=== PATIENT | male | born 1965 | race Caucasian/White ===

== ENCOUNTER 2017-06-18 13:59 | Inpatient (IN) | payer OTHER, BC ==
[~2017-06-18] VITALS: Ht 190.5 cm; Wt 114.1 kg
[~2017-06-18 13:59] MED LIST: ATOR-24 PO; FEXO1TAB46 PO; GLUCTAB7 PO; LISI20TA3 PO; METO-478 PO; MULTTAB PO; OMEP10CA2 PO; UBIQUINOL PO
--- NOTE | 2017-06-18 14:14 | EMERGENCY ROOM VISIT NOTE ---
History Report prepared by Williams: Cristopher Black Under the Supervision of: Dr. Ramu Ricks D.O. First contact with patient: 14:09 Chief Complaint: HYPOTENSION Stated Complaint: NEAR SYNCOPE History of Present Illness The patient is a 52 year old male who presents to the Emergency Room with complaints of constant weakness that began a week ago. He states that he had a laminectomy a week ago and was given Decadron for pain. The patient states that he was fine following his surgery and was tapering off Decadron. HE reports that a couple of days after his surgery, he started to experience hypotension. His states that he usually takes blood pressure medication, but reports he has not been taking his medication this week. She reports that he has been experiencing diaphoresis, shortness of breath, and syncopal episodes. The patient states that he went to his PCP Dr. Alatorre today where his blood pressure was 80/40. He reports that his PCP sent him to the ED. He denies chest pain, a history of clots in lungs of leg, black stools, bloody stools, and fevers. Source of History: patient Associated Symptoms: + diaphoresis, + SOB, No fevers, No chest pain, No melena, No hematochezia Review of Systems See HPI for pertinent positives & negatives. A total of 10 systems reviewed and were otherwise negative. Past Medical & Surgical Medical Problems: (1) Hyperlipidemia (2) Hypertension Surgical Problems: (1) H/O neck surgery (2) Previous back surgery (3) S/P appy Family History No pertinent family history Social History Smoking Status: Never Smoker Marital Status: in relationship Current/Historical Medications Scheduled Atorvastatin (Lipitor), 40 MG PO DAILY Calcium Citrate-Vitamin D (Citracal + D3 Maximum), 1 TAB PO HS Cetirizine Hcl (Zyrtec), 10 MG PO DAILY Coenzyme Q10 (Ubidecarenone) (Co Q10), 1 CAP PO DAILY Fish Oil (Oxford-3), 1 CAP PO DAILY Fluoxetine (Prozac), 10 MG PO DAILY Yzmmksphuii-Yesliuvfbnq-Jkm C- (Glucosamine Chondroitin), 1 TAB PO DAILY Lisinopril (Prinivil), 20 MG PO DAILY Magnesium Oxide (Mg Supplement (Magnesium Oxide), 400 MG PO HS Metoprolol Succ (Toprol Xl) (Toprol-Xl ), 100 MG PO DAILY Multivitamins/Minerals (Mvi With Minerals), 1 TAB PO DAILY Omeprazole (Prilosec), 1 CAP PO DAILY Polyethylene Glycol 3350 (Miralax), 17 GM PO DAILY Senna (Senokot), 1 TAB PO DAILY Sennosides-Docusate Sodium (Stool Softener), 1 TAB PO DAILY [tumeric], 500 MG PO DAILY Scheduled PRN Acetaminophen (Tylenol), 1,000 MG PO QAM PRN for Pain or Fever Methocarbamol (Robaxin), 1 TAB PO QID PRN for muscle spasms Allergies Coded Allergies: No Known Allergies (Unverified , 06/18/17) Physical Exam Vital Signs Date Time Temp Pulse Resp B/P (MAP) Pulse Ox O2 Delivery O2 Flow Rate FiO2 06/18/17 19:51 87 18 114/73 95 Room Air 06/18/17 19:40 88 120/68 91 108/71 100 84/56 06/18/17 18:47 86 18 107/70 96 Room Air 06/18/17 16:57 77 18 124/73 98 Room Air 06/18/17 15:43 84 16 101/64 96 Room Air 06/18/17 14:48 97 Room Air 06/18/17 14:17 86 06/18/17 14:07 36.8 90 18 115/75 96 Room Air Physical Exam GENERAL: Patient is awake, alert, and in no acute distress. Patient is resting comfortably and showing no signs of anxiety EYES: The conjunctivae are clear. The pupils are round and reactive. EARS, NOSE, MOUTH AND THROAT: The nose is without any evidence of any deformity. Mucous membranes are moist tongue is midline NECK: The neck is nontender and supple. RESPIRATORY: Normal respiratory effort is noted there is no evidence of wheezing rhonchi or rales CARDIOVASCULAR: Regular rate and rhythm noted there no murmurs rubs or gallops normal S1 normal S2 GASTROINTESTINAL: The abdomen is soft. Bowel sounds are present in all quadrants. Abdomen is nontender BACK: Recent surgical scare noted on lower lumbar spine. Ecchymosis noted. No warmth or erythema appreciated. No dehiscence or drainage. MUSCULOSKELETAL/EXTREMITIES: There is no evidence of gross deformity full range of motion is noted in the hips and shoulders SKIN: There is no obvious evidence of any rash. There are no petechiae, pallor or cyanosis noted. NEUROLOGIC: Patient is awake alert and oriented x3 strength is symmetric Medical Decision & Procedures ER Provider Diagnostic Interpretation: Radiology results as stated below per my review and radiologist interpretation: CHEST ONE VIEW PORTABLE CLINICAL HISTORY: Sepsis COMPARISON STUDY: 07/17/2014 FINDINGS: The cardiac and mediastinal contours are normal. There is no evidence of focal pulmonary consolidation. There is no evidence of failure. No pleural effusions are visualized.[ IMPRESSION: No active disease in the chest. Electronically signed by: Amado Mckeon M.D. 06/18/2017 2:38 PM Dictated Date/Time: 06/18/2017 2:[address] SCAN OF THE LUMBAR SPINE WITHOUT IV CONTRAST CLINICAL HISTORY: Hypotension. Reported history of recent surgery. COMPARISON STUDY: No priors. TECHNIQUE: CT scan of the lumbar spine is performed from the lower thoracic spine to the sacrum. Images are reviewed in the axial, sagittal, and coronal planes. IV contrast was not administered for this examination. A dose lowering technique was utilized adhering to the principles of ALARA. FINDINGS: The skeletal structures are well mineralized. There is a nondistracted acute spinous process fracture of L4, best seen on axial image #233. No additional acute fracture is identified. No lytic or blastic lesion is seen. There are changes of hemilaminectomy seen on the left at L4-L5. Vertebral body height and alignment are maintained throughout the lumbar spine. Tiny anterior osteophytes are seen throughout. There is no evidence of spondylolysis. The transverse processes are intact. A tiny hemangioma is seen in the body of T12. There is advanced disc space narrowing at L5-S1 with associated endplate sclerosis. The disc spaces are otherwise maintained. No large disc herniation is identified by CT. There is questionable hyperdense material within the anterior and left epidural space, seen at L4 at the laminectomy level (axial image #252). Postoperative change is seen in the left paraspinous musculature at the operative site. No organized fluid collection is identified. The paraspinous soft tissues are otherwise normal in appearance. There is moderate atherosclerotic calcification of the abdominal aorta. IMPRESSION: 1. There is an acute nondistracted spinous process fracture of L4. 2. No additional acute fracture is seen. 3. There are postoperative changes from L4 to L5 hemilaminectomy on the left. 4. Hyperdense material is suggested within the anterior and left lateral epidural space at the laminectomy level of L4. This may simply represent postoperative change. A small epidural hematoma would be impossible to exclude. This can be further assessed by MRI if clinically warranted. Dictated: 06/18/2017 3:22 PM Transcribed: 06/18/2017 3:51 PM AKASH_Mala Electronically signed by: Jermaine Aguilar M.D. 06/18/2017 4:00 PM Dictated Date/Time: 06/18/2017 3:22 PM HEAD WITHOUT CONTRAST (CT) CLINICAL HISTORY: 52 years-old Male with POON, near syncope. Acute headache with near syncopal event TECHNIQUE: Multiple axial CT images of the head were obtained without contrast. A dose lowering technique was utilized adhering to the principles of ALARA. CT DOSE: 1459.04 mGy.cm COMPARISON: None. FINDINGS: No acute intracranial hemorrhage, midline shift, intracranial mass, hydrocephalus, territorial ischemia or abnormal extra-axial collection. The calvarium is intact. The paranasal sinuses, mastoid air cells, and middle ear cavities are clear. IMPRESSION: No acute intracranial abnormality. The above report was generated using voice recognition software. It may contain grammatical, syntax or spelling errors. Electronically signed by: Bin Tomlin M.D. 06/18/2017 3:21 PM Dictated Date/Time: 06/18/2017 3:19 PM (CHEST FOR PE) ANGIO WITH CLINICAL HISTORY: 52 years-old Male presenting with ^Syncope, hypotension. TECHNIQUE: Multidetector CT angiography of the chest was performed after administration of intravenous contrast. 3-D volumetric and/or maximum intensity projection (MIP) images were subsequently reconstructed for review. IV contrast: 93 mL of Optiray 320. A dose lowering technique was used consistent with the principles of ALARA (as low as reasonably achievable). COMPARISON: 07/26/2014. CT DOSE (mGy.cm): The estimated cumulative dose is 620.84 mGy.cm. FINDINGS: [employer] topogram: Unremarkable. Pulmonary vasculature: The study is adequate for assessment of the pulmonary vascular tree. No filling defect within the pulmonary arteries to suggest embolus. Main pulmonary artery is not enlarged. No flattening of the interventricular septum. No intracardiac filling defect. No reflux of contrast into the hepatic veins. Remaining chest: On soft tissue windows, normal thyroid and thoracic inlet. No axillary, supraclavicular, hilar, or mediastinal lymphadenopathy. Normal aorta. Normal heart size. Coronary artery calcification. No pericardial or pleural effusion. Hepatic steatosis. On lung windows, extensive mosaic attenuation most pronounced at the lung bases. No other focal infiltrate or nodule. Airways patent. On bone windows, degenerative changes of the spine. Mild osteopenia. IMPRESSION: 1. No evidence of pulmonary embolus. 2. Extensive mosaic attenuation at the lung bases likely indicate small airways disease. Electronically signed by: Giuseppe Tomas M.D. 06/18/2017 4:35 PM Dictated Date/Time: 06/18/2017 4:31 PM LUMBAR SPINE COMBINATION CLINICAL HISTORY: 52 years-old Male presenting with recent surgery, hypotension, concern for epidural hematoma. TECHNIQUE: Multisequence, multiplanar MR imaging of the lumbar spine was performed before and after the administration of intravenous contrast. IV contrast: 11 mL of Gadavist. COMPARISON: CT performed earlier the same day. FINDINGS: Localizer images: Unremarkable. T1 hyperintense, T2 hyperintense, partially fat-containing lesion in the T12 vertebral body suggestive of a hemangioma. No bony edema at the site of suspected nondisplaced fracture of the L1 spinous process to corroborate the findings on CT. Normal lumbar lordosis. Vertebral bodies maintain normal height, alignment, bone marrow signal intensity. Intervertebral disc spaces demonstrate mild desiccation at L3-4 and L5-S1. No abnormal fluid signal intensity in the disks. Postsurgical changes at L4-5 with left hemilaminectomy of L4. Regional susceptibility artifact noted. A fluid collection is evident in the operative bed extending from the superficial subcutaneous tissue at the incision site into the hemilaminectomy to the epidural space. This results in mild effacement of the left posterior lateral thecal sac at the level of L4-5. No significant spinal canal stenosis. Spinal cord ends in good position above the level of L1. Cauda equina normal in morphology apart from thecal sac displacement as above. Facet arthropathy noted from L3-4 and L4-5. This results in mild bilateral neural foraminal narrowing at L3-4 and moderate right and severe left neural foraminal narrowing at L4-5. Posterior soft tissues demonstrate extensive edema likely postoperative changes. IMPRESSION: 1. Postsurgical changes of left hemilaminectomy at L4. A fluid collection in the operative bed extends from the superficial subcutaneous tissue to the hemilaminectomy and into the epidural space. This may represent a postsurgical seroma. Sterility cannot be confirmed. 2. Degenerative changes at L3-4 and L4-5 with mild bilateral neural foramina normal narrowing at L3-4 and moderate right and severe left neural foraminal narrowing at L4-5. 3. No bony edema evident in the spinous process of L1 to corroborate findings on CT of the nondisplaced fracture. Findings are equivocal for fracture. Electronically signed by: Giuseppe Tomas M.D. 06/18/2017 6:47 PM Dictated Date/Time: 06/18/2017 6:36 PM Laboratory Results Test 06/18/17 14:30 06/18/17 14:50 06/18/17 16:10 06/18/17 17:05 Immature Granulocyte % (Auto) 3.9 % White Blood Count 10.38 K/uL (4.8-10.8) Red Blood Count 4.72 M/uL (4.7-6.1) Hemoglobin 16.3 g/dL (14.0-18.0) Hematocrit 44.3 % (42-52) Mean Corpuscular Volume 93.9 fL (80-100) Mean Corpuscular Hemoglobin 34.5 pg (25-34) Mean Corpuscular Hemoglobin Concent 36.8 g/dl (32-36) Platelet Count 298 K/uL (130-400) Mean Platelet Volume 10.0 fL (7.4-10.4) Neutrophils (%) (Auto) 57.5 % Lymphocytes (%) (Auto) 24.7 % Monocytes (%) (Auto) 12.8 % Eosinophils (%) (Auto) 0.7 % Basophils (%) (Auto) 0.4 % Neutrophils # (Auto) 5.98 K/uL (1.4-6.5) Lymphocytes # (Auto) 2.56 K/uL (1.2-3.4) Monocytes # (Auto) 1.33 K/uL (0.11-0.59) Eosinophils # (Auto) 0.07 K/uL (0-0.5) Basophils # (Auto) 0.04 K/uL (0-0.2) Immature Granulocyte # (Auto) 0.40 K/uL (0.00-0.02) Erythrocyte Sedimentation Rate 40 mm/hr (0-14) Prothrombin Time 10.2 SECONDS (9.0-12.0) Prothromb Time International Ratio 1.0 (0.9-1.1) Activated Partial Thromboplast Time 27.1 SECONDS (21.0-31.0) Partial Thromboplastin Ratio 1.0 Magnesium Level 2.5 mg/dl (1.8-2.4) Total Bilirubin 0.7 mg/dl (0.2-1) Aspartate Amino Transf (AST/SGOT) 26 U/L (15-37) Alanine Aminotransferase (ALT/SGPT) 68 U/L (12-78) Alkaline Phosphatase 61 U/L (45-117) Total Creatine Kinase 67 U/L (39-308) Creatine Kinase MB 0.6 ng/ml (0.5-3.6) Creatine Kinase MB Ratio 0.9 (0-3.0) C-Reactive Protein 2.47 mg/dl (0-0.29) Total Protein 8.5 gm/dl (6.4-8.2) Albumin 4.1 gm/dl (3.4-5.0) Globulin 4.4 gm/dl (2.5-4.0) Albumin/Globulin Ratio 0.9 (0.9-2) Random Cortisol 14.77 mcg/dl Bedside Lactic Acid Venous 2.04 mmol/L (0.90-1.70) Urine Color DK YELLOW Urine Appearance CLOUDY (CLEAR) Urine pH 5.0 (4.5-7.5) Urine Specific Carter 1.016 (1.000-1.030) Urine Protein 1+ (NEG) Urine Glucose (UA) NEG (NEG) Urine Ketones NEG (NEG) Urine Occult Blood NEG (NEG) Urine Nitrite NEG (NEG) Urine Bilirubin NEG (NEG) Urine Urobilinogen NEG (NEG) Urine Leukocyte Esterase TRACE (NEG) Urine WBC (Auto) 1-5 /hpf (0-5) Urine RBC (Auto) 0-4 /hpf (0-4) Urine Hyaline Casts (Auto) 10-30 /lpf (0-5) Urine Epithelial Cells (Auto) 20-30 /lpf (0-5) Urine Bacteria (Auto) NEG (NEG) Urine Pathogenic Casts 0-3 GRANULAR CASTS /lpf (0) Influenza Type A Antigen Neg for Influ A (NEG) Influenza Type B Antigen Neg for Influ B (NEG) Laboratory results per my review. Medications Administered Medications (Trade) Dose Ordered Sig/Reza Route Start Time Stop Time Status Last Admin Dose Admin Sodium Chloride 1,000 ml @ 999 mls/hr Q1H1M ONCE IV 06/18/17 14:21 06/18/17 15:21 DC 06/18/17 15:44 999 MLS/HR Sodium Chloride 1,000 ml @ 999 mls/hr Q1H1M STAT IV 06/18/17 16:07 06/18/17 17:07 DC 06/18/17 16:55 999 MLS/HR Sodium Chloride 1,000 ml @ 250 mls/hr Q4H STAT IV 06/18/17 19:41 06/18/17 22:25 DC 06/18/17 21:33 250 MLS/HR ECG Indication: weakness Rate (beats per minute): 91 Rhythm: normal sinus Findings: ST depression (Lateral, inferior), no ectopy Comparison ECG Date: 07/18/15 Change: Findings are new Patient's EKG was interpreted by me. ED Course 1415: The patient was evaluated in room C08. A complete history and physical examination were performed. 1421: Ordered Sodium Chloride 1000 ml @ 999 mls/hr IV. 1607: Ordered Sodium Chloride 1000 ml @ 999 mls/hr IV. 1656: Ordered Vancomycin HCl 2000 mg/Sodium Chloride 540 ml @ 200 mls/hr IV, Rocephin Injection 1 gm IV. 1845: Ordered Gadobutrol 11 mmol IV. 1908: [facility] I discussed the MRI report with him and he believes the patient does not require transfer at this time. HE reports if anticoagulation is required, he feels it would be fine. 8: I reevaluated the patient and updated him on his results. He understands and agrees to the treatment plan. The patient will be further evaluated. 1924: I discussed the patients case with Dr. Prince, [facility] Hospitalist. He understands the patients condition and agrees to accept the patient. The patient will be further evaluated. Medical Decision Prior records/ancillary studies reviewed and summarized above. Nursing notes reviewed. Differential diagnosis: Etiologies such as metabolic, infection, hypo/hyperglycemia, electrolyte abnormalities, cardiac sources, intracerebral event, toxicologic, neurologic, as well as others were entertained. The patient is a 52-year-old male who is one-week status post lumbar spine laminectomy. The patient presented to the emergency department today because he was not feeling well. His significant other who is a nurse states that he has been feeling ill over the last few days. He went to see his primary care physician today and was found to have hypotension in the office and was sent to the emergency department for further evaluation. The patient was very well- appearing and did not appear to be in distress but had significant hypotension as well as orthostasis. The patient had hyponatremia. His oxygen saturation was acceptable but given his near syncope hypotension as well as his recent surgery I thought his condition could be consistent with a pulmonary embolism. The patient initially had a CT of the head as well as lumbar spine. He did not have any acute abnormality on CT the head. He was found to have an area of possible fluid around the postoperative site which would be expected but they thought could be consistent with hematoma. For this reason an MRI was obtained. A CT the chest was also obtained but did not show any definite signs of pneumonia or pulmonary embolism but did show lower airway disease. The patient was ordered IV fluids. He was also ordered IV antibiotics. His significant other initially did not want him to receive antibiotics. I discussed that because he was hypotensive without a definite source antibiotics would be recommended but I left this up to the patient as well as his significant other. The patient was found to have vague abnormalities on his EKG and a troponin that was not above the threshold for abnormality but was detectable. Certainly the patient should require further workup. I discussed his case with his primary neurosurgeon at [facility]. At this time he does not feel the patient requires transfer to their facility and at this time I agree with that. I discussed his case with the on-call [facility] hospitalist group. They have agreed to evaluate the patient in the emergency department for further management and disposition. Medication Reconcilliation Current Medication List: was personally reviewed by me Blood Pressure Screening Patient's blood pressure: Normal blood pressure Consults Time Called: 1907 Consulting Physician: Dr. Bello, [facility] Returned Call: 1907 I discussed the patients case with Dr. Bello, [facility]. I discussed the MRI report with him and he believes the patient does not require transfer at this time. HE reports if anticoagulation is required, he feels it would be fine. Additional Consults: Time Called: 1924 Consulted Physician: [facility] Hospital[facility] Returned Call: 1924 Additional Comments: I discussed the patients case with [facility] Hospitalist. He understands the patients condition and agrees to accept the patient. The patient will be further evaluated. Impression Primary Impression: Hypotension Additional Impressions: Hyponatremia Generalized weakness Near syncope Abnormal EKG Scribe Attestation The scribe's documentation has been prepared under my direction and personally reviewed by me in its entirety. I confirm that the note above accurately reflects all work, treatment, procedures, and medical decision making performed by me. Departure Information Dispostion Being Evaluated By Hospitalist Referrals Kristy Fonseca D.O. (PCP) Patient Instructions My [facility] Problem Qualifiers Primary Impression: Hypotension Hypotension type: unspecified hypotension type Qualified Codes: I95.9 - Hypotension, unspecified
[2017-06-18] MEDS ORDERED: SODIUM CHLORIDE 0.9% 1000ML 1,000 ML IV ONE (14:21)
--- NOTE | 2017-06-18 14:39 | DIAGNOSTIC IMAGING REPORT ---
CHEST ONE VIEW PORTABLE CLINICAL HISTORY: Sepsis COMPARISON STUDY: 07/17/2014 FINDINGS: The cardiac and mediastinal contours are normal. There is no evidence of focal pulmonary consolidation. There is no evidence of failure. No pleural effusions are visualized.[ IMPRESSION: No active disease in the chest. Electronically signed by: Amado Mckeon M.D. 06/18/2017 2:38 PM Dictated Date/Time: 06/18/2017 2:38 PM
[2017-06-18 14:47] LABS: BASO % 0.4 %; BASO ABS # 0.04 K/uL (0-0.2); EOS % 0.7 %; EOS ABS # 0.07 K/uL (0-0.5); HEMATOCRIT 44.3 % (42-52); HEMOGLOBIN 16.3 g/dL (14.0-18.0); LYMPH % 24.7 %; LYMPH ABS # 2.56 K/uL (1.2-3.4); MEAN CELL VOLUME 93.9 fL (80-100); MEAN CORPUSCULAR HEMOGLOBIN 34.5 pg (25-34); MEAN CORPUSCULAR HGB CONC 36.8 g/dl (32-36); MONO % 12.8 %; MONO ABS # 1.33 K/uL (0.11-0.59); NEUT % 57.5 %; NEUT ABS # 5.98 K/uL (1.4-6.5); PLATELET COUNT 298 K/uL (130-400); RED CELL DISTRIBUTION WIDTH CV 12.4 % (11.5-14.5); RED CELL DISTRIBUTION WIDTH SD 42.9 fL (36.4-46.3); WHITE BLOOD COUNT 10.38 K/uL (4.8-10.8)
[2017-06-18 14:55] LABS: PTT PATIENT 27.1 SECONDS (21.0-31.0)
[2017-06-18 15:05] LABS: ALBUMIN 4.1 gm/dl (3.4-5.0); CALCIUM 10.3 mg/dl (8.5-10.1); CREATININE 1.28 mg/dl (0.60-1.40)
[2017-06-18] MEDS ORDERED: CETI10TA10 PO (15:07)
[2017-06-18] MEDS ORDERED: METO100T44 PO (15:09)
[2017-06-18] MEDS ORDERED: OMEP10CA4 PO (15:10)
[2017-06-18 15:12] LABS: CKMB 0.6 ng/ml (0.5-3.6); TOTAL PROTEIN 8.5 gm/dl (6.4-8.2)
[2017-06-18] MEDS ORDERED: COEN1CAP PO (15:12)
[2017-06-18] MEDS ORDERED: OMEG10007 PO (15:14)
[2017-06-18] MEDS ORDERED: CALC1TAB9 PO (15:14)
[2017-06-18] MEDS ORDERED: ACET-1256 PO (15:15)
[2017-06-18] MEDS ORDERED: SENN-61 PO (15:17)
[2017-06-18] MEDS ORDERED: SENNTAB23 PO (15:17)
[2017-06-18] MEDS ORDERED: POLY335019 PO (15:17)
--- NOTE | 2017-06-18 15:22 | DIAGNOSTIC IMAGING REPORT ---
HEAD WITHOUT CONTRAST (CT) CLINICAL HISTORY: 52 years-old Male with PONO, near syncope. Acute headache with near syncopal event TECHNIQUE: Multiple axial CT images of the head were obtained without contrast. A dose lowering technique was utilized adhering to the principles of ALARA. CT DOSE: 1459.04 mGy.cm COMPARISON: None. FINDINGS: No acute intracranial hemorrhage, midline shift, intracranial mass, hydrocephalus, territorial ischemia or abnormal extra-axial collection. The calvarium is intact. The paranasal sinuses, mastoid air cells, and middle ear cavities are clear. IMPRESSION: No acute intracranial abnormality. The above report was generated using voice recognition software. It may contain grammatical, syntax or spelling errors. Electronically signed by: Bin Tomlin M.D. 06/18/2017 3:21 PM Dictated Date/Time: 06/18/2017 3:19 PM
--- NOTE | 2017-06-18 15:52 | DIAGNOSTIC IMAGING REPORT ---
CT SCAN OF THE LUMBAR SPINE WITHOUT IV CONTRAST CLINICAL HISTORY: Hypotension. Reported history of recent surgery. COMPARISON STUDY: No priors. TECHNIQUE: CT scan of the lumbar spine is performed from the lower thoracic spine to the sacrum. Images are reviewed in the axial, sagittal, and coronal planes. IV contrast was not administered for this examination. A dose lowering technique was utilized adhering to the principles of ALARA. FINDINGS: The skeletal structures are well mineralized. There is a nondistracted acute spinous process fracture of L4, best seen on axial image #233. No additional acute fracture is identified. No lytic or blastic lesion is seen. There are changes of hemilaminectomy seen on the left at L4-L5. Vertebral body height and alignment are maintained throughout the lumbar spine. Tiny anterior osteophytes are seen throughout. There is no evidence of spondylolysis. The transverse processes are intact. A tiny hemangioma is seen in the body of T12. There is advanced disc space narrowing at L5-S1 with associated endplate sclerosis. The disc spaces are otherwise maintained. No large disc herniation is identified by CT. There is questionable hyperdense material within the anterior and left epidural space, seen at L4 at the laminectomy level (axial image #252). Postoperative change is seen in the left paraspinous musculature at the operative site. No organized fluid collection is identified. The paraspinous soft tissues are otherwise normal in appearance. There is moderate atherosclerotic calcification of the abdominal aorta. IMPRESSION: 1. There is an acute nondistracted spinous process fracture of L4. 2. No additional acute fracture is seen. 3. There are postoperative changes from L4 to L5 hemilaminectomy on the left. 4. Hyperdense material is suggested within the anterior and left lateral epidural space at the laminectomy level of L4. This may simply represent postoperative change. A small epidural hematoma would be impossible to exclude. This can be further assessed by MRI if clinically warranted. Dictated: 06/18/2017 3:22 PM Transcribed: 06/18/2017 3:51 PM AKASH_Mala Electronically signed by: Jermaine Aguilar M.D. 06/18/2017 4:00 PM Dictated Date/Time: 06/18/2017 3:22 PM
[2017-06-18] MEDS ORDERED: SODIUM CHLORIDE 0.9% 1000ML 1,000 ML IV STA ×2 (16:07→19:41)
[2017-06-18] MEDS ORDERED: OPTIRAY 320 IV PRN (16:15)
--- NOTE | 2017-06-18 16:37 | DIAGNOSTIC IMAGING REPORT ---
(CHEST FOR PE) ANGIO WITH CLINICAL HISTORY: 52 years-old Male presenting with ^Syncope, hypotension. TECHNIQUE: Multidetector CT angiography of the chest was performed after administration of intravenous contrast. 3-D volumetric and/or maximum intensity projection (MIP) images were subsequently reconstructed for review. IV contrast: 93 mL of Optiray 320. A dose lowering technique was used consistent with the principles of ALARA (as low as reasonably achievable). COMPARISON: 07/26/2014. CT DOSE (mGy.cm): The estimated cumulative dose is 620.84 mGy.cm. FINDINGS: Guide Excursion topogram: Unremarkable. Pulmonary vasculature: The study is adequate for assessment of the pulmonary vascular tree. No filling defect within the pulmonary arteries to suggest embolus. Main pulmonary artery is not enlarged. No flattening of the interventricular septum. No intracardiac filling defect. No reflux of contrast into the hepatic veins. Remaining chest: On soft tissue windows, normal thyroid and thoracic inlet. No axillary, supraclavicular, hilar, or mediastinal lymphadenopathy. Normal aorta. Normal heart size. Coronary artery calcification. No pericardial or pleural effusion. Hepatic steatosis. On lung windows, extensive mosaic attenuation most pronounced at the lung bases. No other focal infiltrate or nodule. Airways patent. On bone windows, degenerative changes of the spine. Mild osteopenia. IMPRESSION: 1. No evidence of pulmonary embolus. 2. Extensive mosaic attenuation at the lung bases likely indicate small airways disease. Electronically signed by: Giuseppe Tomas M.D. 06/18/2017 4:35 PM Dictated Date/Time: 06/18/2017 4:31 PM
[2017-06-18] MEDS ORDERED: VANCOMYCIN INJ 2,000 MG in SODIUM CHLORIDE 0.9% 500ML 500 ML IV STA (16:56)
[2017-06-18] MEDS ORDERED: CEFTRIAXONE SOD INJ 1 GM ADDVIAL IV STA (16:56)
[2017-06-18] MEDS ORDERED: VANCOMYCIN CONSULT ACTIVE PRN (17:00)
[2017-06-18 17:41] LABS: INFLUENZA B ANTIGEN Neg for Influ B (NEG)
[2017-06-18] MEDS ORDERED: GADAVIST IV PRN (18:45)
--- NOTE | 2017-06-18 18:48 | DIAGNOSTIC IMAGING REPORT ---
LUMBAR SPINE COMBINATION CLINICAL HISTORY: 52 years-old Male presenting with recent surgery, hypotension, concern for epidural hematoma. TECHNIQUE: Multisequence, multiplanar MR imaging of the lumbar spine was performed before and after the administration of intravenous contrast. IV contrast: 11 mL of Gadavist. COMPARISON: CT performed earlier the same day. FINDINGS: Localizer images: Unremarkable. T1 hyperintense, T2 hyperintense, partially fat-containing lesion in the T12 vertebral body suggestive of a hemangioma. No bony edema at the site of suspected nondisplaced fracture of the L1 spinous process to corroborate the findings on CT. Normal lumbar lordosis. Vertebral bodies maintain normal height, alignment, bone marrow signal intensity. Intervertebral disc spaces demonstrate mild desiccation at L3-4 and L5-S1. No abnormal fluid signal intensity in the disks. Postsurgical changes at L4-5 with left hemilaminectomy of L4. Regional susceptibility artifact noted. A fluid collection is evident in the operative bed extending from the superficial subcutaneous tissue at the incision site into the hemilaminectomy to the epidural space. This results in mild effacement of the left posterior lateral thecal sac at the level of L4-5. No significant spinal canal stenosis. Spinal cord ends in good position above the level of L1. Cauda equina normal in morphology apart from thecal sac displacement as above. Facet arthropathy noted from L3-4 and L4-5. This results in mild bilateral neural foraminal narrowing at L3-4 and moderate right and severe left neural foraminal narrowing at L4-5. Posterior soft tissues demonstrate extensive edema likely postoperative changes. IMPRESSION: 1. Postsurgical changes of left hemilaminectomy at L4. A fluid collection in the operative bed extends from the superficial subcutaneous tissue to the hemilaminectomy and into the epidural space. This may represent a postsurgical seroma. Sterility cannot be confirmed. 2. Degenerative changes at L3-4 and L4-5 with mild bilateral neural foramina normal narrowing at L3-4 and moderate right and severe left neural foraminal narrowing at L4-5. 3. No bony edema evident in the spinous process of L1 to corroborate findings on CT of the nondisplaced fracture. Findings are equivocal for fracture. Electronically signed by: Giuseppe Tomas M.D. 06/18/2017 6:47 PM Dictated Date/Time: 06/18/2017 6:36 PM
[2017-06-18] MEDS ORDERED: OMEP20CA9 PO (20:58)
[2017-06-18] MEDS ORDERED: ONDANSETRON INJ 2 MG/ML 2 ML VIAL IV PRN (21:00)
[2017-06-18] MEDS ORDERED: OXYCODONE/ACETAMINOPHEN 7.5-325 TAB PO PRN (21:00)
[2017-06-18] MEDS ORDERED: POLYETHYLENE (MIRALAX) 17 GM PACK PO PRN (21:00)
[2017-06-18] MEDS ORDERED: tumeric PO (21:01)
[2017-06-18] MEDS ORDERED: FLUO10CA48 PO (21:01)
[2017-06-18] MEDS ORDERED: MAGN1TAB19 PO (21:01)
[2017-06-18] MEDS ORDERED: METH500T PO (21:01)
--- NOTE | 2017-06-18 21:15 | History and Physical ---
History & Physical Date & Time of Service: Jun 18, 2017 at 21:01 Chief Complaint: Near Syncope Primary Care Physician: Kristy Fonseca D.O. History of Present Illness Source: patient, spouse, clinic records, hospital records 52 yo M presents with persistent hypotension, LLE numbness, foot drop and difficulty ambulating and episodes of diaphoresis post-operatively since undergoing a lumbar hemilaminectomy last week at [facility]. He reports lifting a tractor at work last week and developed a traumatic herniated disc requiring the surgery. His post-operative course included discharge to home the day after surgery, persistent hypotension, weakness, mental fog, syncopal episodes and LLE foot drop with difficulty ambulating. These symptoms seem to be getting worse in the last couple of days and none were present pre- operatively. Back pain is minimal and there has been no drainage from the surgical site, no fevers, or chills (although he does admit to feeling cold). He denies any sick contacts, has been tolerating PO, had some constipation from the narcotics which he is no longer taking and constipation has resolved. He denies any cough, sore throat or other flu-like symptoms, denies chest pain, shortness of breath, abdominal pain, urinary symptoms. He can walk but has difficulty with proprioception of his L foot related to his numbness which extends up the lateral side of the leg to the knee. Entire foot is numb on the left and there is sparing of numbness on the medial lower leg. He notably had saddle anesthesia prior to the procedure which is now gone. He is mentating well and is non-toxic appearing. He does have a h/o lower back laminectomies in the past and a neck fusion. He denies any issues with syncope in the past and has no heart disease. He reports not taking his Toprol or Lisinopril this week because his BP was too low. 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 Past Medical/Surgical History Medical Problems: (1) Hyperlipidemia Status: Chronic (2) Hypertension Status: Chronic Surgical Problems: (1) H/O neck surgery Status: Chronic (2) Previous back surgery Status: Chronic (3) S/P appy Status: Chronic Family History No pertinent family history Social History Smoking Status: Never Smoker Smokeless Tobacco Use: No Alcohol Use: heavy (h/o heavy use 6-8 shots nightly, quit two weeks ago) Drug Use: none Marital Status: , in relationship Housing status: lives with significant other Occupational Status: employed Immunizations History of Influenza Vaccine: Yes Influenza Vaccine Date: Feb 24, 2017 History of Tetanus Vaccine?: Yes Tetanus Immunization Date: May 31, 2014 History of Pneumococcal: Unknown History of Hepatitis B Vaccine: Unknown Multi-Drug Resistant Organisms History of MDRO: No Allergies Coded Allergies: No Known Allergies (Unverified , 06/18/17) Home Medications Scheduled Atorvastatin (Lipitor), 40 MG PO DAILY Calcium Citrate-Vitamin D (Citracal + D3 Maximum), 1 TAB PO HS Cetirizine Hcl (Zyrtec), 10 MG PO DAILY Coenzyme Q10 (Ubidecarenone) (Co Q10), 1 CAP PO DAILY Fish Oil (Imperial-3), 1 CAP PO DAILY Fluoxetine (Prozac), 10 MG PO DAILY Iymkkwniezb-Jjvlolsbjdo-Lay C- (Glucosamine Chondroitin), 1 TAB PO DAILY Lisinopril (Prinivil), 20 MG PO DAILY Magnesium Oxide (Mg Supplement (Magnesium Oxide), 400 MG PO HS Metoprolol Succ (Toprol Xl) (Toprol-Xl ), 100 MG PO DAILY Multivitamins/Minerals (Mvi With Minerals), 1 TAB PO DAILY Omeprazole (Prilosec), 1 CAP PO DAILY Polyethylene Glycol 3350 (Miralax), 17 GM PO DAILY Senna (Senokot), 1 TAB PO DAILY Sennosides-Docusate Sodium (Stool Softener), 1 TAB PO DAILY [tumeric], 500 MG PO DAILY Scheduled PRN Acetaminophen (Tylenol), 1,000 MG PO QAM PRN for Pain or Fever Methocarbamol (Robaxin), 1 TAB PO QID PRN for muscle spasms Review of Systems At least ten systems were reviewed and negative except as indicated in HPI above. Physical Exam Vital Signs Date Time Temp Pulse Resp B/P (MAP) Pulse Ox O2 Delivery O2 Flow Rate FiO2 06/18/17 19:51 87 18 114/73 95 Room Air 06/18/17 19:40 88 120/68 91 108/71 100 84/56 06/18/17 18:47 86 18 107/70 96 Room Air 06/18/17 16:57 77 18 124/73 98 Room Air 06/18/17 15:43 84 16 101/64 96 Room Air 06/18/17 14:48 97 Room Air 06/18/17 14:17 86 06/18/17 14:07 36.8 90 18 115/75 96 Room Air General Appearance: WD/WN, no apparent distress Head: normocephalic, atraumatic Eyes: PERRL, sclerae normal, + pertinent finding (MMM) ENT: normal ENT inspection, hearing grossly normal, TMs normal, pharynx normal , + pertinent finding (no sinus TTP) Neck: supple, no adenopathy, trachea midline Respiratory/Chest: lungs clear, normal breath sounds, no respiratory distress, no accessory muscle use Cardiovascular: regular rate, rhythm, no edema, no gallop, no JVD, no murmur, normal peripheral pulses Abdomen/GI: normal bowel sounds, non tender, soft, no organomegaly Back: normal inspection, + pertinent finding (small vertical lumbar incision with no peripheral erythema or pain, incision is closed without drainage, healing well) Extremities/Musculoskelatal: normal inspection, no calf tenderness, normal capillary refill, no pedal edema, non-tender 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, alert, normal mood/affect, normal reflexes, oriented x 3, + motor weakness (L foot drop and ambulatory dysfunction as a result.), + sensory deficit (medial lateral L leg and entire foot with loss of sensation) Skin: normal color, warm/dry, + pertinent finding (wound as above) Diagnostics Laboratory Results 06/19/17 03:01 06/19/17 03:01 Test 06/18/17 14:30 06/18/17 14:50 06/18/17 16:10 06/18/17 17:05 Immature Granulocyte % (Auto) 3.9 % White Blood Count 10.38 K/uL (4.8-10.8) Red Blood Count 4.72 M/uL (4.7-6.1) Hemoglobin 16.3 g/dL (14.0-18.0) Hematocrit 44.3 % (42-52) Mean Corpuscular Volume 93.9 fL (80-100) Mean Corpuscular Hemoglobin 34.5 pg (25-34) Mean Corpuscular Hemoglobin Concent 36.8 g/dl (32-36) Platelet Count 298 K/uL (130-400) Mean Platelet Volume 10.0 fL (7.4-10.4) Neutrophils (%) (Auto) 57.5 % Lymphocytes (%) (Auto) 24.7 % Monocytes (%) (Auto) 12.8 % Eosinophils (%) (Auto) 0.7 % Basophils (%) (Auto) 0.4 % Neutrophils # (Auto) 5.98 K/uL (1.4-6.5) Lymphocytes # (Auto) 2.56 K/uL (1.2-3.4) Monocytes # (Auto) 1.33 K/uL (0.11-0.59) Eosinophils # (Auto) 0.07 K/uL (0-0.5) Basophils # (Auto) 0.04 K/uL (0-0.2) Immature Granulocyte # (Auto) 0.40 K/uL (0.00-0.02) Erythrocyte Sedimentation Rate 40 mm/hr (0-14) Prothrombin Time 10.2 SECONDS (9.0-12.0) Prothromb Time International Ratio 1.0 (0.9-1.1) Activated Partial Thromboplast Time 27.1 SECONDS (21.0-31.0) Partial Thromboplastin Ratio 1.0 Magnesium Level 2.5 mg/dl (1.8-2.4) Total Bilirubin 0.7 mg/dl (0.2-1) Aspartate Amino Transf (AST/SGOT) 26 U/L (15-37) Alanine Aminotransferase (ALT/SGPT) 68 U/L (12-78) Alkaline Phosphatase 61 U/L (45-117) Total Creatine Kinase 67 U/L (39-308) Creatine Kinase MB 0.6 ng/ml (0.5-3.6) Creatine Kinase MB Ratio 0.9 (0-3.0) C-Reactive Protein 2.47 mg/dl (0-0.29) Total Protein 8.5 gm/dl (6.4-8.2) Albumin 4.1 gm/dl (3.4-5.0) Globulin 4.4 gm/dl (2.5-4.0) Albumin/Globulin Ratio 0.9 (0.9-2) Random Cortisol 14.77 mcg/dl Bedside Lactic Acid Venous 2.04 mmol/L (0.90-1.70) Urine Color DK YELLOW Urine Appearance CLOUDY (CLEAR) Urine pH 5.0 (4.5-7.5) Urine Specific [place] 1.016 (1.000-1.030) Urine Protein 1+ (NEG) Urine Glucose (UA) NEG (NEG) Urine Ketones NEG (NEG) Urine Occult Blood NEG (NEG) Urine Nitrite NEG (NEG) Urine Bilirubin NEG (NEG) Urine Urobilinogen NEG (NEG) Urine Leukocyte Esterase TRACE (NEG) Urine WBC (Auto) 1-5 /hpf (0-5) Urine RBC (Auto) 0-4 /hpf (0-4) Urine Hyaline Casts (Auto) 10-30 /lpf (0-5) Urine Epithelial Cells (Auto) 20-30 /lpf (0-5) Urine Bacteria (Auto) NEG (NEG) Urine Pathogenic Casts 0-3 GRANULAR CASTS /lpf (0) Influenza Type A Antigen Neg for Influ A (NEG) Influenza Type B Antigen Neg for Influ B (NEG) Test 06/18/17 21:05 06/18/17 23:10 06/19/17 03:01 Osmolality 280 mOsm/kg (280-300) Troponin I 0.028 ng/ml (0-0.045) Urine Osmolality 286 mOms/kg (500-800) Red Blood Count 4.03 M/uL (4.7-6.1) Mean Corpuscular Volume 93.8 fL (80-100) Mean Corpuscular Hemoglobin 33.0 pg (25-34) Mean Corpuscular Hemoglobin Concent 35.2 g/dl (32-36) RDW Standard Deviation 42.7 fL (36.4-46.3) RDW Coefficient of Variation 12.6 % (11.5-14.5) Mean Platelet Volume 9.8 fL (7.4-10.4) Anion Gap 7.0 mmol/L (3-11) Est Creatinine Clear Calc Drug Dose 142.0 ml/min Estimated GFR () 115.6 Estimated GFR (Non- 99.8 BUN/Creatinine Ratio 19.4 (10-20) Lactic Acid Level 1.2 mmol/L (0.4-2.0) Calcium Level 9.3 mg/dl (8.5-10.1) Lipase 526 U/L (73-393) Date/Time Source Procedure Growth Status 06/18/17 14:40 Blood Blood Culture Pending Received Results Past 24 Hours Test 06/18/17 14:30 06/18/17 14:50 06/18/17 16:10 06/18/17 17:05 Range/Units White Blood Count 10.38 4.8-10.8 K/uL Red Blood Count 4.72 4.7-6.1 M/uL Hemoglobin 16.3 14.0-18.0 g/dL Hematocrit 44.3 42-52 % Mean Corpuscular Volume 93.9 80-100 fL Mean Corpuscular Hemoglobin 34.5 25-34 pg Mean Corpuscular Hemoglobin Concent 36.8 32-36 g/dl Platelet Count 298 130-400 K/uL Mean Platelet Volume 10.0 7.4-10.4 fL Neutrophils (%) (Auto) 57.5 % Lymphocytes (%) (Auto) 24.7 % Monocytes (%) (Auto) 12.8 % Eosinophils (%) (Auto) 0.7 % Basophils (%) (Auto) 0.4 % Neutrophils # (Auto) 5.98 1.4-6.5 K/uL Lymphocytes # (Auto) 2.56 1.2-3.4 K/uL Monocytes # (Auto) 1.33 0.11-0.59 K/uL Eosinophils # (Auto) 0.07 0-0.5 K/uL Basophils # (Auto) 0.04 0-0.2 K/uL RDW Standard Deviation 42.9 36.4-46.3 fL RDW Coefficient of Variation 12.4 11.5-14.5 % Immature Granulocyte % (Auto) 3.9 % Immature Granulocyte # (Auto) 0.40 0.00-0.02 K/uL Erythrocyte Sedimentation Rate 40 0-14 mm/hr Prothrombin Time 10.2 9.0-12.0 SECONDS Prothromb Time International Ratio 1.0 0.9-1.1 Activated Partial Thromboplast Time 27.1 21.0-31.0 SECONDS Partial Thromboplastin Ratio 1.0 Sodium Level 128 136-145 mmol/L Potassium Level 5.0 3.5-5.1 mmol/L Chloride Level 95 98-107 mmol/L Carbon Dioxide Level 28 21-32 mmol/L Anion Gap 5.0 3-11 mmol/L Blood Urea Nitrogen 19 7-18 mg/dl Creatinine 1.28 0.60-1.40 mg/dl Est Creatinine Clear Calc Drug Dose 88.6 ml/min Estimated GFR () 73.1 Estimated GFR (Non- 63.0 BUN/Creatinine Ratio 15.2 10-20 Random Glucose 105 70-99 mg/dl Calcium Level 10.3 8.5-10.1 mg/dl Magnesium Level 2.5 1.8-2.4 mg/dl Total Bilirubin 0.7 0.2-1 mg/dl Aspartate Amino Transf (AST/SGOT) 26 15-37 U/L Alanine Aminotransferase (ALT/SGPT) 68 12-78 U/L Alkaline Phosphatase 61 45-117 U/L Total Creatine Kinase 67 39-308 U/L Creatine Kinase MB 0.6 0.5-3.6 ng/ml Creatine Kinase MB Ratio 0.9 0-3.0 Troponin I 0.015 0-0.045 ng/ml C-Reactive Protein 2.47 0-0.29 mg/dl Total Protein 8.5 6.4-8.2 gm/dl Albumin 4.1 3.4-5.0 gm/dl Globulin 4.4 2.5-4.0 gm/dl Albumin/Globulin Ratio 0.9 0.9-2 Lipase 742 73-393 U/L Random Cortisol 14.77 mcg/dl Bedside Lactic Acid Venous 2.04 0.90-1.70 mmol/L Urine Color DK YELLOW Urine Appearance CLOUDY CLEAR Urine pH 5.0 4.5-7.5 Urine Specific [place] 1.016 1.000-1.030 Urine Protein 1+ NEG Urine Glucose (UA) NEG NEG Urine Ketones NEG NEG Urine Occult Blood NEG NEG Urine Nitrite NEG NEG Urine Bilirubin NEG NEG Urine Urobilinogen NEG NEG Urine Leukocyte Esterase TRACE NEG Urine WBC (Auto) 1-5 0-5 /hpf Urine RBC (Auto) 0-4 0-4 /hpf Urine Hyaline Casts (Auto) 10-30 0-5 /lpf Urine Epithelial Cells (Auto) 20-30 0-5 /lpf Urine Bacteria (Auto) NEG NEG Urine Pathogenic Casts 0-3 GRANULAR CASTS 0 /lpf Influenza Type A Antigen Neg for Influ A NEG Influenza Type B Antigen Neg for Influ B NEG Test 06/18/17 20:49 Range/Units Microbiology Results 06/18/17 Blood Culture, Received Pending 06/18/17 Blood Culture, Received Pending Diagnostic Radiology LUMBAR SPINE COMBINATION CLINICAL HISTORY: 52 years-old Male presenting with recent surgery, hypotension, concern for epidural hematoma. TECHNIQUE: Multisequence, multiplanar MR imaging of the lumbar spine was performed before and after the administration of intravenous contrast. IV contrast: 11 mL of Gadavist. COMPARISON: CT performed earlier the same day. FINDINGS: Localizer images: Unremarkable. T1 hyperintense, T2 hyperintense, partially fat-containing lesion in the T12 vertebral body suggestive of a hemangioma. No bony edema at the site of suspected nondisplaced fracture of the L1 spinous process to corroborate the findings on CT. Normal lumbar lordosis. Vertebral bodies maintain normal height, alignment, bone marrow signal intensity. Intervertebral disc spaces demonstrate mild desiccation at L3-4 and L5-S1. No abnormal fluid signal intensity in the disks. Postsurgical changes at L4-5 with left hemilaminectomy of L4. Regional susceptibility artifact noted. A fluid collection is evident in the operative bed extending from the superficial subcutaneous tissue at the incision site into the hemilaminectomy to the epidural space. This results in mild effacement of the left posterior lateral thecal sac at the level of L4-5. No significant spinal canal stenosis. Spinal cord ends in good position above the level of L1. Cauda equina normal in morphology apart from thecal sac displacement as above. Facet arthropathy noted from L3-4 and L4-5. This results in mild bilateral neural foraminal narrowing at L3-4 and moderate right and severe left neural foraminal narrowing at L4-5. Posterior soft tissues demonstrate extensive edema likely postoperative changes. IMPRESSION: 1. Postsurgical changes of left hemilaminectomy at L4. A fluid collection in the operative bed extends from the superficial subcutaneous tissue to the hemilaminectomy and into the epidural space. This may represent a postsurgical seroma. Sterility cannot be confirmed. 2. Degenerative changes at L3-4 and L4-5 with mild bilateral neural foramina normal narrowing at L3-4 and moderate right and severe left neural foraminal narrowing at L4-5. 3. No bony edema evident in the spinous process of L1 to corroborate findings on CT of the nondisplaced fracture. Findings are equivocal for fracture. (CHEST FOR PE) ANGIO WITH CLINICAL HISTORY: 52 years-old Male presenting with ^Syncope, hypotension. TECHNIQUE: Multidetector CT angiography of the chest was performed after administration of intravenous contrast. 3-D volumetric and/or maximum intensity projection (MIP) images were subsequently reconstructed for review. IV contrast: 93 mL of Optiray 320. A dose lowering technique was used consistent with the principles of ALARA (as low as reasonably achievable). COMPARISON: 07/26/2014. CT DOSE (mGy.cm): The estimated cumulative dose is 620.84 mGy.cm. 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 Pulmonary vasculature: The study is adequate for assessment of the pulmonary vascular tree. No filling defect within the pulmonary arteries to suggest embolus. Main pulmonary artery is not enlarged. No flattening of the interventricular septum. No intracardiac filling defect. No reflux of contrast into the hepatic veins. Remaining chest: On soft tissue windows, normal thyroid and thoracic inlet. No axillary, supraclavicular, hilar, or mediastinal lymphadenopathy. Normal aorta. Normal heart size. Coronary artery calcification. No pericardial or pleural effusion. Hepatic steatosis. On lung windows, extensive mosaic attenuation most pronounced at the lung bases. No other focal infiltrate or nodule. Airways patent. On bone windows, degenerative changes of the spine. Mild osteopenia. IMPRESSION: 1. No evidence of pulmonary embolus. 2. Extensive mosaic attenuation at the lung bases likely indicate small airways disease. HEAD WITHOUT CONTRAST (CT) CLINICAL HISTORY: 52 years-old Male with POON, near syncope. Acute headache with near syncopal event TECHNIQUE: Multiple axial CT images of the head were obtained without contrast. A dose lowering technique was utilized adhering to the principles of ALARA. CT DOSE: 1459.04 mGy.cm COMPARISON: None. FINDINGS: No acute intracranial hemorrhage, midline shift, intracranial mass, hydrocephalus, territorial ischemia or abnormal extra-axial collection. The calvarium is intact. The paranasal sinuses, mastoid air cells, and middle ear cavities are clear. IMPRESSION: No acute intracranial abnormality. CT SCAN OF THE LUMBAR SPINE WITHOUT IV CONTRAST CLINICAL HISTORY: Hypotension. Reported history of recent surgery. COMPARISON STUDY: No priors. TECHNIQUE: CT scan of the lumbar spine is performed from the lower thoracic spine to the sacrum. Images are reviewed in the axial, sagittal, and coronal planes. IV contrast was not administered for this examination. A dose lowering technique was utilized adhering to the principles of ALARA. FINDINGS: The skeletal structures are well mineralized. There is a nondistracted acute spinous process fracture of L4, best seen on axial image #233. No additional acute fracture is identified. No lytic or blastic lesion is seen. There are changes of hemilaminectomy seen on the left at L4-L5. Vertebral body height and alignment are maintained throughout the lumbar spine. Tiny anterior osteophytes are seen throughout. There is no evidence of spondylolysis. The transverse processes are intact. A tiny hemangioma is seen in the body of T12. There is advanced disc space narrowing at L5-S1 with associated endplate sclerosis. The disc spaces are otherwise maintained. No large disc herniation is identified by CT. There is questionable hyperdense material within the anterior and left epidural space, seen at L4 at the laminectomy level (axial image #252). Postoperative change is seen in the left paraspinous musculature at the operative site. No organized fluid collection is identified. The paraspinous soft tissues are otherwise normal in appearance. There is moderate atherosclerotic calcification of the abdominal aorta. IMPRESSION: 1. There is an acute nondistracted spinous process fracture of L4. 2. No additional acute fracture is seen. 3. There are postoperative changes from L4 to L5 hemilaminectomy on the left. 4. Hyperdense material is suggested within the anterior and left lateral epidural space at the laminectomy level of L4. This may simply represent postoperative change. A small epidural hematoma would be impossible to exclude. This can be further assessed by MRI if clinically warranted. CHEST ONE VIEW PORTABLE CLINICAL HISTORY: Sepsis COMPARISON STUDY: 07/17/2014 FINDINGS: The cardiac and mediastinal contours are normal. There is no evidence of focal pulmonary consolidation. There is no evidence of failure. No pleural effusions are visualized.[ IMPRESSION: No active disease in the chest. EKG SR 91 Impression Assessment and Plan 52 yo M s/p lumbar laminectomy after traumatic disc herniation last week presents with persistent hypotension, orthostasis and LLE foot drop and numbness affecting proprioception. 1. Syncope 2/2 Orthostatic hypotension-possible causes include but not developing infection vs alcohol withdrawal vs medication side effect. MRI reveals post-operative changes that are expected without abscess or other abnormal signs of infection and he is not ill-appearing at all. Back pain is non-existent or minimal so patient has not been on the gabapentin, methocarbamol or any narcotics the past few days. He is also off his prednisone taper. He reports not taking his lisinopril or lopressor in the setting of low BP at home the past few days. He feels as though he is in a mental fog. He does admit to heavy alcohol use and significant stress in the home, and reports that he stopped drinking just two weeks ago. He states that he did not have any withdrawal signs to date and is feeling well. He reports eating and drinking well and does not appear hypovolemic on exam. I am not sure of the connection here with the recent surgery and this new syncope- induced orthostatic hypotension? will need further investigation. Consult placed to Dr. Randolph. TTE ordered. Monitoring him on telemetry overnight. Holding any offending medications. PT/ OT consult. Lipase elevated, however, there is no evidence of acute pancreatitis clinically and pt tolerating PO. Trend in am. Also trop was negative x 2 2. Opioid-induced constipation-a recent issue that was severe, now improved on Miralax and stool softeners. 3. HTN-holding meds as above. 4. Hyponatremia-pt is isotonic. No adrenal insufficiency present, hyperlipidemia and hyperproteinemia considered. Protein is slightly elevated at 8.5 and lipid panel pending. IVF have improved the Na overnight. Cont to reassess clinically as this is corrected. 5. LLE foot drop with sensation deficits-told by Neurosurgeon who performed the operation who states this is a normal post-procedure course. Ambulation is worse, however. Apprec Ortho recs and have consulted PT and OT. DVT proph-Lovenox. Full Code Dispo-to telemetry [facility] Telemetry Resuscitation Status FULL RESUSCITATION VTE Prophylaxis VTE Risk Assessment Done? Y/N: Yes Risk Level: Moderate Given or contraindicated: Contraindicated (poss procedure)
[2017-06-18 21:30] LABS: CALCIUM 9.5 mg/dl (8.5-10.1); CREATININE 1.11 mg/dl (0.60-1.40); POTASSIUM 4.9 mmol/L (3.5-5.1)
[2017-06-18] MEDS: SODIUM CHLORIDE 0.9% 1000ML 1,000 ML IV SCH (22:38)
[2017-06-18 22:45] VITALS: BP 113/73; PULSE 89; TEMP 36.9; O2SAT 94; Ht 190.5 cm; Wt 114.1 kg
[2017-06-18 23:01] VITALS: BP 115/69; PULSE 85; TEMP 36.7; O2SAT 94
[2017-06-18] MEDS ORDERED: INFLUENZA ADMINISTRATION CHARGE ONE (23:15)
[2017-06-18] MEDS ORDERED: INFLUENZA VIRUS QUAD VACCINE 0.5 ML SYR IM. ONE (23:15)
[2017-06-19 03:16] LABS: HEMATOCRIT 37.8 % (42-52); HEMOGLOBIN 13.3 g/dL (14.0-18.0); MEAN CELL VOLUME 93.8 fL (80-100); MEAN CORPUSCULAR HGB CONC 35.2 g/dl (32-36); MEAN PLATELET VOLUME 9.8 fL (7.4-10.4); PLATELET COUNT 234 K/uL (130-400); RED CELL DISTRIBUTION WIDTH CV 12.6 % (11.5-14.5); RED CELL DISTRIBUTION WIDTH SD 42.7 fL (36.4-46.3); WHITE BLOOD COUNT 7.95 K/uL (4.8-10.8)
[2017-06-19 03:31] LABS: CALCIUM 9.3 mg/dl (8.5-10.1); CREATININE 0.83 mg/dl (0.60-1.40); POTASSIUM 4.4 mmol/L (3.5-5.1)
[2017-06-19 04:05] VITALS: BP 95/59; PULSE 83; TEMP 36.7; O2SAT 97
[2017-06-19] MEDS: SODIUM CHLORIDE 0.9% 1000ML 1,000 ML IV SCH (05:00)
[2017-06-19 08:04] VITALS: BP 112/73; PULSE 78; TEMP 36.7; O2SAT 97
[2017-06-19] MEDS ORDERED: TRAMADOL HCL 50 MG TAB PO PRN (08:30)
[2017-06-19] MEDS ORDERED: LIDODERM (LIDOCAINE) PATCH 5% TD ONE (09:28)
--- NOTE | 2017-06-19 09:44 | Progress Note ---
Medicine Progress Note Date & Time of Visit: Jun 19, 2017 at 09:33. Subjective seen resting in bed, comfortable states he feels slightly better , still has some lightheadedness no confusion denies chills, cough, abdominal pain, diarrhea, problems urinating left lower leg numbness and left foot drop about the same moderate pain on the lower back no other symptoms Objective Last 8 Hrs Date Time Temp Pulse Resp B/P (MAP) Pulse Ox O2 Delivery O2 Flow Rate FiO2 06/19/17 08:04 36.7 78 18 112/73 (86) 97 Room Air 06/19/17 08:00 Room Air 06/19/17 04:05 36.7 83 20 95/59 (71) 97 Room Air 06/19/17 04:00 Room Air Physical Exam: General- oriented x 3, not in distress, speaks in sentences with no effort Head- atraumatic Eyes- PERRL, EOMI, anicteric ENT- oropharynx clear Neck- supple, no JVD, no adenopathy, no thyromegaly; carotids +2/2 Lungs- clear to auscultation bilaterally Heart- regular rhythm; no murmur, normal rate Abdomen- normal bowel sounds, soft, nontender Back- Surgical incision site well opposed, no surrounding erythema/edema/ discharge mild tenderness to touch Extremities- no pretibial edema, no calf tenderness Neuro- alert, oriented x 3; PERRL, EOMI; no facial palsy; no dysarthria; motor 5 /5 bilaterally except left lower le/5; sensation 100% except left lower leg 75% Skin- warm & dry Laboratory Results: Last 24 Hours Test 06/18/17 14:30 06/18/17 14:50 06/18/17 16:10 06/18/17 17:05 White Blood Count 10.38 K/uL Red Blood Count 4.72 M/uL Hemoglobin 16.3 g/dL Hematocrit 44.3 % Mean Corpuscular Volume 93.9 fL Mean Corpuscular Hemoglobin 34.5 pg Mean Corpuscular Hemoglobin Concent 36.8 g/dl Platelet Count 298 K/uL Mean Platelet Volume 10.0 fL Neutrophils (%) (Auto) 57.5 % Lymphocytes (%) (Auto) 24.7 % Monocytes (%) (Auto) 12.8 % Eosinophils (%) (Auto) 0.7 % Basophils (%) (Auto) 0.4 % Neutrophils # (Auto) 5.98 K/uL Lymphocytes # (Auto) 2.56 K/uL Monocytes # (Auto) 1.33 K/uL Eosinophils # (Auto) 0.07 K/uL Basophils # (Auto) 0.04 K/uL RDW Standard Deviation 42.9 fL RDW Coefficient of Variation 12.4 % Immature Granulocyte % (Auto) 3.9 % Immature Granulocyte # (Auto) 0.40 K/uL Erythrocyte Sedimentation Rate 40 mm/hr Prothrombin Time 10.2 SECONDS Prothromb Time International Ratio 1.0 Activated Partial Thromboplast Time 27.1 SECONDS Partial Thromboplastin Ratio 1.0 Sodium Level 128 mmol/L Potassium Level 5.0 mmol/L Chloride Level 95 mmol/L Carbon Dioxide Level 28 mmol/L Anion Gap 5.0 mmol/L Blood Urea Nitrogen 19 mg/dl Creatinine 1.28 mg/dl Est Creatinine Clear Calc Drug Dose 88.6 ml/min Estimated GFR () 73.1 Estimated GFR (Non- 63.0 BUN/Creatinine Ratio 15.2 Random Glucose 105 mg/dl Calcium Level 10.3 mg/dl Magnesium Level 2.5 mg/dl Total Bilirubin 0.7 mg/dl Aspartate Amino Transf (AST/SGOT) 26 U/L Alanine Aminotransferase (ALT/SGPT) 68 U/L Alkaline Phosphatase 61 U/L Total Creatine Kinase 67 U/L Creatine Kinase MB 0.6 ng/ml Creatine Kinase MB Ratio 0.9 Troponin I 0.015 ng/ml C-Reactive Protein 2.47 mg/dl Total Protein 8.5 gm/dl Albumin 4.1 gm/dl Globulin 4.4 gm/dl Albumin/Globulin Ratio 0.9 Lipase 742 U/L Random Cortisol 14.77 mcg/dl Bedside Lactic Acid Venous 2.04 mmol/L Urine Color DK YELLOW Urine Appearance CLOUDY Urine pH 5.0 Urine Specific [place] 1.016 Urine Protein 1+ Urine Glucose (UA) NEG Urine Ketones NEG Urine Occult Blood NEG Urine Nitrite NEG Urine Bilirubin NEG Urine Urobilinogen NEG Urine Leukocyte Esterase TRACE Urine WBC (Auto) 1-5 /hpf Urine RBC (Auto) 0-4 /hpf Urine Hyaline Casts (Auto) 10-30 /lpf Urine Epithelial Cells (Auto) 20-30 /lpf Urine Bacteria (Auto) NEG Urine Pathogenic Casts 0-3 GRANULAR CASTS /lpf Influenza Type A Antigen Neg for Influ A Influenza Type B Antigen Neg for Influ B Test 06/18/17 21:05 06/18/17 23:10 06/19/17 03:01 06/19/17 09:18 Sodium Level 131 mmol/L 132 mmol/L Potassium Level 4.9 mmol/L 4.4 mmol/L Chloride Level 97 mmol/L 100 mmol/L Carbon Dioxide Level 28 mmol/L 25 mmol/L Anion Gap 6.0 mmol/L 7.0 mmol/L Blood Urea Nitrogen 17 mg/dl 16 mg/dl Creatinine 1.11 mg/dl 0.83 mg/dl Est Creatinine Clear Calc Drug Dose 102.2 ml/min 142.0 ml/min Estimated GFR () 86.8 115.6 Estimated GFR (Non- 74.9 99.8 BUN/Creatinine Ratio 14.9 19.4 Random Glucose 126 mg/dl 117 mg/dl Osmolality 280 mOsm/kg Calcium Level 9.5 mg/dl 9.3 mg/dl Troponin I 0.028 ng/ml Urine Osmolality 286 mOms/kg White Blood Count 7.95 K/uL Red Blood Count 4.03 M/uL Hemoglobin 13.3 g/dL Hematocrit 37.8 % Mean Corpuscular Volume 93.8 fL Mean Corpuscular Hemoglobin 33.0 pg Mean Corpuscular Hemoglobin Concent 35.2 g/dl RDW Standard Deviation 42.7 fL RDW Coefficient of Variation 12.6 % Platelet Count 234 K/uL Mean Platelet Volume 9.8 fL Lactic Acid Level 1.2 mmol/L Lipase 526 U/L Date/Time Source Procedure Growth Status 06/18/17 14:40 Blood Blood Culture Pending Received 06/18/17 14:30 Blood Blood Culture Pending Received Assessment & Plan 52 yo M s/p lumbar laminectomy after traumatic disc herniation last week presents with persistent hypotension, orthostasis and LLE foot drop and numbness affecting proprioception. 1. SYNCOPE - likely Orthostatic Hypotension - from Robaxin? d/c Robaxin IV NSS Echo ordered - Random cortisol normal - Tramadol PRN for pain Lidoderm patch - monitor Ortho VS 2. LEFT FOOT DROP - s/p Lumbar Laminectomy a week ago for Disc Herniation - Dr. Randolph Consulted PT/OT 3. HTN -holding Metoprolol and Lisinopril 4. Hyponatremia - improved from 128 to 132 - repeat in the afternoon DVT proph-Lovenox Full Code Dispo-to telemetry anticipate d/c home upon d/c Current Inpatient Medications: Current Inpatient Medications Medications (Trade) Dose Ordered Sig/Reza Route Start Time Stop Time Status Last Admin Dose Admin Ioversol (Optiray 320) 111 ml UD PRN IV 06/18/17 16:15 06/22/17 16:14 Gadobutrol (Gadavist) 11 mmol UD PRN IV 06/18/17 18:45 06/22/17 18:44 Sodium Chloride 1,000 ml @ 150 mls/hr Q6H40M IV 06/18/17 22:30 06/19/17 11:49 06/19/17 05:00 150 MLS/HR Acetaminophen (Tylenol Tab) 650 mg Q4H PRN PO 06/18/17 21:00 07/18/17 20:59 Ondansetron HCl (Zofran Inj) 4 mg Q6H PRN IV 06/18/17 21:00 07/18/17 20:59 Polyethylene (Miralax Powder Packet) 17 gm DAILY PRN PO 06/18/17 21:00 07/18/17 20:59 Tramadol HCl (Ultram Tab) 50 mg Q6H PRN PO 06/19/17 08:30 07/19/17 08:29
--- NOTE | 2017-06-19 10:35 | ECHOCARDIOGRAM REPORT ---
*NOTICE TO RECEIVING DEMOCRAT AGENCY This information is strictly Confidential and protected under [place] law. [place] law prohibits you from making any further disclosure of this information unless further disclosure is expressly permitted by the written consent of the person to whom it pertains or is authorized by law. A general authorization for the release of medical or other information is not sufficient for this purpose. Hospital accepts no responsibility if the information is made available to any other person, INCLUDING THE PATIENT. Interpretation Summary * Name: DAIANA TORO Study Date: 06/19/2017 07:48 AM BP: 112/73 mmHg * Patient Location: [facility]\S\N276\S\2 HR: 78 * : 1965 (M/d/yyyy) Gender: Male Height: 74 in * Age: 52 yrs Ethnicity: [place] Weight: 251 lb * Ordering Physician: Vicky Dickerson * Referring Physician: Nataly COOK * Performed By: Nayana Gonsalez RDCS * * Reason For Study: SYNCOPE * BSA: 2.4 m2 * The study was technically adequate. * Compared to prior study, there is no significant change. * -- Conclusions -- * Ejection Fraction = 60-65%. * Grade I diastolic dysfunction, (abnormal relaxation pattern). * There is mild mitral regurgitation. Procedure Details * A complete two-dimensional transthoracic echocardiogram was performed (2D, M-mode, Doppler and color flow Doppler). Left Ventricle * The left ventricle is normal in size. * There is mild concentric left ventricular hypertrophy. * Left ventricular systolic function is normal. * Ejection Fraction = 60-65%. * The left ventricular wall motion is normal. Right Ventricle * The right ventricle is normal size. * The right ventricular systolic function is normal as assessed by tricuspid annular plane systolic excursion (TAPSE) (normal >1.5 cm). Atria * The left atrial size is normal. * Right atrial size is normal. * There is no evidence of atrial septal defect, but resolution does not allow assessment for a patent foramen ovale. Mitral Valve * The mitral valve is normal. * There is no mitral valve stenosis. * There is mild mitral regurgitation. Tricuspid Valve * The tricuspid valve is normal. * There is no tricuspid stenosis. * Significant tricuspid regurgitation is absent. Aortic Valve * The aortic valve is not well visualized. * Aortic stenosis is absent. * There is no significant aortic regurgitation. Pulmonic Valve * The pulmonary valve is inadequately visualized, but the Doppler data is adequate for interpretation. * There is no pulmonic valvular stenosis. * Trace pulmonic valvular regurgitation. Great Vessels * The aortic root is normal size. Pericardium/Pleural * There is no pericardial effusion. Great Vessels * Normal inferior vena cava diameter and respiratory variation suggests normal central venous pressure. Left Ventricular Diastolic Function * Grade I diastolic dysfunction, (abnormal relaxation pattern). MMode 2D Measurements and Calculations IVSd 1.4 cm IVSs 1.9 cm LVIDd 3.9 cm LVIDs 2.8 cm LVPWd 1.3 cm LVPWs 2.1 cm IVS/LVPW 1.1 FS 26.4 % EDV(Teich) 64.8 ml ESV(Teich) 30.8 ml EF(Teich) 52.4 % EDV(cubed) 58.0 ml ESV(cubed) 23.1 ml EF(cubed) 60.2 % % IVS thick 36.8 % % LVPW thick 60.5 % LV mass(C)d 191.3 grams LV mass(C)dI 79.9 grams/m\S\2 LV mass(C)s 253.0 grams LV mass(C)sI 105.7 grams/m\S\2 SV(Teich) 33.9 ml SI(Teich) 14.2 ml/m\S\2 SV(cubed) 34.9 ml SI(cubed) 14.6 ml/m\S\2 Ao root diam 3.6 cm Ao root area 10.1 cm\S\2 LVAd ap4 34.6 cm\S\2 LVLd ap4 9.6 cm EDV(MOD-sp4) 102.8 ml EDV(sp4-el) 106.1 ml LVAs ap4 19.9 cm\S\2 LVLs ap4 7.7 cm ESV(MOD-sp4) 45.1 ml ESV(sp4-el) 43.8 ml EF(MOD-sp4) 56.1 % EF(sp4-el) 58.7 % LVAd ap2 32.7 cm\S\2 LVLd ap2 9.3 cm EDV(MOD-sp2) 95.1 ml EDV(sp2-el) 97.3 ml LVAs ap2 19.0 cm\S\2 LVLs ap2 7.4 cm ESV(MOD-sp2) 41.8 ml ESV(sp2-el) 41.1 ml EF(MOD-sp2) 56.1 % EF(sp2-el) 57.7 % LVLd %diff -2.19 % EDV(MOD-bp) 99.8 ml LVLs %diff -3.69 % ESV(MOD-bp) 43.8 ml EF(MOD-bp) 56.1 % SV(MOD-sp4) 57.7 ml SI(MOD-sp4) 24.1 ml/m\S\2 SV(MOD-sp2) 53.3 ml SI(MOD-sp2) 22.3 ml/m\S\2 SV(MOD-bp) 56.0 ml SI(MOD-bp) 23.4 ml/m\S\2 SV(sp4-el) 62.3 ml SI(sp4-el) 26.0 ml/m\S\2 SV(sp2-el) 56.2 ml SI(sp2-el) 23.5 ml/m\S\2 Doppler Measurements and Calculations MV E max erick 55.6 cm/sec MV A max erick 67.9 cm/sec MV E/A 0.82 MV dec time 0.27 sec Ao V2 max 141.6 cm/sec Ao max PG 8.0 mmHg Ao max PG (full) 2.3 mmHg LV V1 max PG 5.7 mmHg LV V1 max 119.5 cm/sec
--- NOTE | 2017-06-19 11:49 | Orthopedic Consultation ---
Orthopedic Consultation Date of Consultation: Jun 19, 2017. Attending Physician: Austin Merrill MD Reason for Consultation: Status post laminectomy History of Present Illness Very pleasant 52-year-old male who is status post lumbar laminotomy proximate 1 week ago at [facility]. He had done well postoperatively. His marked resolution of his severe left-sided radicular pain. He still left with some residual numbness and motor deficit. He was admitted secondary to hypotension. He has no complaints at this time. Past Medical/Surgical History Medical Problems: (1) Abnormal EKG Status: Acute (2) Generalized weakness Status: Acute (3) Hyponatremia Status: Acute (4) Hypotension Status: Acute (5) Near syncope Status: Acute Family History No pertinent family history Social History Smoking Status: Never Smoker Smokeless Tobacco Use: No Alcohol Use: heavy (h/o heavy use 6-8 shots nightly, quit two weeks ago) Drug Use: none Marital Status: , in relationship Occupation Status: employed Allergies Coded Allergies: No Known Allergies (Unverified , 06/18/17) Home Medications Scheduled Atorvastatin (Lipitor), 40 MG PO DAILY Calcium Citrate-Vitamin D (Citracal + D3 Maximum), 1 TAB PO HS Cetirizine Hcl (Zyrtec), 10 MG PO DAILY Coenzyme Q10 (Ubidecarenone) (Co Q10), 1 CAP PO DAILY Fish Oil ([place]-3), 1 CAP PO DAILY Fluoxetine (Prozac), 10 MG PO DAILY Ngkfiflxfyt-Rxisqceibnb-Zuy C- (Glucosamine Chondroitin), 1 TAB PO DAILY Lisinopril (Prinivil), 20 MG PO DAILY Magnesium Oxide (Mg Supplement (Magnesium Oxide), 400 MG PO HS Metoprolol Succ (Toprol Xl) (Toprol-Xl ), 100 MG PO DAILY Multivitamins/Minerals (Mvi With Minerals), 1 TAB PO DAILY Omeprazole (Prilosec), 1 CAP PO DAILY Polyethylene Glycol 3350 (Miralax), 17 GM PO DAILY Senna (Senokot), 1 TAB PO DAILY Sennosides-Docusate Sodium (Stool Softener), 1 TAB PO DAILY [tumeric], 500 MG PO DAILY Scheduled PRN Acetaminophen (Tylenol), 1,000 MG PO QAM PRN for Pain or Fever Methocarbamol (Robaxin), 1 TAB PO QID PRN for muscle spasms Current Inpatient Medications Current Inpatient Medications Medications (Trade) Dose Ordered Sig/Reza Route Start Time Stop Time Status Last Admin Dose Admin Ioversol (Optiray 320) 111 ml UD PRN IV 06/18/17 16:15 06/22/17 16:14 Gadobutrol (Gadavist) 11 mmol UD PRN IV 06/18/17 18:45 06/22/17 18:44 Sodium Chloride 1,000 ml @ 150 mls/hr Q6H40M IV 06/18/17 22:30 06/19/17 11:49 06/19/17 05:00 150 MLS/HR Acetaminophen (Tylenol Tab) 650 mg Q4H PRN PO 06/18/17 21:00 07/18/17 20:59 Ondansetron HCl (Zofran Inj) 4 mg Q6H PRN IV 06/18/17 21:00 07/18/17 20:59 Polyethylene (Miralax Powder Packet) 17 gm DAILY PRN PO 06/18/17 21:00 07/18/17 20:59 Tramadol HCl (Ultram Tab) 50 mg Q6H PRN PO 06/19/17 08:30 07/19/17 08:29 Lidocaine (Lidoderm Patch 5%) 1 patch QAM TD 06/20/17 09:00 07/20/17 08:59 Miscellaneous (Remove Lidoderm Patch) 1 ea DAILY@21 N/A 06/19/17 21:00 07/19/17 20:59 Zolpidem Tartrate (Ambien Tab) 5 mg HS PRN PO 06/19/17 09:45 07/19/17 09:44 Physical Exam Date Time Temp Pulse Resp B/P (MAP) Pulse Ox O2 Delivery O2 Flow Rate FiO2 06/19/17 08:04 36.7 78 18 112/73 (86) 97 Room Air 06/19/17 08:00 Room Air 06/19/17 04:05 36.7 83 20 95/59 (71) 97 Room Air 06/19/17 04:00 Room Air 06/19/17 00:00 Room Air 06/18/17 23:01 36.7 85 20 115/69 (84) 94 Room Air 06/18/17 22:45 36.9 89 18 113/73 94 Room Air 06/18/17 21:35 91 18 117/77 95 Room Air 06/18/17 19:51 87 18 114/73 95 Room Air 06/18/17 19:40 88 120/68 91 108/71 100 84/56 06/18/17 18:47 86 18 107/70 96 Room Air 06/18/17 16:57 77 18 124/73 98 Room Air 06/18/17 15:43 84 16 101/64 96 Room Air 06/18/17 14:48 97 Room Air 06/18/17 14:17 86 06/18/17 14:07 36.8 90 18 115/75 96 Room Air On exam the incision appears to be healing well. There is minimal swelling. There is no erythema. There is no drainage. Exam he does have some strength deficits dorsiflexion extension hallucis longus on the left. His sensory deficits on the left are unchanged from his preoperative status. His no tension signs. He appears comfortable. Laboratory Results Last 24 Hours Test 06/18/17 14:30 06/18/17 14:50 06/18/17 16:10 06/18/17 17:05 White Blood Count 10.38 K/uL Red Blood Count 4.72 M/uL Hemoglobin 16.3 g/dL Hematocrit 44.3 % Mean Corpuscular Volume 93.9 fL Mean Corpuscular Hemoglobin 34.5 pg Mean Corpuscular Hemoglobin Concent 36.8 g/dl Platelet Count 298 K/uL Mean Platelet Volume 10.0 fL Neutrophils (%) (Auto) 57.5 % Lymphocytes (%) (Auto) 24.7 % Monocytes (%) (Auto) 12.8 % Eosinophils (%) (Auto) 0.7 % Basophils (%) (Auto) 0.4 % Neutrophils # (Auto) 5.98 K/uL Lymphocytes # (Auto) 2.56 K/uL Monocytes # (Auto) 1.33 K/uL Eosinophils # (Auto) 0.07 K/uL Basophils # (Auto) 0.04 K/uL RDW Standard Deviation 42.9 fL RDW Coefficient of Variation 12.4 % Immature Granulocyte % (Auto) 3.9 % Immature Granulocyte # (Auto) 0.40 K/uL Erythrocyte Sedimentation Rate 40 mm/hr Prothrombin Time 10.2 SECONDS Prothromb Time International Ratio 1.0 Activated Partial Thromboplast Time 27.1 SECONDS Partial Thromboplastin Ratio 1.0 Sodium Level 128 mmol/L Potassium Level 5.0 mmol/L Chloride Level 95 mmol/L Carbon Dioxide Level 28 mmol/L Anion Gap 5.0 mmol/L Blood Urea Nitrogen 19 mg/dl Creatinine 1.28 mg/dl Est Creatinine Clear Calc Drug Dose 88.6 ml/min Estimated GFR () 73.1 Estimated GFR (Non- 63.0 BUN/Creatinine Ratio 15.2 Random Glucose 105 mg/dl Calcium Level 10.3 mg/dl Magnesium Level 2.5 mg/dl Total Bilirubin 0.7 mg/dl Aspartate Amino Transf (AST/SGOT) 26 U/L Alanine Aminotransferase (ALT/SGPT) 68 U/L Alkaline Phosphatase 61 U/L Total Creatine Kinase 67 U/L Creatine Kinase MB 0.6 ng/ml Creatine Kinase MB Ratio 0.9 Troponin I 0.015 ng/ml C-Reactive Protein 2.47 mg/dl Total Protein 8.5 gm/dl Albumin 4.1 gm/dl Globulin 4.4 gm/dl Albumin/Globulin Ratio 0.9 Lipase 742 U/L Random Cortisol 14.77 mcg/dl Bedside Lactic Acid Venous 2.04 mmol/L Urine Color DK YELLOW Urine Appearance CLOUDY Urine pH 5.0 Urine Specific [place] 1.016 Urine Protein 1+ Urine Glucose (UA) NEG Urine Ketones NEG Urine Occult Blood NEG Urine Nitrite NEG Urine Bilirubin NEG Urine Urobilinogen NEG Urine Leukocyte Esterase TRACE Urine WBC (Auto) 1-5 /hpf Urine RBC (Auto) 0-4 /hpf Urine Hyaline Casts (Auto) 10-30 /lpf Urine Epithelial Cells (Auto) 20-30 /lpf Urine Bacteria (Auto) NEG Urine Pathogenic Casts 0-3 GRANULAR CASTS /lpf Influenza Type A Antigen Neg for Influ A Influenza Type B Antigen Neg for Influ B Test 06/18/17 21:05 06/18/17 23:10 06/19/17 03:01 Sodium Level 131 mmol/L 132 mmol/L Potassium Level 4.9 mmol/L 4.4 mmol/L Chloride Level 97 mmol/L 100 mmol/L Carbon Dioxide Level 28 mmol/L 25 mmol/L Anion Gap 6.0 mmol/L 7.0 mmol/L Blood Urea Nitrogen 17 mg/dl 16 mg/dl Creatinine 1.11 mg/dl 0.83 mg/dl Est Creatinine Clear Calc Drug Dose 102.2 ml/min 142.0 ml/min Estimated GFR () 86.8 115.6 Estimated GFR (Non- 74.9 99.8 BUN/Creatinine Ratio 14.9 19.4 Random Glucose 126 mg/dl 117 mg/dl Osmolality 280 mOsm/kg Calcium Level 9.5 mg/dl 9.3 mg/dl Troponin I 0.028 ng/ml Urine Osmolality 286 mOms/kg White Blood Count 7.95 K/uL Red Blood Count 4.03 M/uL Hemoglobin 13.3 g/dL Hematocrit 37.8 % Mean Corpuscular Volume 93.8 fL Mean Corpuscular Hemoglobin 33.0 pg Mean Corpuscular Hemoglobin Concent 35.2 g/dl RDW Standard Deviation 42.7 fL RDW Coefficient of Variation 12.6 % Platelet Count 234 K/uL Mean Platelet Volume 9.8 fL Lactic Acid Level 1.2 mmol/L Triglycerides Level 342 mg/dl Cholesterol Level 219 mg/dl HDL Cholesterol 34 mg/dl LDL Cholesterol, Calculated 117 mg/dl VLDL Cholesterol, Calculated 68 mg/dl Cholesterol/HDL Ratio 6.4 Lipase 526 U/L Assessment & Plan Assessment status post lumbar laminotomy. Plan at this time he is improving appropriate release status post surgery. I don't appreciate any issues or concerns regarding his spinal procedure.
[2017-06-19] MEDS ORDERED: FLUOXETINE HCL 10 MG CAP PO ONE (11:53)
[2017-06-19] MEDS ORDERED: CETIRIZINE HCL 10 MG TAB PO ONE (11:53)
[2017-06-19] MEDS ORDERED: SENNA 8.6 MG TAB PO ONE (11:53)
[2017-06-19 12:20] VITALS: BP 150/92; PULSE 70; TEMP 36.6; O2SAT 99
[2017-06-19 14:21] LABS: INFLUENZA A PCR Neg for Influ A (NEG); INFLUENZA B PCR Neg for Influ B (NEG)
[2017-06-19 15:08] VITALS: BP 111/68; PULSE 105; TEMP 37.2; O2SAT 96
[2017-06-19 18:42] VITALS: BP 131/88; PULSE 99; TEMP 37; O2SAT 95
[2017-06-19] MEDS: ZOLPIDEM TARTRATE 5 MG TAB PO PRN (21:15)
[2017-06-19] MEDS: MAGNESIUM OXIDE 400 MG TAB PO SCH (21:15)
[2017-06-19 23:38] VITALS: BP_SYST 111; BP_SYST 118; BP_SYST 122; BP_DIAS 71; BP_DIAS 79; BP_DIAS 81; PULSE 98; TEMP 36.7; O2SAT 97
[2017-06-20] VITALS (9 sets, daily range): BP systolic 97–157; BP diastolic 55–98; PULSE 77–92; TEMP 36.2–37.3; O2SAT 95–96
[2017-06-20 08:06] LABS: BASO % 0.3 %; BASO ABS # 0.02 K/uL (0-0.2); EOS % 1.3 %; EOS ABS # 0.08 K/uL (0-0.5); HEMATOCRIT 39.3 % (42-52); HEMOGLOBIN 13.8 g/dL (14.0-18.0); IG# 0.12 K/uL (0.00-0.02); LYMPH % 28.1 %; LYMPH ABS # 1.79 K/uL (1.2-3.4); MEAN CELL VOLUME 92.7 fL (80-100); MEAN CORPUSCULAR HEMOGLOBIN 32.5 pg (25-34); MEAN CORPUSCULAR HGB CONC 35.1 g/dl (32-36); MEAN PLATELET VOLUME 9.4 fL (7.4-10.4); MONO % 11.6 %; MONO ABS # 0.74 K/uL (0.11-0.59); NEUT % 56.8 %; NEUT ABS # 3.62 K/uL (1.4-6.5); PLATELET COUNT 229 K/uL (130-400); RED CELL DISTRIBUTION WIDTH CV 12.3 % (11.5-14.5); WHITE BLOOD COUNT 6.37 K/uL (4.8-10.8)
[2017-06-20 08:32] LABS: CALCIUM 9.5 mg/dl (8.5-10.1); CREATININE 0.77 mg/dl (0.60-1.40); POTASSIUM 4.2 mmol/L (3.5-5.1)
[2017-06-20] MEDS: POLYETHYLENE (MIRALAX) 17 GM PACK PO SCH (08:32)
[2017-06-20] MEDS: ATORVASTATIN 40 MG TAB PO SCH (08:32)
[2017-06-20] MEDS: CETIRIZINE HCL 10 MG TAB PO SCH (08:32)
[2017-06-20] MEDS: PANTOprazole SOD 40 MG TAB PO SCH (08:32)
[2017-06-20] MEDS: SENNA 8.6 MG TAB PO SCH (08:32)
[2017-06-20] MEDS: FLUOXETINE HCL 10 MG CAP PO SCH (08:32)
[2017-06-20] MEDS: ACETAMINOPHEN 325 MG TAB PO PRN (08:33)
[2017-06-20] MEDS: LIDODERM (LIDOCAINE) PATCH 5% TD SCH (08:33)
[2017-06-20] MEDS: DOCUSATE SODIUM/SENNA 50/8.6MG TAB PO SCH (08:33)
[2017-06-20] MEDS ORDERED: KETOROLAC TROMETHAMINE 30 MG/ML VIAL IV ONE (14:37)
[2017-06-20] MEDS ORDERED: KETOROLAC TROMETHAMINE 30 MG/ML VIAL ONE (14:40)
[2017-06-20] MEDS ORDERED: KETOROLAC TROMETHAMINE 30 MG/ML VIAL IV PRN (14:45)
[2017-06-20] MEDS ORDERED: LIDODERM (LIDOCAINE) PATCH 5% TD ONE (14:53)
[2017-06-20] MEDS ORDERED: METOPROLOL SUCC 25MG EXT REL TAB PO STA (15:13)
--- NOTE | 2017-06-20 19:20 | Progress Note ---
Medicine Progress Note Date & Time of Visit: Jun 20, 2017 at 19:15. Subjective resting in bed reports posterior neck pain, worse with movement less dizziness when standing, ambulating still has some "mental fog" in good spirits though still has foot drop, left no other symptoms Objective Last 8 Hrs Date Time Temp Pulse Resp B/P (MAP) Pulse Ox O2 Delivery O2 Flow Rate FiO2 06/20/17 16:16 37.3 92 18 143/96 (112) 96 06/20/17 16:00 96 Room Air 06/20/17 15:43 91 133/90 (104) 06/20/17 12:18 37.2 77 18 157/98 (117) 95 145/96 (112) 06/20/17 12:15 Room Air 06/20/17 12:00 127/84 (98) Physical Exam: General- oriented x 3, not in distress, speaks in sentences with no effort Eyes- anicteric ENT- oropharynx clear Neck- (+) tenderness - mild to palpation on posterior neck Lungs- clear breath sounds bilaterally Heart- regular rhythm; no murmur, normal rate Abdomen- normal bowel sounds, soft, nontender Extremities- no pretibial edema, no calf tenderness Neuro- alert, oriented x 3; PERRL, EOMI; no facial palsy; no dysarthria; motor 5 /5 bilaterally except left lower le/5; sensation 100% except left lower leg 75% Skin- warm & dry Laboratory Results: Last 24 Hours Test 06/20/17 07:53 White Blood Count 6.37 K/uL Red Blood Count 4.24 M/uL Hemoglobin 13.8 g/dL Hematocrit 39.3 % Mean Corpuscular Volume 92.7 fL Mean Corpuscular Hemoglobin 32.5 pg Mean Corpuscular Hemoglobin Concent 35.1 g/dl Platelet Count 229 K/uL Mean Platelet Volume 9.4 fL Neutrophils (%) (Auto) 56.8 % Lymphocytes (%) (Auto) 28.1 % Monocytes (%) (Auto) 11.6 % Eosinophils (%) (Auto) 1.3 % Basophils (%) (Auto) 0.3 % Neutrophils # (Auto) 3.62 K/uL Lymphocytes # (Auto) 1.79 K/uL Monocytes # (Auto) 0.74 K/uL Eosinophils # (Auto) 0.08 K/uL Basophils # (Auto) 0.02 K/uL RDW Standard Deviation 42.0 fL RDW Coefficient of Variation 12.3 % Immature Granulocyte % (Auto) 1.9 % Immature Granulocyte # (Auto) 0.12 K/uL Sodium Level 133 mmol/L Potassium Level 4.2 mmol/L Chloride Level 99 mmol/L Carbon Dioxide Level 24 mmol/L Anion Gap 10.0 mmol/L Blood Urea Nitrogen 14 mg/dl Creatinine 0.77 mg/dl Est Creatinine Clear Calc Drug Dose 149.8 ml/min Estimated GFR () 119.2 Estimated GFR (Non- 102.9 BUN/Creatinine Ratio 18.3 Random Glucose 125 mg/dl Calcium Level 9.5 mg/dl Assessment & Plan 52 yo M s/p lumbar laminectomy after traumatic disc herniation last week presents with persistent hypotension, orthostasis and LLE foot drop and numbness affecting proprioception. 1. SYNCOPE - likely Orthostatic Hypotension - from Robaxin? d/c Robaxin IV NSS Echo: grade 1 diastolic dysfunction, mild mitral regurgitation - Random cortisol normal - Tramadol PRN for pain Lidoderm patch -- had positive Ortho VS in am BP improving 2. LEFT FOOT DROP - s/p Lumbar Laminectomy a week ago for Disc Herniation - Dr. Randolph Consulted MRI noted - stable per Dr. Randolph 3. HTN - resume Metoprolol XL gradually at 25mg (usually on 100mg daily) - hold Lisinopril - monitor 4. Hyponatremia - improved from 128 to 132 - repeat in the afternoon 5. Posterior Neck Pain - likely Muscular - Toradol PRN Lidoderm patch DVT proph-Lovenox Full Code Dispo anticipate d/c home upon d/c Current Inpatient Medications: Current Inpatient Medications Medications (Trade) Dose Ordered Sig/Reza Route Start Time Stop Time Status Last Admin Dose Admin Ioversol (Optiray 320) 111 ml UD PRN IV 06/18/17 16:15 06/22/17 16:14 Gadobutrol (Gadavist) 11 mmol UD PRN IV 06/18/17 18:45 06/22/17 18:44 Acetaminophen (Tylenol Tab) 650 mg Q4H PRN PO 06/18/17 21:00 07/18/17 20:59 06/20/17 08:33 650 MG Ondansetron HCl (Zofran Inj) 4 mg Q6H PRN IV 06/18/17 21:00 07/18/17 20:59 Polyethylene (Miralax Powder Packet) 17 gm DAILY PRN PO 06/18/17 21:00 07/18/17 20:59 Tramadol HCl (Ultram Tab) 50 mg Q6H PRN PO 06/19/17 08:30 07/19/17 08:29 06/20/17 12:04 50 MG Lidocaine (Lidoderm Patch 5%) 1 patch QAM TD 06/20/17 09:00 07/20/17 08:59 06/20/17 08:33 1 PATCH Miscellaneous (Remove Lidoderm Patch) 1 ea DAILY@21 N/A 06/19/17 21:00 07/19/17 20:59 06/19/17 21:16 1 EA Zolpidem Tartrate (Ambien Tab) 5 mg HS PRN PO 06/19/17 09:45 07/19/17 09:44 06/19/17 21:15 5 MG Atorvastatin Calcium (Lipitor Tab) 40 mg DAILY PO 06/20/17 09:00 07/20/17 08:59 06/20/17 08:32 40 MG Cetirizine HCl (zyrTEC TAB) 10 mg DAILY PO 06/20/17 09:00 07/20/17 08:59 06/20/17 08:32 10 MG Fluoxetine HCl (Prozac Cap) 10 mg DAILY PO 06/20/17 09:00 07/20/17 08:59 06/20/17 08:32 10 MG Senna (Senokot Tab) 8.6 mg DAILY PO 06/20/17 09:00 07/20/17 08:59 06/20/17 08:32 8.6 MG Senna/Docusate Sodium (Senokot S Tab) 1 tab DAILY PO 06/20/17 09:00 07/20/17 08:59 06/20/17 08:33 1 TAB Magnesium Oxide (Mag-Ox Tab) 400 mg HS PO 06/19/17 21:00 07/19/17 20:59 06/19/17 21:15 400 MG Pantoprazole Sodium (Protonix Tab) 40 mg DAILY PO 06/20/17 09:00 07/20/17 08:59 06/20/17 08:32 40 MG Polyethylene (Miralax Powder Packet) 17 gm DAILY PO 06/20/17 09:00 07/20/17 08:59 06/20/17 08:32 17 GM Ketorolac Tromethamine (Toradol Inj) 30 mg Q6H PRN IV 06/20/17 14:45 06/25/17 14:44 Lidocaine (Lidoderm Patch 5%) 1 patch QAM TD 06/21/17 09:00 07/21/17 08:59 Miscellaneous (Remove Lidoderm Patch) 1 ea DAILY@21 N/A 06/20/17 21:00 07/20/17 20:59 Metoprolol Succinate (Toprol Xl Tab) 25 mg QAM PO 06/21/17 09:00 07/21/17 08:59
[2017-06-20] MEDS: MAGNESIUM OXIDE 400 MG TAB PO SCH (20:56)
[2017-06-20] MEDS: ZOLPIDEM TARTRATE 5 MG TAB PO PRN (20:57)
[2017-06-21 03:27] VITALS: BP 107/74; PULSE 73; TEMP 36.6; O2SAT 97
[2017-06-21 07:05] LABS: BASO % 0.3 %; BASO ABS # 0.02 K/uL (0-0.2); EOS % 1.3 %; EOS ABS # 0.08 K/uL (0-0.5); HEMATOCRIT 39.3 % (42-52); HEMOGLOBIN 14.3 g/dL (14.0-18.0); IG# 0.12 K/uL (0.00-0.02); LYMPH % 31.9 %; LYMPH ABS # 2.03 K/uL (1.2-3.4); MEAN CELL VOLUME 93.3 fL (80-100); MEAN CORPUSCULAR HGB CONC 36.4 g/dl (32-36); MEAN PLATELET VOLUME 9.8 fL (7.4-10.4); MONO % 11.3 %; MONO ABS # 0.72 K/uL (0.11-0.59); NEUT % 53.3 %; PLATELET COUNT 252 K/uL (130-400); RED CELL DISTRIBUTION WIDTH CV 12.2 % (11.5-14.5); RED CELL DISTRIBUTION WIDTH SD 41.2 fL (36.4-46.3); WHITE BLOOD COUNT 6.37 K/uL (4.8-10.8)
[2017-06-21 07:38] LABS: CALCIUM 9.6 mg/dl (8.5-10.1); CREATININE 0.94 mg/dl (0.60-1.40); POTASSIUM 4.9 mmol/L (3.5-5.1)
[2017-06-21 07:54] VITALS: BP_SYST 104; BP_SYST 116; BP_SYST 91; BP_DIAS 65; BP_DIAS 68; BP_DIAS 75; PULSE 77; TEMP 37.1; O2SAT 96
[2017-06-21] MEDS: FLUOXETINE HCL 10 MG CAP PO SCH (08:12)
[2017-06-21] MEDS: POLYETHYLENE (MIRALAX) 17 GM PACK PO SCH (08:12)
[2017-06-21] MEDS: SENNA 8.6 MG TAB PO SCH (08:12)
[2017-06-21] MEDS: DOCUSATE SODIUM/SENNA 50/8.6MG TAB PO SCH (08:12)
[2017-06-21] MEDS: CETIRIZINE HCL 10 MG TAB PO SCH (08:12)
[2017-06-21] MEDS: PANTOprazole SOD 40 MG TAB PO SCH (08:12)
[2017-06-21] MEDS: ATORVASTATIN 40 MG TAB PO SCH (08:12)
[2017-06-21] MEDS: LIDODERM (LIDOCAINE) PATCH 5% TD SCH (08:13)
[2017-06-21] MEDS: ACETAMINOPHEN 325 MG TAB PO PRN (08:24)
[2017-06-21] MEDS ORDERED: METOPROLOL SUCC 25MG EXT REL TAB PO SCH (09:00)
[2017-06-21] MEDS ORDERED: LIDODERM (LIDOCAINE) PATCH 5% TD SCH (09:00)
[2017-06-21 11:16] VITALS: BP 109/74; PULSE 90; TEMP 36.8; O2SAT 96
[2017-06-21 11:38] VITALS: BP 128/91; PULSE 104; O2SAT 98
--- NOTE | 2017-06-21 14:36 | Progress Note ---
Medicine Progress Note Date & Time of Visit: Jun 21, 2017 at 14:30. Subjective patient seen resting in bed, states he feels better overall no lightheadedness, ambulating with no dizziness no mental fog neck pain much improved left foot drop about the same states he feels much better overall states he is ready and would like to be discharged today Objective Last 8 Hrs Date Time Temp Pulse Resp B/P (MAP) Pulse Ox O2 Delivery O2 Flow Rate FiO2 06/21/17 11:55 Room Air 06/21/17 11:38 104 98 06/21/17 11:16 36.8 90 18 109/74 (86) 96 Room Air 06/21/17 07:54 37.1 77 18 104/68 (80) 96 Room Air 116/75 (89) 91/65 (74) 06/21/17 07:45 Room Air Physical Exam: General- oriented x 3, not in distress, speaks in sentences with no effort Eyes- anicteric Lungs- clear breath sounds bilaterally, no rales/wheezes Heart- regular rhythm; no murmur, normal rate Abdomen- normal bowel sounds, soft, nontender Extremities- no pretibial edema, no calf tenderness Neuro- same Skin- warm & dry Laboratory Results: Last 24 Hours Test 06/21/17 06:35 White Blood Count 6.37 K/uL Red Blood Count 4.21 M/uL Hemoglobin 14.3 g/dL Hematocrit 39.3 % Mean Corpuscular Volume 93.3 fL Mean Corpuscular Hemoglobin 34.0 pg Mean Corpuscular Hemoglobin Concent 36.4 g/dl Platelet Count 252 K/uL Mean Platelet Volume 9.8 fL Neutrophils (%) (Auto) 53.3 % Lymphocytes (%) (Auto) 31.9 % Monocytes (%) (Auto) 11.3 % Eosinophils (%) (Auto) 1.3 % Basophils (%) (Auto) 0.3 % Neutrophils # (Auto) 3.40 K/uL Lymphocytes # (Auto) 2.03 K/uL Monocytes # (Auto) 0.72 K/uL Eosinophils # (Auto) 0.08 K/uL Basophils # (Auto) 0.02 K/uL RDW Standard Deviation 41.2 fL RDW Coefficient of Variation 12.2 % Immature Granulocyte % (Auto) 1.9 % Immature Granulocyte # (Auto) 0.12 K/uL Sodium Level 135 mmol/L Potassium Level 4.9 mmol/L Chloride Level 98 mmol/L Carbon Dioxide Level 30 mmol/L Anion Gap 7.0 mmol/L Blood Urea Nitrogen 19 mg/dl Creatinine 0.94 mg/dl Est Creatinine Clear Calc Drug Dose 122.4 ml/min Estimated GFR () 106.1 Estimated GFR (Non- 91.6 BUN/Creatinine Ratio 20.1 Random Glucose 120 mg/dl Calcium Level 9.6 mg/dl Assessment & Plan 52 yo M s/p lumbar laminectomy after traumatic disc herniation last week presents with persistent hypotension, orthostasis and LLE foot drop and numbness affecting proprioception. 1. SYNCOPE -- likely Orthostatic Hypotension -- from Robaxin? d/c Robaxin IV NSS given Metoprolol XL reduced to 25mg po daily Echo: grade 1 diastolic dysfunction, mild mitral regurgitation -- Random cortisol normal Tramadol PRN for pain Lidoderm patch -- Orthostasis improved dizziness resolved ambulating well -- patient advised to check BP before taking Metoprolol, hold if systolic bp < 110 encouraged adequate oral fluid intake 2. LEFT FOOT DROP - s/p Lumbar Laminectomy a week ago for Disc Herniation - Dr. Randolph Consulted MRI noted - stable per Dr. Randolph ff up with Surgeon in [facility] as scheduled 3. HTN --Metoprolol XL reduced to 25mg po daily -- patient advised to check BP before taking Metoprolol, hold if systolic bp < 110 encouraged adequate oral fluid intake -- Lisinopril discontinued 4. Hyponatremia - improved from 128 to 133 5. Posterior Neck Pain - likely Muscular - Toradol PRN Lidoderm patch - improved DVT proph-Lovenox Full Code Dispo d/c home ff up with PCP in 3-5 days ff up with Neurosurgeon as scheduled Current Inpatient Medications: Current Inpatient Medications Medications (Trade) Dose Ordered Sig/Reza Route Start Time Stop Time Status Last Admin Dose Admin Ioversol (Optiray 320) 111 ml UD PRN IV 06/18/17 16:15 06/22/17 16:14 Gadobutrol (Gadavist) 11 mmol UD PRN IV 06/18/17 18:45 06/22/17 18:44 Acetaminophen (Tylenol Tab) 650 mg Q4H PRN PO 06/18/17 21:00 07/18/17 20:59 06/21/17 08:24 650 MG Ondansetron HCl (Zofran Inj) 4 mg Q6H PRN IV 06/18/17 21:00 07/18/17 20:59 Polyethylene (Miralax Powder Packet) 17 gm DAILY PRN PO 06/18/17 21:00 07/18/17 20:59 Tramadol HCl (Ultram Tab) 50 mg Q6H PRN PO 06/19/17 08:30 07/19/17 08:29 06/20/17 12:04 50 MG Lidocaine (Lidoderm Patch 5%) 1 patch QAM TD 06/20/17 09:00 07/20/17 08:59 06/21/17 08:13 1 PATCH Miscellaneous (Remove Lidoderm Patch) 1 ea DAILY@21 N/A 06/19/17 21:00 07/19/17 20:59 06/19/17 21:16 1 EA Zolpidem Tartrate (Ambien Tab) 5 mg HS PRN PO 06/19/17 09:45 07/19/17 09:44 06/20/17 20:57 5 MG Atorvastatin Calcium (Lipitor Tab) 40 mg DAILY PO 06/20/17 09:00 07/20/17 08:59 06/21/17 08:12 40 MG Cetirizine HCl (zyrTEC TAB) 10 mg DAILY PO 06/20/17 09:00 07/20/17 08:59 06/21/17 08:12 10 MG Fluoxetine HCl (Prozac Cap) 10 mg DAILY PO 06/20/17 09:00 07/20/17 08:59 06/21/17 08:12 10 MG Senna (Senokot Tab) 8.6 mg DAILY PO 06/20/17 09:00 07/20/17 08:59 06/21/17 08:12 8.6 MG Senna/Docusate Sodium (Senokot S Tab) 1 tab DAILY PO 06/20/17 09:00 07/20/17 08:59 06/21/17 08:12 1 TAB Magnesium Oxide (Mag-Ox Tab) 400 mg HS PO 06/19/17 21:00 07/19/17 20:59 06/20/17 20:56 400 MG Pantoprazole Sodium (Protonix Tab) 40 mg DAILY PO 06/20/17 09:00 07/20/17 08:59 06/21/17 08:12 40 MG Polyethylene (Miralax Powder Packet) 17 gm DAILY PO 06/20/17 09:00 07/20/17 08:59 06/21/17 08:12 17 GM Ketorolac Tromethamine (Toradol Inj) 30 mg Q6H PRN IV 06/20/17 14:45 06/25/17 14:44 06/20/17 21:03 30 MG Lidocaine (Lidoderm Patch 5%) 1 patch QAM TD 06/21/17 09:00 07/21/17 08:59 06/21/17 08:13 1 PATCH Miscellaneous (Remove Lidoderm Patch) 1 ea DAILY@21 N/A 06/20/17 21:00 07/20/17 20:59 Metoprolol Succinate (Toprol Xl Tab) 25 mg QAM PO 06/21/17 09:00 07/21/17 08:59 06/21/17 08:12 25 MG
[2017-06-21] MEDS ORDERED: TPRSR25 PO (14:39)
[2017-06-21] MEDS ORDERED: LDDP5 TD (14:39)
--- NOTE | 2017-06-21 14:45 | Discharge Instructions ---
Discharge Instructions Date of Service Jun 21, 2017. Admission Reason for Admission: Hypotension Discharge Discharge Diagnosis / Problem: HYPOTENSION Discharge Goals Goal(s): Diagnostic testing, Therapeutic intervention Activity Recommendations Activity Limitations: as noted below (INCREASE YOUR ACTIVITY GRADUALLY TOLERATED, NO HEAVY EXERTION UNTIL RE-EVALUATED BY PRIMARY CARE PHYSICIAN) Lifting Limitations: until after follow-up appointment Exercise/Sports Limitations: until after follow-up appointment Driving or Machine Use: NO DRIVING UNTIL RE-EVALUATED BY PRIMARY CARE PHYSICIAN . Instructions / Follow-Up Instructions / Follow-Up PLEASE REVIEW YOUR NEW MEDICATION LIST AND FOLLOW INSTRUCTIONS CAREFULLY. ALWAYS TAKE YOUR BLOOD PRESSURE BEFORE TAKING METOPROLOL. DO NOT TAKE METOPROLOL IF THE SYSTOLIC BLOOD PRESSURE (TOP NUMBER IS 110 OR BELOW). ENSURE ADEQUATE DAILY FLUID INTAKE. CALL PRIMARY CARE PHYSICIAN OR RETURN TO ER IMMEDIATELY IF WITH RECURRENCE OF SYMPTOMS. FOLLOW UP WITH DR. CARBAJAL ON SATURDAY JUNE 24, 2017 AT 9:30AM. FOLLOW UP WITH NEUROSURGEON IN [facility] SCHEDULED. Current Hospital Diet Patient's current hospital diet: [facility] Diet (Heart Healthy) Discharge Diet Recommended Diet: [facility] Diet (Heart Healthy) Procedures Procedures Performed: MRI OF THE LUMBAR SPINE Pending Studies Studies pending at discharge: no Laboratory Results Lipid Panel Test 06/19/17 03:01 Range/Units Triglycerides Level 342 H 0-150 mg/dl Cholesterol Level 219 H 0-200 mg/dl HDL Cholesterol 34 mg/dl Cholesterol/HDL Ratio 6.4 LDL Cholesterol, Calculated 117 mg/dl Medical Emergencies . Who to Call and When: Medical Emergencies: If at any time you feel your situation is an emergency, please call 911 immediately. . Non-Emergent Contact Non-Emergency issues call your: Primary Care Provider, Surgeon Call Non-Emergent contact if: you have a fever, your pain is not controlled, your pain is worsening, wound has increased drainage, wound has increased redness, wound has increased pain, you have any medication questions . . "Provider Documentation" section prepared by Austin Merrill. . VTE Core Measure Inpt VTE Proph given/why not?: SCD's, Contraindicated (poss procedure)
--- NOTE | 2017-06-21 14:45 | Discharge Summary ---
Discharge Summary Date of Service Jun 21, 2017. Discharge Summary Admission Date: Jun 18, 2017 at 20:43 Discharge Date: Jun 21, 2017 Discharge Disposition: Home Principal Diagnosis: SYNCOPE-- likely Orthostatic Hypotension Secondary Diagnoses/Problems: Please refer to hospital course below. Procedures: (CHEST FOR PE) ANGIO WITH CLINICAL HISTORY: 52 years-old Male presenting with ^Syncope, hypotension. TECHNIQUE: Multidetector CT angiography of the chest was performed after administration of intravenous contrast. 3-D volumetric and/or maximum intensity projection (MIP) images were subsequently reconstructed for review. IV contrast: 93 mL of Optiray 320. A dose lowering technique was used consistent with the principles of ALARA (as low as reasonably achievable). COMPARISON: 07/26/2014. CT DOSE (mGy.cm): The estimated cumulative dose is 620.84 mGy.cm. FINDINGS: Ammonia Solution Preparer topogram: Unremarkable. Pulmonary vasculature: The study is adequate for assessment of the pulmonary vascular tree. No filling defect within the pulmonary arteries to suggest embolus. Main pulmonary artery is not enlarged. No flattening of the interventricular septum. No intracardiac filling defect. No reflux of contrast into the hepatic veins. Remaining chest: On soft tissue windows, normal thyroid and thoracic inlet. No axillary, supraclavicular, hilar, or mediastinal lymphadenopathy. Normal aorta. Normal heart size. Coronary artery calcification. No pericardial or pleural effusion. Hepatic steatosis. On lung windows, extensive mosaic attenuation most pronounced at the lung bases. No other focal infiltrate or nodule. Airways patent. On bone windows, degenerative changes of the spine. Mild osteopenia. IMPRESSION: 1. No evidence of pulmonary embolus. 2. Extensive mosaic attenuation at the lung bases likely indicate small airways disease. LUMBAR SPINE COMBINATION CLINICAL HISTORY: 52 years-old Male presenting with recent surgery, hypotension, concern for epidural hematoma. TECHNIQUE: Multisequence, multiplanar MR imaging of the lumbar spine was performed before and after the administration of intravenous contrast. IV contrast: 11 mL of Gadavist. COMPARISON: CT performed earlier the same day. FINDINGS: Localizer images: Unremarkable. T1 hyperintense, T2 hyperintense, partially fat-containing lesion in the T12 vertebral body suggestive of a hemangioma. No bony edema at the site of suspected nondisplaced fracture of the L1 spinous process to corroborate the findings on CT. Normal lumbar lordosis. Vertebral bodies maintain normal height, alignment, bone marrow signal intensity. Intervertebral disc spaces demonstrate mild desiccation at L3-4 and L5-S1. No abnormal fluid signal intensity in the disks. Postsurgical changes at L4-5 with left hemilaminectomy of L4. Regional susceptibility artifact noted. A fluid collection is evident in the operative bed extending from the superficial subcutaneous tissue at the incision site into the hemilaminectomy to the epidural space. This results in mild effacement of the left posterior lateral thecal sac at the level of L4-5. No significant spinal canal stenosis. Spinal cord ends in good position above the level of L1. Cauda equina normal in morphology apart from thecal sac displacement as above. Facet arthropathy noted from L3-4 and L4-5. This results in mild bilateral neural foraminal narrowing at L3-4 and moderate right and severe left neural foraminal narrowing at L4-5. Posterior soft tissues demonstrate extensive edema likely postoperative changes. IMPRESSION: 1. Postsurgical changes of left hemilaminectomy at L4. A fluid collection in the operative bed extends from the superficial subcutaneous tissue to the hemilaminectomy and into the epidural space. This may represent a postsurgical seroma. Sterility cannot be confirmed. 2. Degenerative changes at L3-4 and L4-5 with mild bilateral neural foramina normal narrowing at L3-4 and moderate right and severe left neural foraminal narrowing at L4-5. 3. No bony edema evident in the spinous process of L1 to corroborate findings on CT of the nondisplaced fracture. Findings are equivocal for fracture. Consultations: Spinal Ortho Dr. Randolph Pending Studies/Follow-Up: Please refer to hospital course below. Medication Reconciliation New Medications: Lidocaine (Lidocaine) 1 Patch Tdsy 1 PATCH TD QAM for 7 Days, #7 PATCH 1 Refill Metoprolol Succinate (Metoprolol Succinate ER) 25 Mg Tabcr 25 MG PO QAM for 30 Days, #30 TABS 2 Refills hold for systolic blood pressure LESS than 110 Continued Medications: Acetaminophen (Tylenol) 500 Mg Tab 1000 MG PO QAM PRN for Pain or Fever, TAB Atorvastatin (Lipitor) 40 Mg Tab 40 MG PO DAILY, TAB Calcium Citrate-Vitamin D (Citracal + D3 Maximum) 1 Tab Tab 1 TAB PO HS Cetirizine Hcl (Zyrtec) 10 Mg Tab 10 MG PO DAILY, TAB Coenzyme Q10 (Ubidecarenone) (Co Q10) Unknown Strength Cap 1 CAP PO DAILY, CAP Fish Oil ([place]-3) 1 Ea Cap 1 CAP PO DAILY, CAP Fluoxetine (Prozac) 10 Mg Cap 10 MG PO DAILY, CAP Gtpzrvazjvs-Aifhcdqtokz-Elu C- (Glucosamine Chondroitin) 1 Tab Tab 1 TAB PO DAILY Magnesium Oxide (Mg Supplement (Magnesium Oxide) 400 Mg Tab 400 MG PO HS, TAB Multivitamins/Minerals (Mvi With Minerals) Tab 1 TAB PO DAILY, TAB Omeprazole (Prilosec) 20 Mg Cap 1 CAP PO DAILY for 30 Days, #30 CAP 5 Refills Polyethylene Glycol 3350 (Miralax) 1 Pow Pow 17 GM PO DAILY, #255 GM Senna (Senokot) 8.6 Mg Tab 1 TAB PO DAILY, TAB Sennosides-Docusate Sodium (Stool Softener) 1 Tab Tab 1 TAB PO DAILY [tumeric] () 500 TAB 500 MG PO DAILY Discontinued Medications: Lisinopril (Prinivil) 20 Mg Tab 20 MG PO DAILY, TAB Methocarbamol (Robaxin) 500 Mg Tab 1 TAB PO QID PRN for muscle spasms for 30 Days, #120 TAB Metoprolol Succ (Toprol Xl) (Toprol-Xl ) 100 Mg Tabcr 100 MG PO DAILY, TAB Admission Information HPI (per Admitting provider): 52 yo M presents with persistent hypotension, LLE numbness, foot drop and difficulty ambulating and episodes of diaphoresis post-operatively since undergoing a lumbar hemilaminectomy last week at [facility]. He reports lifting a tractor at work last week and developed a traumatic herniated disc requiring the surgery. His post-operative course included discharge to home the day after surgery, persistent hypotension, weakness, mental fog, syncopal episodes and LLE foot drop with difficulty ambulating. These symptoms seem to be getting worse in the last couple of days and none were present pre- operatively. Back pain is minimal and there has been no drainage from the surgical site, no fevers, or chills (although he does admit to feeling cold). He denies any sick contacts, has been tolerating PO, had some constipation from the narcotics which he is no longer taking and constipation has resolved. He denies any cough, sore throat or other flu-like symptoms, denies chest pain, shortness of breath, abdominal pain, urinary symptoms. He can walk but has difficulty with proprioception of his L foot related to his numbness which extends up the lateral side of the leg to the knee. Entire foot is numb on the left and there is sparing of numbness on the medial lower leg. He notably had saddle anesthesia prior to the procedure which is now gone. He is mentating well and is non-toxic appearing. He does have a h/o lower back laminectomies in the past and a neck fusion. He denies any issues with syncope in the past and has no heart disease. He reports not taking his Toprol or Lisinopril this week because his BP was too low. 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 Physical Exam (per Admitting): General Appearance: WD/WN, no apparent distress Head: normocephalic, atraumatic Eyes: PERRL, sclerae normal, + pertinent finding (MMM) ENT: normal ENT inspection, hearing grossly normal, TMs normal, pharynx normal, + pertinent finding (no sinus TTP) Neck: supple, no adenopathy, trachea midline Respiratory/Chest: lungs clear, normal breath sounds, no respiratory distress, no accessory muscle use Cardiovascular: regular rate, rhythm, no edema, no gallop, no JVD, no murmur , normal peripheral pulses Abdomen/GI: normal bowel sounds, non tender, soft, no organomegaly Back: normal inspection, + pertinent finding (small vertical lumbar incision with no peripheral erythema or pain, incision is closed without drainage, healing well) Extremities/Musculoskelatal: normal inspection, no calf tenderness, normal capillary refill, no pedal edema, non-tender Neurologic/Psych: 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 1. SYNCOPE -- likely Orthostatic Hypotension -- from Robaxin? d/c Robaxin IV NSS given Metoprolol XL reduced to 25mg po daily -- Echo: grade 1 diastolic dysfunction, mild mitral regurgitation CT chest: (+) coronary artery calcification Random cortisol normal -- Orthostasis improved dizziness resolved ambulating well -- patient advised to check BP before taking Metoprolol, hold if systolic bp < 110 encouraged adequate oral fluid intake, avoid Narcotics, muscle relaxants -- with echo findings and coronary calcification in CT chest; monitor lipid profile, consider ASA therapy 2. LEFT FOOT DROP - s/p Lumbar Laminectomy a week ago for Disc Herniation - Dr. Randolph- Ortho Spine Consulted MRI Lumbar spine done - stable per Dr. Randolph ff up with Surgeon in [facility] as scheduled 3. HTN --Metoprolol XL reduced to 25mg po daily -- patient advised to check BP before taking Metoprolol, hold if systolic bp < 110 encouraged adequate oral fluid intake -- Lisinopril discontinued 4. Hyponatremia - improved from 128 to 133 5. Posterior Neck Pain - likely Muscular - Toradol PRN Lidoderm patch - improved Dispo d/c home ff up with PCP in 3-5 days ff up with Neurosurgeon as scheduled Total time spent on discharge = 30 minutes This includes examination of the patient, discharge planning, medication reconciliation, and communication with other providers. Discharge Instructions Discharge Instructions Date of Service Jun 21, 2017. Admission Reason for Admission: Hypotension Discharge Discharge Diagnosis / Problem: HYPOTENSION Discharge Goals Goal(s): Diagnostic testing, Therapeutic intervention Activity Recommendations Activity Limitations: as noted below (INCREASE YOUR ACTIVITY GRADUALLY TOLERATED, NO HEAVY EXERTION UNTIL RE-EVALUATED BY PRIMARY CARE PHYSICIAN) Lifting Limitations: until after follow-up appointment Exercise/Sports Limitations: until after follow-up appointment Driving or Machine Use: NO DRIVING UNTIL RE-EVALUATED BY PRIMARY CARE PHYSICIAN . Instructions / Follow-Up Instructions / Follow-Up PLEASE REVIEW YOUR NEW MEDICATION LIST AND FOLLOW INSTRUCTIONS CAREFULLY. ALWAYS TAKE YOUR BLOOD PRESSURE BEFORE TAKING METOPROLOL. DO NOT TAKE METOPROLOL IF THE SYSTOLIC BLOOD PRESSURE (TOP NUMBER IS 110 OR BELOW). ENSURE ADEQUATE DAILY FLUID INTAKE. CALL PRIMARY CARE PHYSICIAN OR RETURN TO ER IMMEDIATELY IF WITH RECURRENCE OF SYMPTOMS. FOLLOW UP WITH DR. CARBAJAL ON SATURDAY JUNE 24, 2017 AT 9:30AM. FOLLOW UP WITH NEUROSURGEON IN [facility] SCHEDULED. Current Hospital Diet Patient's current hospital diet: [facility] Diet (Heart Healthy) Discharge Diet Recommended Diet: [facility] Diet (Heart Healthy) Procedures Procedures Performed: MRI OF THE LUMBAR SPINE Pending Studies Studies pending at discharge: no
[2017-06-21 14:49] VITALS: BP 128/91; PULSE 104; TEMP 36.8; O2SAT 98
== END 2017-06-21 15:07 | disposition home or self-care (01) | DRG 312 ==
LOC: EDBD 13:59 → C.EDC 14:00 → C.MED 20:43 → ENRESERV 21:01
PROVIDERS: ADMIT Hospitalist; ATTEND Internal Medicine
DX: I95.2 Hypotension due to drugs (principal); E87.1 Hypo-osmolality and hyponatremia; T40.2X5A Adverse effect of other opioids, initial encounter; I10 Essential (primary) hypertension; E78.5 Hyperlipidemia, unspecified; M21.379 Foot drop, unspecified foot; R20.0 Anesthesia of skin; Z98.890 Other specified postprocedural states; K59.03 Drug induced constipation; Y92.019 Unspecified place in single-family (private) house as the place of occurrence of the external cause; T48.1X5A Adverse effect of skeletal muscle relaxants [neuromuscular blocking agents], initial encounter; M54.2 Cervicalgia

== ENCOUNTER 2019-09-27 07:45 | Observation (INO) ==
[2019-09-27] MEDS ORDERED: MoRPHine SULFATE 4 MG/ML 1 ML CARP\\VIAL IV STA (08:04)
[2019-09-27] MEDS ORDERED: ONDANSETRON INJ 2 MG/ML 2 ML VIAL IV STA (08:04)
--- NOTE | 2019-09-27 08:14 | Emergency Department Note ---
History of Present Illness General Chief complaint: Cardiac Assessment Stated complaint: BP UP,ARM PAIN,NAUSEA,HEADACHES Time Seen by Provider: 09/27/19 07:57 Source: patient Mode of arrival: ambulatory Limitations: no limitations History of Present Illness Provider complaint: Headache and hypertension Maximum Pain Intensity: 5 This is a 54-year-old male who presents to the ED with a chief complaint of headache, little nausea and elevated blood pressure. He states that he recently saw his doctor over a week ago for elevated blood pressure. His PCP increased his Cozaar by doubling it from 50-100 a day and then also doubled his metoprolol from 25-50. He states that over the past 3 days he has had a headache. He has been undergoing a lot of life stressors with regards to his mother just being diagnosed with pancreatic cancer and his recently diagnosed with A. fib. The patient states that he has been having some bilateral wrist pain as well. He has noticed his blood pressures been elevated for the past few days. He was up since 1:00 this morning because of his headache. His headache is in the posterior aspect of his head. Denies any trauma. No recent illness or fevers. Home Medications Home Medications Medication Instructions Recorded Confirmed Type cetirizine 10 mg PO QAM 02/28/19 09/27/19 History omeprazole 20 mg PO QAM 02/28/19 09/27/19 History Glucos Chond Cplx Advanced 1 tab PO BID 03/17/19 09/27/19 History allopurinol 300 mg PO HS 03/17/19 09/27/19 History calcium carbonate-vitamin D3 1 tab PO QAM 03/17/19 09/27/19 History [Calcium 500 + D] gabapentin 300 mg PO BID 03/17/19 09/27/19 History metformin 500 mg PO BID 03/17/19 09/27/19 History rosuvastatin [Crestor] 40 mg PO QAM 03/17/19 09/27/19 History acetaminophen [Tylenol Extra 500 mg PO Q6H PRN 09/27/19 09/27/19 History Strength] losartan 100 mg PO QAM 09/27/19 09/27/19 History magnesium oxide [MagOx] 400 mg PO HS 09/27/19 09/27/19 History metoprolol succinate 100 mg PO HS 09/27/19 09/27/19 History Allergies Allergy/AdvReac Type Severity Reaction Status Date / Time No Known Allergies Allergy Verified 06/20/19 14:28 Past Med/Surg History Medical History Basal cell carcinoma Diabetes mellitus, type 2 niddm GERD (gastroesophageal reflux disease) Hyperlipidemia Hypertension Surgical History History of appendectomy History of cardiac cath ~20 years ago. no stents History of colonoscopy History of discectomy with fusion cervical area (unsure of levels) Full ROM History of laminectomy lumbar x3 History of Mohs micrographic surgery for skin cancer S/P arthroscopy of right shoulder Family History Uncle Family hx of colon cancer Aunt Family hx of colon cancer Father FHx: prostate cancer Social History Preferred Language: Sammarinese Communication Ability: Effective [employer] Required: No Beliefs That Will Affect Care: None Current Living Situation: Spouse Other Information That Helps Us Care for You: No Feels Safe at Home: Yes Safety Concerns: Feels Safe At This Time Smoking Status: Never smoker Second Hand Exposure: No ; Hx Alcohol Use: Yes Alcohol type: beer and hard liquor Hx Substance Use: No Review of Systems A total of 10 systems reviewed and were otherwise negative Physical Exam Vital Signs Vital Signs - 24 hr 09/27/19 07:50 09/27/19 08:18 09/27/19 08:53 Temperature 36.9 C Temperature Source Oral Pulse Rate 77 Pulse Rate [Apical] 66 Respiratory Rate 18 18 Respiratory Effort / Characteristics Non-Labored Spontaneous Non-Labored Spontaneous Respiratory Depth Normal Normal Blood Pressure 214/114 H Blood Pressure [Left Arm] 168/118 H Blood Pressure Mean 147 Blood Pressure Mean [Left Arm] 134 Blood Pressure Position Sitting Pulse Oximetry 96 99 Oxygen Delivery Method Room Air Room Air Room Air Sepsis Recent Fever Within 48 Hours No Sepsis Action Taken by Nursing No Action Required CONSTITUTIONAL/VITAL SIGNS: Reviewed / noted above. GENERAL: Non-toxic in appearance. INTEGUMENTARY: Warm, dry, and [place]. HEAD: Normocephalic. EYES: without scleral icterus or trauma. ENT/OROPHARYNX: clear and moist. LYMPHADENOPATHY/NECK: Is supple without lymphadenopathy or meningismus. RESPIRATORY: Lungs clear and equal. CARDIOVASCULAR: Regular rate and rhythm. GI/ABDOMEN: Soft and nontender. No organomegaly or pulsatile mass. No rebound or guarding. Normal bowel sounds. EXTREMITIES: Warm and well perfused. BACK: No CVA tenderness. NEUROLOGICAL: Intact without focal deficits. PSYCHIATRIC: normal affect. MUSCULOSKELETAL: Normally developed with good muscle tone. TRIAGE NURSING DOCUMENTATION REVIEWED. Course Administered Medications Discontinued Medications Morphine Sulfate (Morphine Sulfate) 4 mg IV NOW STA Stop: 09/27/19 08:05 Last Admin: 09/27/19 08:17 Dose: 4 mg Documented by: [id number] Ondansetron HCl (Zofran) 4 mg IV NOW STA Stop: 09/27/19 08:05 Last Admin: 09/27/19 08:17 Dose: 4 mg Documented by: [id number] Medical Decision Making Differential Diagnosis The differential that was considered includes acute myocardial infarction, acute coronary syndrome, myocarditis, pericarditis, pericardial effusions /tamponade, hypertensive emergency, thoracic aortic dissection, pulmonary embolism, intracranial bleed, intracranial mass. Medical Records Attestation: I reviewed the patient's medical records. Home Medications Current Medication List: was personally reviewed by me Laboratory Data Attestation: I reviewed the patient's lab results. Result diagrams: 09/27/19 08:06 09/27/19 08:06 Lab Results 09/27/19 09/27/19 09/27/19 Range/Units 08:06 08:06 08:06 WBC 6.66 (4.8-10.8) K/uL RBC 4.53 L (4.7-6.1) M/uL Hgb 14.2 (14.0-18.0) g/dL Hct 40.8 L (42-52) % MCV 90.1 (80-100) fL MCH 31.3 (25-34) pg MCHC 34.8 (32-36) g/dL RDW Std Deviation 41.6 (36.4-46.3) fL RDW Coeff of Joanna 12.7 (11.5-14.5) % Plt Count 179 (130-400) K/uL MPV 10.1 (7.4-10.4) fL Immature Gran % (Auto) 1.1 % Neut % (Auto) 56.0 % Lymph % (Auto) 28.7 % Miller % (Auto) 11.3 % Eos % (Auto) 2.4 % Baso % (Auto) 0.5 % Immature Gran # (Auto) 0.07 H (0.00-0.02) K/uL Neut # (Auto) 3.74 (1.4-6.5) K/uL Lymph # (Auto) 1.91 (1.2-3.4) K/uL Miller # (Auto) 0.75 H (0.11-0.59) K/uL Eos # (Auto) 0.16 (0-0.5) K/uL Baso # (Auto) 0.03 (0-0.2) K/uL PT 10.9 (9.0-12.0) Seconds INR 1.0 (0.9-1.1) APTT 28.0 (21.0-31.0) Seconds PTT Ratio 1.0 Sodium 136 (136-145) mmol/L Potassium 3.9 (3.5-5.1) mmol/L Chloride 101 (98-107) mmol/L Carbon Dioxide 24 (21-32) mmol/L Anion Gap 11.0 (3-11) BUN 15 (7-18) mg/dl Creatinine 0.99 (0.6-1.4) mg/dl Est Cr Clr Drug Dosing 120.2 ml/min Est GFR ( Amer) 98.3 Est GFR (Non-Af Amer) 84.8 BUN/Creatinine Ratio 15.0 (10-20) Glucose 150 H (70-99) mg/dl Calcium 10.1 (8.5-10.1) mg/dl Total Bilirubin 0.5 (0.2-1) mg/dl AST 42 H (15-37) U/L ALT 47 (12-78) U/L Alkaline Phosphatase 62 (45-117) U/L Troponin I 0.121 H* (0-0.045) ng/ml Total Protein 7.9 (6.4-8.2) gm/dl Albumin 4.4 (3.4-5.0) gm/dl Globulin 3.4 (2.5-4.0) gm/dl Albumin/Globulin Ratio 1.3 (0.9-2) Imaging Data Attestation: I personally reviewed and interpreted this imaging study as follows: My Impression: Chest x-ray: No acute disease Radiologist's Impression: Chest x-ray: No acute cardiopulmonary process. CT scan of the brain: IMPRESSION: 1. No acute intracranial findings.. 2. Sinus mucosal thickening. ECG Data Attestation: I personally reviewed and interpreted this ECG as follows: Indication: + nausea Rate (beats per minute): 75 Rhythm: + normal sinus ECG Intervals/blocks: + Normal QT-c ECG ST segments: no ST elevation ECG Findings: no PVCs Blood Pressure Blood Pressure Findings: Elevated blood pressure Blood Pressure Disposition: further management by hospitalist DOROTHY Narrative This is a 54-year-old male who presents to the ED with a chief complaint of headache, little nausea and elevated blood pressure. He states that he recently saw his doctor over a week ago for elevated blood pressure. His PCP increased his Cozaar by doubling it from 50-100 a day and then also doubled his metoprolol from 25-50. He states that over the past 3 days he has had a headache. He has been undergoing a lot of life stressors with regards to his mother just being diagnosed with pancreatic cancer and his recently diagnosed with A. fib. The patient states that he has been having some bilateral wrist pain as well. He has noticed his blood pressures been elevated for the past few days. He was up since 1:00 this morning because of his headache. His headache is in the posterior aspect of his head. Denies any trauma. No recent illness or fevers. The patient's initial blood pressure here today is 214/114. His physical and neurologic exam are unremarkable. He is in no distress. Twelve-lead EKG shows a normal sinus rhythm at a rate of 75 without concerning changes. The patient's chest x-ray did not show any acute process. CBC is unremarkable. Troponin was elevated at 0.121. CT scan of the brain did not show acute process. The p atient was treated with IV morphine and IV Zofran. His blood pressure did improve with this a fair amount. I reassessed the patient. He is currently not having any chest pains and his headache is a 2 out of 10. He was told the results. He will be seen by the hospitalist for further inpatient evaluation and care. Cardiac monitoring: An order was placed for continuous cardiac monitoring. The monitor shows a rate of 65 with normal sinus rhythm. Impression & Plan Hypertensive urgency, malignant, Elevated troponin, Headache Discharge Plan Visit Data Chief Complaint: Cardiac Assessment Stated Complaint: BP UP,ARM PAIN,NAUSEA,HEADACHES ED Provider: Fletcher Greenwood Discharge Problem: Hypertensive urgency, malignant, Elevated troponin, Headache Patient Disposition: Being Evaluated by Hospitalist Forms Stand Alone Forms: [facility] Prescriptions Prescriptions: No Action cetirizine 10 mg Tablet 10 mg PO QAM RF: 0 omeprazole 20 mg Capsule,Delayed Release(Dr/Ec) 20 mg PO QAM RF: 0 gabapentin 300 mg Capsule 300 mg PO BID RF: 0 allopurinol 300 mg Tablet 300 mg PO HS RF: 0 metformin 500 mg Tablet Extended Release 24 Hr 500 mg PO BID RF: 0 rosuvastatin [Crestor] 40 mg Tablet 40 mg PO QAM RF: 0 calcium carbonate-vitamin D3 [Calcium 500 + D] 500 mg(1,250mg) -200 unit Tablet 1 tab PO QAM RF: 0 Glucos Chond Cplx Advanced 750 mg-100 mg- 125 mg-1.65 mg Tablet 1 tab PO BID RF: 0 metoprolol succinate 100 mg Tablet Extended Release 24 Hr 100 mg PO HS RF: 0 acetaminophen [Tylenol Extra Strength] 500 mg Tablet 500 mg PO Q6H PRN (Reason: Pain) RF: 0 losartan 100 mg Tablet 100 mg PO QAM RF: 0 magnesium oxide [MagOx] 400 mg (241.3 mg magnesium) tablet 400 mg PO HS RF: 0 Referrals Referrals: Kelly Lazo DO [Primary Care Provider] -
[2019-09-27 08:17] LABS: Basophils # (auto) 0.03 K/uL (0-0.2); Basophils % (auto) 0.5 %; Eosinophils # (auto) 0.16 K/uL (0-0.5); Eosinophils % (auto) 2.4 %; Hematocrit (blood only) 40.8 % (42-52); Hemoglobin 14.2 g/dL (14.0-18.0); Immature Granulocytes # (auto) 0.07 K/uL (0.00-0.02); Immature Granulocytes % (auto) 1.1 %; Lymphocytes # (auto) 1.91 K/uL (1.2-3.4); Lymphocytes % (auto) 28.7 %; Mean Corpuscular Hemoglobin 31.3 pg (25-34); Mean Corpuscular Hgb Conc 34.8 g/dL (32-36); Mean Corpuscular Volume 90.1 fL (80-100); Mean Platelet Volume 10.1 fL (7.4-10.4); Monocytes # (auto) 0.75 K/uL (0.11-0.59); Monocytes % (auto) 11.3 %; Neutrophils # (auto) 3.74 K/uL (1.4-6.5); Platelet Count 179 K/uL (130-400); RDW Coefficient of Variation 12.7 % (11.5-14.5); RDW Standard Deviation 41.6 fL (36.4-46.3); Red Blood Count 4.53 M/uL (4.7-6.1); White Blood Count 6.66 K/uL (4.8-10.8)
--- NOTE | 2019-09-27 08:31 | XRay Report ---
XR chest 1V portable CLINICAL HISTORY: 54 years-old Male presenting with Chest Pain. TECHNIQUE: Portable upright AP view of the chest was obtained. COMPARISON: 06/18/2017. FINDINGS: Cardiomediastinal silhouette normal. No focal opacity. No large effusion or pneumothorax. Degenerativ e changes of the thoracic spine. Upper abdomen normal. IMPRESSION: 1. No acute cardiopulmonary disease. ACT 112: Negative or not required by law. Electronically signed by: Giuseppe Tomas M.D. 09/27/2019 8:30 AM
[2019-09-27 08:33] LABS: Albumin Level 4.4 gm/dl (3.4-5.0); Calcium 10.1 mg/dl (8.5-10.1); Creatinine Clr Calc Pharmacy 120.2 ml/min; Est GFR (African American) 98.3; Est GFR (Non-African American) 84.8; Potassium 3.9 mmol/L (3.5-5.1)
[2019-09-27 08:39] LABS: Albumin Globulin Ratio 1.3 (0.9-2); Bilirubin,Total 0.5 mg/dl (0.2-1); Globulin 3.4 gm/dl (2.5-4.0); Total Protein 7.9 gm/dl (6.4-8.2); Troponin I 0.121 ng/ml (0-0.045)
[2019-09-27 08:47] LABS: Prothrombin Time 10.9 Seconds (9.0-12.0)
--- NOTE | 2019-09-27 08:59 | CT Scan Report ---
CT OF THE HEAD WITHOUT CONTRAST CLINICAL HISTORY: headache, htn COMPARISON STUDY: Head CT June 18, 2017. CT DOSE: 614.27 mGy.cm TECHNIQUE: Helical axial images of the head were obtained without IV contrast. Automated exposure con trol was utilized for the study. A dose lowering technique was utilized adhering to the principles o f ALARA. FINDINGS: No acute intracranial hemorrhage, midline shift or mass effect is present. The ventricular system is unremarkable. The basilar cisterns are patent. No extra-axial collections are present. Ther e are no findings to suggest acute dural sinus thrombosis or acute territorial infarct. No significan t calvarial abnormalities are present. Mastoid air cells are clear. There is moderate ethmoid sinus m ucosal thickening. There is mild mucosal thickening of the maxillary and sphenoid sinuses. IMPRESSION: 1. No acute intracranial findings.. 2. Sinus mucosal thickening. ACT 112: Negative or not required by law. Electronically signed by: Alvaro Gilliam M.D. 09/27/2019 8:58 AM
[2019-09-27] MEDS ORDERED: LABETALOL HCL IV 5 MG/ML 20ML IV STA (10:16)
--- NOTE | 2019-09-27 10:37 | History & Physical Report ---
Date of Service September 27, 2019 Assessment & Plan (1) Hypertensive emergency: (2) Elevated troponin: This is a 54-year-old male who has significant PMH of HTN, HLD, T2DM, KARISHMA on CPAP, gout, PAF, GERD who presents to ED secondary to severe headache, HTN and nausea x3 days. In ED patient's blood pressure upon arrival was 214/114, he was otherwise hemodynamically stable. He received 4 mg IV morphine and 4 mg of IV Zofran with mild improvement of blood pressure to 168/118. Lab work notable for elevated troponin 0.121, glucose 150, AST 42. His CBC and CMP was otherwise relatively unremarkable. Chest x-ray was negative for acute cardiopulmonary abnormality. Head CT was negative for acute abnormality. EKG revealed normal sinus rhythm without ST or T wave change with a rate of 75 bpm. His headache did improve from a 10 out of 10 to 4 out of 10 with administration of IV morphine. Admit to PCU Give 10mg IV Labetalol Stat CTA Chest - negative for dissection, moderate coronary calcification, fatty liver consult cardiology - Dr. Madison is aware cycle troponin and repeat Ecg - pt is chest pain free obtain echocardiogram (last done 04/2019 -revealed EF 60%, grade 1 diastolic dysfunction, mild LVH, mild MR, aortic root mildly enlarged Renal artery doppler continue losartan, metoprolol for now await response of labetalol, consider Amlodipine (3) Diabetes mellitus, type 2: Last A1c 6.5 on 08/25/2019 Hold metformin Insulin sliding scale per protocol (4) Hyperlipidemia: Continue statin (5) PAF (paroxysmal atrial fibrillation): History of A. fib after arthroscopic shoulder surgery He also had zio patch evaluation which showed approximately 44-minute run of A. fib Continue metoprolol, ASA [id number] 2 - follows with cardiology (6) KARISHMA on CPAP: Patient has been compliant with CPAP continue @ HS (7) Hepatic steatosis: per CT recommend diet and lifestyle modifications encourage weight loss and ETOH cessation (8) Lung nodule: Per CTA: Mild increase in size of a 5 mm solid right middle lobe nodule. A follow-up chest CT in one year is recommended. (9) Gout: Continue allopurinol, no acute flare (10) DVT prophylaxis: SCD/TEDS Disposition: admit to PCU Follow up: PCP Dr. Palomino upon discharge Pt was seen and examined in collaboration with Dr. Hamilton, please see addendum History of Present Illness Chief Complaint: Severe POON, HTN and nausea x 3 days. Primary Care Provider: Kelly Lazo, DO This is a 54-year-old male who has significant PMH of HTN, HLD, T2DM, KARISHMA on CPAP, gout, PAF, GERD who presents to ED secondary to severe headache, HTN and nausea x3 days. Over the past 2 days he has noticed significant elevation in his blood pressure ranging systolically 160-210 diastolically 100s to 120. This is also been associated with severe occipital headache, frontal headache and nausea. He denies any change in vision, hearing or weakness. He also elicits for the past week he has been experiencing right parascapular back pain that radiates to his chest, lasting several hours, resolving on own, nothing makes better or worse and occasionally associated with shortness of breath. It is not exacerbated with exertion. Approximately 1 week ago he had follow-up with PCP secondary to elevated blood pressure readings. He has been monitoring his blood pressure 3-5 times a day. At that time his losartan was increased from 50 mg daily to 100 mg daily and his metoprolol succinate was increased from 50 mg daily 100 mg daily. He has not noticed any significant increase in blood pressure since adjustment medications. He woke up at approximately 130 this morning with severe headache, posterior, 10/10 with associated nausea. His blood pressure was 200/120. At 4:30 AM he took his losartan with no improvement in blood pressure. He opted to proceed to ED for further evaluation. He denies any recent illness, fever, chills, sweats, lightheadedness, dizziness, syncope, shirley chest pain, shortness breath at rest, cough, hemoptysis, emesis, abdominal pain, changes bowel or urinary habits. He has noticed occasional hand swelling at night with pain in his joints. He associates this with many years of playing sports when younger. Him and his walk 4 miles a day but has not done this in the past 2 days due to his blood pressure. When walking he denies any chest pain or exertional dyspnea. He denies any lower extremity edema, orthopnea or PND. He has noted slight increase in his weight from 260s to 280s due to diet. He has been monitoring his sodium intake and has been compliant with his CPAP. He drinks 2 cups of caffeine daily. He also drinks 2 mixed drinks every evening, last drink was over 48 hours ago. In ED patient's blood pressure upon arrival was 214/114, he was otherwise hemodynamically stable. He received 4 mg IV morphine and 4 mg of IV Zofran with mild improvement of blood pressure to 168/118. Lab work notable for elevated troponin 0.121, glucose 150, AST 42. His CBC and CMP was otherwise relatively unremarkable. Chest x-ray was negative for acute cardiopulmonary abnormality. Head CT was negative for acute abnormality. EKG revealed normal sinus rhythm without ST or T wave change with a rate of 75 b pm. His headache did improve from a 10 out of 10 to 4 out of 10 with administration of IV morphine. Allergies Allergy/AdvReac Type Severity Reaction Status Date / Time No Known Allergies Allergy Verified 06/20/19 14:28 Home Medications Home Medications Medication Instructions Recorded Confirmed Type cetirizine 10 mg PO QAM 02/28/19 09/27/19 History omeprazole 20 mg PO QAM 02/28/19 09/27/19 History Glucos Chond Cplx Advanced 1 tab PO BID 03/17/19 09/27/19 History allopurinol 300 mg PO HS 03/17/19 09/27/19 History calcium carbonate-vitamin D3 1 tab PO QAM 03/17/19 09/27/19 History [Calcium 500 + D] gabapentin 300 mg PO BID 03/17/19 09/27/19 History metformin 500 mg PO BID 03/17/19 09/27/19 History rosuvastatin [Crestor] 40 mg PO QAM 03/17/19 09/27/19 History acetaminophen [Tylenol Extra 500 mg PO Q6H PRN 09/27/19 09/27/19 History Strength] aspirin 81 mg PO DAILY 09/27/19 09/27/19 History losartan 100 mg PO QAM 09/27/19 09/27/19 History magnesium oxide [MagOx] 400 mg PO HS 09/27/19 09/27/19 History metoprolol succinate 100 mg PO HS 09/27/19 09/27/19 History Past Med/Surg History Medical History (Updated 09/27/19 @ 11:14 by Naina Rush PA-C) Basal cell carcinoma Diabetes mellitus, type 2 niddm GERD (gastroesophageal reflux disease) Gout Hyperlipidemia Hypertension KARISHMA on CPAP PAF (paroxysmal atrial fibrillation) Surgical History (Updated 09/27/19 @ 10:46 by Naina Rush PA-C) History of appendectomy History of cardiac cath ~20 years ago. no stents History of colonoscopy History of discectomy with fusion cervical area (unsure of levels) Full ROM History of laminectomy lumbar x3 History of Mohs micrographic surgery for skin cancer S/P arthroscopy of right shoulder Family History (Updated 09/27/19 @ 10:47 by Naina Rush PA-C) Uncle Family hx of colon cancer Aunt Family hx of colon cancer Father FHx: prostate cancer Grandfather (Paternal) Myocardial infarction, Onset Age: 41 Social History (Updated 09/27/19 @ 10:48 by Naina Rush PA-C) Preferred Language: Belarusian Communication Ability: Effective Occupational Therapy Department Chair Required: No Beliefs That Will Affect Care: None Current Living Situation: Spouse Other Information That Helps Us Care for You: No Feels Safe at Home: Yes Safety Concerns: Feels Safe At This Time Smoking Status: Never smoker Second Hand Exposure: No ; Hx Alcohol Use: Yes Alcohol type: beer and hard liquor Alcohol Intake Frequency Comment: 2-3 drinks daily; last drink 2 days ago Hx Substance Use: No Review of Systems Review of Systems: All systems reviewed & are unremarkable except as noted in HPI & below Physical Exam Physical Exam: Constitutional: WD/WN, M vitals as above, NAD, sitting up in bed, pleasant, conversing easily Head: Normocephalic, Atraumatic Eyes: PERRL, conjunctivae normal, anicteric sclerae ENMT: external ear and nose normal, oropharynx normal Neck: trachea midline, no thyromegaly normal visual inspection Respiratory: normal respiratory effort, lungs clear to auscultation, no wheeze, rales, rhonchi. Normal insp/exp effort, no accessory muscle use Cardiovascular: RRR, no murmur, no edema Vessels: no JVD or carotid bruit Chest: normal inspection of chest Abdomen: normal bowel sounds, soft, nontender, no hepatosplenomegaly Musculoskeletal: no cyanosis or clubbing, extremities motor strength 5/5 Skin: no rashes, warm and dry normal turgor Neurologic: PERRL, EOMI, accommodation nl, no face palsy, no dysarthria CN's II-XI intact bilaterally and moves all extremities Psychiatric: A+Ox3, euthymic affect Lymphatic: no cervical or axillary lymphadenopathy : deferred Results & Data Results & Data ([facility]) Vital Signs (Past 12 Hours) Vital Signs Temp Pulse Pulse Resp BP BP Pulse Ox 09/27/19 08:53 66 18 168/118 H 99 09/27/19 07:50 36.9 C 77 18 214/114 H 96 Laboratory Results Short CBC 09/27/19 09/27/19 Range/Units 08:06 08:06 WBC 6.66 (4.8-10.8) K/uL Hgb 14.2 (14.0-18.0) g/dL Hct 40.8 L (42-52) % Plt Count 179 (130-400) K/uL Immature Gran % (Auto) 1.1 % Troponin I 0.121 H* (0-0.045) ng/ml BMP 09/27/19 08:06 Sodium 136 Potassium 3.9 Chloride 101 Carbon Dioxide 24 BUN 15 Creatinine 0.99 Glucose 150 H Calcium 10.1 Cardiac Enzymes 09/27/19 Range/Units 08:06 Troponin I 0.121 H* (0-0.045) ng/ml Liver Function 09/27/19 Range/Units 08:06 Total Bilirubin 0.5 (0.2-1) mg/dl AST 42 H (15-37) U/L ALT 47 (12-78) U/L Alkaline Phosphatase 62 (45-117) U/L Albumin 4.4 (3.4-5.0) gm/dl Diagnostic Findings CXR: IMPRESSION: 1. No acute cardiopulmonary disease. Head CT: IMPRESSION: 1. No acute intracranial findings.. 2. Sinus mucosal thickening. Chest CTA: IMPRESSION: 1. No thoracic aortic dissection. No acute findings within the chest. 2. Moderate coronary artery calcification. 3. Mild increase in size of a 5 mm solid right middle lobe nodule. A follow-up chest CT in one year is recommended. 4. Severe fatty infiltration of the liver. Medications Administered Ioversol (Optiray 320 125ml) 120 ml IV ONCE PRN PRN Reason: Interaction Checking Stop: 10/01/19 10:40 Last Admin: 09/27/19 10:42 Dose: 120 ml Documented by: [id number] Discontinued Medications Morphine Sulfate (Morphine Sulfate) 4 mg IV NOW STA Stop: 09/27/19 08:05 Last Admin: 09/27/19 08:17 Dose: 4 mg Documented by: [id number] Ondansetron HCl (Zofran) 4 mg IV NOW STA Stop: 09/27/19 08:05 Last Admin: 09/27/19 08:17 Dose: 4 mg Documented by: [id number] ECG Rate (beats per minute): 75 Rhythm: normal sinus Code Status & VTE Plan Code Status Full Code VTE Prophylaxis Plan VTE Prophylaxis will be ordered: Yes Supervising Physician Co-Signing Physician Notes Attending addendum: The patient was seen and examined in telemetry unit He was admitted with hypertensive urgency with headache, shortness of breath, chest discomfort and numbness involving right sided extremities He has been feeling better since admission and the blood pressure is gradually improving Denies any chest pain and/or palpitation On examination Sitting on a chair without any acute symptoms Blood pressure remains elevated at 174/103 otherwise stable vitals Chest-clear to auscultate bilaterally Heart S1-S2 regular-, no murmur appreciate Abdomen-benign Extremities-S2 no edema bilaterally Admission labs, imaging studies and EKG reviewed Has hypertensive urgency with associated symptoms Doubt any ACS and negative for any aortic dissection and/or pulmonary embolus Agree with assessment and plan as outlined above by EDIN June Dr
[2019-09-27] MEDS ORDERED: OPTIRAY 320 125ml IV PRN (10:41)
--- NOTE | 2019-09-27 11:08 | CT Scan Report ---
CT ANGIOGRAPHY OF THE CHEST DISSECTION PROTOCOL CLINICAL HISTORY: HTM Emergency, Back pain, r/o PE, dissection COMPARISON STUDY: Chest CT June 18, 2017. Chest radiograph performed earlier today TECHNIQUE: Before and following the IV administration of 120 mL of Optiray-320, helical axial images of the chest were obtained. Maximal intensity projections and sagittal and coronal reformats were vi ewed on an independent 3D workstation. IV contrast was administered without complication. Automated exposure control was utilized for the study. A dose lowering technique was utilized adhering to the principles of ALARA. CT DOSE: 1934.97 mGy.cm FINDINGS: Caliber of the thoracic aorta is normal. There is no thoracic aortic dissection or intramu ral hematoma. Size of the heart is at the upper limits of normal. There is moderate coronary artery c alcification. No pulmonary embolus is identified. The central airways are patent. No consolidation is noted. There is no pneumothorax or pleural effusion. A 5 mm solid right middle lobe nodule on image 148 of 336 has mildly increased in size since CT of June 2017. No acute rib or thoracic spine fra cture is noted. Old mild T5 compression deformity is unchanged. There is severe fatty infiltration of the liver. IMPRESSION: 1. No thoracic aortic dissection. No acute findings within the chest. 2. Moderate coronary artery calcification. 3. Mild increase in size of a 5 mm solid right middle lobe nodule. A follow-up chest CT in one year i s recommended. 4. Severe fatty infiltration of the liver. ACT 112: Negative or not required by law. Electronically signed by: Alvaro Gilliam M.D. 09/27/2019 11:07 AM
--- NOTE | 2019-09-27 11:28 | Ultrasound Report ---
US duplex renal artery CLINICAL HISTORY: Severe hypertension. COMPARISON STUDY: Duplex renal artery ultrasound 07/20/2014. FINDINGS: The right kidney measures 12.2 cm the left kidney measures 11.8 cm. Normal corticomedullary differentiation. Increased echogenicity within the liver consistent with fatty change. The bilateral renal veins are patent. Bilateral renal arcuate arteries demonstrate resistive indices of less than 0.7. Peak systolic velocity within the right renal artery is 62 cm/s and the left renal artery is 72 cm/s. IMPRESSION: No evidence for renal artery stenosis. ACT 112: Negative or not required by law. Electronically signed by: Jose Romero M.D. 09/27/2019 11:27 AM
[2019-09-27] MEDS ORDERED: DEXTROSE 50% 50 ML SYRINGE IV PRN (13:05)
[2019-09-27] MEDS ORDERED: ONDANSETRON INJ 2 MG/ML 2 ML VIAL IV PRN (13:05)
[2019-09-27] MEDS ORDERED: GLUCOSE 10 TABS/TUBE PO PRN (13:05)
[2019-09-27] MEDS ORDERED: GLUCAGON FOR INJ 1 MG VIAL SQ PRN (13:05)
[2019-09-27] MEDS ORDERED: GLUCOSE 40% GEL 15 GM TUBE PO PRN (13:05)
[2019-09-27] MEDS ORDERED: ALUMINUM/MAGNESIUM SUSP 30 ML UDC PO PRN (13:05)
[2019-09-27] MEDS ORDERED: CARBOHYDRATES FOR HYPOGLYCEMIA PO PRN (13:05)
[2019-09-27] MEDS ORDERED: AMLODIPINE BESYLATE 5 MG TAB PO ONE (13:45)
[2019-09-27] MEDS: INSULIN ASPART 100 UNITS/ML 3 ML PEN SC SCH ×3 (14:03→20:37)
[2019-09-27 14:21] LABS: Magnesium 2.1 mg/dl (1.8-2.4); Troponin I 0.12 ng/ml (0-0.045)
--- NOTE | 2019-09-27 15:51 | Cardiology Consultation ---
Date of Consultation September 27, 2019 Assessment & Plan (1) Diabetes mellitus, type 2: (2) Hypertensive emergency: (3) Elevated troponin: The elevated troponin I believe is most likely due to strain and not ACS. In addition to his home medications the patient has been given IV labetalol with improvement of his hypertension. The renal duplex ultrasound was negative for renal artery stenosis. The patient should have some labs to exclude secondary causes of hypertension which I will order. History of Present Illness Attending Physician: Jonh Hamilton MD History of Present Illness This is a 54-year-old male patient with history of diabetes, gout, hypercholesterolemia and hypertension. At the end of 2018, the patient had an outpatient orthopedic procedure and in recovery developed atrial fibrillation. He was transferred to the emergency department where he spontaneously converted to normal sinus rhythm. I saw him once in follow-up after that event. We discussed lifestyle changes. In addition, the patient has a history of sleep apnea and was not utilizing his nightly CPAP which I encouraged him to do so. He also had a ZIO monitor that failed to show any additional atrial fibrillation and an echocardiogram that was for the most part unremarkable. The patient was to return in 1 month but was a no-show. In general he has been feeling well un til approximately 3 days ago, he felt that his blood pressure was elevated. He started to take his blood pressure at home with a kit and over 3 days it was consistently elevated. His primary care physician increased his home medications with no improvement. The patient began to have headaches and decided to come to the emergency department where he has been admitted with hypertensive urgency. The patient has had a negative CT of the brain and a negative CT of the chest for pulmonary emboli. Renal ultrasound completed does not show evidence for renal artery stenosis or renal vascular disease. An echocardiogram completed this admission is essentially unchanged with some moderate LVH, preserved systolic function and no significant valvular pathology. No aortic pathology on the CT of the chest or echocardiogram. Allergies Allergy/AdvReac Type Severity Reaction Status Date / Time No Known Allergies Allergy Verified 06/20/19 14:28 Home Medications Home Medications Medication Instructions Recorded Confirmed Type cetirizine 10 mg PO QAM 02/28/19 09/27/19 History omeprazole 20 mg PO QAM 02/28/19 09/27/19 History Glucos Chond Cplx Advanced 1 tab PO BID 03/17/19 09/27/19 History allopurinol 300 mg PO HS 03/17/19 09/27/19 History calcium carbonate-vitamin D3 1 tab PO QAM 03/17/19 09/27/19 History [Calcium 500 + D] gabapentin 300 mg PO BID 03/17/19 09/27/19 History metformin 500 mg PO BID 03/17/19 09/27/19 History rosuvastatin [Crestor] 40 mg PO QAM 03/17/19 09/27/19 History acetaminophen [Tylenol Extra 500 mg PO Q6H PRN 09/27/19 09/27/19 History Strength] aspirin 81 mg PO DAILY 09/27/19 09/27/19 History losartan 100 mg PO QAM 09/27/19 09/27/19 History magnesium oxide [MagOx] 400 mg PO HS 09/27/19 09/27/19 History metoprolol succinate 100 mg PO HS 09/27/19 09/27/19 History Patient History Medical History Basal cell carcinoma Diabetes mellitus, type 2 niddm GERD (gastroesophageal reflux disease) Gout Hyperlipidemia Hypertension KARISHMA on CPAP PAF (paroxysmal atrial fibrillation) Surgical History History of appendectomy History of cardiac cath ~20 years ago. no stents History of colonoscopy History of discectomy with fusion cervical area (unsure of levels) Full ROM History of laminectomy lumbar x3 History of Mohs micrographic surgery for skin cancer S/P arthroscopy of right shoulder Family History Uncle Family hx of colon cancer Aunt Family hx of colon cancer Father FHx: prostate cancer Grandfather (Paternal) Myocardial infarction, Onset Age: 41 Social History Preferred Language: Albanian Communication Ability: Effective Iron Melter Required: No Beliefs That Will Affect Care: None Current Living Situation: Spouse Other Information That Helps Us Care for You: No Feels Safe at Home: Yes Safety Concerns: Feels Safe At This Time Smoking Status: Never smoker Second Hand Exposure: No ; Hx Alcohol Use: Yes Alcohol type: beer and hard liquor Alcohol Intake Frequency Comment: 2-3 drinks daily; last drink 2 days ago Hx Substance Use: No Review of Systems Review of Systems: All systems reviewed & are unremarkable except as noted in HPI & below Nothing additional to add. Physical Exam Physical Exam: General: no acute distress and stated age Head: normocephalic, no masses, lesions, tenderness or abnormalities Eyes: conjunctiva are pink and non-injected, sclera clear Neck: supple, no adenopathy, no bruits, normal jugular venous pulse, no hepatojugular reflux Chest: normal shape and normal respiratory effort Lungs: clear to auscultation and percussion Cardiac Exam: - regular rate & rhythm, no murmurs gallops or rubs - normal S1, normal S2 Pulses: 2(+) throughout Abdomen: abdomen soft, non-tender, no abnormal masses and no hepatosplenomegaly Musculoskeletal: no gait disturbance, no joint inflammation, no deforming arthritis Extremities: no edema and no cyanosis Neuro: grossly normal exam Results & Data ([facility]) Vital Signs (Past 12 Hours) Vital Signs Temp Pulse Pulse Resp BP BP Pulse Ox 09/27/19 13:16 36.9 C 70 16 174/103 H 98 09/27/19 12:40 65 18 143/96 H 98 09/27/19 12:00 67 18 173/105 H 98 09/27/19 08:53 66 18 168/118 H 99 09/27/19 07:50 36.9 C 77 18 214/114 H 96 Laboratory Results Laboratory Results - last 24 hr 09/27/19 09/27/19 09/27/19 08:06 08:06 08:06 WBC 6.66 RBC 4.53 L Hgb 14.2 Hct 40.8 L MCV 90.1 MCH 31.3 MCHC 34.8 RDW Std Deviation 41.6 RDW Coeff of Joanna 12.7 Plt Count 179 MPV 10.1 Immature Gran % (Auto) 1.1 Neut % (Auto) 56.0 Lymph % (Auto) 28.7 [place] % (Auto) 11.3 Eos % (Auto) 2.4 Baso % (Auto) 0.5 Immature Gran # (Auto) 0.07 H Neut # (Auto) 3.74 Lymph # (Auto) 1.91 [place] # (Auto) 0.75 H Eos # (Auto) 0.16 Baso # (Auto) 0.03 PT 10.9 INR 1.0 APTT 28.0 PTT Ratio 1.0 Sodium 136 Potassium 3.9 Chloride 101 Carbon Dioxide 24 Anion Gap 11.0 BUN 15 Creatinine 0.99 Est Cr Clr Drug Dosing 120.2 Est GFR ( Amer) 98.3 Est GFR (Non-Af Amer) 84.8 BUN/Creatinine Ratio 15.0 Glucose 150 H POC Glucose Calcium 10.1 Magnesium Total Bilirubin 0.5 AST 42 H ALT 47 Alkaline Phosphatase 62 Troponin I 0.121 H* Total Protein 7.9 Albumin 4.4 Globulin 3.4 Albumin/Globulin Ratio 1.3 TSH 09/27/19 09/27/19 09/27/19 08:06 13:13 13:22 WBC RBC Hgb Hct MCV MCH MCHC RDW Std Deviation RDW Coeff of Joanna Plt Count MPV Immature Gran % (Auto) Neut % (Auto) Lymph % (Auto) [place] % (Auto) Eos % (Auto) Baso % (Auto) Immature Gran # (Auto) Neut # (Auto) Lymph # (Auto) [place] # (Auto) Eos # (Auto) Baso # (Auto) PT INR APTT PTT Ratio Sodium Potassium Chloride Carbon Dioxide Anion Gap BUN Creatinine Est Cr Clr Drug Dosing Est GFR ( Amer) Est GFR (Non-Af Amer) BUN/Creatinine Ratio Glucose POC Glucose 118 H Calcium Magnesium 2.1 Total Bilirubin AST ALT Alkaline Phosphatase Troponin I 0.120 H* Total Protein Albumin Globulin Albumin/Globulin Ratio TSH 4.210 Medications Administered Current Inpatient Medications Acetaminophen (Tylenol) 650 mg PO Q4H PRN PRN Reason: Pain or Fever Stop: 10/27/19 13:04 Al Hydrox/Mg Hydrox/Simethicone (Maalox) 15 ml PO Q4H PRN PRN Reason: Dyspepsia Stop: 10/27/19 13:04 Allopurinol (Zyloprim) 300 mg PO HS [facility] Stop: 10/27/19 20:59 Amlodipine Besylate (Norvasc) 10 mg PO QAM [facility] Stop: 10/28/19 08:59 Aspirin (Ecotrin Ectab) 81 mg PO DAILY [facility] Stop: 10/28/19 08:59 Dextrose (Dextrose 50%) 25 - 50 ml IV UD PRN; Protocol PRN Reason: Hypoglycemia Protocol Stop: 10/27/19 13:04 Gabapentin (Neurontin) 300 mg PO BID [facility] Stop: 10/27/19 20:59 Glucagon (Glucagen) 1 mg SQ UD PRN; Protocol PRN Reason: Hypoglycemia Protocol Stop: 10/27/19 13:04 Glucose (Dex4 Glucose) 4 - 8 tabs PO UD PRN; Protocol PRN Reason: Hypoglycemia Protocol Stop: 10/27/19 13:04 Glucose (Glucose 40%) 15 - 30 gm PO UD PRN; Protocol PRN Reason: Hypoglycemia Protocol Stop: 10/27/19 13:04 Insulin Aspart (Novolog Flexpen) 0 units SC ACHS [facility] Stop: 10/27/19 13:29 Last Admin: 09/27/19 14:03 Dose: 2 units Documented by: Ioversol (Optiray 320 125ml) 120 ml IV ONCE PRN PRN Reason: Interaction Checking Stop: 10/01/19 10:40 Last Admin: 09/27/19 10:42 Dose: 120 ml Documented by: Losartan Potassium (Cozaar) 100 mg PO QAM [facility] Stop: 10/28/19 08:59 Magnesium Oxide (Mag-Ox) 400 mg PO HS [facility] Stop: 10/27/19 20:59 Metoprolol Succinate (Toprol Xl) 100 mg PO HS [facility] Stop: 10/27/19 20:59 Miscellaneous (Carbohydrates For Hypoglycemia) 15 - 30 gm PO UD PRN PRN Reason: Hypoglycemia Protocol Stop: 10/27/19 13:04 Multivitamins/Minerals (Caltrate Plus) [facility] [place] Stop: 10/28/19 08:59 Ondansetron HCl (Zofran) 4 mg IV Q6H PRN PRN Reason: Nausea Stop: 10/27/19 13:04 Pantoprazole Sodium (Protonix) 40 mg [facility] [place] Stop: 10/28/19 08:59 Rosuvastatin Calcium (Crestor) 40 mg PO QAM [facility] Stop: 10/28/19 08:59
--- NOTE | 2019-09-27 15:51 | Electrocardiogram Report ---
Test Reason : Blood Pressure : / mmHG Vent. Rate : 075 BPM Atrial Rate : 075 BPM P-R Int : 204 ms QRS Dur : 082 ms QT Int : 380 ms P-R-T Axes : 031 042 062 degrees QTc Int : 424 ms Normal sinus rhythm with 1st degree AV block Normal ECG When compared with ECG of 17-MAR-2019 14:15, Left posterior fascicular block is no longer Present Borderline criteria for Inferior infarct are no longer Present Nonspecific T wave abnormality no longer evident in Inferior leads Confirmed by Ismael Jiménez ([id number]) on 09/27/2019 3:51:23 PM Referred By: REFERRED SELF Confirmed By:Delmer Jiménez
--- NOTE | 2019-09-27 15:57 | Electrocardiogram Report ---
Test Reason : Blood Pressure : / mmHG Vent. Rate : 079 BPM Atrial Rate : 079 BPM P-R Int : 200 ms QRS Dur : 086 ms QT Int : 390 ms P-R-T Axes : 037 060 015 degrees QTc Int : 447 ms Sinus rhythm with occasional Premature ventricular complexes Otherwise normal ECG When compared with ECG of 27-SEP-2019 08:00, (unconfirmed) Premature ventricular complexes are now Present Confirmed by Ismael Jiménez ([id number]) on 09/27/2019 3:57:17 PM Referred By: REFERRED SELF Confirmed By:Delmer Jiménez
[2019-09-27] MEDS: METOPROLOL SUCC 50MG EXT REL TAB PO SCH (18:01)
[2019-09-27] MEDS: ACETAMINOPHEN 325 MG TAB PO PRN (20:33)
[2019-09-27] MEDS: MAGNESIUM OXIDE 400 MG TAB PO SCH (20:34)
[2019-09-27] MEDS: allopurinoL 300 MG TAB PO SCH (20:34)
[2019-09-27] MEDS: GABAPENTIN 300 MG CAP PO SCH (20:35)
[2019-09-28 05:47] LABS: Hematocrit (blood only) 39.9 % (42-52); Hemoglobin 13.9 g/dL (14.0-18.0); Mean Corpuscular Hemoglobin 31.5 pg (25-34); Mean Corpuscular Hgb Conc 34.8 g/dL (32-36); Mean Corpuscular Volume 90.5 fL (80-100); Mean Platelet Volume 9.9 fL (7.4-10.4); Platelet Count 157 K/uL (130-400); RDW Coefficient of Variation 12.8 % (11.5-14.5); Red Blood Count 4.41 M/uL (4.7-6.1); White Blood Count 4.66 K/uL (4.8-10.8)
[2019-09-28 06:22] LABS: Albumin Level 4.2 gm/dl (3.4-5.0); BUN Creatinine Ratio 12.8 (10-20); Calcium 9.2 mg/dl (8.5-10.1); Creatinine Clr Calc Pharmacy 135.2 ml/min; Est GFR (African American) 111.3; Potassium 3.9 mmol/L (3.5-5.1)
[2019-09-28 06:25] LABS: Albumin Globulin Ratio 1.2 (0.9-2); Bilirubin,Total 0.7 mg/dl (0.2-1); Globulin 3.5 gm/dl (2.5-4.0); Total Protein 7.7 gm/dl (6.4-8.2)
[2019-09-28] MEDS: ACETAMINOPHEN 325 MG TAB PO PRN ×2 (06:30→10:32)
[2019-09-28] MEDS: INSULIN ASPART 100 UNITS/ML 3 ML PEN SC SCH ×4 (07:53→20:10)
[2019-09-28] MEDS: GABAPENTIN 300 MG CAP PO SCH (07:56)
[2019-09-28] MEDS: LOSARTAN POTASSIUM 50 MG TAB PO SCH (07:57)
[2019-09-28] MEDS: ROSUVASTATIN CALCIUM 20 MG TAB PO SCH (07:57)
[2019-09-28] MEDS: AMLODIPINE BESYLATE 5 MG TAB PO SCH (07:58)
[2019-09-28] MEDS: ASPIRIN 81 MG ECTAB PO SCH (07:59)
[2019-09-28] MEDS: PANTOprazole 40 MG TAB PO SCH (07:59)
[2019-09-28] MEDS: CALCIUM 600MG + VIT D 400 IU TAB PO SCH (07:59)
[2019-09-28] MEDS ORDERED: hydroCHLOROthiazide 25 MG TAB PO STA (11:35)
--- NOTE | 2019-09-28 12:05 | Cardiology Progress Note ---
Date of Service September 28, 2019 Assessment & Plan (1) Diabetes mellitus, type 2: (2) Hypertensive emergency: (3) Elevated troponin: The patient remains hypertensive. He is on 3 antihypertensive agents. I will add a fourth. He will be started on a diuretic. I will start him on hydrochlorothiazide daily. In regard to his headache, he had a CT on presentation that failed to show any pathology. The patient also did not have his CPAP last night and I will instruct nursing to have respiratory set him up. He also admits to having at least 8 ounces of alcohol nightly. He has a family history of alcoholism and he may benefit from a rehab program. Subjective The patient's blood pressure was controlled yesterday but he has had a rebound today. He continues to have a mild headache. Review of Systems Review of Systems: All systems reviewed & are unremarkable except as noted in HPI & below Nothing additional Physical Exam Physical Exam: General: no acute distress and stated age Head: normocephalic, no masses, lesions, tenderness or abnormalities Eyes: conjunctiva are pink and non-injected, sclera clear Neck: supple, no adenopathy, no bruits, normal jugular venous pulse, no hepatojugular reflux Chest: normal shape and normal respiratory effort Lungs: clear to auscultation and percussion Cardiac Exam: - regular rate & rhythm, no murmurs gallops or rubs - normal S1, normal S2 Pulses: 2(+) throughout Abdomen: abdomen soft, non-tender, no abnormal masses and no hepatosplenomegaly Musculoskeletal: no gait disturbance, no joint inflammation, no deforming arthritis Extremities: no edema and no cyanosis Neuro: grossly normal exam Results & Data Vital Signs (Past 12 Hours) Vital Signs Temp Pulse Resp BP Pulse Ox 09/28/19 11:54 93 H 164/108 H 09/28/19 09:57 81 163/99 H 09/28/19 07:41 36.8 C 64 18 149/60 H 95 09/28/19 06:31 154/85 H 09/28/19 03:54 36.7 C 69 16 128/78 97 09/28/19 00:12 36.6 C 68 18 145/84 H 95 Laboratory Results Laboratory Results - last 24 hr 09/27/19 09/27/19 09/27/19 13:13 13:22 16:30 WBC RBC Hgb Hct MCV MCH MCHC RDW Std Deviation RDW Coeff of Joanna Plt Count MPV Sodium Potassium Chloride Carbon Dioxide Anion Gap BUN Creatinine Est Cr Clr Drug Dosing Est GFR ( Amer) Est GFR (Non-Af Amer) BUN/Creatinine Ratio Glucose POC Glucose 118 H 131 H Calcium Magnesium 2.1 Total Bilirubin AST ALT Alkaline Phosphatase Troponin I 0.120 H* Total Protein Albumin Globulin Albumin/Globulin Ratio Renin Activity Aldosterone Plasma Metanephrine Plasma Normetanephrine Plas Total Metaneph 09/27/19 09/27/19 09/28/19 19:44 20:32 05:29 WBC 4.66 L RBC 4.41 L Hgb 13.9 L Hct 39.9 L MCV 90.5 MCH 31.5 MCHC 34.8 RDW Std Deviation 42.0 RDW Coeff of Joanna 12.8 Plt Count 157 MPV 9.9 Sodium Potassium Chloride Carbon Dioxide Anion Gap BUN Creatinine Est Cr Clr Drug Dosing Est GFR ( Amer) Est GFR (Non-Af Amer) BUN/Creatinine Ratio Glucose POC Glucose 122 H Calcium Magnesium Total Bilirubin AST ALT Alkaline Phosphatase Troponin I 0.113 H* Total Protein Albumin Globulin Albumin/Globulin Ratio Renin Activity Aldosterone Plasma Metanephrine Plasma Normetanephrine Plas Total Metaneph 09/28/19 09/28/19 09/28/19 05:29 05:29 07:23 WBC RBC Hgb Hct MCV MCH MCHC RDW Std Deviation RDW Coeff of Joanna Plt Count MPV Sodium 138 Potassium 3.9 Chloride 102 Carbon Dioxide 28 Anion Gap 8.0 BUN 11 Creatinine 0.88 Est Cr Clr Drug Dosing 135.2 Est GFR ( Amer) 111.3 Est GFR (Non-Af Amer) 96.0 BUN/Creatinine Ratio 12.8 Glucose 146 H POC Glucose Calcium 9.2 Magnesium Total Bilirubin 0.7 AST 40 H ALT 46 Alkaline Phosphatase 57 Troponin I Total Protein 7.7 Albumin 4.2 Globulin 3.5 Albumin/Globulin Ratio 1.2 Renin Activity Pending Aldosterone Pending Plasma Metanephrine Cancelled Pending Plasma Normetanephrine Cancelled Pending Plas Total Metaneph Cancelled Pending 09/28/19 09/28/19 07:28 11:19 WBC RBC Hgb Hct MCV MCH MCHC RDW Std Deviation RDW Coeff of Joanna Plt Count MPV Sodium Potassium Chloride Carbon Dioxide Anion Gap BUN Creatinine Est Cr Clr Drug Dosing Est GFR ( Amer) Est GFR (Non-Af Amer) BUN/Creatinine Ratio Glucose POC Glucose 146 H 133 H Calcium Magnesium Total Bilirubin AST ALT Alkaline Phosphatase Troponin I Total Protein Albumin Globulin Albumin/Globulin Ratio Renin Activity Aldosterone Plasma Metanephrine Plasma Normetanephrine Plas Total Metaneph Medications Administered Current Inpatient Medications Acetaminophen (Tylenol) 650 mg PO Q4H PRN PRN Reason: Pain or Fever Stop: 10/27/19 13:04 Last Admin: 09/28/19 10:32 Dose: 650 mg Documented by: Al Hydrox/Mg Hydrox/Simethicone (Maalox) 15 ml PO Q4H PRN PRN Reason: Dyspepsia Stop: 10/27/19 13:04 Allopurinol (Zyloprim) 300 mg PO HS [facility] Stop: 10/27/19 20:59 Last Admin: 09/27/19 20:34 Dose: 300 mg Documented by: Amlodipine Besylate (Norvasc) 10 mg PO QAM [facility] Stop: 10/28/19 08:59 Last Admin: 09/28/19 07:58 Dose: 10 mg Documented by: Aspirin (Ecotrin Ectab) 81 mg PO DAILY [facility] Stop: 10/28/19 08:59 Last Admin: 09/28/19 07:59 Dose: 81 mg Documented by: Cetirizine HCl (Zyrtec) 10 mg PO QAM [facility] Stop: 10/28/19 10:29 Dextrose (Dextrose 50%) 25 - 50 ml IV UD PRN; Protocol PRN Reason: Hypoglycemia Protocol Stop: 10/27/19 13:04 Gabapentin (Neurontin) 300 mg PO BID [facility] Stop: 10/27/19 20:59 Last Admin: 09/28/19 07:56 Dose: 300 mg Documented by: Glucagon (Glucagen) 1 mg SQ UD PRN; Protocol PRN Reason: Hypoglycemia Protocol Stop: 10/27/19 13:04 Glucose (Dex4 Glucose) 4 - 8 tabs PO UD PRN; Protocol PRN Reason: Hypoglycemia Protocol Stop: 10/27/19 13:04 Glucose (Glucose 40%) 15 - 30 gm PO UD PRN; Protocol PRN Reason: Hypoglycemia Protocol Stop: 10/27/19 13:04 Hydrochlorothiazide (Hctz) 12.5 mg PO QAM [facility] Stop: 10/29/19 08:59 Insulin Aspart (Novolog Flexpen) 0 units SC [facility] Stop: 10/27/19 13:29 Last Admin: 09/28/19 11:47 Dose: 4 units Documented by: Ioversol (Optiray 320 125ml) 120 ml IV ONCE PRN PRN Reason: Interaction Checking Stop: 10/01/19 10:40 Last Admin: 09/27/19 10:42 Dose: 120 ml Documented by: Losartan Potassium (Cozaar) 100 mg PO [facility] Stop: 10/28/19 08:59 Last Admin: 09/28/19 07:57 Dose: 100 mg Documented by: Magnesium Oxide (Mag-Ox) 400 mg PO [facility] Stop: 10/27/19 20:59 Last Admin: 09/27/19 20:34 Dose: 400 mg Documented by: Metoprolol Succinate (Toprol Xl) 100 mg PO [facility] Stop: 10/27/19 20:59 Last Admin: 09/27/19 18:01 Dose: 100 mg Documented by: Miscellaneous (Carbohydrates For Hypoglycemia) 15 - 30 gm PO UD PRN PRN Reason: Hypoglycemia Protocol Stop: 10/27/19 13:04 Multivitamins/Minerals (Caltrate Plus) 1 tab PO [facility] Stop: 10/28/19 08:59 Last Admin: 09/28/19 07:59 Dose: 1 tab Documented by: Ondansetron HCl (Zofran) 4 mg IV Q6H PRN PRN Reason: Nausea Stop: 10/27/19 13:04 Pantoprazole Sodium (Protonix) 40 mg PO [facility] Stop: 10/28/19 08:59 Last Admin: 09/28/19 07:59 Dose: 40 mg Documented by: Rosuvastatin Calcium (Crestor) 40 mg PO [facility] Stop: 10/28/19 08:59 Last Admin: 09/28/19 07:57 Dose: 40 mg Documented by:
[2019-09-28] MEDS: CETIRIZINE HCL 10 MG TABLET PO SCH (12:19)
[2019-09-28] MEDS ORDERED: LORazepam 1 MG TAB PO PRN (13:03)
[2019-09-28] MEDS ORDERED: TRAMADOL HCL 50 MG TABLET PO PRN (13:03)
[2019-09-28] MEDS ORDERED: GABAPENTIN 1200MG ALCOHOL WITHDRAWAL LOAD PO STA (13:03)
[2019-09-28] MEDS ORDERED: GABAPENTIN 600 MG TAB PO SCH (14:00)
[2019-09-28] MEDS: THIAMINE HCL 100 MG TAB PO SCH (14:33)
[2019-09-28] MEDS: FOLIC ACID 1 MG TAB PO SCH (14:36)
--- NOTE | 2019-09-28 16:12 | Hospitalist Progress Note ---
Date of Service September 28, 2019 Assessment & Plan (1) Hypertensive emergency: (2) Elevated troponin: per admitting service notes: This is a 54-year-old male who has significant PMH of HTN, HLD, T2DM, KARISHMA on CPAP, gout, PAF, GERD who presents to ED secondary to severe headache, HTN and nausea x3 days. In ED patient's blood pressure upon arrival was 214/114, he was otherwise hemodynamically stable. He received 4 mg IV morphine and 4 mg of IV Zofran with mild improvement of blood pressure to 168/118. Lab work notable for elevated troponin 0.121, glucose 150, AST 42. His CBC and CMP was otherwise relatively unremarkable. Chest x-ray was negative for acute cardiopulmonary abnormality. Head CT was negative for acute abnormality. EKG revealed normal sinus rhythm without ST or T wave change with a rate of 75 bpm. His headache did improve from a 10 out of 10 to 4 out of 10 with admin istration of IV morphine. Admit to PCU Give 10mg IV Labetalol Stat CTA Chest - negative for dissection, moderate coronary calcification, fatty liver Echo: moderate LVH, Gr 2 Diastolic dysfunction, Normal EF Troponins flat at 0.1 ACS ruled out Renal artery doppler: no renal artery stenosis Renin/Aldosterone: pending Metanephrine: pending BP still not at goal HCTZ added to Amlodipine on usual Losartan, Metoprolol monitor closely (3) Diabetes mellitus, type 2: Last A1c 6.5 on 08/25/2019 Hold metformin Insulin sliding scale per protocol (4) Hyperlipidemia: Continue statin (5) PAF (paroxysmal atrial fibrillation): per admitting service notes: History of A. fib after arthroscopic shoulder surgery He also had zio patch evaluation which showed approximately 44-minute run of A. fib Continue metoprolol, ASA [id number] - follows with cardiology (6) KARISHMA on CPAP: Patient has been compliant with CPAP continue @ HS (7) Hepatic steatosis: per CT recommend diet and lifestyle modifications encourage weight loss and ETOH cessation (8) Lung nodule: Per CTA: Mild increase in size of a 5 mm solid right middle lobe nodule. A follow-up chest CT in one year is recommended. (9) Gout: Continue allopurinol, no acute flare (10) Alcoholism: admits to drinking 2-3 shots of vodka per week no signs of alcohol withdrawal so far will order Alcohol Withdrawal protocol will request CM to discuss options for Rehab case and plan of care discussed with patient in detail and at length all questions answered he is understanding, agreeable, comfortable with the plan of care (11) DVT prophylaxis: SCD/TEDS Follow up: PCP Dr. Palomino upon discharge Admission and Anticipated Discharge Date Admission Date: September 27, 2019 Subjective ff up for hypertension seen resting in bed, comfortable, in good spirits states his headache seems to have improved, intermittent no chest pain, dyspnea, dizziness no changes with vision, no focal/neurologic deficits denies other symptoms Review of Systems Review of Systems: All systems reviewed & are unremarkable except as noted in HPI & below Physical Exam Physical Exam: General- oriented x 3, not in distress, speaks in sentences with no effort or accessory muscle use Head- atraumatic Eyes- PERRL, EOMI, anicteric fundoscopic exam: limited view- no hemorrhages or exudates noted ENT- oropharynx clear Neck- supple, no JVD, no adenopathy, no thyromegaly; carotids +2/2, no bruits appreciated Lungs- clear to auscultation bilaterally, no rales/wheezes Heart- normal rate, regular rhythm; no murmur, no gallop, no rub appreciated Abdomen- normal bowel sounds, nondistended, soft, nontender, no masses or hepatosplenomegaly Extremities- no pretibial edema, no calf tenderness; peripheral pulses intact Neuro- alert, oriented x 3; CN 2-12 grossly intact; motor 5/5 bilaterally;sensation 100% on all extremities; no other gross focal neurologic deficits Skin- warm & dry Results & Data Results & Data ([facility]) Vital Signs (Past 12 Hours) Vital Signs Temp Pulse Resp BP Pulse Ox 09/28/19 15:34 37.0 C 76 18 134/77 95 09/28/19 14:00 165/91 H 09/28/19 11:54 93 H 164/108 H 09/28/19 09:57 81 163/99 H 09/28/19 07:41 36.8 C 64 18 149/60 H 95 09/28/19 06:31 154/85 H Laboratory Results Laboratory Results - last 24 hr 09/27/19 09/27/19 09/27/19 16:30 19:44 20:32 WBC RBC Hgb Hct MCV MCH MCHC RDW Std Deviation RDW Coeff of Joanna Plt Count MPV Sodium Potassium Chloride Carbon Dioxide Anion Gap BUN Creatinine Est Cr Clr Drug Dosing Est GFR ( Amer) Est GFR (Non-Af Amer) BUN/Creatinine Ratio Glucose POC Glucose 131 H 122 H Calcium Total Bilirubin AST ALT Alkaline Phosphatase Troponin I 0.113 H* Total Protein Albumin Globulin Albumin/Globulin Ratio Renin Activity Aldosterone Folate Plasma Metanephrine Plasma Normetanephrine Plas Total Metaneph 09/28/19 09/28/19 09/28/19 05:29 05:29 05:29 WBC 4.66 L RBC 4.41 L Hgb 13.9 L Hct 39.9 L MCV 90.5 MCH 31.5 MCHC 34.8 RDW Std Deviation 42.0 RDW Coeff of Joanna 12.8 Plt Count 157 MPV 9.9 Sodium 138 Potassium 3.9 Chloride 102 Carbon Dioxide 28 Anion Gap 8.0 BUN 11 Creatinine 0.88 Est Cr Clr Drug Dosing 135.2 Est GFR ( Amer) 111.3 Est GFR (Non-Af Amer) 96.0 BUN/Creatinine Ratio 12.8 Glucose 146 H POC Glucose Calcium 9.2 Total Bilirubin 0.7 AST 40 H ALT 46 Alkaline Phosphatase 57 Troponin I Total Protein 7.7 Albumin 4.2 Globulin 3.5 Albumin/Globulin Ratio 1.2 Renin Activity Pending Aldosterone Pending Folate Plasma Metanephrine Cancelled Plasma Normetanephrine Cancelled Plas Total Metaneph Cancelled 09/28/19 09/28/19 09/28/19 07:23 07:28 11:19 WBC RBC Hgb Hct MCV MCH MCHC RDW Std Deviation RDW Coeff of Joanna Plt Count MPV Sodium Potassium Chloride Carbon Dioxide Anion Gap BUN Creatinine Est Cr Clr Drug Dosing Est GFR ( Amer) Est GFR (Non-Af Amer) BUN/Creatinine Ratio Glucose POC Glucose 146 H 133 H Calcium Total Bilirubin AST ALT Alkaline Phosphatase Troponin I Total Protein Albumin Globulin Albumin/Globulin Ratio Renin Activity Aldosterone Folate Plasma Metanephrine Pending Plasma Normetanephrine Pending Plas Total Metaneph Pending 09/28/19 09/28/19 13:08 16:06 WBC RBC Hgb Hct MCV MCH MCHC RDW Std Deviation RDW Coeff of Joanna Plt Count MPV Sodium Potassium Chloride Carbon Dioxide Anion Gap BUN Creatinine Est Cr Clr Drug Dosing Est GFR ( Amer) Est GFR (Non-Af Amer) BUN/Creatinine Ratio Glucose POC Glucose 136 H Calcium Total Bilirubin AST ALT Alkaline Phosphatase Troponin I Total Protein Albumin Globulin Albumin/Globulin Ratio Renin Activity Aldosterone Folate 17.99 Plasma Metanephrine Plasma Normetanephrine Plas Total Metaneph
--- NOTE | 2019-09-28 16:14 | Electrocardiogram Report ---
Test Reason : Blood Pressure : / mmHG Vent. Rate : 076 BPM Atrial Rate : 076 BPM P-R Int : 212 ms QRS Dur : 080 ms QT Int : 404 ms P-R-T Axes : 026 045 069 degrees QTc Int : 454 ms Sinus rhythm with 1st degree A-V block Otherwise normal ECG When compared with ECG of 27-SEP-2019 14:17, Premature ventricular complexes are no longer Present Confirmed by Ismael Jiménez ([id number]) on 09/28/2019 4:13:44 PM Referred By: REFERRED SELF Confirmed By:Delmer Jiménez
[2019-09-28] MEDS: allopurinoL 300 MG TAB PO SCH (20:06)
[2019-09-28] MEDS: METOPROLOL SUCC 50MG EXT REL TAB PO SCH (20:07)
[2019-09-28] MEDS: GABAPENTIN 600 MG TAB PO SCH (20:07)
[2019-09-28] MEDS: MAGNESIUM OXIDE 400 MG TAB PO SCH (20:07)
[2019-09-29] MEDS: GABAPENTIN 600 MG TAB PO SCH (05:59)
[2019-09-29] MEDS: ASPIRIN 81 MG ECTAB PO SCH (07:49)
[2019-09-29] MEDS: CETIRIZINE HCL 10 MG TABLET PO SCH (07:49)
[2019-09-29] MEDS: FOLIC ACID 1 MG TAB PO SCH (07:50)
[2019-09-29] MEDS: THIAMINE HCL 100 MG TAB PO SCH (07:50)
[2019-09-29] MEDS: PANTOprazole 40 MG TAB PO SCH (07:51)
[2019-09-29] MEDS: AMLODIPINE BESYLATE 5 MG TAB PO SCH (07:51)
[2019-09-29] MEDS: LOSARTAN POTASSIUM 50 MG TAB PO SCH (07:52)
[2019-09-29] MEDS: ROSUVASTATIN CALCIUM 20 MG TAB PO SCH (07:52)
[2019-09-29] MEDS: CALCIUM 600MG + VIT D 400 IU TAB PO SCH (07:53)
[2019-09-29] MEDS: INSULIN ASPART 100 UNITS/ML 3 ML PEN SC SCH ×2 (07:54→11:48)
[2019-09-29] MEDS ORDERED: hydroCHLOROthiazide 25 MG TAB PO SCH (09:00)
--- NOTE | 2019-09-29 10:57 | Hospitalist Progress Note ---
Date of Service September 29, 2019 Assessment & Plan (1) Hypertensive emergency: (2) Elevated troponin: per admitting service notes: This is a 54-year-old male who has significant PMH of HTN, HLD, T2DM, KARISHMA on CPAP, gout, PAF, GERD who presents to ED secondary to severe headache, HTN and nausea x3 days. In ED patient's blood pressure upon arrival was 214/114, he was otherwise hemodynamically stable. He received 4 mg IV morphine and 4 mg of IV Zofran with mild improvement of blood pressure to 168/118. Lab work notable for elevated troponin 0.121, glucose 150, AST 42. His CBC and CMP was otherwise relatively unremarkable. Chest x-ray was negative for acute cardiopulmonary abnormality. Head CT was negative for acute abnormality. EKG revealed normal sinus rhythm without ST or T wave change with a rate of 75 bpm. His headache did improve from a 10 out of 10 to 4 out of 10 with admin istration of IV morphine. Admit to PCU Give 10mg IV Labetalol Stat CTA Chest - negative for dissection, moderate coronary calcification, fatty liver Echo: moderate LVH, Gr 2 Diastolic dysfunction, Normal EF Troponins flat at 0.1 ACS ruled out Renal artery doppler: no renal artery stenosis Renin/Aldosterone: pending Metanephrine: pending BP still not at goal HCTZ added to Amlodipine on usual Losartan, Metoprolol BP improved d/c home today, cleared by Architectural Engineer discharge on: Amlodipine 10mg po daily HCTZ 12.5mg po daily (advised to hold HCTZ if systolic blood pressure is < 130s) continue usual Losartan and Metoprolol ff up pending Renin/Aldosterone, Metanephrine level advised alcohol cessation (3) Diabetes mellitus, type 2: Last A1c 6.5 on 08/25/2019 continue usual Metformin (4) Hyperlipidemia: Continue statin (5) PAF (paroxysmal atrial fibrillation): per admitting service notes: History of A. fib after arthroscopic shoulder surgery He also had zio patch evaluation which showed approximately 44-minute run of A. fib Continue metoprolol, ASA [id number] - follows with cardiology (6) KARISHMA on CPAP: Patient has been compliant with CPAP continue @ HS (7) Hepatic steatosis: per CT scan of the chest: Severe fatty infiltration of the liver. recommend diet and lifestyle modifications encourage weight loss and ETOH cessation ff up closely as outpatient (8) Lung nodule: Per CTA: Mild increase in size of a 5 mm solid right middle lobe nodule. A follow-up chest CT in one year is recommended. -- patient reports a history of second hand smoke exposure -- please follow up and repeat CT chest as outpatient (9) Gout: Continue allopurinol, no acute flare (10) Alcoholism: admits to drinking 2-3 shots of vodka per week no signs of alcohol withdrawal so far ordered Alcohol Withdrawal protocol including Gabapentin taper will need to continue Gabapentin 600mg TID x 1 day, then BID x 1 day, then continue usual 300mg BID case management to discuss options for outpatient alcohol rehab per patient's p reference case and plan of care discussed with patient in detail and at length all questions answered he is understanding, agreeable, comfortable with the plan of care (11) DVT prophylaxis: SCD/TEDS ff up with Dr. Palomino next week ff up with Dr. Madison - Architectural Engineer in 2-4 weeks Admission and Anticipated Discharge Date Admission Date: September 27, 2019 Subjective ff up for hypertension seen resting in bed, comfortable, in good spirits reports he feels much better overall, headache resolved a little light headed this morning, improving denies chest pain, palpitations, dizziness no other symptoms states he is ready and would like to be discharged today Review of Systems Review of Systems: All systems reviewed & are unremarkable except as noted in HPI & below Physical Exam Physical Exam: General- oriented x 3, not in distress, speaks in sentences with no effort or accessory muscle use Eyes- anicteric Neck- no JVD Lungs- clear breath sounds bilaterally, no rales/wheezes Heart- normal rate, regular rhythm; no murmurs Abdomen- normal bowel sounds, nondistended, soft, nontender Extremities- no pretibial edema, no calf tenderness Neuro- alert, oriented x 3; no gross focal neurologic deficits Skin- warm & dry Results & Data Results & Data ([facility]) Vital Signs (Past 12 Hours) Vital Signs Temp Pulse Pulse Resp BP Pulse Ox 09/29/19 07:11 36.6 C 92 H 18 123/79 92 09/29/19 06:01 128/76 09/29/19 04:55 36.4 C L 71 16 107/72 96 09/29/19 00:01 36.6 C 78 18 96/63 L 95 Laboratory Results Laboratory Results - last 24 hr 09/28/19 09/28/19 09/28/19 11:19 13:08 16:06 POC Glucose 133 H 136 H Folate 17.99 09/28/19 09/29/19 19:57 07:01 POC Glucose 129 H 159 H Folate
[2019-09-29] MEDS ORDERED: GABAPENTIN 600 MG TAB PO SCH (14:00)
--- NOTE | 2019-09-29 16:07 | Electrocardiogram Report ---
Test Reason : Blood Pressure : / mmHG Vent. Rate : 074 BPM Atrial Rate : 074 BPM P-R Int : 214 ms QRS Dur : 086 ms QT Int : 396 ms P-R-T Axes : 036 054 046 degrees QTc Int : 439 ms Sinus rhythm with 1st degree A-V block Otherwise normal ECG When compared with ECG of 28-SEP-2019 06:38, No significant change was found Confirmed by Ismael Jiménez ([id number]) on 09/29/2019 4:07:18 PM Referred By: REFERRED SELF Confirmed By:Delmer Jiménez
[2019-09-30] MEDS ORDERED: GABAPENTIN 600 MG TAB PO SCH (18:00)
[2019-10-02] MEDS ORDERED: GABAPENTIN 600 MG TAB PO SCH (06:00)
[2019-10-02 16:20] LABS: Renin Activity 0.22 ng/mL/h (0.25-5.82)
--- NOTE | 2019-10-03 21:40 | Discharge Summary ---
Date of Service October 03, 2019 Admission HPI Per Admitting Provider This is a 54-year-old male who has significant PMH of HTN, HLD, T2DM, KARISHMA on CPAP, gout, PAF, GERD who presents to ED secondary to severe headache, HTN and nausea x3 days. Over the past 2 days he has noticed significant elevation in his blood pressure ranging systolically 160-210 diastolically 100s to 120. This is also been associated with severe occipital headache, frontal headache and nausea. He denies any change in vision, hearing or weakness. He also elicits for the past week he has been experiencing right parascapular back pain that radiates to his chest, lasting several hours, resolving on own, nothing makes better or worse and occasionally associated with shortness of breath. It is not exacerbated with exertion. Approximately 1 week ago he had follow-up with PCP secondary to elevated blood pressure readings. He has been monitoring his blood pressure 3-5 times a day. At that time his losartan was increased from 50 mg daily to 100 mg daily and his metoprolol succinate was increased from 50 mg daily 100 mg daily. He has not noticed any significant increase in blood pressure since adjustment medications. He woke up at approximately 130 this morning with severe headache, posterior, 10/10 with associated nausea. His blood pressure was 200/120. At 4:30 AM he took his losartan with no improvement in blood pressure. He opted to proceed to ED for further evaluation. He denies any recent illness, fever, chills, sweats, lightheadedness, dizziness, syncope, shirley chest pain, shortness breath at rest, cough, hemoptysis, emesis, abdominal pain, changes bowel or urinary habits. He has noticed occasional hand swelling at night with pain in his joints. He associates this with many years of playing sports when younger. Him and his walk 4 miles a day but has not done this in the past 2 days due to his blood pressure. When walking he denies any chest pain or exertional dyspnea. He denies any lower extremity edema, orthopnea or PND. He has noted slight increase in his weight from 260s to 280s due to diet. He has been monitoring his sodium intake and has been compliant with his CPAP. He drinks 2 cups of caffeine daily. He also drinks 2 mixed drinks every evening, last drink was over 48 hours ago. In ED patient's blood pressure upon arrival was 214/114, he was otherwise hemodynamically stable. He received 4 mg IV morphine and 4 mg of IV Zofran with mild improvement of blood pressure to 168/118. Lab work notable for elevated troponin 0.121, glucose 150, AST 42. His CBC and CMP was otherwise relatively unremarkable. Chest x-ray was negative for acute cardiopulmonary abnormality. Head CT was negative for acute abnormality. EKG revealed normal sinus rhythm without ST or T wave change with a rate of 75 bpm. His headache did improve from a 10 out of 10 to 4 out of 10 with administration of IV morphine. Admission Exam Per Admitting Provider Constitutional: WD/WN, M vitals as above, NAD, sitting up in bed, pleasant, conversing easily Head: Normocephalic, Atraumatic Eyes: PERRL, conjunctivae normal, anicteric sclerae ENMT: external ear and nose normal, oropharynx normal Neck: trachea midline, no thyromegaly normal visual inspection Respiratory: normal respiratory effort, lungs clear to auscultation, no wheeze, rales, rhonchi. Normal insp/exp effort, no accessory muscle use Cardiovascular: RRR, no murmur, no edema Vessels: no JVD or carotid bruit Chest: normal inspection of chest Abdomen: normal bowel sounds, soft, nontender, no hepatosplenomegaly Musculoskeletal: no cyanosis or clubbing, extremities motor strength 5/5 Skin: no rashes, warm and dry normal turgor Neurologic: PERRL, EOMI, accommodation nl, no face palsy, no dysarthria CN's II-XI intact bilaterally and moves all extremities Psychiatric: A+Ox3, euthymic affect Lymphatic: no cervical or axillary lymphadenopathy : deferred Principal Diagnosis Hypertensive emergency Discharge Exam General- oriented x 3, not in distress, speaks in sentences with no effort or accessory muscle use Eyes- anicteric Neck- no JVD Lungs- clear breath sounds bilaterally, no rales/wheezes Heart- normal rate, regular rhythm; no murmurs Abdomen- normal bowel sounds, nondistended, soft, nontender Extremities- no pretibial edema, no calf tenderness Neuro- alert, oriented x 3; no gross focal neurologic deficits Skin- warm & dry Discharge Data Allergies Allergy/AdvReac Type Severity Reaction Status Date / Time No Known Allergies Allergy Verified 06/20/19 14:28 Consultations 09/27/19 09:56 ED Decision to Admit Stat 09/27/19 10:23 Consult Cardiology Routine Ordered Studies 09/27/19 08:04 CT head/brain wo con Stat COMPARISON STUDY: Head CT June 18, 2017. CT DOSE: 614.27 mGy.cm TECHNIQUE: Helical axial images of the head were obtained without IV contrast. A utomated exposure control was utilized for the study. A dose lowering technique was utilized adhering to the principles of ALARA. FINDINGS: No acute intracranial hemorrhage, midline shift or mass effect is present. The ventricular system is unremarkable. The basilar cisterns are patent. No extra-axial collections are present. There are no findings to suggest acute dural sinus thrombosis or acute territorial infarct. No significant calvarial abnormalities are present. Mastoid air cells are clear. There is moderate ethmoid sinus mucosal thickening. There is mild mucosal thickening of the maxillary and sphenoid sinuses. IMPRESSION: 1. No acute intracranial findings.. 2. Sinus mucosal thickening. 09/27/19 10:16 CT angio chest dissec wo/w con Stat COMPARISON STUDY: Chest CT June 18, 2017. Chest radiograph performed earlier today TECHNIQUE: Before and following the IV administration of 120 mL of Optiray-320, helical axial images of the chest were obtained. Maximal intensity projections and sagittal and coronal reformats were viewed on an independent 3D workstation. IV contrast was administered without complication. Automated exposure control was utilized for the study. A dose lowering technique was utilized adhering to the principles of ALARA. CT DOSE: 1934.97 mGy.cm FINDINGS: Caliber of the thoracic aorta is normal. There is no thoracic aortic dissection or intramural hematoma. Size of the heart is at the upper limits of normal. There is moderate coronary artery calcification. No pulmonary embolus is identified. The central airways are patent. No consolidation is noted. There is no pneumothorax or pleural effusion. A 5 mm solid right middle lobe nodule on image 148 of 336 has mildly increased in size since CT of June 2017. No acute rib or thoracic spine fracture is noted. Old mild T5 compression deformity is unchanged. There is severe fatty infiltration of the liver. IMPRESSION: 1. No thoracic aortic dissection. No acute findings within the chest. 2. Moderate coronary artery calcification. 3. Mild increase in size of a 5 mm solid right middle lobe nodule. A follow-up chest CT in one year is recommended. 4. Severe fatty infiltration of the liver. 09/27/19 10:23 US duplex renal artery Routine FINDINGS: The right kidney measures 12.2 cm the left kidney measures 11.8 cm. Normal corticomedullary differentiation. Increased echogenicity within the liver consistent with fatty change. The bilateral renal veins are patent. Bilateral renal arcuate arteries demonstrate resistive indices of less than 0.7. Peak systolic velocity within the right renal artery is 62 cm/s and the left renal artery is 72 cm/s. IMPRESSION: No evidence for renal artery stenosis. Hospital Course (1) Hypertensive emergency: (2) Elevated troponin: per admitting service notes: This is a 54-year-old male who has significant PMH of HTN, HLD, T2DM, KARISHMA on CPAP, gout, PAF, GERD who presents to ED secondary to severe headache, HTN and nausea x3 days. In ED patient's blood pressure upon arrival was 214/114, he was otherwise hemodynamically stable. He received 4 mg IV morphine and 4 mg of IV Zofran with mild improvement of blood pressure to 168/118. Lab work notable for elevated troponin 0.121, glucose 150, AST 42. His CBC and CMP was otherwise relatively unremarkable. Chest x-ray was negative for acute cardiopulmonary abnormality. Head CT was negative for acute abnormality. EKG revealed normal sinus rhythm without ST or T wave change with a rate of 75 bpm. His headache did improve from a 10 out of 10 to 4 out of 10 with administration of IV morphine. CTA Chest - negative for dissection, moderate coronary calcification, fatty liver Echo: moderate LVH, Gr 2 Diastolic dysfunction, Normal EF Troponins flat at 0.1 Acute coronary syndrome ruled out Renal artery doppler: no renal artery stenosis Renin/Aldosterone: pending Metanephrine: pending BP still not at goal, HCTZ added to Amlodipine Continued on usual Losartan, Metoprolol BP improved d/c home, cleared by News Operations Manager discharge on: Amlodipine 10mg po daily HCTZ 12.5mg po daily (advised to hold HCTZ if systolic blood pressure is < 130s) continue usual Losartan and Metoprolol ff up pending Renin/Aldosterone, Metanephrine level advised alcohol cessation (3) Diabetes mellitus, type 2: Last A1c 6.5 on 08/25/2019 continue usual Metformin (4) Hyperlipidemia: Continue statin (5) PAF (paroxysmal atrial fibrillation): per admitting service notes: History of A. fib after arthroscopic shoulder surgery He also had zio patch evaluation which showed approximately 44-minute run of A. fib Continue metoprolol, ASA [id number] 2 - follows with cardiology (6) KARISHMA on CPAP: Patient has been compliant with CPAP continue @ HS (7) Hepatic steatosis: per CT scan of the chest: Severe fatty infiltration of the liver. recommend diet and lifestyle modifications encourage weight loss and ETOH cessation ff up closely as outpatient (8) Lung nodule: Per CTA: Please refer to full report noted in the ordered studies above -- Mild increase in size of a 5 mm solid right middle lobe nodule. A follow-up chest CT in one year is recommended. -- patient reports history of second hand smoke exposure -- please follow up and repeat CT chest as outpatient (9) Gout: Continue allopurinol, no acute flare (10) Alcoholism: admits to drinking 2-3 shots of vodka per week no signs of alcohol withdrawal so far ordered Alcohol Withdrawal protocol including Gabapentin taper will need to continue Gabapentin 600mg TID x 1 day, then BID x 1 day, then continue usual 300mg BID case management to discuss options for outpatient alcohol rehab per patient's pr eference case and plan of care discussed with patient in detail and at length all questions answered he is understanding, agreeable, comfortable with the plan of care (11) DVT prophylaxis: SCD/TEDS ff up with Dr. Palomino next week ff up with Dr. Madison - News Operations Manager in 2-4 weeks Total Time Total Time Spent Total Time Spent (In Minutes): > 30 minutes Discharge Plan Discharge Items Patient Disposition: Home - Self-Care Reason For Visit: HTN URGENCY Discharge Diagnosis: UNCONTROLLED HYPERTENSION Activity: As commented below Activity Comment: NO HEAVY EXERTION UNTIL RE-EVALUATED BY PRIMARY CARE PHYSICIAN Lifting: Wait until after follow-up appointment Exercise/Sports: Wait until after follow-up appointment Non-emergency contact: Primary Care Provider Call non-emergency contact if: you have any medication questions, your symptoms worsen, your pain is not controlled, your pain is worsening, your pain is unusual for you, your pain is concerning for you and you have a fever Follow-up/Referrals: Kelly Lazo DO [Primary Care Provider] - 10/05/19 12:00 pm (10/05/2019 12:00 PM Provider Yang Mcintosh MD Department General Internal Medicine [facility] ) Gómez Madison, [News Operations Manager] - Diet: Carb Consistent or DM2 and Heart Healthy Addtl Attending Provider Instructions: PLEASE REVIEW YOUR NEW MEDICATION LIST AND FOLLOW INSTRUCTIONS CAREFULLY. YOUR NEW MEDICATIONS INCLUDE: AMLODIPINE 10mg daily AND HYDROCHLOROTHIAZIDE (HCTZ) 12.5 mg daily for hypertension Take your Blood pressure before taking your medications. If your systolic blood pressure (top number) is below 130, do not take HCTZ. If it still below 130, take Amlodipine 5mg daily instead of 10mg daily. FOLIC ACID AND THIAMINE- supplements PLEASE FOLLOW GABAPENTIN TAPER X 2 DAYS: September 28: 600mg at 2pm, 600mg at 10pm September 29: 600mg twice a day September 30: resume your usual 300mg twice day RESUME TAKING YOUR METFORMIN ON SEPTEMBER 30, 2019. CONTINUE ALCOHOL CESSATION. THIS WILL HELP YOUR BLOOD PRESSURE CONTROL GREATLY. CONTINUE TO WORK WITH YOUR PRIMARY CARE PHYSICIAN FOR ALCOHOL CESSATION. CALL YOUR PRIMARY CARE PHYSICIAN OR RETURN TO THE ER IF YOU ARE HAVING WORSENING OF SYMPTOMS. FOLLOW UP WITH DR. LAZO NEXT WEEK OUTLINED ABOVE. FOLLOW UP WITH DR. MADISON- [facility] EXTENSION WORKER - IN 2-4 WEEKS. HIS CLINIC WILL BE CALLING YOU FOR THE APPOINTMENT. YOU NEED A REPEAT CT SCAN OF THE CHEST TO FOLLOW UP RIGHT LUNG NODULE. PLEASE DISCUSS WITH DR. LAZO. Pending Studies at Discharge: Yes Studies:: REPEAT CT SCAN OF THE CHEST Stand-Alone Forms: My [facility] [employer], Smoking Cessation Medications and DC Order Prescriptions: New thiamine HCl (vitamin B1) [Vitamin B-1] 100 mg Tablet 100 mg PO QAM Qty: 7 RF: 0 amlodipine [Norvasc] 5 mg Tablet 10 mg PO QAM Qty: 30 RF: 2 folic acid 1 mg Tablet 1 mg PO QAM Qty: 7 RF: 0 hydrochlorothiazide 25 mg Tablet 12.5 mg PO QAM Qty: 30 RF: 2 Continued cetirizine 10 mg Tablet 10 mg PO QAM RF: 0 omeprazole 20 mg Capsule,Delayed Release(Dr/Ec) 20 mg PO QAM RF: 0 gabapentin 300 mg Capsule 300 mg PO BID RF: 0 allopurinol 300 mg Tablet 300 mg PO HS RF: 0 metformin 500 mg Tablet Extended Release 24 Hr 500 mg PO BID RF: 0 rosuvastatin [Crestor] 40 mg Tablet 40 mg PO QAM RF: 0 calcium carbonate-vitamin D3 [Calcium 500 + D] 500 mg(1,250mg) -200 unit Tablet 1 tab PO QAM RF: 0 Glucos Chond Cplx Advanced 750 mg-100 mg- 125 mg-1.65 mg Tablet 1 tab PO BID RF: 0 metoprolol succinate 100 mg Tablet Extended Release 24 Hr 100 mg PO HS RF: 0 acetaminophen [Tylenol Extra Strength] 500 mg Tablet 500 mg PO Q6H PRN (Reason: Pain) RF: 0 losartan 100 mg Tablet 100 mg PO QAM RF: 0 magnesium oxide [MagOx] 400 mg (241.3 mg magnesium) tablet 400 mg PO HS RF: 0 aspirin 81 mg Tablet,Delayed Release (Dr/Ec) 81 mg PO DAILY RF: 0 Discharge Orders: Discharge Order (Routine); Ordered 09/29/19 Ordered By: Austin Oliveira/Other Patient Handouts: Amlodipine, BP Check Steps, Hydrochlorothiazide HCTZ metoprolol Extended Release tablets Admission Data Admit Date/Time: 09/27/19 10:13 Attending Provider: Austin Merrill Admit Provider: Jonh Hamilton Primary Care Provider: Kelly Lazo Other Providers: Gómez Madison ; Jonh Hamilton Other Interventions: Discharge Summary Assessment (RN) Last Done: 09/29/19 11:56 DC Date/Time DO NOT enter until pt leaves facility: 09/29/19 12:56
[2019-10-09 12:14] LABS: Metanephrine, Plasma <25 pg/mL (<=57); Normetanephrine Plasma 109 pg/mL (<=148); Total Metanephrine Plasma 109 pg/mL (<=205)
== END 2019-09-29 12:56 | disposition home or self-care (01) ==
LOC: 2S 07:45 → ED 07:45 → SUATTDRO 10:13 → 2S 12:14

== ENCOUNTER 2023-05-21 10:27 | Observation (INO) ==
[2023-05-21] MEDS ORDERED: ASPIRIN CHEW 324 MG PO STA (10:37)
--- NOTE | 2023-05-21 10:50 | Emergency Department Note ---
Impression & Plan Chest pain on exertion ED Provider Note NAME: ALEXEY TORO AGE: 58 SEX: M : 1965 ARRIVES VIA: Walk-In INFORMANT: Patient, ED PROVIDER(S): Ramu Ricks DO CHIEF COMPLAINT: Chest pain HPI: The patient is a 58-year-old male who presented to the emergency department for an evaluation of chest pain. The patient describes anterior chest pain which he has been experiencing over the course the last few weeks. The patient denies having any abdominal pain or leg swelling but has had some shortness of breath. He notices the pain worsens with exertion. He was seen by his family doctor recently for similar complaints. ROS: See above HPI for pertinent positives & negatives. A total of 10 systems reviewed and were otherwise negative. PAST MEDICAL HISTORY: See Below PAST SURGICAL HISTORY: See Below FAMILY HISTORY: See Below SOCIAL HISTORY: See Below HOME MEDICATIONS: See Below ALLERGIES: See Below VITALS: See Below PHYSICAL EXAMINATION: GENERAL: Patient is awake alert in no acute distress patient is resting comfortably and showing no signs of anxiety EYES: The conjunctivae are clear. The pupils are round and reactive. EARS, NOSE, MOUTH AND THROAT: The nose is without any evidence of any deformity. NECK: The neck is nontender and supple. RESPIRATORY: Normal respiratory effort is noted there is no evidence of wheezing rhonchi or rales CARDIOVASCULAR: Regular rate and rhythm noted there no murmurs rubs or gallops normal S1 normal S2. GASTROINTESTINAL: The abdomen is soft. Abdomen is nontender. MUSCULOSKELETAL/EXTREMITIES: There is no evidence of gross deformity full range of motion is noted in the hips and shoulders. SKIN: There is no obvious evidence of any rash. There are no petechiae, pallor or cyanosis noted. NEUROLOGIC: Patient is awake alert and oriented x3 MEDICAL DECISION MAKING: The patient is a 66-year-old male who has multiple cardiac risk factors who presented to the emergency department for an evaluation of chest pain. The patient has been noticing exertional chest pain. The patient was also found to have elevation in his blood pressure. The patient did have a recent visit to his primary care physician. The patient does appear to be a good candidate for inpatient management given his age and comorbidities. I discussed the patient's laboratory and radiographic studies with him. I also discussed that he limitations of the emergency department workup for chest pain with him. Ultimately I discussed his condition with the on-call [facility] hospitalist. They have agreed to evaluate the patient in the emergency department for further management and disposition Triage Nursing notes reviewed. Prior medical records reviewed Vital Signs: reviewed and remarkable for elevated blood pressure Differential diagnosis: Cardiac ischemia, aortic dissection, pulmonary embolism, pneumothorax, pneumonia, pericarditis, myocarditis, esophageal rupture, GERD, cholecystitis, pancreatitis, musculoskeletal, as well as other pathologies. ER treatment provided: See below Diagnostics interpreted by me: ECG: EKG was obtained in the emergency department. My interpretation is sinus rhythm at 70 bpm. There is no ectopy. There is no acute ST segment abnormalities noted. This was compared to a tracing from September 29, 2019. No changes were noted A second EKG was obtained in the emergency department. My interpretation is normal sinus rhythm at 56 bpm. There is no ectopy. There is no acute ST segment abnormalities noted. This was compared to the earlier tracing. No changes were found. Cardiac Monitoring: An order was placed for continuous cardiac monitoring. The monitor shows a rate of 77 bpm with sinus rhythm Laboratory studies: As stated above and show below. Imaging studies: See below. Radiographic imaging was reviewed by myself Consultation(s): I discussed this case [facility]. Past Med/Surg History Medical History (Updated 05/21/23 @ 14:24 by EVAN Mcdermott) Alcoholism Lung nodule Hepatic steatosis PAF (paroxysmal atrial fibrillation) Gout KARISHMA on CPAP GERD (gastroesophageal reflux disease) Diabetes mellitus, type 2 niddm Basal cell carcinoma Hypertension Hyperlipidemia Surgical History (Updated 05/21/23 @ 13:42 by Yanni Driver PA-C) History of arthroscopy of left shoulder Status post subacromial decompression S/P arthroscopy of right shoulder History of discectomy with fusion cervical area (unsure of levels) Full ROM History of laminectomy lumbar x3 History of appendectomy History of colonoscopy History of Mohs micrographic surgery for skin cancer History of cardiac cath ~20 years ago. no stents Family History Uncle Family hx of colon cancer Aunt Family hx of colon cancer Father FHx: prostate cancer Grandfather (Paternal) Myocardial infarction, Onset Age: 41 Social History Smoking Status: Never smoker Second Hand Exposure: No; Do You Dip or Chew Tobacco: No; Hx Alcohol Use: Yes Alcohol type: beer and hard liquor Alcohol Intake Frequency Comment: 2-3 drinks daily; last drink 2 days ago Hx Substance Use: No Preferred Language: Citizen Of [place] Communication Ability: Effective Ampoule Inspector Required: No Beliefs That Will Affect Care: None Current Living Situation: Spouse Feels Safe at Home: Yes Assistive Devices: CPAP Allergies Allergies Allergy/AdvReac Type Severity Reaction Status Date / Time morphine AdvReac Nausea Verified 05/21/23 12:07 naproxen AdvReac Diarrhea Verified 05/21/23 12:07 Home Meds Home Medications Medication Instructions Recorded Confirmed Juice Plus Vitamins 3 tab PO DAILY 05/21/23 05/21/23 acetaminophen 500 mg tablet 500 mg PO Q6H PRN Pain 05/21/23 05/21/23 (Tylenol Extra Strength) aspirin 81 mg chewable tablet 81 mg PO DAILY 05/21/23 05/21/23 cetirizine 10 mg tablet 10 mg PO QAM 05/21/23 05/21/23 fluoxetine 10 mg capsule 10 mg PO QAM 05/21/23 05/21/23 gabapentin 300 mg capsule 300 mg PO BID 05/21/23 05/21/23 losartan 100 mg tablet 25 mg PO .HOLD 05/21/23 05/21/23 metformin 500 mg tablet 500 mg PO BID 05/21/23 05/21/23 metoprolol succinate 50 mg 25 mg PO ..HOLD 05/21/23 05/21/23 tablet,extended release 24 hr omeprazole 20 mg capsule,delayed 20 mg PO QAM 05/21/23 05/21/23 release ondansetron HCl 4 mg tablet 4 mg PO Q8 PRN Nausea 05/21/23 05/21/23 rosuvastatin 40 mg tablet 40 mg PO QPM 05/21/23 05/21/23 vitamin B complex 1 tab PO DAILY 05/21/23 05/21/23 Results & Data (ED) Vital Signs Vital Signs - 24 hr 05/21/23 10:28 05/21/23 10:30 05/21/23 10:30 Temperature 36.6 C Temperature Source Temporal Artery Scan Pulse Rate 76 Pulse Rate [Finger] Respiratory Rate 18 Respiratory Effort / Characteristics Non-Labored Respiratory Depth Normal Blood Pressure 172/107 H Blood Pressure [Left Arm] Blood Pressure Mean 128 Blood Pressure Mean [Left Arm] Pulse Oximetry 94 Oxygen Delivery Method Room Air Room Air Room Air Sepsis Recent Fever Within 48 Hours No Sepsis New/Unexplained Change in Mental Status No Sepsis Action Taken by Nursing No Action Required 05/21/23 10:47 05/21/23 11:58 05/21/23 12:07 Temperature Temperature Source Pulse Rate 60 Pulse Rate [Finger] 74 Respiratory Rate 16 Respiratory Effort / Characteristics Non-Labored Respiratory Depth Normal Blood Pressure Blood Pressure [Left Arm] 147/92 H Blood Pressure Mean Blood Pressure Mean [Left Arm] 110 Pulse Oximetry 95 98 Oxygen Delivery Method Room Air Room Air Sepsis Recent Fever Within 48 Hours Sepsis New/Unexplained Change in Mental Status Sepsis Action Taken by [facility] Medications Current Medication List: was personally reviewed by me Laboratory Data Attestation: I reviewed the patient's lab results. 05/21/23 10:40 05/21/23 10:40 Lab Results 05/21/23 Range/Units 10:40 WBC 6.19 (4.8-10.8) K/ul RBC 4.70 (4.70-6.10) M/uL Hgb 14.7 (14.0-18.0) g/dl Hct 41.8 L (42.0-52.0) % MCV 88.9 (80.0-100.0) fL MCH 31.3 (25.0-34.0) pg MCHC 35.2 (32.0-36.0) g/dL RDW Std Deviation 36.7 (36.4-46.3) fL RDW Coeff of Joanna 11.4 L (11.5-14.5) % Plt Count 219 (130-400) K/uL MPV 10.2 (9.4-12.4) fL Immature Gran % (Auto) 1.0 % Neut % (Auto) 44.6 % Lymph % (Auto) 39.6 % [place] % (Auto) 10.5 % Eos % (Auto) 3.2 % Baso % (Auto) 1.1 % Neut # (Auto) 2.76 (1.40-6.50) K/uL Lymph # (Auto) 2.45 (1.20-3.40) K/uL [place] # (Auto) 0.65 H (0.11-0.59) K/uL Eos # (Auto) 0.20 (0.00-0.50) K/uL Baso # (Auto) 0.07 (0.00-0.20) K/uL Immature Gran # (Auto) 0.06 (0.01-0.20) K/uL PT 11.1 (9.0-12.0) Seconds INR 1.0 (0.9-1.1) APTT 29 (21-31) Seconds PTT Ratio 1.0 Sodium 137 (136-145) mmol/L Potassium 4.2 (3.5-5.1) mmol/L Chloride 101 (98-107) mmol/L Carbon Dioxide 29 (21-32) mmol/L Anion Gap 7 (3-11) BUN 12 (6-23) mg/dl Creatinine 0.75 (0.6-1.4) mg/dl Est Cr Clr Drug Dosing 148.6 ml/min Est GFR ( Amer) 115.6 ml/min Est GFR (Non-Af Amer) 99.7 ml/min BUN/Creatinine Ratio 16.0 (10-20) Glucose 142 H (70-99(Fasting)) mg/dl Calcium 10.2 (8.6-10.3) mg/dl Magnesium 1.9 (1.7-2.4) mg/dl Total Bilirubin 0.5 (0.2-1.0) mg/dl AST 30 (13-39) U/L ALT 28 (7-52) U/L Alkaline Phosphatase 46 (34-104) U/L Troponin I High Sens 12.7 (0-20) pg/ml Total Protein 7.7 (6.0-8.3) gm/dl Albumin 5.0 (3.4-5.0) gm/dl Globulin 2.7 (2.5-4.0) gm/dl Albumin/Globulin Ratio 1.9 (0.9-2) Administered Medications Discontinued Medications Acetaminophen (Acetaminophen 500 Mg Tab) 1,000 mg PO NOW STA Stop: 05/21/23 11:31 Last Admin: 05/21/23 11:35 Dose: 1,000 mg Documented By: CC Aspirin (Aspirin Chew 324 Mg) 324 mg PO NOW STA Stop: 05/21/23 10:38 Last Admin: 05/21/23 10:45 Dose: 324 mg Documented By: SLB Ioversol (Optiray 320 125ml) 116 ml IV ONCE ONE Stop: 05/21/23 13:17 Last Admin: 05/21/23 13:16 Dose: 116 ml Documented By: TAIWO Imaging Data Attestation: I personally reviewed and interpreted this imaging study as follows: My Impression: 1 view chest x-ray was obtained in the emergency department. My interpretation is no free air or definite infiltrate, final report below. Radiologist's Impression: Chest X-Ray 05/21/23 10:30 XR chest 1V portable CLINICAL HISTORY: Chest pain, nonspecific. COMPARISON STUDY: Chest CT and chest radiograph September 27, 2019. FINDINGS: Lung volumes are normal. Lungs are clear. There is no pneumothorax or pleural effusion. Cardiac size is normal. Mediastinal contours are normal. There is no evidence for pulmonary edema. Postoperative findings within the cervical spine are incidentally noted. Electronic device projects over the left chest. IMPRESSION: No acute cardiopulmonary findings. ACT 112: Negative or not required by law. Electronically signed by: Alvaro Gilliam M.D. 05/21/2023 11:15 AM Discharge Plan Visit Data Chief Complaint: Cardiac Assessment Stated Complaint: ABNORMAL EKG, PRIOR HEART ATTACK, CHEST PAINS ED Provider: Ramu Ricks Discharge Problem: Chest pain on exertion Patient Disposition: Admitted As Inpatient Discharge Instructions Interventions: ED Discharge Assessment Last Done: 05/21/23 13:06
[2023-05-21 10:58] LABS: Basophils # (auto) 0.07 K/uL (0.00-0.20); Basophils % (auto) 1.1 %; Eosinophils % (auto) 3.2 %; Hematocrit (blood only) 41.8 % (42.0-52.0); Hemoglobin 14.7 g/dl (14.0-18.0); Immature Granulocytes # (auto) 0.06 K/uL (0.01-0.20); Lymphocytes # (auto) 2.45 K/uL (1.20-3.40); Lymphocytes % (auto) 39.6 %; Mean Corpuscular Hemoglobin 31.3 pg (25.0-34.0); Mean Corpuscular Hgb Conc 35.2 g/dL (32.0-36.0); Mean Corpuscular Volume 88.9 fL (80.0-100.0); Mean Platelet Volume 10.2 fL (9.4-12.4); Monocytes # (auto) 0.65 K/uL (0.11-0.59); Monocytes % (auto) 10.5 %; Neutrophils # (auto) 2.76 K/uL (1.40-6.50); Neutrophils % (auto) 44.6 %; Platelet Count 219 K/uL (130-400); RDW Coefficient of Variation 11.4 % (11.5-14.5); RDW Standard Deviation 36.7 fL (36.4-46.3); White Blood Count 6.19 K/ul (4.8-10.8)
--- NOTE | 2023-05-21 11:16 | XRay Report ---
XR chest 1V portable CLINICAL HISTORY: Chest pain, nonspecific. COMPARISON STUDY: Chest CT and chest radiograph September 27, 2019. FINDINGS: Lung volumes are normal. Lungs are clear. There is no pneumothorax or pleural effusion. Car diac size is normal. Mediastinal contours are normal. There is no evidence for pulmonary edema. Posto perative findings within the cervical spine are incidentally noted. Electronic device projects over t he left chest. IMPRESSION: No acute cardiopulmonary findings. ACT 112: Negative or not required by law. Electronically signed by: Alvaro Gilliam M.D. 05/21/2023 11:15 AM
[2023-05-21 11:17] LABS: Albumin Globulin Ratio 1.9 (0.9-2); Bilirubin,Total 0.5 mg/dl (0.2-1.0); Calcium 10.2 mg/dl (8.6-10.3); Creatinine Clr Calc Pharmacy 148.6 ml/min; Est GFR (African American) 115.6 ml/min; Est GFR (Non-African American) 99.7 ml/min; Globulin 2.7 gm/dl (2.5-4.0); Magnesium 1.9 mg/dl (1.7-2.4); Potassium 4.2 mmol/L (3.5-5.1); Total Protein 7.7 gm/dl (6.0-8.3)
[2023-05-21 11:23] LABS: Troponin I High Sensitivity 12.7 pg/ml (0-20)
[2023-05-21] MEDS ORDERED: ACETAMINOPHEN 500 MG TAB PO STA (11:30)
[2023-05-21 11:59] LABS: Partial Thromboplastin Time 29 Seconds (21-31); Prothrombin Time 11.1 Seconds (9.0-12.0)
--- NOTE | 2023-05-21 12:47 | History & Physical Report ---
Date of Service May 21, 2023 Assessment & Plan (1) Chest pain: Plan: This is a 58 y/o male with history of HTN, PAF, dyslipidemia, KARISHMA on CPAP, DM2, gout and prior EtOH use (quit in Feb 2023) who presents to the ED with one month of worsening chest pain and dyspnea on exertion, extreme fatigue, and episodes of palpitations. He has noted progressive symptoms of chest pain and dyspnea, typically exertional, with associated worsening fatigue over the last month. He also notes new near-syncopal episodes and labile blood pressure as well as episodes of palpitations similar to prior episodes of atrial fibrillation. Due to clinical history highly suspicious for cardiac etiology of symptoms with concern for recurrent PAF, pt was referred for admission and further work-up. - Observe in PCU, specifically monitoring for recurrent paroxysmal atrial fibrillation - Trend troponin Q6H x 3 - initial troponin was negative - Repeat EKG in the AM and with recurrent/worsening CP - Check ECHO - Consult cardiology for recommendations on additional work-up - will make pt NPO at midnight in anticipation of additional work-up, specifically potential cardiac cath - Lipid panel, A1c in the AM - Check orthostatic vitals Q shift in view of near-syncopal events with standing - gentle IVF with LR at 70 cc/hr - Complete infectious workup with addition of blood cultures x2 (2) Mild ascending aorta dilation: Plan: ECHO ordered - last results available today were from 2019, diameter 4.1 cm (3) Exertional dyspnea: Plan: See plan for #1 (4) KARISHMA on CPAP: Plan: Continue CPAP (5) Diabetes mellitus, type 2: Plan: A1c in the AM Diabetic diet Insulin sliding scale Holding Metformin for now (6) PAF (paroxysmal atrial fibrillation): Plan: Will defer addition of anticoagulation to cardiology pending work-up (7) Hypertension: (8) Hyperlipidemia: Plan: Chronic, check lipid panel in the AM Continue statin Plan Continue other home medications as appropriate. Pt seen and reviewed with collaborating physician, Dr. Alvarez. Plan of care discussed and as outlined above Code Status: full code DVT Prophylaxis: Lovenox pending cardio evaluation and potential need for anticoagulation for PAF Christina Driver PA-C History of Present Illness Chief Complaint: Chest pain Primary Care Provider: Georges Patterson, DO This is a 58 y/o male with history of HTN, PAF, dyslipidemia, KARISHMA on CPAP, DM2, gout and prior EtOH use (quit in Feb 2023) who presents to the ED with one month of worsening chest pain and dyspnea on exertion, extreme fatigue, and episodes of palpitations. For the past month, he notes worsening fatigue to the point that he is falling asleep multiple times per day. Usually, he is very active. He has also started with intermittent chest pain that seems to be brought on by exertion at least some of the time. Describes as "like someone pounded me on the chest." He has also noted near-syncopal episodes with standing, which are new. 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 She reports that his O2 sats drop with exertion with a low of 92% and he notes that he feels more out of breath with exertion than baseline. BP has also been erratic over the last month with a high of systolics in the 160s-170s and a low with near-syncopal episodes in the 70s. He reports that he saw his PCP for these symptoms on 05/19 - had an EKG, which he was told was abnormal, and they applied a Zio monitor. This morning at 4 am, felt a flutter like prior episodes of afib. Associated chest pain. He did press the button on his Zio to barby the time. He reports his last episodes of afib was a few years ago and he did not have any recurrent symptoms until the last month when he started with episodes of chest fluttering at least 4-5 times. He also notes new nausea. Denies peripheral edema. No recent prolonged travel. His BP medications have been adjusted recently and the losartan and metoprolol have been held due to the low BPs. His did give him a dose of metoprolol 25 mg this morning when he BP was elevated. His last stress test was in October 2019 and was negative for ischemia. ECHO at that time showed a mildly dilated ascending aorta at 4.1 cm, was recommended to have a repeat ECHO in 1 year but unclear if this was done. Allergies Allergy/AdvReac Type Severity Reaction Status Date / Time morphine AdvReac Nausea Verified 05/21/23 12:07 naproxen AdvReac Diarrhea Verified 05/21/23 12:07 Home Medications Medication Instructions Recorded Confirmed Type Juice Plus Vitamins 3 tab PO DAILY 05/21/23 05/21/23 History acetaminophen 500 mg tablet 500 mg PO Q6H PRN Pain 05/21/23 05/21/23 History (Tylenol Extra Strength) aspirin 81 mg chewable tablet 81 mg PO DAILY 05/21/23 05/21/23 History cetirizine 10 mg tablet 10 mg PO QAM 05/21/23 05/21/23 History fluoxetine 10 mg capsule 10 mg PO QAM 05/21/23 05/21/23 History gabapentin 300 mg capsule 300 mg PO BID 05/21/23 05/21/23 History losartan 100 mg tablet 25 mg PO .HOLD 05/21/23 05/21/23 History metformin 500 mg tablet 500 mg PO BID 05/21/23 05/21/23 History metoprolol succinate 50 mg 25 mg PO ..HOLD 05/21/23 05/21/23 History tablet,extended release 24 hr omeprazole 20 mg capsule,delayed 20 mg PO QAM 05/21/23 05/21/23 History release ondansetron HCl 4 mg tablet 4 mg PO Q8 PRN Nausea 05/21/23 05/21/23 History rosuvastatin 40 mg tablet 40 mg PO QPM 05/21/23 05/21/23 History vitamin B complex 1 tab PO DAILY 05/21/23 05/21/23 History Past Med/Surg History Medical History (Updated 05/21/23 @ 20:26 by Yanni Driver PA-C) Alcoholism Lung nodule Hepatic steatosis PAF (paroxysmal atrial fibrillation) Gout KARISHMA on CPAP GERD (gastroesophageal reflux disease) Diabetes mellitus, type 2 niddm Basal cell carcinoma Hypertension Hyperlipidemia Surgical History History of arthroscopy of left shoulder Status post subacromial decompression S/P arthroscopy of right shoulder History of discectomy with fusion cervical area (unsure of levels) Full ROM History of laminectomy lumbar x3 History of appendectomy History of colonoscopy History of Mohs micrographic surgery for skin cancer History of cardiac cath ~20 years ago. no stents Family History Uncle Family hx of colon cancer Aunt Family hx of colon cancer Father FHx: prostate cancer Grandfather (Paternal) Myocardial infarction, Onset Age: 41 Social History Smoking Status: Never smoker Second Hand Exposure: No; Do You Dip or Chew Tobacco: No; Tobacco Cessation Education Requested by Patient: No Hx Alcohol Use: Yes Alcohol type: beer and hard liquor Alcohol Intake Frequency Comment: 2-3 drinks daily; last drink 2 days ago Hx Substance Use: No Preferred Language: German Communication Ability: Effective Applications Instructor Required: No Beliefs That Will Affect Care: None Current Living Situation: Spouse Other Information That Helps Us Care for You: No Feels Safe at Home: Yes Assistive Devices: None Review of Systems Review of Systems: All systems reviewed & are unremarkable except as noted in Subjective Physical Exam Physical Exam: For details of the physical exam, please see physician addendum. Results & Data Results & Data Vital Signs (Past 12 Hours) Vital Signs Temp Pulse Pulse Resp BP BP Pulse Ox 05/21/23 12:07 74 16 147/92 H 98 05/21/23 11:58 60 05/21/23 10:47 95 05/21/23 10:30 05/21/23 10:30 36.6 C 76 18 172/107 H 94 05/21/23 10:28 O2 Del Method 05/21/23 12:07 Room Air 05/21/23 11:58 05/21/23 10:47 Room Air 05/21/23 10:30 Room Air 05/21/23 10:30 Room Air 05/21/23 10:28 Room Air Laboratory Results Laboratory Results - last 24 hr 05/21/23 10:40 WBC 6.19 RBC 4.70 Hgb 14.7 Hct 41.8 L MCV 88.9 MCH 31.3 MCHC 35.2 RDW Std Deviation 36.7 RDW Coeff of Joanna 11.4 L Plt Count 219 MPV 10.2 Immature Gran % (Auto) 1.0 Neut % (Auto) 44.6 Lymph % (Auto) 39.6 [place] % (Auto) 10.5 Eos % (Auto) 3.2 Baso % (Auto) 1.1 Neut # (Auto) 2.76 Lymph # (Auto) 2.45 [place] # (Auto) 0.65 H Eos # (Auto) 0.20 Baso # (Auto) 0.07 Immature Gran # (Auto) 0.06 PT 11.1 INR 1.0 APTT 29 PTT Ratio 1.0 Sodium 137 Potassium 4.2 Chloride 101 Carbon Dioxide 29 Anion Gap 7 BUN 12 Creatinine 0.75 Est Cr Clr Drug Dosing 148.6 Est GFR ( Amer) 115.6 Est GFR (Non-Af Amer) 99.7 BUN/Creatinine Ratio 16.0 Glucose 142 H Calcium 10.2 Magnesium 1.9 Total Bilirubin 0.5 AST 30 ALT 28 Alkaline Phosphatase 46 Troponin I High Sens 12.7 Total Protein 7.7 Albumin 5.0 Globulin 2.7 Albumin/Globulin Ratio 1.9 Diagnostic Findings Chest X-Ray 05/21/23 10:30 XR chest 1V portable CLINICAL HISTORY: Chest pain, nonspecific. COMPARISON STUDY: Chest CT and chest radiograph September 27, 2019. FINDINGS: Lung volumes are normal. Lungs are clear. There is no pneumothorax or pleural effusion. Cardiac size is normal. Mediastinal contours are normal. There is no evidence for pulmonary edema. Postoperative findings within the cervical spine are incidentally noted. Electronic device projects over the left chest. IMPRESSION: No acute cardiopulmonary findings. ACT 112: Negative or not required by law. Electronically signed by: Alvaro Gilliam M.D. 05/21/2023 11:15 AM Medications Administered Discontinued Medications Acetaminophen (Acetaminophen 500 Mg Tab) 1,000 mg PO NOW STA Stop: 05/21/23 11:31 Last Admin: 05/21/23 11:35 Dose: 1,000 mg Documented By: LUKAS Aspirin (Aspirin Chew 324 Mg) 324 mg PO NOW STA Stop: 05/21/23 10:38 Last Admin: 05/21/23 10:45 Dose: 324 mg Documented By: ANA Supervising Physician Co-Signing Physician Notes Patient seen and examined independently. Discussed with above provider. Patient is a 58-year-old male with past medical history of resistant hypertension, type 2 diabetes mellitus, paroxysmal A-fib who presented to the ED chest pain over the course of last few weeks. He also reports shortness of breath on exertion, orthostatic hypotension and palpitation. EKG on admission personally reviewed; sinus rhythm with first-degree AV block. Similar to his EKG in September 2019. Chest x-ray personally reviewed; no acute finding High sensitive troponin is 12 On physical exam; Constitutional: Alert oriented x 3; not in distress. Respiratory: Bilateral vesicular breath Cardiovascular: RRR, no murmur, no edema Vessels: no JVD or carotid bruit Chest: normal inspection of chest Abdomen: normal bowel sounds, soft, nontender, no hepatosplenomegaly Musculoskeletal: no cyanosis or clubbing, extremities motor strength 5/5 Skin: no rashes, warm and dry normal turgor Neurologic: PERRL, EOMI, accommodation nl, no face palsy, no dysarthria CN's II- XI intact bilaterally and moves all extremities Psychiatric: A+Ox3, euthymic affect Assessment/plan Chest pain; ACS ruled out Repeat high-sensitivity troponin Obtain echocardiogram Cardio consult and n.p.o. from midnight Started on rosuvastatin and aspirin by cardiology Shortness of breath; Likely related with peripheral artery disease Obtain CTA chest to rule out PE; no PE. Found to have an 8 mm right middle lobe pulmonary nodule. He is CTA chest in 2019 showed 5 mm nodule. Discussed with patient and patient's at bedside about the finding. Recommended to follow- up with primary care doctor and obtain follow-up CT chest. Orthostatic hypotension/dizziness Started on LR at 70 cc/h Obtain orthostatic blood pressure every shift Discussed with patient and patient's at bedside. Answered questions/queries. Please note the above document was generated using voice recognition software. It may contain grammatical, syntax or spelling errors. 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
[2023-05-21] MEDS ORDERED: ACETAMINOPHEN 325 MG TAB PO PRN (12:50)
[2023-05-21] MEDS ORDERED: NITROGLYCERIN SL 0.4 MG/TAB TAB SL PRN (12:50)
--- NOTE | 2023-05-21 12:54 | Electrocardiogram Report ---
Test Reason : Blood Pressure : / mmHG Vent. Rate : 070 BPM Atrial Rate : 070 BPM P-R Int : 218 ms QRS Dur : 078 ms QT Int : 378 ms P-R-T Axes : 049 030 047 degrees QTc Int : 408 ms Sinus rhythm with 1st degree A-V block Poor R wave progression, consider anterior MO vs. lead placement vs. LVH Abnormal ECG When compared with ECG of 29-SEP-2019 06:23, Nonspecific T wave abnormality Lateral leads no longer present Confirmed by Tay Page ([id number]) on 05/21/2023 12:54:08 PM Referred By: Confirmed By:Tay Page
[2023-05-21] MEDS ORDERED: DEXTROSE 50% 50 ML SYRINGE IV PRN (13:09)
[2023-05-21] MEDS ORDERED: GLUCOSE 10 TAB/TUBE PO PRN (13:09)
[2023-05-21] MEDS ORDERED: GLUCOSE 40% GEL 15 GM TUBE PO PRN (13:09)
[2023-05-21] MEDS ORDERED: CARBOHYDRATES FOR HYPOGLYCEMIA PO PRN (13:09)
[2023-05-21] MEDS ORDERED: GLUCAGON FOR INJ 1 MG VIAL SQ PRN (13:09)
[2023-05-21] MEDS ORDERED: OPTIRAY 320 125ml IV ONE (13:16)
--- NOTE | 2023-05-21 13:33 | CT Scan Report ---
CT ANGIOGRAM OF THE CHEST CLINICAL HISTORY: Atypical chest pain. COMPARISON STUDY: Chest CT scans dated 09/27/2019, 06/18/2017, and 07/26/2014. Chest x-ray dated 05/21/19 24. TECHNIQUE: Following the IV administration of 118 cc of Optiray 320, CT angiogram of the chest was pe rformed from the upper abdomen to the thoracic inlet utilizing the pulmonary embolus protocol. Images are reviewed in the axial, sagittal, and coronal planes. 3-D MIPS images are created and assessed. I V contrast was administered without complication. A dose lowering technique was utilized adhering to the principles of ALARA. CT DOSE: 910.48 mGy.cm FINDINGS: Thyroid: Imaged portions of the thyroid gland are normal in size and attenuation. Thoracic aorta: There is mild atherosclerotic calcification of the thoracic aorta, which is normal in caliber and demonstrates standard 3-vessel arch anatomy. The thoracic aorta is not well opacified. Pulmonary vasculature: The pulmonary trunk is normal in caliber. There are no filling defects identif ied in main, lobar, or segmental pulmonary branches to suggest pulmonary embolus. Heart: The heart is mildly enlarged containing trace pericardial effusion. The coronary arteries are densely calcified. Lungs and pleural spaces: There is no airspace consolidation or pleural effusion. The trachea and zechariah tral airways are clear. There is mild dependent atelectasis. There is an 8 mm right middle lobe pulmo nary nodule seen on image #111. Mediastinum: There is no mediastinal lymphadenopathy. Rosanne: Clear. Axillae: There is no axillary lymphadenopathy. Upper abdomen: The liver appears steatotic. Partially visualized upper abdominal viscera is otherwise within normal limits. Skeletal structures: The skeletal structures are osteopenic. A large hemangioma is noted in the body of T9. No lytic or blastic bony lesions are seen. Fusion hardware is noted in the lower cervical spin e. Arthritic change is seen in the shoulders and thoracic spine. IMPRESSION: 1. There is no evidence of pulmonary embolus in the main, lobar, or segmental pulmonary arteries. 2. Mild cardiomegaly noting advanced coronary artery atherosclerosis. 3. There is no airspace consolidation or pleural effusion. 4. Hepatic steatosis. 5. There is an 8 mm right middle lobe pulmonary nodule. This has modestly increased in size dating ba to 2019, but has clearly enlarged from 2017 and is new from 2015. A low-grade lesion such as a car cinoid could potentially have this appearance. Pulmonology assessment is recommended, as is a precaut ionary one-year follow-up examination. 6. Additional findings as above. ACT 112: Positive. There are findings on this exam that require communication between the performing entity and the patient following Patient Test Result Information Act ([place] Act 112) guidelines. Electronically signed by: Jermaine Aguilar M.D. 05/21/2023 1:32 PM
--- NOTE | 2023-05-21 13:53 | Cardiology Consultation ---
Date of Consultation May 21, 2023 Assessment & Plan (1) Chest pain: (2) Exertional dyspnea: (3) Coronary artery calcification seen on CT scan: (4) Labile hypertension: (5) Hyperlipidemia: (6) PAF (paroxysmal atrial fibrillation): (7) KARISHMA on CPAP: Plan Impression: 58-year-old male with symptoms of exertional chest pain and shortness of breath + palpitations + nausea. Dense coronary artery calcification noted on CT of the chest. Abnormal EKG with nonspecific T wave abnormalities in the anterior leads. High-sensitivity troponin negative x 1. Repeat pending. Echocardiogram obtained, pending. ASCVD risk factors include: Hypertension, dyslipidemia, type 2 diabetes, obesity. Plan: Coronary artery disease: Symptoms concerning for unstable angina. Treated with aspirin 324 mg today. Restart aspirin 81 mg daily tomorrow. Restart statin, rosuvastatin 40 mg nightly. Repeat fasting lipid panel in the morning. Keep n.p.o. for possible cardiac catheterization. Patient unlikely to be able to complete exercise stress echo due to profound symptoms with exertion, Dobutamine contraindicated due to history of paroxysmal A-fib, and unable to perform nuclear stress testing at this time. Hypertension: Bradycardic heart rates on telemetry, hold beta-laura Blood pressure is elevated, restart home dose losartan, 25 mg daily. Recommend patient bring in home CPAP device for continued use. Paroxysmal atrial fibrillation: No A-fib seen on telemetry this admission thus far. Continue to monitor on telemetry Elevated [id number] score of 3 (HTN, DM2, presumed CAD)--consider addition of anticoagulation if PAF is seen. Case discussed with Dr. Wade--plans to reach out to interventional cardiology regarding cardiac cath. I spent a total of 45 minutes on the date of service in preparation, delivery, and documentation of the care provided to the patient excluding any time spent in the performance of separately billed services. EVAN Tariq Department of Cardiology, [facility] This chart was completed in part utilizing Speech Voice Recognition Software. Grammatical errors, random word insertions, pronoun errors, and incomplete sentences are an occasional consequence of this system due to software limitati ons, ambient noise, and hardware issues. Any formal questions or concerns about the content, text, or information contained within the body of this dictation should be directly addressed to the provider for clarification. Supervising Physician Co-Signing Physician Notes Attending attestation: I have reviewed the advanced practitioner's documentation and agree with the plan of care. I accept the responsibility for the associated risk of managing the patient. Subjective: Patient seen in PCU , room 243 at 2:30 pm. Patient comfortable during my assessment. Describes progressive chest pain over the last month. Today came on with walking a short distance to the care. He has been active his whole life. 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 Patient's factors for underlying coronary heart disease include hypertension, dyslipidemia, and type 2 diabetes mellitus. Dense coronary artery calcifications are noted on CTA performed today. Exam: Cardiovascular: Regular, no murmurs rubs or gallops Data: EKG performed today at 10:37 AM revealed sinus rhythm at 70 bpm with first- degree AV block, AL interval 218 ms, poor R wave progression noted in lead V3. Repeat tracing at 1226 was relatively unchanged. Echocardiogram performed today revealed mild concentric left ventricular perjury, no regional wall motion abnormality, LVEF normal in the range of 60 to 65% with grade II diastolic dysfunction and mild mitral regurgitation. Patient had undergone cardiac catheterization in [address] Madison, report found in the [employer] archive the patient coronary anatomy noted at that time Impression/ Plan: Stable angina labile hypertension Dyslipidemia -Continue aspirin, rosuvastatin 40 mg daily. -Holding beta-laura due to sinus bradycardia in the 50s currently on telemetry. -Anticipate need to start antihypertensive therapy perhaps with JANES inhibitor, ARB, or calcium channel laura. -Start unfractionated heparin. -N.p.o. after midnight for tentative diagnostic catheterization 05/22/2023. Case discussed with Dr. Russell of interventional cardiology. I spent a total of 25 minutes coordinating, documenting, and providing care for this patient excluding time spent in the performance of separately billed services or time spent by another provider. Cl Wade DO History of Present Illness Reason for Consultation: Chest pain History of paroxysmal A-fib Requesting Physician: Anup jewell Attending Physician: Ankur Alvarez MD History of Present Illness Very pleasant 58-year-old male who presented to [facility] emergency department today due to exertional chest discomfort. Patient is accompanied by his , who is a nurse. Over the last month he has been having symptoms of exertional chest pain and shortness of breath. Notes a significant decline in his functional capacity over the last month. describes him as normally a very physically active individual. 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 Enjoys golfing and playing pickle ball. Has been extremely fatigued. Sleeps more often than not throughout the day. Does have a history of sleep apnea but is very compliant with his CPAP. Blood pressures have been labile--he was having extreme hypertension (as high as 180 systolic) with activity but also episodes of hypotension where he has became very lightheaded and presyncopal. He carries a history of paroxysmal A-fib and has been noting palpitations. Poor appetite, this is unusual for him-- notes nausea and diaphoresis with activity. No vomiting. Notes that he recently moved back from [place]. While living in [place] he was drinking heavily--where he was living was deemed [place]. Since moving home he has completely stopped drinking alcohol as of 02/27/2023. Denies any tobacco use or illicit drug use. Was initially seen by his PCP on 05/19 with these concerns. EKG in the office showed normal sinus rhythm with T wave inversions in anterior leads--new finding compared to 12/2019. A ZIO monitor was placed to rule out recurrent paroxysmal A-fib--he is currently wearing a ZIO monitor. Echocardiogram was ordered but not yet obtained. Patient called back into the office today with worsening symptoms. Patient was referred to the emergency department. Patient was given aspirin 324 mg. Initial EKG showed sinus rhythm with a first-degree AV block, 70 bpm with poor R wave progression in anterior leads. Repeat EKG showed sinus bradycardia, 56 bpm with a first-degree AV block. Ongoing anterior T wave abnormality. CTA of the chest without evidence of PE. Mild cardiomegaly noted with advanced coronary artery atherosclerosis. Incidental findings of an 8 mm right middle lobe pulmonary nodule with moderate enlargement compared to prior studies--pulmonary assessment recommended. Blood work revealed stable CBC and BMP. High-sensitivity troponin negative x 1. 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 Madison and Lindsey Montgomery PA-C in 2019 Past medical history: Paroxysmal atrial fibrillation in the postop setting maintained on metoprolol and aspirin. Anticoagulation deferred in the past Recurrent PAF but again declined anticoagulation Hypertension with history of hypertensive emergency 09/2019 Secondary workup for hypertension unremarkable, no evidence of renal artery stenosis at that time History of chest pain in the setting of hypertensive emergency Outpatient exercise stress echo negative for inducible ischemia at high workload, 10/2019 Dyslipidemia Obstructive sleep apnea, on CPAP Ascending aortic enlargement GERD Type 2 diabetes Former alcohol abuse, 6-7 beers per day with hard liquor beverages, stopped com pletely 02/28/2023 Allergies Allergy/AdvReac Type Severity Reaction Status Date / Time morphine AdvReac Nausea Verified 05/21/23 12:07 naproxen AdvReac Diarrhea Verified 05/21/23 12:07 Home Medications Medication Instructions Recorded Confirmed Type Juice Plus Vitamins 3 tab PO DAILY 05/21/23 05/21/23 History acetaminophen 500 mg tablet 500 mg PO Q6H PRN Pain 05/21/23 05/21/23 History (Tylenol Extra Strength) aspirin 81 mg chewable tablet 81 mg PO DAILY 05/21/23 05/21/23 History cetirizine 10 mg tablet 10 mg PO QAM 05/21/23 05/21/23 History fluoxetine 10 mg capsule 10 mg PO QAM 05/21/23 05/21/23 History gabapentin 300 mg capsule 300 mg PO BID 05/21/23 05/21/23 History losartan 100 mg tablet 25 mg PO .HOLD 05/21/23 05/21/23 History metformin 500 mg tablet 500 mg PO BID 05/21/23 05/21/23 History metoprolol succinate 50 mg 25 mg PO ..HOLD 05/21/23 05/21/23 History tablet,extended release 24 hr omeprazole 20 mg capsule,delayed 20 mg PO QAM 05/21/23 05/21/23 History release ondansetron HCl 4 mg tablet 4 mg PO Q8 PRN Nausea 05/21/23 05/21/23 History rosuvastatin 40 mg tablet 40 mg PO QPM 05/21/23 05/21/23 History vitamin B complex 1 tab PO DAILY 05/21/23 05/21/23 History Patient History Medical History Alcoholism Lung nodule Hepatic steatosis PAF (paroxysmal atrial fibrillation) Gout KARISHMA on CPAP GERD (gastroesophageal reflux disease) Diabetes mellitus, type 2 niddm Basal cell carcinoma Hypertension Hyperlipidemia Surgical History History of arthroscopy of left shoulder Status post subacromial decompression S/P arthroscopy of right shoulder History of discectomy with fusion cervical area (unsure of levels) Full ROM History of laminectomy lumbar x3 History of appendectomy History of colonoscopy History of Mohs micrographic surgery for skin cancer History of cardiac cath ~20 years ago. 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: No Beliefs That Will Affect Care: None Current Living Situation: Spouse Other Information That Helps Us Care for You: No Feels Safe at Home: Yes Assistive Devices: None Review of Systems Review of Systems: All systems reviewed & are unremarkable except as noted in HPI & below Physical Exam Constitutional: WD/WN, vitals as above no acute distress Eyes: PERRL, conjunctivae normal, anicteric sclerae Neck: normal visual inspection and trachea midline Respiratory: normal respiratory effort, lungs clear to auscultation no cough Auscultation: no rales, no rhonchi and no wheezes Cardiovascular: RRR, no murmur, no edema Heart Sounds: normal S1 and normal S2 Vessels: no JVD Extremities: no edema Gastrointestinal (Abdomen): normal bowel sounds, soft, nontender, no hepatosplenomegaly Skin: no rashes, warm and dry Psychiatric: A+Ox3, euthymic affect Results & Data Vital Signs (Past 12 Hours) Vital Signs Temp Pulse Pulse Resp BP BP Pulse Ox 05/21/23 12:07 74 16 147/92 H 98 05/21/23 11:58 60 05/21/23 10:47 95 05/21/23 10:30 05/21/23 10:30 36.6 C 76 18 172/107 H 94 05/21/23 10:28 O2 Del Method 05/21/23 12:07 Room Air 05/21/23 11:58 05/21/23 10:47 Room Air 05/21/23 10:30 Room Air 05/21/23 10:30 Room Air 05/21/23 10:28 Room Air Laboratory Results Cardiac Enzymes 05/21/23 Range/Units 10:40 AST 30 (13-39) U/L Troponin I High Sens 12.7 (0-20) pg/ml Coagulation 05/21/23 Range/Units 10:40 PT 11.1 (9.0-12.0) Seconds APTT 29 (21-31) Seconds CBC 05/21/23 Range/Units 10:40 WBC 6.19 (4.8-10.8) K/ul RBC 4.70 (4.70-6.10) M/uL Hgb 14.7 (14.0-18.0) g/dl Hct 41.8 L (42.0-52.0) % Plt Count 219 (130-400) K/uL Neut # (Auto) 2.76 (1.40-6.50) K/uL Lymph # (Auto) 2.45 (1.20-3.40) K/uL [place] # (Auto) 0.65 H (0.11-0.59) K/uL Eos # (Auto) 0.20 (0.00-0.50) K/uL Baso # (Auto) 0.07 (0.00-0.20) K/uL Comprehensive Metabolic Panel 05/21/23 Range/Units 10:40 Sodium 137 (136-145) mmol/L Potassium 4.2 (3.5-5.1) mmol/L Chloride 101 (98-107) mmol/L Carbon Dioxide 29 (21-32) mmol/L BUN 12 (6-23) mg/dl Creatinine 0.75 (0.6-1.4) mg/dl Glucose 142 H (70-99(Fasting)) mg/dl Calcium 10.2 (8.6-10.3) mg/dl AST 30 (13-39) U/L ALT 28 (7-52) U/L Alkaline Phosphatase 46 (34-104) U/L Total Protein 7.7 (6.0-8.3) gm/dl Albumin 5.0 (3.4-5.0) gm/dl Intake and Output 05/20/23 05/21/23 05/21/23 22:59 06:59 14:59 Other: Weight 124 kg Weight Measurement Method Chair Scale Patient Weight 05/22/23 06:59 Weight 124 kg Diagnostic Findings Exercise stress echo 11/07/2019--outpatient Interpretation Summary The primary indication after review was deemed appropriate and the examination was performed. Compared to last available study changes are noted as follows: ascending aortic diameter increased from 3.9 to 4.1 cm. The low heart rate response to stress reduces the sensitivity of this test for the detection of coronary artery disease or ischemia. There was attenuated heart rate response to exercise likely related to medication(s). No inducible wall motion abnormalities at 10 Mets. Abnormal horizontal [address] segment depressions in the inferior leads. No arrhythmias. Normal blood pressure response to exercise. Above average exercise tolerance. At rest, normal LV chamber size with mild concentric LVH. Normal LV systolic function without regional wall motion abnormality, EF 60 65%. Grade 2 diastolic dysfunction. Mild mitral regurgitation. Mild enlargement of the aortic root and ascending aorta measuring 4.3 and 4.1 cm respective (1) Chest pain Chest pain type: unspecified Qualified Code(s): R07.9 - Chest pain, unspecified (5) Hyperlipidemia Hyperlipidemia type: mixed hyperlipidemia Qualified Code(s): E78.2 - Mixed hyperlipidemia
[2023-05-21] MEDS: LACTATED RINGER'S 1,000 ML IV SCH (14:52)
[2023-05-21 14:53] LABS: Thyroid Stimulating Hormone 3.237 uIu/ml (0.300-4.500)
--- OUTSIDE RECORDS SUMMARY | 2023-05-21 15:52 | External Medical Summary ---
Author Name Unknown Address Unknown Organization [id number]:[facility] [address] [place] [id number] Laboratory Report Ordering Provider Test Date Status JOYCE KELLEY 05/20/2023 08:07:20 Final Observation Date Value Abnormality Reference (Units ) Status WBC, Total 05/20/2023 08:07:20 5.46 4.00-10.8 0 (K/uL) Final RBC 05/20/2023 08:07:20 4.59 4.50-5.25 (M/uL) Final Hemoglobin 05/20/2023 08:07:20 14.4 14.0-16.8 (g/dL) Final HCT 05/20/2023 08:07:20 41.5 40.0-48.4 (%) Final MCV 05/20/2023 08:07:20 90.4 82.0-99.5 (fL) Final MCH 05/20/2023 08:07:20 31.4 27.0-34.0 (pg) Final MCHC 05/20/2023 08:07:20 34.7 32.0-36.0 (g/dL) Final RDW 05/20/2023 08:07:20 11.9 11.5-15.5 (%) Final Platelets 05/20/2023 08:07:20 224 140-400 (K /uL) Final MPV 05/20/2023 08:07:20 10.7 6.6-11.1 ( fL) Final [facility] Location [facility] [place] [id number]
--- OUTSIDE RECORDS SUMMARY | 2023-05-21 15:52 | External Medical Summary ---
Author Name Unknown Address Unknown Organization [id number]:[facility] [place] [address] [place] [address] Laboratory Report Ordering Provider Test Date Status JOYCE KELLEY 05/20/2023 08:07:20 Final Observation Date Value Abnormality Reference (Units ) Status Iron 05/20/2023 08:07:20 121 45-176 (ug /dL) Final Iron-binding capacity 05/20/2023 08:07:20 336 250-425 (ug/dL) Final Transferrin Sat % 05/20/2023 08:07:20 36 15 -55 (%) Final Performing Location [facility] [place] [address] [place] [address]
--- OUTSIDE RECORDS SUMMARY | 2023-05-21 15:52 | External Medical Summary | Summary of Care ---
Author Name Unknown Organization [facility] Address [address] [place] [address] Phone [phone] Care Team Providers Care Lumber Grader Name Role Phone FrederickGeorges snider Primary Care Provider [phone] Encounter Details Date Type Department Care Team (Late st Contact Info) Description 05/05/2023 Orders Only Outcomes Research Department [address] [place] [address] Luciana Reyes CHRA [employer] Research Other*[id number] Allergies Active Allergy Reactions Criticality Noted Date Comments Morphine Nausea/vomiting Medium 01/04/2020 Naproxen Diarrhea 05/27/2019 Diarrhea documented as of this encounter (statuses as of 05/05/2023) Medications Medication Sig Dispensed Refills Start Date End Date Status acetaminophen (TYLENOL) 500 MG Tablet 2 tablets daily as needed 30 Tab 0 06/18/2017 Active ibuprofen (ADVIL) 200 MG Tablet Take 1 Tablet by mouth every 4 hours as needed for Pain. 0 Active Blood Glucose Monitoring Suppl (ONETOUCH VERIO) w/Device KITIndications:Pred iabetes Use twice daily E11.9 1 Kit 0 03/16/2018 Active ONETOUCH ULTRASOFT LANCETS MISC Use as directed 2 times a day. E11.9 1 Box Dosing Unit 11 03/16/2018 Active aspirin enteric coated 81 MG TBEC Take 1 Tablet by mouth in the morning. 0 04/11/2019 Active colchicine 0.6 MG Tablet Take 1 Tab by mouth 2 times a day. For 1 week for gout flare. Repeat as needed. 28 Tab 5 06/10/2019 Active zoster vac recomb adjuvanted (SHINGRIX) 50 MCG/0.5ML injectionIndication s:Need for shingles vaccine Inject 0.5 mL into a large muscle now and repeat dose in 60 to 180 days 1 Each 1 10/31/2019 Active tiZANidine HCl 4 MG Oral Tablet (ZANAFLEX) TAKE 1 TABLET BY MOUTH EVERY 6 HOURS NEEDED FOR MUSCLE SPASM 30 Tab 1 05/02/2020 Active Juice Plus Fibre Oral Liquid Take by mouth. 0 Active Vitamin B Complex Oral Tablet Take 1 Tablet by mouth in the morning. 0 Active Glucose Blood In Vitro Strip Use to check blood sugar twice daily, E11.9 100 Strip 11 03/04/2023 Active Lancets Use to check blood sugar twice daily, E11.9 100 Each 11 03/04/2023 Active FLUoxetine HCl 10 MG Oral Capsule (PROzac)Indications :Alcohol ingestion, more than 4 drinks/day on alcohol screening Take 1 Capsule by mouth in the morning. 90 Capsule 3 03/04/2023 Active Gabapentin 300 MG Oral Capsule (Neurontin)Indicati ons:Osteoarthritis of spine with radiculopathy, cervical region TAKE 1 CAPSULE BY MOUTH two times a daily 180 Capsule 3 03/04/2023 Active metFORMIN HCl ER 500 MG Oral Tablet Extended Release 24 Hour (Glucophage XR)Indications:Diab etes mellitus without complication (HCC) Take 2 Tablets by mouth in the morning. 180 Tablet 3 03/04/2023 Active Omeprazole 20 MG Oral Capsule Delayed Release (PriLOSEC)Indicatio ns:Gastroesophageal reflux disease, unspecified whether esophagitis present TAKE 1 CAPSULE BY MOUTH ONCE DAILY ONE HOUR BEFORE THE FIRST MEAL OF THE DAY 90 Capsule 3 03/04/2023 Active Cetirizine HCl 10 MG Oral CapsuleIndications: Non-seasonal allergic rhinitis due to pollen Take 1 Capsule by mouth in the morning. 90 Capsule 3 03/04/2023 Active Rosuvastatin Calcium 40 MG Oral Tablet (Crestor)Indication s:Dyslipidemia, goal LDL below 100 Take 1 Tablet by mouth in the morning. 90 Tablet 3 03/04/2023 Active Losartan Potassium 100 MG Oral Tablet (Cozaar)Indications :HTN, goal below 140/90 Take 1 Tablet by mouth in the morning. 90 Tablet 3 03/04/2023 Active Metoprolol Succinate ER 50 MG Oral Tablet Extended Release 24 Hour (Toprol XL)Indications:PAF (paroxysmal atrial fibrillation) (HCC) Take 1 Tablet by mouth in the morning. 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 03/04/2023 Osteoarthritis of spine with radiculopathy, cerv ical region 03/04/2023 Other spondylosis with myelopathy, cervical jack on 06/18/2020 Cardiac pacemaker in situ 06/18/2020 Cervical spinal stenosis 01/11/2020 Ascending aorta enlargement 01/02/2020 PAF (paroxysmal atrial fibrillation) 08/26/2019 History of shoulder surgery 08/26/2019 KARISHMA on CPAP 08/26/2019 Diabetes mellitus without complication 9 Visit for wound check 08/05/2018 Basal cell carcinoma (BCC) of root of nose 05/19 Alcohol ingestion, more than 4 drinks/day on alcohol screening 06/18/2017 GERD (gastroesophageal reflux disease) 8 Obesity, Class I, BMI 30-34.9 06/08/2017 HTN (hypertension) 06/08/2017 Lumbar disc herniation 06/08/2017 Gout 05/08/2015 Dyslipidemia, goal LDL below 100 07/12/2014 documented as of this encounter (statuses as of 05/05/2023) Resolved Problems Problem Noted Date Diagnosed Date Resolved Date Fatty (change of) liver, not elsewhere classified 06/18/2020 03/09/2023 DM type 2 causing vascular disease 08/26/2019 09/12/2019 Prediabetes 05/24/2018 08/23/2018 Overview: Per Prediabetes protocol #1 Controlled substance agreement signed 06/07/2017 08/23/2018 Gout 05/08/2015 Reflux 11/25/2018 documented as of this encounter (statuses as of 05/05/2023) Immunizations Name Administration Dates Next Due Pneumococcal Polysaccharide PPV23 (Pneumovax) 02/24/2019 Seasonal Influenza, PF, 6 M & above, IM , (FluLaval or Fluzone) 06/18/2020,02/24/2019,02/02/2018,02/24 Seasonal Influenza, Split, I IV3, With Preserve, Inj 04/11/2014 TDAP (age 10 and older)(Boostrix) 05/31/2014 Zoster Vaccine Recombinant (Shingrix) 09/12/2019 (Deferred: Patient Refused) documented as of this encounter Social History Tobacco Use Types Packs/Day Years Used Date Smoking Tobacco: Never Smokeless Tobacco: Never Alcohol Use Standard Drinks/Week Comments Yes 4 (1 standard drink = 0.6 oz pur e alcohol) Socially PHQ-2 Answer Date Recorded PHQ-2 Score 0 02/27/2020 Hunger Vital Sign Answer Date Recorded Within the past 12 months, y ou worried that your food would run out before you got the money to buy more. Patient refused Within the past 12 months, t he food you bought just didn't last and you didn't have money to get more. Patient refused Sex and Gender Information Value Date Recorded Sex Assigned at Male 03/03/2023 4:45 PM EDT Gender Identity Male 03/03/2023 4:45 PM EDT Sexual Orientation Straight 03/03/2023 4: 45 PM EDT Job Start Date Occupation Industry Not on file Not on file Not on file documented as of this encounter Functional Status Functional Status Response Date of Assess ment Are you deaf or do you have serious difficulty h earing? No 01/11/2020 Are you blind or do you have serious difficulty seeing, even when wearing glasses? No 01/11/2020 Do you have serious difficul ty walking or climbing stairs? (5 years old or older) No 01/11/2020 Do you have difficulty dress ing or bathing? (5 years old or older) No 01/11/2020 Because of a physical, menta l, or emotional condition, do you have difficulty doing errands alone such as visiting a doctor s office or shopping? (15 years old or older) No 01/11/20 20 Cognitive Status Response Date of Assessm ent Because of a physical, menta l, or emotional condition, do you have serious difficulty concentrating, remembering, or making decisions? (5 years old or older) No 01/11/2020 documented as of this encounter Plan of Treatment Upcoming Encounters Date Type Department Care Team (Late st Contact Info) Description 09/15/2023 10:00 AM EDT Office Visit Family Practice [facility] [place] [address] [facility] [place], [place] [address] Georges Patterson DO [address] [facility] [place] [id number] Scheduled Orders Name Type Priority Associated Diagnoses Orde r Schedule MYCODE SUBSEQUENT ADULT Lab Routine MyCode Research Other*[id number] Every 6 Months for 2 Occurrences starting 05/05/2023 until 05/24/2024 Health Maintenance Due Date Last Done Comments COVID-19 Vaccine (#1) 1965 Albumin/Creatinine Ratio 1981 Zoster Vaccines (1 of 2) 2013 Pneumococcal Vaccine: Pediatrics (0 to 5 Years) and At-Risk Patients (6 to 64 Years) (2 - PCV) 02/25/2020 02/24/2019 Diabetic Eye Exam 05/16/2020 05/16/2019 B-12 08/24/2020 08/25/2019, 07/30/2018 HbA1c 01/31/2021 07/31/2020, 12/09, 08/25/2019, Additional history exists Depression Screening 02/26/2021 02/27/2020, 12/09/2016 (Discussed) GFR 02/26/2021 02/27/2020, 0907/2019, 12/28/2019, Additional history exists Diabetic Foot Exam 06/18/2021 06/18/2020, 09/12/2019 Influenza Vaccine (FLU shot) (#1) 2023 06/18/2020, 02/24/2019, 02/02/2018, Additional history exists Hepatitis B (1 of 3 - Risk 3-dose series) 2023 DTaP,Tdap,and Td Vaccines (2 - Td or Tdap) 05/31/2024 05/31/2014 COLONOSCOPY-EVERY 5 YRS AGES 18-100 06/06/2024 06/06/2019, 06/06/2019, 06/07/2014, Additional history exists Lipid Panel 08/24/2024 08/25/2019, 07/10, 02/11/2018, Additional history exists GARDASIL-HPV IMMUNIZATION SERIES Aged Out No longer eligible based on patient's age to complete this topic MENINGOCOCCAL (MENACTRA/MENVEO) Aged Out No longer eligible based on patient's age to complete this topic documented as of this encounter Medical Devices Implanted Type Area Capture Manager Device Identifier Shelf Expiration Date Model / Serial / Lot Tiffany Aguilera Cervical Cage 13 X 16 X 10 Implanted:Qty: 1 on 01/11/2020 by Luciano Trivedi MD at OR [facility] N/A: Spine Cervical IZZY : SPINE [id number] / / documented as of this encounter Visit Diagnoses Diagnosis MyCode Research Other*[id number] documented in this encounter Advance Directives Latest Code Status on File Code Status Date Activated Date Inactivated Comments Full Code 01/11/2020 1:52 PM 01/12/2020 9:33 PM This or darío reflects the patients wishes and were consensually agreed upon. Code Status History Code Status Date Activated Date Inactivated Comments Full Code 01/11/2020 6:39 AM 01/11/2020 1:52 PM This or darío reflects the patients wishes and were consensually agreed upon. Full Code 06/08/2017 1:55 AM 06/12/2017 3:48 PM This o rder reflects the patients wishes and were consensually agreed upon. Question Answer Comments Discussion of Advance Directives occurred with: Patient/Family Does the patient have a Living Will? No Does the patient have Health Care Power of Scenery Builder? No Care Teams Lumber Grader Relationship Specialty Start Date End Date Georges Patterson DO [address] [place] [address] PCP - General Family Medicine 03/17/23 documented as of this encounter
--- OUTSIDE RECORDS SUMMARY | 2023-05-21 15:52 | External Medical Summary ---
Author Name Unknown Address Unknown Organization K01:LABORATORY [facility] [place] [place] - [address] [place] [address] [place] [address] Laboratory Report Ordering Provider Test Date Status JOYCE KELLEY 05/20/2023 08:07:20 Final Observation Date Value Abnormality Reference (Units ) Status Lipase 05/20/2023 08:07:20 47 13-60 (U/L ) Final Performing Location LABORATORY C - [address] [facility] [address]
--- OUTSIDE RECORDS SUMMARY | 2023-05-21 15:52 | External Medical Summary | Summary of Care ---
Author Name Unknown Organization [facility] Address [address] [place] [address] Phone [phone] Care Team Providers Care Wearing Apparel Folder Name Role Phone FrederickGeorges snider Jackson GARCIA Primary Care Provider [phone] Reason for Visit * Reason Comments Mohs Surgery Pt presents today fo r Mohs surgery on R distal anterior leg * Evaluate & Treat - Unlimited Visits (Within 30 days (routine)) - Authorized Specialty Diagnoses / Procedures Referred By Carlota kelly Referred To Contact Dermatology Diagnoses Basal cell carcinoma (BCC) of right lower leg Luciana Olivares PA-C [address] [place] [address] Referral ID Status Reason Start Date Expiration Date Visits Requested Visits Authorized [id number] Authorized Specialty Services Required 03/19/[phone] Encounter Details Date Type Department Care Team (Late st Contact Info) Description 04/15/2023 1:00 PM EST Office Visit [facility] Surgery [facility] Cristine [place] [address] [place] [address] Aminta Joseph MD [address] [place] [address] Basal cell carcinoma (BCC) of right lower leg* Allergies Active Allergy Reactions Criticality Noted Date Comments Morphine Nausea/vomiting Medium 01/04/2020 Naproxen Diarrhea 05/27/2019 Diarrhea documented as of this encounter (statuses as of 04/18/2023) Medications Medication Sig Dispensed Refills Start Date End Date Status acetaminophen (TYLENOL) 500 MG Tablet 2 tablets daily as needed 30 Tab 0 06/18/2017 Active ibuprofen (ADVIL) 200 MG Tablet Take 1 Tablet by mouth every 4 hours as needed for Pain. 0 Active Blood Glucose Monitoring Suppl (Risen EnergyTOUCH VERIO) w/Device KITIndications:Pred iabetes Use twice daily [...] the morning. 90 Tablet 3 03/04/2023 Active Hospital, Clinic, or Other Facility Administered Medication Ordered Dose Route Frequency Start Date End Date Status Cephalexin (Keflex) cap 2,000 mgIndications:Basal cell carcinoma (BCC) of right lower leg 2000 mg OR ONCE 04/15/2023 04/16/2023 Ended documented as of this encounter (statuses as of 04/18/2023) Active Problems Problem Noted Date Diagnosed Date [...] as of this encounter (statuses as of 04/18/2023) Resolved Problems Problem Noted Date Diagnosed Date Resolved Date Fatty (change of) liver, not elsewhere classified 06/18/2020 03/09/2023 DM type 2 causing vascular disease 08/26/2019 09/12/2019 Prediabetes 05/24/2018 08/23/2018 Overview: Per Prediabetes protocol #1 Controlled substance agreement signed 06/07/2017 08/23/2018 Gout 05/08/2015 Reflux 11/25/2018 documented as of this encounter (statuses as of 04/18/2023) Immunizations Name Administration Dates Next Due Pneumococcal Polysaccharide PPV23 (Pneumovax) 02/24/2019 SEASONAL INFLUENZA, PF, 6 M & Above, IM , (FLULAVAL or FLUZONE) 06/18/2020,02/24/2019,02/02/2018,02/24 Seasonal Influenza, Split, I IV3, With [...] No 01/11/2020 documented as of this encounter Progress Notes * Aminta Joseph MD - 04/15/2023 1:00 PM EST Anup Mohs Surgery Note (See separate transcribed operative note for further detail) History: Reinier Beaver is a 58 year old patient seen at the request of [place] Stallings-Cfor evaluation and management of the following lesion: A. Skin, Right distal anterior leg, shave: Basal cell carcinoma, morpheaform and nodular types Patient problem list reviewed. Patient medication/allergy lists reviewed. Examination: Reinier Beaver is alert, oriented and appears well and in no distress. The patient's skin is remarkable for: Right distal anterior le.4 cm x 1.4 cm pink plaque Impression/Plan: Basal cell carcinoma, morpheaform and nodular types - right distal anterior leg MMS 2 g Keflex administered Standard Mohs micrographic technique was utilized to treat this tumor. Microscopic examination of the specimen allowed the Mohs surgeon, whose dual role is to function as both surgeon and pathologist, to precisely identify the location of any remaining tumor or ascertain that the tissue margins were free of tumor. This process of excision of remaining tumor, mapping, and histologic exam was repeated until the tumor was excised completely. Patient identified, procedure verified, site identified and verified with the patient. Time out completed. Surgical removal of the lesion discussed with the patient (risks and benefits, including possibility of scarring, infection, bleeding, recurrence or potential for further treatment). I have specifically identified the site with the patient. I have discussed the fact that the patient will have a scar after the procedure regardless of granulation or repair with sutures. I have discussed that the repair options can range from granulation in some cases to linear or curvilinear closures. There is a risk of injury to nerves causing temporary or permanent numbness. Questions answered and verbal and written consent was obtained. 1 stage(s) Anesthetic: 0.05% lidocaine with 1:100,000 epinephrine. Repair: Purse-string (see separate operative report for details) Absorbable sutures Right lower leg wrapped today with coban and piper wrap. Wound care was discussed verbally, demonstrated and printed wound instructions given as well as wound care supplies. Patient instructed to call with questions or concerns. Personal contact information provided. Follow-up: as needed Aminta Joseph MD Associate, Mohs Micrographic Surgery & Dermatologic Surgery documented in this encounter Procedure Notes * Aminta Joseph MD - 04/15/2023 4:00 PM EST [place] [address] MOHS MICROGRAPHIC SURGERY Reinier Beaver [facility]# [id number] 04/15/2023 [facility] NUMBER: [id number] BIOPSY: [id number] OPERATION: SURGICAL EXCISION OF CUTANEOUS MALIGNANCY USING CONTINUOUS MICROSCOPIC CONTROL(MOHS MICROGRAPHIC SURGERY) DIAGNOSIS: sclerosing (morpheaform) basal cell carcinoma LOCATION: right distal anterior leg INDICATION FOR MOHS SURGERY: Location,Histologic Type SURGEON: Aminta Joseph M.D. HAT SIZER SURGEON: NONE HAT SIZER SURGEON: NONE ANESTHETIC: Buffered lidocaine 0.5% with epinephrine 1:200,000 ENROLLMENT MANAGEMENT COORDINATOR: Aminta Joseph M.D. PREOPERATIVE SIZE OF LESION: 1.4 x 1.4 cm POSTOPERATIVE SIZE OF DEFECT: 2.0 x 1.9 cm ESTIMATED BLOOD LOSS: 5CC PROCEDURE: Time out called. Patient identified. Procedure matches verbalized consent. Site identified and verified and confirmed immediately prior to the procedure. Site marked. Thin layers of tumor-containing tissue were excised at each stage of surgery. These were cut into smaller tissue sections which were examined microscopically in a systematic fashion. Examination of the entire base and superficial peripheral margin allowed microscopic tumor extensions to be located and mapped. In accordance with the Mohs technique, this procedure enabled the maximum amount of normal tissue to be preserved while achieving the highest cure rate for cutaneous malignancy. At each surgical stage, the patient was prepped, the proposed excision outlined on the skin, and the area was reanesthetized as needed. STAGE I: The patient was prepped and the area of surgery was outlined. The operative site was anesthetized with a local injection of buffered lidocaine 0.5% with epinephrine 1:200,000. Following this the clinically apparent portion of the tumor was surgically removed. Hemostasis was achieved with an electrosurgical device. A thin layer of tissue was surgically excised and hemostasis was obtained. A reference map was drawn and the excised tissue was cut into 4 sections for examination in the micrographic laboratory. Edges of each section were dyed in order to achieve precise orientation. Horizontal sectioning of the base and continuous peripheral margins were then carried out and the prepared microscopic sections were examined by Aminta Joseph M.D.. Any areas of residual sclerosing basal cell carcinoma were indicated on the reference map, pinpointing the location in which further tissue excision was necessary. At this point, no further tumor cells were identified and the tumor eradication was considered to be complete for a total of 1 stage of surgery in which multiple microscopic slices of 4 tissue sections had been examined. WOUND MANAGEMENT: This wound was repaired with a purse-string suture. After sterilely preparing, anesthetizing and draping the surgical site, the wound was closed partially with a deep dermal-subcutaneous suture. This technique was chosen to decrease sizeof the surgical defect, provide a more desirable cosmetic result and decrease time to epithelialization. Total volume of Buffered lidocaine 0.5% with epinephrine 1:200,000, for Mohs Surgery and reconstruction was 9 ml. The final closure was 2.0 cm. in length. Subcutaneous closure material: Purse string 3-0 Vicryl Cutaneous closure material: None Aminta Joseph M.D. Associate Department of Dermatology documented in this encounter Nursing Notes * Tiffany Cole LPN - 04/15/2023 12:48 PM EST Chief Complaint Patient presents with Mohs Surgery Pt presents today for Mohs surgery on R distal anterior leg Referral Doctor: EDIN Olivares Hypertension History: Yes, refer to medication information for treatment. Diabetes History: No Thyroid History: No Bleeding Tendency: No Artificial Valve or Joint: No Pacemaker: no Defibrillator: no Hepatitis/HIV Exposure: No Smoking: no Consent signed yes documented in this encounter Miscellaneous Notes * Letters - Aminta Joseph MD - 04/15/2023 4:00 PM EST Department of Dermatology [phone] [facility] [address] [place] [address] Aminta Joseph M.D. Associate Dermatologic Surgery April 15, 2023 Luciana Olivares PA-C [address] [place] [address] Reinier Beaver [id number] MOHS CASE: [id number] DX: sclerosing basal cell carcinoma Dear Referring Provider, Thank you for referring Reinier Beaver for treatment of sclerosing basal cell carcinoma of the right distal anterior leg. The tumor was treated today with Mohs micrographic surgery, requiring 1 stage for complete removal. The surgical wound was repaired with combination of purse-string and directional guiding sutures. Thanks again for letting us participate in the care of your patient. Yours truly, Aminta Joseph M.D. documented in this encounter Plan of Treatment Upcoming Encounters Date Type Department Care Team (Late st Contact Info) Description 09/15/2023 10:00 AM EDT Office Visit [facility] Cristine [place] [address] [facility] [place] [id number] Georges Patterson, DO [address] [place] [address] Health Maintenance Due Date Last Done Comments [...] 02/26/2021 02/27/2020, 12/09/2016 (Discussed) GFR 02/26/2021 02/27/2020, 07/2019, 12/28/2019, Additional history exists Diabetic Foot Exam [...] this encounter Medical Devices Implanted Type Area Coater Slate Device Identifier Shelf Expiration Date Model / Serial / Lot [place] C Cervical Cage 13 X 16 X 10 Implanted:Qty: 1 on 01/11/2020 by Luciano Trivedi MD at OR [facility] N/A: Spine Cervical IZZY : SPINE [id number] / / documented as of this encounter Visit Diagnoses Diagnosis Basal cell carcinoma (BCC) of right lower leg- Primary documented in this encounter Advance Directives Latest [...] the patient have Health Care Power of Beam Racker? No Care Teams Wearing Apparel Folder Relationship Specialty Start Date End Date Georges Patterson DO [address] [place] [address] PCP - General Family Medicine 03/17/23 documented as of this encounter
--- OUTSIDE RECORDS SUMMARY | 2023-05-21 15:52 | External Medical Summary | Summary of Care ---
Author Name Unknown Organization [facility] Address [address] [place] [address] Phone [phone] Care Team Providers Care Steel Rod Buster Name Role Phone FrederickGeorges snider Jackson GARCIA Primary Care Provider [phone] Reason for Referral * (Within 10 days (routine)) - Authorized Specialty Diagnoses / Procedures Referred By Contac t Referred To Contact Radiology Diagnoses Abdominal pain, right upper quadrant Nausea Procedures US ABDOMEN LIMITED Nataly Alatorre MD [address] [place] [address] Referral ID Status Reason Start Date Expiration Date V isits Requested Visits Authorized [id number] Authorized 05/20/2023 999 999 * Ancillary Services (Within 30 days (routine)) - Authorized Specialty Diagnoses / Procedures Referred By Contac t Referred To Contact Gastroenterology Diagnoses Screen for colon cancer Adenomatous polyp Nataly Alatorre MD [address] [place] [address] Referral ID Status Reason Start Date Expiration Date Visits Requested Visits Authorized [id number] Authorized Ancillary Services Required 05/19/2023 999 999 Question Answer Referral Priority Within 30 days (routine) Where should this appointment be scheduled? Anup Comments ALERT: Do not order for pediatric patients (18 years or younger). Cancel off screen and order PEDS GASTROENTEROLOGY CONSULT (Type: 1 visit only-Evaluate and Treat) The following Pt. Instructions are available: - Gastro Colonoscopy Prep Instructions [[id number]] - Gastro Colonoscopy Prep Instructions (Hungarian Version) [[id number]] Go to the Pt. Instructions section within the Visit Navigator to access. Colonoscopy ASGE Guidelines: Postadenoma resection: 3-10 adenomas or adenoma with villous features, greater than or equal 1 cm, or with high-grade dysplasia (3 yr intervals) ADDITIONAL INFORMATION 1. Is the patient on Coumadin? No 2. Is the patient on Pradaxa? No * Precert (Within 10 days (routine)) - Authorized Specialty Diagnoses / Procedures Referred By Contac leticia Referred To Contact Cardiac Studies Diagnoses Malaise and fatigue Dizziness Generalized weakness PAF (paroxysmal atrial fibrillation) (HCC) HTN, goal below 130/80 Ascending aorta enlargement (HCC) Nonspecific abnormal electrocardiogram (ECG) (EKG) Procedures ECHO, COMPLETE (2D), TRANS-THORACIC Nataly Alatorre MD [address] [place] [address] Referral ID Status Reason Start Date Expiration Date V isits Requested Visits Authorized [id number] Authorized Precert 05/19/2023 999 999 * Evaluate & Treat - Unlimited Visits (Within 10 days (routine)) - Authorized Specialty Diagnoses / Procedures Referred By Carlota kelly Referred To Contact Cardiovascular Medicine / Cardiology Diagnoses Malaise and fatigue Dizziness Generalized weakness PAF (paroxysmal atrial fibrillation) (HCC) HTN, goal below 130/80 Ascending aorta enlargement (HCC) Nataly Alatorre MD [address] [place] [address] Referral ID Status Reason Start Date Expiration Date Visits Requested Visits Authorized [id number] Authorized Specialty Services Required 05/19/2023 999 999 Question Answer Referral Priority Within 10 days (routine) Where should this appointment be scheduled? [facility] To which of the following clinics are you referring your patient? General Cardiology Clinic Reason for Visit * Reason Comments Acute The pt and his stated the pt has been fatigued, SOB, pale, with dizziness, and headaches for approx 1 month but it is getting progressively worse. Encounter Details Date Type Department Care Team (Latest Contact Info) Description 05/19/2023 2:00 PM EST Office Visit General Internal Medicine [place] [address] [facility] [place] [address] Nataly Alatorre MD [address] [facility] [place] [address] Malaise and fatigue*; Dizziness; Generalized weakness; PAF (paroxysmal atrial fibrillation) (HCC); HTN, goal below 130/80; Dyslipidemia, goal LDL below 100; KARISHMA on CPAP; Abdominal pain, right upper quadrant; Nausea; Other constipation; Loose stools; History of alcohol abuse; Ascending aorta enlargement (HCC); History of gout; Somnolence, daytime; Nonspecific abnormal electrocardiogram (ECG) (EKG); Screen for colon cancer; Adenomatous polyp; Anemia, unspecified type Allergies Active Allergy Reactions Criticality Noted Date Comments Morphine Nausea/vomiting Medium 01/04/2020 Naproxen Diarrhea 05/27/2019 Diarrhea documented as of this encounter (statuses as of 05/19/2023) Medications Medication Sig Dispensed Refills Start Date End Date Status acetaminophen (TYLENOL) 500 MG Tablet 2 tablets daily as needed 30 Tab 0 06/18/2017 Active ibuprofen (ADVIL) 200 MG Tablet Take 1 Tablet by mouth every 4 hours as needed for Pain. 0 Active Blood Glucose Monitoring Suppl (ONETOUCH VERIO) w/Device KITIndications:Pre diabetes Use twice daily E11.9 1 Kit 0 [...] as needed. 28 Tab 5 06/10/2019 Active Additional Information Patient not taking.Reported on 05/19/2023 zoster vac recomb adjuvanted (SHINGRIX) 50 MCG/0.5ML injectionIndicatio ns:Need for shingles vaccine Inject 0.5 mL into [...] Active FLUoxetine HCl 10 MG Oral Capsule (PROzac)Indication s:Alcohol ingestion, more than 4 drinks/day on alcohol screening Take 1 Capsule by mouth in the morning. 90 Capsule 3 03/04/2023 Active Gabapentin 300 MG Oral Capsule (Neurontin)Indicat ions:Osteoarthriti s of spine with radiculopathy, cervical region TAKE 1 CAPSULE BY MOUTH two times a daily 180 Capsule 3 03/04/2023 Active metFORMIN HCl ER 500 MG Oral Tablet Extended Release 24 Hour (Glucophage XR)Indications:Yoselin betes mellitus without complication (HCC) Take 2 Tablets by mouth in the morning. 180 Tablet 3 03/04/2023 Active Omeprazole 20 MG Oral Capsule Delayed Release (PriLOSEC)Indicati ons:Gastroesophage al reflux disease, unspecified whether esophagitis present TAKE 1 CAPSULE BY MOUTH ONCE DAILY ONE HOUR BEFORE THE FIRST MEAL OF THE DAY 90 Capsule 3 03/04/2023 Active Cetirizine HCl 10 MG Oral CapsuleIndications :Non-seasonal allergic rhinitis due to pollen Take 1 Capsule by mouth in the morning. 90 Capsule 3 03/04/2023 Active Rosuvastatin Calcium 40 MG Oral Tablet (Crestor)Indicatio ns:Dyslipidemia, goal LDL below 100 Take 1 Tablet by mouth in the morning. 90 Tablet 3 03/04/2023 Active Losartan Potassium 100 MG Oral Tablet (Cozaar)Indication s:HTN, goal below 140/90 Take 1 Tablet by mouth in the morning. 90 Tablet 3 03/04/2023 Active Additional Information Patient not taking.Reported on 05/19/2023 Metoprolol Succinate ER 50 MG Oral Tablet Extended Release 24 Hour (Toprol XL)Indications:PAF (paroxysmal atrial fibrillation) (HCC) Take 1 Tablet by mouth in the morning. 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 90 Tablet 3 03/04/2023 Active Additional Information Patient not taking.Reported on 05/19/2023 Ondansetron HCl 4 MG Oral TabletIndications: Abdominal pain, right upper quadrant,Nausea Take 1 Tablet by mouth every 8 hours as needed for Nausea. 30 Tablet 0 05/19/2023 Active documented as of this encounter (statuses as of 05/19/2023) Active Problems Problem Noted Date Diagnosed Date [...] as of this encounter (statuses as of 05/19/2023) Resolved Problems Problem Noted Date Diagnosed Date Resolved Date Fatty (change of) liver, not elsewhere classified 06/18/2020 03/09/2023 DM type 2 causing vascular disease 08/26/2019 09/12/2019 Prediabetes 05/24/2018 08/23/2018 Overview: Per Prediabetes protocol #1 Controlled substance agreement signed 06/07/2017 08/23/2018 Gout 05/08/2015 Reflux 11/25/2018 documented as of this encounter (statuses as of 05/19/2023) Immunizations Name Administration Dates Next Due Pneumococcal [...] on file documented as of this encounter Last Filed Vital Signs Vital Sign Reading Time Taken Comments Blood Pressure 122/72 05/19/2023 2:08 PM EST Pulse 88 05/19/2023 2:08 PM EST Temperature 36.7 C (98 F) 05/19/2023 2:08 PM EST Respiratory Rate - - Oxygen Saturation 97% 05/19/2023 2:08 PM EST Inhaled Oxygen Concentration - - Weight 124.7 kg (275 lb) 05/19/2023 2:08 PM EST Height - - Body Mass Index 34.37 03/04/2023 1:58 PM EDT documented in this encounter Functional Status Functional Status Response [...] as of this encounter Progress Notes * Yousif Cadet LPN - 05/19/2023 4:03 PM EST 05/19/23 4:05 PM Date to Remove: 05/26/2023 Time to Remove: 1600 Serial Number: [id number] Ordering Provider: MD Yousif Malave LPN Zio patch applied in clinic, as per provider orders. Patient Registered * Nataly Alatorre MD - 05/19/2023 2:07 PM EST SUBJECTIVE: Reinier Beaver is a 58 year old male. Chief Complaint Patient presents with Acute The pt and his stated the pt has been fatigued, SOB, pale, with dizziness, and headaches for approx 1 month but it is getting progressively worse. HPI: Patient presents today accompanied by his with multiple medical problems. BP Readings from Last 4 Encounters: 05/19/23 122/72 03/04/23 132/72 06/18/20 176/102 02/27/20 148/88 Wt Readings from Last 5 Encounters: 05/19/23 124.7 kg (275 lb) 03/04/23 121.1 kg (267 lb) 07/31/20 122 kg (269 lb) 06/18/20 122 kg (269 lb 0.6 oz) 02/27/20 124.8 kg (275 lb 1.9 oz) Acute appointment 20 minute but has multiple medical problems States they reestablish care with Dr. Patterson in February. Complains of in the last month having increasing fatigue, dizziness feeling weak, blood pressure upand down, near syncope, no palpitations, +headaches, nausea, decreased appetite, constipation, tookMiraLax and now has loose stools. Admits to abdominal bloating bloating, pain right upper quadrant,feeling of fullness/gas, looks pale, is irritable Has been sleeping a lot despite using CPAP. Last evaluated by [facility] Dr. Carbone 4 years ago, states has an appointment in June Last cardiology evaluation was in December of 2019 Admits was drinking 6-7 beers every day and hard alcoholic beverages and stopped drinking completely 02/28/2023, Blood pressure has been fluctuating up and down, stopped his some losartan 2-3 weeks ago and also discontinue metoprolol as home blood pressure was 90/60 no chest pain. Has been using CPAP regularly. --chart states has pacemaker, patient states he does not have a pacemaker States has family history of pancreatic cancer colon cancer. Colonoscopy May/2019-1 cecal polyp, 2 transverse colon polyps-adenomatous polyps, was recommended repeat in 3 years which is overdue Last EKG December 2019-normal sinus rhythm nonspecific ST abnormalities, unchanged from October 2019 Has not had any labs that was ordered in February Medications reviewed-taking aspirin, Tylenol as needed, Zyrtec, B complex, fluoxetine, gabapentin, metformin, omeprazole, rosuvastatin. Not abnhnu-szfhtopszy-jbqliupn, allopurinol, colchicine. Tizanidine, ibuprofen, Hemoglobin AIC Results: Lab Results Component Value Date/Time HEMOGLOBIN A1C - [facility] 6.2 (H) 07/31/2020 08:41 AM HEMOGLOBIN A1C - [facility] 6.7 (H) 12/28/2019 07:21 AM HEMOGLOBIN A1C - [facility] 6.5 (H) 08/25/2019 08:31 AM HEMOGLOBIN A1C - [facility] 6.5 (H) 02/09/2019 07:01 AM Hemoglobin Results: Lab Results Component Value Date/Time HGB - [facility] 12.6 (L) 02/27/2020 12:36 PM HGB - [facility] 12.4 (L) 01/12/2020 05:18 AM HGB - [facility] 13.3 (L) 01/11/2020 03:26 PM Patient Active Problem List Diagnosis Code Dyslipidemia, goal LDL below 100 E78.5 Gout M10.9 GERD (gastroesophageal reflux disease) K21.9 Obesity, Class I, BMI 30-34.9 E66.9 HTN (hypertension) I10 Lumbar disc herniation M51.26 Alcohol ingestion, more than 4 drinks/day on alcohol screening Z13.39 Basal cell carcinoma (BCC) of root of nose C44.311 Visit for wound check Z51.89 Diabetes mellitus without complication (HCC) E11.9 PAF (paroxysmal atrial fibrillation) ([facility]) I48.0 History of shoulder surgery Z98.890 KARISHMA on CPAP G47.33 Ascending aorta enlargement ([facility]) I77.89 Cervical spinal stenosis M48.02 Other spondylosis with myelopathy, cervical region M47.12 Cardiac pacemaker in situ Z95.0 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 Blood Glucose Monitoring Suppl ([employer] VERIO) w/Device KIT Use twice daily E11.9 1 Kit 0 BPA SolutionsTOUCH ULTRASOFT LANCETS MISC Use as directed 2 times a day. E11.9 1 Box Dosing Unit 11 aspirin enteric coated 81 MG TBEC Take 1 Tablet by mouth in the morning. tiZANidine HCl 4 MG Oral Tablet (ZANAFLEX) TAKE 1 TABLET BY MOUTH EVERY 6 HOURS NEEDED FOR MUSCLE SPASM 30 Tab 1 Juice Plus Fibre Oral Liquid Take by mouth. Vitamin B Complex Oral Tablet Take 1 Tablet by mouth in the morning. Glucose Blood In Vitro Strip Use to check blood sugar twice daily, E11.9 100 Strip 11 Lancets Use to check blood sugar twice daily, E11.9 100 Each 11 FLUoxetine HCl 10 MG Oral Capsule (PROzac) Take 1 Capsule by mouth in the morning. 90 Capsule 3 Gabapentin 300 MG Oral Capsule (Neurontin) TAKE 1 CAPSULE BY MOUTH two times a daily 180 Capsule 3 metFORMIN HCl ER 500 MG Oral Tablet Extended Release 24 Hour (Glucophage XR) Take 2 Tablets by mouth in the morning. 180 Tablet 3 Omeprazole 20 MG Oral Capsule Delayed Release (PriLOSEC) TAKE 1 CAPSULE BY MOUTH ONCE DAILY ONE HOUR BEFORE THE FIRST MEAL OF THE DAY 90 Capsule 3 Cetirizine HCl 10 MG Oral Capsule Take 1 Capsule by mouth in the morning. 90 Capsule 3 Rosuvastatin Calcium 40 MG Oral Tablet (Crestor) Take 1 Tablet by mouth in the morning. 90 Tablet 3 colchicine 0.6 MG Tablet Take 1 Tab by mouth 2 times a day. For 1 week for gout flare. Repeat as needed. (Patient not taking: Reported on 05/19/2023) 28 Tab 5 zoster vac recomb adjuvanted (SHINGRIX) 50 MCG/0.5ML injection Inject 0.5 mL into a large muscle now and repeat dose in 60 to 180 days 1 Each 1 Losartan Potassium 100 MG Oral Tablet (Cozaar) Take 1 Tablet by mouth in the morning. (Patient not taking: Reported on 05/19/2023) 90 Tablet 3 Metoprolol Succinate ER 50 MG Oral Tablet Extended Release 24 Hour (Toprol XL) Take 1 Tablet by mouth in the morning. (Patient not taking: Reported on 05/19/2023) 90 Tablet 3 Allopurinol 300 MG Oral Tablet (Zyloprim) Take 1 Tablet by mouth in the morning. (Patient not taking: Reported on 05/19/2023) 90 Tablet 3 No current facility-administered medications for this visit. Review of patient's allergies indicates: Allergen Reactions Morphine Nausea/vomiting Naproxen Diarrhea Diarrhea OBJECTIVE: BP 122/72 | Pulse 88 | Temp 36.7 C (98 F) | Wt 124.7 kg (275 lb) | SpO2 97% | BMI 34.37 kg/m | BSA 2.57 m PHYSICAL EXAM: General: alert, healthy, no distress, well nourished and well developed Head: Normocephalic, atraumatic Oropharynx: no exudate and no erythema Neck: supple, no bruits, no JVD Lymph: No palpable lymphadenopathy. Heart: Regular rhythm and rate, no murmurs and no gallops Lungs: lungs clear to auscultation Abdomen: Soft, non-tender, normal bowel sounds, no masses or organomegaly, no bruits Scar RLQ Extremities: no edema, no clubbing, no cyanosis. Neuro Exam: alert & oriented x 3 with fluent speech, no focal motor/sensory deficits, gait normal Skin: skin color, texture, turgor are normal, no rashes ASSESSMENT/PLAN: Malaise and fatigue (Primary) - EKG; Future; Expected date: 05/19/2023 - EXTERNAL EKG 2 TO 7 DAYS; Future; Expected date: 05/20/2023 - CARDIOLOGY REFERRAL OP - LIPASE; Future; Expected date: 05/19/2023 - ECHO, COMPLETE (2D), TRANS-THORACIC; Future; Expected date: 05/19/2023 - CBC WITH WBC DIFFERENTIAL; Future; Expected date: 05/19/2023 - FERRITIN; Future; Expected date: 05/19/2023 - IRON SCREEN, INCLUDING TIBC; Future; Expected date: 05/19/2023 Dizziness - EKG; Future; Expected date: 05/19/2023 - EXTERNAL EKG 2 TO 7 DAYS; Future; Expected date: 05/20/2023 - CARDIOLOGY REFERRAL OP - ECHO, COMPLETE (2D), TRANS-THORACIC; Future; Expected date: 05/19/2023 Generalized weakness - EKG; Future; Expected date: 05/19/2023 - EXTERNAL EKG 2 TO 7 DAYS; Future; Expected date: 05/20/2023 - CARDIOLOGY REFERRAL OP - ECHO, COMPLETE (2D), TRANS-THORACIC; Future; Expected date: 05/19/2023 PAF (paroxysmal atrial fibrillation) (HCC) - EKG; Future; Expected date: 05/19/2023 - EXTERNAL EKG 2 TO 7 DAYS; Future; Expected date: 05/20/2023 - CARDIOLOGY REFERRAL OP - ECHO, COMPLETE (2D), TRANS-THORACIC; Future; Expected date: 05/19/2023 HTN, goal below 130/80 - EKG; Future; Expected date: 05/19/2023 - EXTERNAL EKG 2 TO 7 DAYS; Future; Expected date: 05/20/2023 - CARDIOLOGY REFERRAL OP - ECHO, COMPLETE (2D), TRANS-THORACIC; Future; Expected date: 05/19/2023 Dyslipidemia, goal LDL below 100 - EKG; Future; Expected date: 05/19/2023 KARISHMA on CPAP - EKG; Future; Expected date: 05/19/2023 Abdominal pain, right upper quadrant - EKG; Future; Expected date: 05/19/2023 - LIPASE; Future; Expected date: 05/19/2023 - XR ABDOMEN OBSTRUCT SERIES W CHEST 1 VIEW; Future; Expected date: 05/19/2023 - Ondansetron HCl 4 MG Oral Tablet; Take 1 Tablet by mouth every 8 hours as needed for Nausea. - US ABDOMEN LIMITED; Future; Expected date: 05/20/2023 - CBC WITH WBC DIFFERENTIAL; Future; Expected date: 05/19/2023 - FERRITIN; Future; Expected date: 05/19/2023 - IRON SCREEN, INCLUDING TIBC; Future; Expected date: 05/19/2023 Nausea - EKG; Future; Expected date: 05/19/2023 - LIPASE; Future; Expected date: 05/19/2023 - XR ABDOMEN OBSTRUCT SERIES W CHEST 1 VIEW; Future; Expected date: 05/19/2023 - Ondansetron HCl 4 MG Oral Tablet; Take 1 Tablet by mouth every 8 hours as needed for Nausea. - US ABDOMEN LIMITED; Future; Expected date: 05/20/2023 Other constipation - EKG; Future; Expected date: 05/19/2023 - XR ABDOMEN OBSTRUCT SERIES W CHEST 1 VIEW; Future; Expected date: 05/19/2023 Loose stools - EKG; Future; Expected date: 05/19/2023 - XR ABDOMEN OBSTRUCT SERIES W CHEST 1 VIEW; Future; Expected date: 05/19/2023 History of alcohol abuse - URIC ACID; Future; Expected date: 05/19/2023 Ascending aorta enlargement (HCC) - CARDIOLOGY REFERRAL OP - ECHO, COMPLETE (2D), TRANS-THORACIC; Future; Expected date: 05/19/2023 History of gout - URIC ACID; Future; Expected date: 05/19/2023 Somnolence, daytime Nonspecific abnormal electrocardiogram (ECG) (EKG) - ECHO, COMPLETE (2D), TRANS-THORACIC; Future; Expected date: 05/19/2023 Screen for colon cancer - COLONOSCOPY, GI REFERRAL OP Adenomatous polyp - COLONOSCOPY, GI REFERRAL OP Anemia, unspecified type - CBC WITH WBC DIFFERENTIAL; Future; Expected date: 05/19/2023 - FERRITIN; Future; Expected date: 05/19/2023 - IRON SCREEN, INCLUDING TIBC; Future; Expected date: 05/19/2023 EKG-NSR at 80 B p.m., anterior infarct age undetermined, new from prior EKG December 2019 Zio monitor for 1 week r/o par afib. -, all labs on file today and the ones I ordered today. Schedule echo, cardiology appointment. X-ray as above, [facility] Schedule colonoscopy -prob list updated--pt states does not have PPM 40 min total time spent with patient, time spent reviewing subspecialty notes, diagnostic studies done, follow-up orders/medication refills,over 1/2 time spent in counseling, coordinating care. Follow Up: Return in about 2 weeks (around 06/02/2023), or if symptoms worsen or fail to improve, for Labs Today. | For: Labs Today | Check-out note: -lab for pcp ane me today Xray today Reza echo soon Reza f/u With PCP -need 40 min appt -[facility] cardiology appt soon (This note was completed using the dictation program Fluency Direct. As such, there may be misspellings, word substitutions, or other variations that should not change the essence of the clinical content of this encounter note. If there is need for further clarification, please direct questions to the provider listed above.) Patient and / caregiver verbalize understanding of above instructions and agrees with plan of care. Nataly Alatorre MD 05/19/2023 documented in this encounter Nursing Notes * Yousif Cadet LPN - 05/19/2023 2:08 PM EST Chief Complaint Patient presents with Acute The pt and his stated the pt has been fatigued, SOB, pale, with dizziness, and headaches for approx 1 month but it is getting progressively worse. documented in this encounter Plan of Treatment Upcoming Encounters Date Type Department Care Team (Late st Contact Info) Description 05/20/2023 9:15 AM EST Imaging Radiology [facility] [address] [place] [address] 05/28/2023 2:00 PM EST Office Visit Cardiology, [facility] [address] [place] [address] [place], [address] [place] [address] 06/05/2023 8:00 AM EST Office Visit General Internal Medicine [facility] [address] [facility] [place], [place] [address] Nataly Alatorre MD [address] [facility] [place] [address] 06/05/2023 8:40 AM EST Office Visit General Internal Medicine [facility] [address] [facility] [place] [address] Nataly Alatorre MD [address] [facility] [place] [address] 06/08/2023 10:00 AM EST Cardiac Studies Cardiac Studies, [facility] [address] [facility] [place] [address] 09/15/2023 10:00 AM EDT Office Visit Family Practice [facility] [address] [facility] [place], [place] [address] Georges Patterson, [address] [facility] [place] [address] Scheduled Orders Name Type Priority Associated Diagnoses Orde r Schedule EXTERNAL EKG 2 TO 7 DAYS Holter Routine Malaise and fatigue Dizziness Generalized weakness PAF (paroxysmal atrial fibrillation) (HCC) HTN, goal below 130/80 Expected: 05/20/2023 (Approximate), Expires: 05/19/2024 LIPASE Lab Routine Malaise and fatigue Abdominal pain, right upper quadrant Nausea Expected: 05/19/2023 (Approximate), Expires: 05/18/2024 URIC ACID Lab Routine History of alcohol abuse History of gout Expected: 05/19/2023 (Approximate), Expires: 05/18/2024 XR ABDOMEN OBSTRUCT SERIES W CHEST 1 VIEW Medical Imaging Routine Abdominal pain, right upper quadrant Nausea Other constipation Loose stools Expected: 05/19/2023, Expires: 06/19/2024 ECHO, COMPLETE (2D), TRANS-THORACIC Echocardiology Routine Malaise and fatigue Dizziness Generalized weakness PAF (paroxysmal atrial fibrillation) (HCC) HTN, goal below 130/80 Ascending aorta enlargement (HCC) Nonspecific abnormal electrocardiogram (ECG) (EKG) Expected: 05/19/2023, Expires: 06/19/2025 US ABDOMEN LIMITED Medical Imaging Routine Abdominal pain, right upper quadrant Nausea Expected: 05/20/2023, Expires: 06/19/2024 CBC WITH WBC DIFFERENTIAL Lab Routine Malaise and fatigue Abdominal pain, right upper quadrant Anemia, unspecified type Expected: 05/19/2023 (Approximate), Expires: 05/19/2024 FERRITIN Lab Routine Malaise and fatigue Abdominal pain, right upper quadrant Anemia, unspecified type Expected: 05/19/2023 (Approximate), Expires: 05/18/2024 IRON SCREEN, INCLUDING TIBC Lab Routine Malaise and fatigue Abdominal pain, right upper quadrant Anemia, unspecified type Expected: 05/19/2023 (Approximate), Expires: 05/18/2024 Scheduled Referrals Name Type Priority Associated Diagnoses Orde r Schedule CARDIOLOGY REFERRAL OP Referral Within 10 days (routine) Malaise and fatigue Dizziness Generalized weakness PAF (paroxysmal atrial fibrillation) (HCC) HTN, goal below 130/80 Ascending aorta enlargement (HCC) Ordered: 05/19/2023 COLONOSCOPY, GI REFERRAL OP Referral Within 30 days (routine) Screen for colon cancer Adenomatous polyp Ordered: 05/19/2023 Health Maintenance Due Date Last Done Comments [...] this encounter Medical Devices Implanted Type Area Steel Wheel Engraver Device Identifier Shelf Expiration Date Model / Serial / Lot [place] C Cervical Cage 13 X 16 X 10 Implanted:Qty: 1 on 01/11/2020 by Luciano Trivedi MD at OR [facility] N/A: Spine Cervical IZZY : SPINE [id number] / / documented as of this encounter Results * EKG (05/19/2023 2:45 PM EST) 05/19/2023 2:45 PM EST Narrative Procedure Note Gómez Madison, - 05/19/2023 2:45 PM EST REASON FOR STUDY: PALPTATIONS, FATIGUE CONCLUSIONS: Normal sinus rhythm Anterior infarct , age undetermined Abnormal ECG When compared with ECG of 29-DEC-2019 13:23, Anterior infarct is now Present T wave inversion now evident in Anterior leads Ventricular Rate: 80 Atrial Rate: 80 MD Interval: 202 QRS Duration: 94 QT/QTc: 396/456 ms P-R-T [place]: 32 : 50 : 51 degrees Nataly Alatorre MD EKG [facility] documented in this encounter Visit Diagnoses Diagnosis Malaise and fatigue- Primary Other malaise and fatigue Dizziness Dizziness and giddiness Generalized weakness Other malaise and fatigue PAF (paroxysmal atrial fibrillation) (HCC) Atrial fibrillation HTN, goal below 130/80 Unspecified essential hypertension Dyslipidemia, goal LDL below 100 Other and unspecified hyperlipidemia KARISHMA on CPAP Obstructive sleep apnea (adult) (pediatric) Abdominal pain, right upper quadrant Nausea Nausea alone Other constipation Loose stools Abnormal feces History of alcohol abuse Nondependent alcohol abuse, in remission Ascending aorta enlargement (HCC) Other specified disorders of arteries and arterioles History of gout Personal history of other endocrine, metabolic, and immunity disorders Somnolence, daytime Hypersomnia, unspecified Nonspecific abnormal electrocardiogram (ECG) (EKG) Screen for colon cancer Special screening for malignant neoplasms, colon Adenomatous polyp Benign neoplasm of unspecified site Anemia, unspecified type Malaise and fatigue Other malaise and fatigue Dizziness Dizziness and giddiness Generalized weakness Other malaise and fatigue PAF (paroxysmal atrial fibrillation) (HCC) Atrial fibrillation HTN, goal below 130/80 Unspecified essential hypertension Dyslipidemia, goal LDL below 100 Other and unspecified hyperlipidemia KARISHMA on CPAP Obstructive sleep apnea (adult) (pediatric) Abdominal pain, right upper quadrant Nausea Nausea alone Other constipation Loose stools Abnormal feces documented in this encounter Advance Directives Latest [...] the patient have Health Care Power of Pad Machine Operator? No Care Teams Steel Rod Buster Relationship Specialty Start Date End Date Georges Patterson DO [facility] [place] [address] PCP - General Family Medicine 03/17/23 documented as of this encounter"
--- OUTSIDE RECORDS SUMMARY | 2023-05-21 15:52 | External Medical Summary ---
Author Name Unknown Address Unknown Organization K0G:[facility] [address] [facility] [address] Laboratory Report Ordering Provider Test Date Status JOYCE KELLEY 05/20/2023 08:07:20 Final Observation Date Value Abnormality Reference (Units ) Status SYNC LEUKOCYTES IN BLOOD BY AUTOMATED COUNT 05/20/2023 08:07:20 5.46 4.00-10.80 (K/uL) Final Segs 05/20/2023 08:07:20 46.4 40.0-75.0 (%) Final Lymphs % 05/20/2023 08:07:20 37.5 18.0-42.0 (%) Final Monos 05/20/2023 08:07:20 10.8 1.0-11.0 (%) Final Eosinophils 05/20/2023 08:07:20 4.8 0.0-6.0 (%) Final Basos 05/20/2023 08:07:20 0.5 0.0-2.0 (%) Final Absolute Segs 05/20/2023 08:07:20 2.53 1.80-7.70 (K/uL) Final Lymphs, absolute 05/20/2023 08:07:20 2.05 1.00-4.80 (K/ul) Final Monos, Abs 05/20/2023 08:07:20 0.59 0.00-1.10 (K/uL) Final Eos, Abs 05/20/2023 08:07:20 0.26 0.00-0.70 (K/uL) Final Basos, Abs 05/20/2023 08:07:20 0.03 0.00-0.20 (K/uL) Final Performing Location [facility] [address] [facility] [address]
--- OUTSIDE RECORDS SUMMARY | 2023-05-21 15:52 | External Medical Summary ---
Author Name Unknown Address Unknown Organization [facility] [address] [place] [address] Laboratory Report Ordering Provider Test Date Status LUZ ORTIZ 05/21/2023 07:14:50 Final Observation Date Value Abnormality Reference (Units ) Status BUN 05/21/2023 07:14:50 12 6-20 (mg/dL) Final Creatinine 05/21/2023 07:14:50 0.8 0.6-1.2 (mg/dL) Final Glomerular filtration rate/1.73 sq M.predicted [Volume Rate/Area] in Serum, Plasma or Blood by Creatinine-based formula (CKD-EPI) 05/21/2023 07:14:50 >90 >=60 (mL/min) Final eGFR is calculated based on the CKD-EPI 2020 equation SODIUM 05/21/2023 07:14:50 139 135-146 (m mol/L) Final Potassium 05/21/2023 07:14:50 4.7 3.5-5.1 (m mol/L) Final Cl 05/21/2023 07:14:50 100 98-107 (mm ol/L) Final CO2 05/21/2023 07:14:50 27 22-32 (mmo l/L) Final Anion gap 05/21/2023 07:14:50 12 7-15 (mmol /L) Final Glucose 05/21/2023 07:14:50 172 Above high normal 70 -120 (mg/dL) Final Albumin 05/21/2023 07:14:50 4.8 3.8-5.0 (g /dL) Final AST (Aspartate aminotransferase) 05/21/2023 07:14:50 30 10-50 (U/L) Fin al Alk Phos 05/21/2023 07:14:50 49 35-130 (U/ L) Final Bilirubin, Total 05/21/2023 07:14:50 0.3 <=1 .2 (mg/dL) Final Calcium 05/21/2023 07:14:50 10.3 Above high normal 8. 4-10.2 (mg/dL) Final Protein 05/21/2023 07:14:50 6.9 6.0-8.3 (g /dL) Final ALT (Alanine aminotransferase) 05/21/2023 07:14:50 32 10-50 (U/L) Emiliano beltrán Performing Location [facility] [address] [place] [address]
--- OUTSIDE RECORDS SUMMARY | 2023-05-21 15:52 | External Medical Summary ---
Author Name Unknown Address Unknown Organization [facility] [address] [place] [address] Laboratory Report Ordering Provider Test Date Status JOYCE KELLEY 05/20/2023 08:07:20 Final Observation Date Value Abnormality Reference (Units ) Status Nucleated erythrocytes/100 leukocytes [Ratio] in Blood by Automated count 05/20/2023 08:07:20 Final Performing Location [facility] - [address] [place] [address]
--- OUTSIDE RECORDS SUMMARY | 2023-05-21 15:52 | External Medical Summary | Summary of Care ---
Author Name Unknown Organization [facility] Address [address] [place] [address] Phone [phone] Care Team Providers Care Hoeing Row Boss Name Role Phone LeonardoGeorges Jackson GARCIA Primary Care Provider +[phone] Reason for Visit * Reason Comments Outpatient Testing Encounter Details Date Type Department Care Team (Late st Contact Info) Description 05/21/2023 7:20 AM EST Laboratory Laboratory [facility] [address] [place] [phone] [facility] Scen[address] [place] [address] Diabetes mellitus without complication (HCC); Dyslipidemia, goal LDL below 100; Encounter for long-term (current) use of medications Allergies Active Allergy Reactions Criticality Noted Date Comments Morphine Nausea/vomiting Medium 01/04/2020 Naproxen Diarrhea 05/27/2019 Diarrhea documented as of this encounter (statuses as of 05/21/2023) Medications Medication Sig Dispensed Refills Start Date [...] as of this encounter (statuses as of 05/21/2023) Active Problems Problem Noted Date Diagnosed Date [...] as of this encounter (statuses as of 05/21/2023) Resolved Problems Problem Noted Date Diagnosed Date Resolved Date Fatty (change of) liver, not elsewhere classified 06/18/2020 03/09/2023 DM type 2 causing vascular disease 08/26/2019 09/12/2019 Prediabetes 05/24/2018 08/23/2018 Overview: Per Prediabetes protocol #1 Controlled substance agreement signed 06/07/2017 08/23/2018 Gout 05/08/2015 Reflux 11/25/2018 documented as of this encounter (statuses as of 05/21/2023) Immunizations Name Administration Dates Next Due Pneumococcal [...] Care Team (Late st Contact Info) Description 05/28/2023 2:00 PM EST Office Visit Cardiology, [facility] [address] [place] [address] Gómez Madison, DO [address] [place] [address] 06/05/2023 8:00 AM EST Office Visit General Internal Medicine [facility] [address] [place] [address] Nataly Alatorre MD [address] [facility] [place] [address] 06/05/2023 8:40 AM EST Office Visit General Internal Medicine [facility] [address] [place] [address] Nataly Alatorre MD [address] [facility] [place] [address] 06/08/2023 10:00 AM EST Cardiac Studies Cardiac Studies, [facility] [address] [employer] [place] [address] 09/15/2023 10:00 AM EDT Office Visit Family Practice [facility] [address] [place] [address] Georges Patterson, DO [address] [place] [address] Pending Results Name Type Priority Associated Diagnoses Date /Time HEMOGLOBIN A1C Lab Routine Diabetes mellitus without complication (HCC) 05/21/2023 7:14 AM EST COMPREHENSIVE METABOLIC PANEL Lab Routine Dyslipidemia, goal LDL below 100 05/21/2023 7:14 AM EST LIPID PANEL WITH DIRECT LDL IF TG IS HIGH Lab Routine Dyslipidemia, goal LDL below 100 05/21/2023 7:14 AM EST VITAMIN B12 Lab Routine Encounter for long-term (current) use of medications 05/21/2023 7:14 AM EST ALBUMIN / CREATININE RATIO, URINE Lab Routine Diabetes mellitus without complication (HCC) 05/21/2023 7:16 AM EST Health Maintenance Due Date Last Done Comments [...] this encounter Medical Devices Implanted Type Area Freelance Recruiter Device Identifier Shelf Expiration Date Model / Serial / Lot Fallonutdelonte C Cervical Cage 13 X 16 X 10 Implanted:Qty: 1 on 01/11/2020 by Luciano Trivedi MD at OR [facility] N/A: Spine Cervical IZZY : SPINE [id number] / / documented as of this encounter Visit Diagnoses Diagnosis Diabetes mellitus without complication (HCC) Type II or unspecified type diabetes mellitus without mention of complication, not stated as uncontrolled Dyslipidemia, goal LDL below 100 Other and unspecified hyperlipidemia Encounter for long-term (current) use of medications Encounter for long-term (current) use of other medications documented in this encounter Advance Directives Latest [...] the patient have Health Care Power of Turf Farm Worker? No Care Teams Hoeing Row Boss Relationship Specialty Start Date End Date Georges Patterson DO [address] [place] [address] PCP - General Family Medicine 03/17/23 documented as of this encounter
--- OUTSIDE RECORDS SUMMARY | 2023-05-21 15:52 | External Medical Summary | Summary of Care ---
Author Name Unknown Organization [facility] Address [address] [place] [address] Phone [phone] Care Team Providers Care Outsole Cementer Machine Name Role Phone LeonardoGeorges Jackson GARCIA Primary Care Provider [phone] Reason for Visit * Reason Comments Outpatient Testing Encounter Details Date Type Department Care Team (Late st Contact Info) Description 05/20/2023 8:20 AM EST Laboratory Laboratory, [facility] [address] [place] [phone] [facility] [address] [place] [address] Malaise and fatigue; Abdominal pain, right upper quadrant; Nausea; History of alcohol abuse; History of gout; Anemia, unspecified type Allergies Active Allergy Reactions Criticality Noted Date Comments Morphine Nausea/vomiting Medium 01/04/2020 Naproxen Diarrhea 05/27/2019 Diarrhea documented as of this encounter (statuses as of 05/20/2023) Medications Medication Sig Dispensed Refills Start Date [...] as of this encounter (statuses as of 05/20/2023) Active Problems Problem Noted Date Diagnosed Date [...] as of this encounter (statuses as of 05/20/2023) Resolved Problems Problem Noted Date Diagnosed Date Resolved Date Fatty (change of) liver, not elsewhere classified 06/18/2020 03/09/2023 DM type 2 causing vascular disease 08/26/2019 09/12/2019 Prediabetes 05/24/2018 08/23/2018 Overview: Per Prediabetes protocol #1 Controlled substance agreement signed 06/07/2017 08/23/2018 Gout 05/08/2015 Reflux 11/25/2018 documented as of this encounter (statuses as of 05/20/2023) Immunizations Name Administration Dates Next Due Pneumococcal [...] Upcoming Encounters Date Type Department Care Team (Latest Contact Info) Description 05/20/2023 9:15 AM EST Imaging Radiology [facility] [address] [place] [address] Abdominal pain, right upper quadrant; Nausea 05/28/2023 2:00 PM EST Office Visit Cardiology, [facility] [address] [place] [address] Gómez Madison, [address] [place] [address] 06/05/2023 8:00 AM EST Office Visit General Internal Medicine [facility] [address] [place] [address] Nataly Alatorre MD [address] [place] [address] 06/05/2023 8:40 AM EST Office Visit General Internal Medicine [facility] [address] [place] [address] Nataly Alatorre MD [address] [place] [address] 06/08/2023 10:00 AM EST Cardiac Studies Cardiac Studies, [facility] [address] [place] [address] 09/15/2023 10:00 AM EDT Office Visit Family Practice [employer] 200 [facility] [place] [address] Georges Patterson, 200 [facility] [place] [address] Pending Results Name Type Priority Associated Diagnoses Date /Time LIPASE Lab Routine Malaise and fatigue Abdominal pain, right upper quadrant Nausea 05/20/2023 8:07 AM EST URIC ACID Lab Routine History of alcohol abuse History of gout 05/20/2023 8:07 AM EST CBC WITH WBC DIFFERENTIAL Lab Routine Malaise and fatigue Abdominal pain, right upper quadrant Anemia, unspecified type 05/20/2023 8:07 AM EST FERRITIN Lab Routine Malaise and fatigue Abdominal pain, right upper quadrant Anemia, unspecified type 05/20/2023 8:07 AM EST IRON SCREEN, INCLUDING TIBC Lab Routine Malaise and fatigue Abdominal pain, right upper quadrant Anemia, unspecified type 05/20/2023 8:07 AM EST CBC Lab Routine Malaise and fatigue Abdominal pain, right upper quadrant Anemia, unspecified type 05/20/2023 8:07 AM EST DIFFERENTIAL, AUTOMATED Lab Routine Malaise and fatigue Abdominal pain, right upper quadrant Anemia, unspecified type 05/20/2023 8:07 AM EST Health Maintenance Due Date Last [...] 02/26/2021 02/27/2020, 12/09/2016 (Discussed) GFR 02/26/2021 02/27/2020, 09/0 07/2019, 12/28/2019, Additional history exists Diabetic Foot [...] this encounter Medical Devices Implanted Type Area Screen Machine Operator Device Identifier Shelf Expiration Date Model / Serial / Lot [place]ian C Cervical Cage 13 X 16 X 10 Implanted:Qty: 1 on 01/11/2020 by Luciano Trivedi MD at OR [facility] N/A: Spine Cervical IZZY : SPINE [id number] / / documented as of this encounter Visit Diagnoses Diagnosis Abdominal pain, right upper quadrant Nausea Nausea alone Malaise and fatigue Other malaise and fatigue Abdominal pain, right upper quadrant Nausea Nausea alone History of alcohol abuse Nondependent alcohol abuse, in remission History of gout Personal history of other endocrine, metabolic, and immunity disorders Anemia, unspecified type documented in this encounter Advance Directives Latest [...] the patient have Health Care Power of Tangible Personal Property Appraiser? No Care Teams Outsole Cementer Machine Relationship Specialty Start Date End Date Georges Patterson DO [address] [place] [address] PCP - General Family Medicine 03/17/23 documented as of this encounter
--- OUTSIDE RECORDS SUMMARY | 2023-05-21 15:52 | External Medical Summary | Summary of Care ---
Author Name Unknown Organization [facility] Address [address] [place] [address] Phone [phone] Care Team Providers Care Supervisor Shop Name Role Phone FrederickGeorges snider Jackson GARCIA Primary Care Provider [phone] Reason for Referral * (Within 10 days (routine)) - Authorized Specialty Diagnoses / Procedures Referred By Contac t Referred To Contact Radiology Diagnoses Abdominal pain, right upper quadrant Nausea Procedures US ABDOMEN LIMITED Nataly Alatorre MD [address] [place] [address] Referral ID Status Reason Start Date Expiration Date V isits Requested Visits Authorized [id number] Authorized 05/20/2023 999 999 * Ancillary Services (Within 30 days (routine)) - Authorized Specialty Diagnoses / Procedures Referred By Contac t Referred To Contact Gastroenterology Diagnoses Screen for colon cancer Adenomatous polyp Nataly Alatorre MD [address] [place] [address] Referral ID Status Reason Start Date Expiration Date Visits Requested Visits Authorized [id number] Authorized Ancillary Services Required 05/19/2023 999 999 Question Answer Referral Priority Within 30 days (routine) Where should this appointment be scheduled? Anup Comments ALERT: Do not order for pediatric patients (18 years or younger). Cancel off screen and order PEDS GASTROENTEROLOGY CONSULT (Type: 1 visit only-Evaluate and Treat) The following Pt. Instructions are available: - Gastro Colonoscopy Prep Instructions [72815] - Gastro Colonoscopy Prep Instructions (Syriac Version) [51087] Go to the Pt. Instructions section within [...] COMPLETE (2D), TRANS-THORACIC Nataly Alatorre MD [address] [place] [address] Referral ID Status Reason Start Date Expiration Date V isits Requested Visits Authorized [id number] Authorized Precert 05/19/2023 999 999 * Evaluate & Treat - Unlimited Visits (Within 10 days (routine)) - Authorized Specialty Diagnoses / Procedures Referred By Carlota kelly Referred To Contact Cardiovascular Medicine / Cardiology Diagnoses Malaise and fatigue Dizziness Generalized weakness PAF (paroxysmal atrial fibrillation) (HCC) HTN, goal below 130/80 Ascending aorta enlargement (HCC) Nataly Alatorre MD [address] [place] [address] Referral ID Status Reason Start Date Expiration Date Visits Requested Visits Authorized [id number] Authorized Specialty Services Required 05/19/2023 999 999 [...] Office Visit General Internal Medicine [address] [place] [place] 200 [facility] [place] [address] Nataly Alatorre MD 200 [facility] [place] [address] Malaise and fatigue*; Dizziness; Generalized weakness; PAF [...] as of this encounter Progress Notes * Nataly Alatorre MD - 05/19/2023 2:07 [...] complex, fluoxetine, gabapentin, metformin, omeprazole, rosuvastatin. Not iaotdj-cjainkeqnk-gobunelp, allopurinol, colchicine. Tizanidine, ibuprofen, Hemoglobin AIC Results: [...] complication (HCC) E11.9 PAF (paroxysmal atrial fibrillation) (HCC) I48.0 History of shoulder surgery Z98.890 KARISHMA on CPAP G47.33 Ascending aorta enlargement (HCC) I77.89 Cervical spinal stenosis M48.02 Other spondylosis [...] needed for Pain. Blood Glucose Monitoring Suppl ([employer]) w/Device KIT Use twice daily E11.9 1 Kit 0 Candid ioTOUCH ULTRASOFT LANCETS MISC Use as directed 2 [...] Schedule echo, cardiology appointment. X-ray as above, [facility] ruq Schedule colonoscopy -prob list updated--pt states [...] f/u With PCP -need 40 min appt -[facility] cardiology appt soon (This note was completed [...] Description 05/20/2023 9:15 AM EST Imaging Radiology [facility] [address] [facility] [facility] [place] [address] 05/28/2023 2:00 PM EST Office Visit Cardiology, [facility] 132 [facility] [place] [address] Gómez Madison, 132 [facility] [place] [address] 06/05/2023 8:00 AM EST Office Visit General Internal Medicine [facility] [address] [place] [address] Nataly Alatorre MD [address] [facility] [place] [address] 06/05/2023 8:40 AM EST Office Visit General Internal Medicine [facility] [address] [place] [address] Nataly Alatorre MD [address] [place] [address] 06/08/2023 10:00 AM EST [facility] [address] [place] [address] 09/15/2023 10:00 AM EDT Office Visit Family [facility] [address] [place] [address] Georges Patterson DO [address] [place] [address] Scheduled Orders Name Type Priority Associated Diagnoses [...] this encounter Medical Devices Implanted Type Area Doctorate Of Chiropractic Device Identifier Shelf Expiration Date Model / Serial / Lot Tiffany Aguilera Cervical Cage 13 X 16 X 10 Implanted:Qty: 1 on 01/11/2020 by Luciano Trivedi MD at OR [facility] N/A: Spine Cervical IZZY : SPINE [id number] / / documented as of this encounter Results * EKG (05/19/2023 2:45 PM EST) 05/19/2023 2:45 PM EST Narrative Procedure Note Gómez Madison, DO - 05/19/2023 2:45 PM EST REASON FOR STUDY: PALPTATIONS, FATIGUE CONCLUSIONS: Normal sinus rhythm Anterior infarct , age undetermined Abnormal ECG When compared with ECG of 29-DEC-2019 13:23, Anterior infarct is now Present T wave inversion now evident in Anterior leads Ventricular Rate: 80 Atrial Rate: 80 IA Interval: 202 QRS Duration: 94 QT/QTc: 396/456 ms P-R-T [place]: 32 : 50 : 51 degrees Nataly Aaltorre MD EKG [facility] documented in this encounter Visit Diagnoses Diagnosis [...] the patient have Health Care Power of Voyage Management System Operator? No Care Teams Supervisor Shop Relationship Specialty Start Date End Date Georges Patterson DO [address] [place] [address] PCP - General Family Medicine 03/17/23 documented as of this encounter"
--- OUTSIDE RECORDS SUMMARY | 2023-05-21 15:52 | External Medical Summary | Summary of Care ---
Author Name Unknown Organization [facility] Address [address] [place] [address] Phone [phone] Care Team Providers Care General Office Dispatcher Name Role Phone LeonardoGeorges Jackson GARCIA Primary Care Provider [phone] Reason for Visit * Reason Comments Outpatient Testing Encounter Details Date Type Department Care Team (Late st Contact Info) Description 05/21/2023 7:20 AM EST Laboratory Laboratory [facility] [address] [place] [phone] [facility] Lab Scenery [address] [place] [address] Diabetes mellitus without complication (HCC); Dyslipidemia, goal [...] 05/28/2023 2:00 PM EST Office Visit Cardiology, [facility] [address] [place] [address] Gómez Madison, DO [address] [place] [address] 06/05/2023 8:00 AM EST Office Visit General Internal Medicine [facility] [address] [place] [address] Nataly Alatorre MD [address] [facility] [place] [address] 06/05/2023 8:40 AM EST Office Visit General Internal Medicine [facility] [address] [place] [address] Nataly Alatorre MD [address] [facility] [place] [address] 06/08/2023 10:00 AM EST Cardiac Studies Cardiac Studies, [facility] [address] [employer] [place] [address] 09/15/2023 10:00 AM EDT Office Visit Family Practice [facility] [address] [place] [address] Georges Patterson, DO [address] [place] [address] Pending Results Name Type Priority Associated Diagnoses [...] this encounter Medical Devices Implanted Type Area Lighting Engineering Technician Device Identifier Shelf Expiration Date Model / Serial / Lot Fallonutdelonte C Cervical Cage 13 X 16 X 10 Implanted:Qty: 1 on 01/11/2020 by Luciano Trivedi MD at OR [facility] N/A: Spine Cervical IZZY : SPINE [id number] / / documented as of this encounter [...] the patient have Health Care Power of Auto Camp Attendant? No Care Teams General Office Dispatcher Relationship Specialty Start Date End Date Georges Patterson DO [address] [place] [address] PCP - General Family Medicine 03/17/23 documented as of this encounter
--- OUTSIDE RECORDS SUMMARY | 2023-05-21 15:52 | External Medical Summary | Summary of Care ---
Author Name Unknown Organization [facility] Address [address] [place] [address] Phone [phone] Care Team Providers Care Attendance Officer Name Role Phone Georges Patterson DO Primary Care Provider [phone] Reason for Visit * Reason Onset Date Comments Health Maintenance 03/23/2023 Encounter Details Date Type Department Care Team (Late st Contact Info) Description 03/23/2023 Telephone Family Practice [facility] [address] [facility] [place] [address] Georges Patterson DO [address] [place] [address] Health Maintenance Allergies Active Allergy Reactions Criticality Noted Date Comments Morphine Nausea/vomiting Medium 01/04/2020 Naproxen Diarrhea 05/27/2019 Diarrhea documented as of this encounter (statuses as of 03/25/2023) Medications Medication Sig Dispensed Refills Start Date [...] as of this encounter (statuses as of 03/25/2023) Active Problems Problem Noted Date Diagnosed Date [...] as of this encounter (statuses as of 03/25/2023) Resolved Problems Problem Noted Date Diagnosed Date Resolved Date Fatty (change of) liver, not elsewhere classified 06/18/2020 03/09/2023 DM type 2 causing vascular disease 08/26/2019 09/12/2019 Prediabetes 05/24/2018 08/23/2018 Overview: Per Prediabetes protocol #1 Controlled substance agreement signed 06/07/2017 08/23/2018 Gout 05/08/2015 Reflux 11/25/2018 documented as of this encounter (statuses as of 03/25/2023) Immunizations Name Administration Dates Next Due Pneumococcal [...] No 01/11/2020 documented as of this encounter Miscellaneous Notes * Telephone Encounter - Kacie Reynoso LPN - 03/23/2023 9:38 AM EST Care Gaps Comprehensive Care Outreach Last Office/Telemedicine Visit: 03/04/2023 (in office), 08/26/2019 (telemedicine) Next Office Visit: 09/15/2023 Hemoglobin AIC Results: Lab Results Component Value Date/Time HEMOGLOBIN A1C - [facility] 6.2 (H) 07/31/2020 08:41 AM HEMOGLOBIN A1C - [facility] 6.7 (H) 12/28/2019 07:21 AM HEMOGLOBIN A1C - [facility] 6.5 (H) 08/25/2019 08:31 AM HEMOGLOBIN A1C - [facility] 6.5 (H) 02/09/2019 07:01 AM Reviewed Health Maintenance below: Health Maintenance Topic Date Due Hepatitis B (1 of 3 - 3-dose series) Never done COVID-19 Vaccine (1) Never done Albumin/Creatinine Ratio Never done Zoster Vaccines (1 of 2) Never done Pneumococcal Vaccine: Pediatrics (0 to 5 Years) and At-Risk Patients (6 to 64 Years) (2 - PCV) 02/25/2020 Diabetic Eye Exam 05/16/2020 B-12 08/24/2020 HbA1c 01/31/2021 GFR 02/26/2021 Depression Screening 02/26/2021 Diabetic Foot Exam 06/18/2021 Urine/labs already ordered Eye my g Care Gap Outreach Action Taken: Myportal message sent documented in this encounter Plan of Treatment Upcoming Encounters Date Type Department Care Team (Late st Contact Info) Description 04/15/2023 12:45 PM EST Office Visit [facility] [address] [place] [address] Aminta Joseph MD [address] [place] [address] [place] [address] 09/15/2023 10:00 AM EDT Office Visit Family Practice [facility] Cristine [address] [place] [address] Georges Patterson DO [address] [facility] [place], [place] [address] Health Maintenance Due Date Last Done Comments [...] this encounter Medical Devices Implanted Type Area Mammography Supervisor Device Identifier Shelf Expiration Date Model / Serial / Lot Aleutian C Cervical Cage 13 X 16 X 10 Implanted:Qty: 1 on 01/11/2020 by Luciano Trivedi MD at OR [facility] N/A: Spine Cervical IZZY : SPINE [id number] / / documented as of this encounter Advance Directives Latest Code Status [...] the patient have Health Care Power of Steward/Stewardess Third? No Care Teams Attendance Officer Relationship Specialty Start Date End Date Georges Patterson DO [address] [place] [address] PCP - General Family Medicine 03/17/23 documented as of this encounter
--- OUTSIDE RECORDS SUMMARY | 2023-05-21 15:53 | External Medical Summary | Summary of Care ---
Author Name Unknown Organization [facility] Address [address] [place] [address] Phone [phone] Care Team Providers Care Tenant Relations Coordinator Name Role Phone Georges Patterson DO Primary Care Provider [phone] Reason for Visit * Reason Comments NEW PATIENT Lesion New patient with les ions on back,arms and right leg. HX of Mohs * Evaluate & Treat - Unlimited Visits (Within 30 days (routine)) - Authorized Specialty Diagnoses / Procedures Referred By Carlota kelly Referred To Contact Dermatology Diagnoses History of basal cell carcinoma Georges Patterson DO [address] [place] [address] Referral ID Status Reason Start Date Expiration Date Visits Requested Visits Authorized [id number] Authorized Specialty Services Required [phone] Encounter Details Date Type Department Care Team (Late st Contact Info) Description 03/17/2023 10:00 AM EST Office Visit Dermatology, Makeda Chao [address] [place] [address] Luciana Olivares PA-C [address] [place] [address] Neoplasm of uncertain behavior of skin*; Seborrheic keratoses, inflamed; Smith angioma; History of nonmelanoma skin cancer Allergies Active Allergy Reactions Criticality Noted Date Comments Morphine Nausea/vomiting Medium 01/04/2020 Naproxen Diarrhea 05/27/2019 Diarrhea documented as of this encounter (statuses as of 03/17/2023) Medications Medication Sig Dispensed Refills Start Date End Date Status acetaminophen (TYLENOL) 500 MG Tablet 2 tablets daily as needed 30 Tab 0 06/18/2017 Active ibuprofen (ADVIL) 200 MG Tablet Take 1 Tablet by mouth every 4 hours as needed for Pain. 0 Active Blood Glucose Monitoring Suppl ([employer] VERIO) w/Device KITIndications:Pred iabetes Use twice daily [...] as of this encounter (statuses as of 03/17/2023) Active Problems Problem Noted Date Diagnosed Date [...] as of this encounter (statuses as of 03/17/2023) Resolved Problems Problem Noted Date Diagnosed Date Resolved Date Fatty (change of) liver, not elsewhere classified 06/18/2020 03/09/2023 DM type 2 causing vascular disease 08/26/2019 09/12/2019 Prediabetes 05/24/2018 08/23/2018 Overview: Per Prediabetes protocol #1 Controlled substance agreement signed 06/07/2017 08/23/2018 Gout 05/08/2015 Reflux 11/25/2018 documented as of this encounter (statuses as of 03/17/2023) Immunizations Name Administration Dates Next Due Pneumococcal [...] or making decisions? (5 years old or older No 01/11/2020 documented as of this encounter Progress Notes * Luciana Olivares PA-C - 03/17/2023 10:00 AM EST SUBJECTIVE: CC: Chief Complaint Patient presents with NEW PATIENT Lesion New patient with lesions on back,arms and right leg. HX of Mohs HPI: Reinier Beaver is a 57 year old male seen at the request of Georges Patterson DO for skin lesions. Last visit on 01/[address] Abdi. He has a non-healing spot on his right lower anterior leg for sometime. Also has some itchy spots on his back and arms. DERMATOLOGIC HISTORY: Reviewed previous office notes and relevant surgical pathology: H/o skin disorders: AKs (s/p cryo), SK's, smith angiomas H/o skin cancer: BCC nasal root (s/p MMS), right forearm and right abdomen 2018 Sunscreen use: yes REVIEW OF SYSTEMS: See HPI- all other findings negative Constitutional: (-) fever, chills, sweats, weight loss Skin: (-) no rash or new or changing moles or skin lesions Past Medical History: Diagnosis Date Abnormal stress echo [address] [facility] [address]. Laci Parson. 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 Alcohol ingestion, more than 4 drinks/day on alcohol screening Z13.39 Basal cell carcinoma (BCC) of root of nose C44.311 Visit for wound check Z51.89 Diabetes mellitus without complication ([facility]) E11.9 PAF (paroxysmal atrial fibrillation) ([facility]) I48.0 History of shoulder surgery Z98.890 KARISHMA on CPAP G47.33 Ascending aorta enlargement ([facility]) I77.89 Cervical spinal stenosis M48.02 Other spondylosis with myelopathy, 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 No Vaping/E-Cigarette Substances Nicotine No Other No Flavoring No THC No Cannabidiol (CBD) No Vaping/E-Cigarette Devices Disposable No Pre-filled or Refillable Cartridge No Refillable Tank No Pre-filled Pod No MEDICATIONS: Current Outpatient Medications Medication Sig Dispense Refill acetaminophen (TYLENOL) 500 MG Tablet 2 tablets daily as needed 30 Tab 0 ibuprofen (ADVIL) 200 MG Tablet Take 1 Tablet by mouth every 4 hours as needed for Pain. Blood Glucose Monitoring Suppl (Restore Water) w/Device KIT Use twice daily E11.9 1 Kit 0 XoinkaTOUCH ULTRASOFT LANCETS MISC Use as directed 2 times a day. E11.9 1 Box Dosing Unit 11 aspirin enteric coated 81 MG TBEC Take 1 Tablet by mouth in the morning. colchicine 0.6 MG Tablet Take 1 Tab by mouth 2 times a day. For 1 week for gout flare. Repeat as needed. 28 Tab 5 zoster vac recomb adjuvanted (SHINGRIX) 50 MCG/0.5ML injection Inject 0.5 mL into a large muscle now and repeat dose in 60 to 180 days 1 Each 1 tiZANidine HCl 4 MG Oral Tablet (ZANAFLEX) [...] mouth in the morning. 90 Tablet 3 Losartan Potassium 100 MG Oral Tablet (Cozaar) Take 1 Tablet by mouth in the morning. 90 Tablet 3 Metoprolol Succinate ER 50 MG Oral Tablet Extended Release 24 Hour (Toprol XL) Take 1 Tablet by mouth in the morning. 90 Tablet 3 Allopurinol 300 MG Oral Tablet (Zyloprim) Take 1 Tablet by mouth in the morning. 90 Tablet 3 No current facility-administered medications for this visit. ALLERGIES: Morphine and Naproxen OBJECTIVE: GEN: Healthy, alert, no distress, appears oriented, pleasant, and cooperative. PSYCH: Appropriate mood and affect, alert SKIN: Detailed exam to areas of concern on face, right ear, abdomen, back, upper and lower extremities was completed and are within normal limits with the following exceptions: 1A. Right distal anterior leg with 1cm pink papule with telangectasia DDX: BCC, SCC 2. At the trunk and extremities are several scattered medina/brown hyperkeratotic stuck on appearing waxy papules. 3. Multiple scattered bright red to violaceous macules and domed papules over torso 4. Well healed scar at primary site(s) without evidence of recurrence. ASSESSMENT/PLAN: Neoplasm of uncertain behavior of skin (Primary) - SURGICAL PATHOLOGY A. Right distal anterior leg with 1cm pink papule with telangectasia DDX: BCC, SCC Shave removal and curettage of the lesion noted above to remove and confirm diagnosis. The procedure, risks including but not limited to; (scarring, bleeding, infection, pain, and bruising), benefits, alternatives and expected outcomes were discussed with the patient, and obtained verbal consent from pt. Time out called. Patient identified, procedure verified, site identified and verified. Patient and staff present in agreement. Area prepped with alcohol and anesthetized using 0.2% concentration of Ropivicaine. Shave of lesion performed followed by curettage for cure. 20% AlCl and bandaging applied. Specimen sent to pathology. Patient instructed in routine post-op care and given wound care p amphlet. Total size 1.8cm 2. Seborrheic keratoses, inflamed - Treated with cryotherapy due to symptoms and clinical evidence of inflammation. - Cryotherapy was recommended for treatment today which patient was agreeable to. The risks, benefits, indications, alternatives, and complications were discussed, and informed consent was obtained. Specifically, the risks of permanent scar, loss or darkening of skin color, blister and recurrence of lesion were discussed. A total of 4 lesion(s) were treated with cryotherapy. The patient toleratedthe procedure well without complications. Wound care instructions were given. 3. Smith angiomas -The patient was educated that angiomas are benign in nature, mostly hereditary, frequently increase in number over time, and do not require treatment unless they are painful or bothersome. 4. History of nonmelanoma skin cancer - DERM IMAGE (SITE) -No evidence of recurrence. Follow Up: Return in about 6 months (around 09/15/2023) for FBSE. | For: FBSE Patient alone today. Follow-up: pending bx Photos taken, patient consented to photos. Contact patient via [employer] Applicable photos (if any) and chart reviewed by Dr. Montana Saleem. The patient was encouraged to contact me with any further questions or concerns. Luciana Olivares PA-C 03/17/2023 documented in this encounter Nursing Notes * Gi Gil, MED ASSIST - 03/17/2023 9:34 AM EST Chief Complaint Patient presents with NEW PATIENT Lesion New patient with lesions on back,arms and right leg. HX of Mohs documented in this encounter Plan of Treatment Upcoming Encounters Date Type Department Care Team (Late st Contact Info) Description 09/15/2023 10:00 AM EDT Office Visit [facility] [place] [address] [place] [address] Georges Patterson DO 200 [facility] [place] [address] Pending Results Name Type Priority Associated Diagnoses Date /Time SURGICAL PATHOLOGY Pathology Routine Neoplasm of uncertain behavior of skin 03/17/2023 10:13 AM EST Health Maintenance Due Date Last Done Comments Hepatitis B (1 of 3 - 3-dose series) 1965 COVID-19 Vaccine (#1) 1965 Albumin/Creatinine Ratio 1981 [...] 2023 06/18/2020, 02/24/2019, 02/02/2018, Additional history exists DTaP,Tdap,and Td Vaccines (2 - Td or [...] this encounter Medical Devices Implanted Type Area Impregnator Device Identifier Shelf Expiration Date Model / Serial / Lot Aleutian C Cervical Cage 13 X 16 X 10 Implanted:Qty: 1 on 01/11/2020 by Luciano Trivedi MD at OR [facility] N/A: Spine Cervical IZZY : SPINE [id number] / / documented as of this encounter Visit Diagnoses Diagnosis Neoplasm of uncertain behavior of skin- Primary Seborrheic keratoses, inflamed Smith angioma Nevus, non-neoplastic History of nonmelanoma skin cancer Personal history of other malignant neoplasm of skin documented in this encounter Advance Directives Latest [...] the patient have Health Care Power of Accounting Lecturer? No Care Teams Tenant Relations Coordinator Relationship Specialty Start Date End Date Goerges Patterson DO [address] [place] [address] PCP - General Family Medicine 03/17/23 documented as of this encounter"
--- OUTSIDE RECORDS SUMMARY | 2023-05-21 15:53 | External Medical Summary | Summary of Care ---
Author Name Unknown Organization [facility] Address [address] [place] [address] Phone [phone] Care Team Providers Care Kiss Setter Hand Name Role Phone Georges Patterson DO Primary Care Provider [phone] Reason for Visit * Reason Comments NEW PATIENT Lesion New patient with les ions on back,arms and right leg. HX of Mohs * Evaluate & Treat - Unlimited Visits (Within 30 days (routine)) - Authorized Specialty Diagnoses / Procedures Referred By Carlota kelly Referred To Contact Dermatology Diagnoses History of basal cell carcinoma Georges Patterson DO [address] [place] [address] Referral ID Status Reason Start Date Expiration Date Visits Requested Visits Authorized [id number] Authorized Specialty Services Required [phone] Encounter Details Date Type Department Care Team (Late st Contact Info) Description 03/17/2023 10:00 AM EST Office Visit Dermatology, Makeda Chao [address] [place] [address] Luciana Olivares PA-C [address] [place] [address] Neoplasm of uncertain behavior of skin*; Seborrheic [...] Pain. 0 Active Blood Glucose Monitoring Suppl ([employer] VERIO) w/Device KITIndications:Pred iabetes Use twice daily [...] History: Diagnosis Date Abnormal stress echo [address] [facility] [address]. Laci Parson. DDD (degenerative disc [...] wound check Z51.89 Diabetes mellitus without complication ([facility]) E11.9 PAF (paroxysmal atrial fibrillation) ([facility]) I48.0 History of shoulder surgery Z98.890 KARISHMA on CPAP G47.33 Ascending aorta enlargement ([facility]) I77.89 Cervical spinal stenosis M48.02 Other spondylosis [...] needed for Pain. Blood Glucose Monitoring Suppl ([facility]) w/Device KIT Use twice daily E11.9 1 Kit 0 VSS MonitoringTOUCH ULTRASOFT LANCETS MISC Use as directed 2 [...] patient consented to photos. Contact patient via [employer] Applicable photos (if any) and chart reviewed by Dr. Montana Saleem. The patient was encouraged to contact me with any further questions or concerns. Luciana Olivares PA-C 03/17/2023 * Dimas Saleem MD - 03/17/2023 10:00 AM EST I have reviewed the relevant notes and photographs taken by Luciana Olivares PA-C. I have reviewed and agree with the assessment and plan. Dimas Saleem MD documented in this encounter Nursing Notes * Gi Gil MED ASSIST - 03/17/2023 9:34 AM EST Chief Complaint Patient presents with NEW PATIENT Lesion New patient with lesions on back,arms and right leg. HX of Mohs documented in this encounter Plan of Treatment Upcoming Encounters Date Type Department Care Team (Late st Contact Info) Description 09/15/2023 10:00 AM EDT Office Visit [facility] [address] [facility] [place] [address] Georges Patterson, [address] [facility] [place] [address] Pending Results Name Type Priority Associated Diagnoses [...] this encounter Medical Devices Implanted Type Area Chief Engineer'S Helper Device Identifier Shelf Expiration Date Model / Serial / Lot Aleutian C Cervical Cage 13 X 16 X 10 Implanted:Qty: 1 on 01/11/2020 by Luciano Trivedi MD at OR [facility] N/A: Spine Cervical IZZY : SPINE [id number] / / documented as of this encounter Procedures Procedure Name Priority Date/Time Associated Diagnosis Comments DERM IMAGE (SITE) Routine 03/17/2023 History of nonmelanoma skin cancer documented in this encounter Results * DERM IMAGE (SITE) (03/17/2023) 03/17/2023 Luciana Olivares PA-C DIGITAL PHOTOGR APHY documented in this encounter Visit Diagnoses Diagnosis Neoplasm of [...] the patient have Health Care Power of Solution Strategist? No Care Teams Kiss Setter Hand Relationship Specialty Start Date End Date Georges Patterson DO [address] [place] [address] PCP - General Family Medicine 03/17/23 documented as of this encounter"
--- OUTSIDE RECORDS SUMMARY | 2023-05-21 15:53 | External Medical Summary | Summary of Care ---
Author Name Unknown Organization [facility] Address [address] [place] [address] Phone [phone] Care Team Providers Care Mason Foreman/Superintendant Name Role Phone FrederickGeorges snider Jackson GARCIA Primary Care Provider [phone] Reason for Visit * Reason Onset Date Comments Appointment 03/20/2023 Encounter Details Date Type Department Care Team (Late st Contact Info) Description 03/20/[address] [facility] [address] [place] [address] Aminta Joseph MD [address] [place] [address] Appointment Allergies Active Allergy Reactions Criticality Noted Date Comments Morphine Nausea/vomiting Medium 01/04/2020 Naproxen Diarrhea 05/27/2019 Diarrhea documented as of this encounter (statuses as of 03/20/2023) Medications Medication Sig Dispensed Refills Start Date [...] as of this encounter (statuses as of 03/20/2023) Active Problems Problem Noted Date Diagnosed Date [...] as of this encounter (statuses as of 03/20/2023) Resolved Problems Problem Noted Date Diagnosed Date Resolved Date Fatty (change of) liver, not elsewhere classified 06/18/2020 03/09/2023 DM type 2 causing vascular disease 08/26/2019 09/12/2019 Prediabetes 05/24/2018 08/23/2018 Overview: Per Prediabetes protocol #1 Controlled substance agreement signed 06/07/2017 08/23/2018 Gout 05/08/2015 Reflux 11/25/2018 documented as of this encounter (statuses as of 03/20/2023) Immunizations Name Administration Dates Next Due Pneumococcal [...] encounter Miscellaneous Notes * Telephone Encounter - Mahsa Damon OSA - 03/20/2023 10:07 AM EST Spoke to patient and scheduled for mohs with Dr Joseph for 04/15 at 1pm will mail mohs packet. * Telephone Encounter - Mahsa Damon OSA - 03/20/2023 10:01 AM EST 03/20 LMM to call [phone] mahsa to get scheduled for mohs * Telephone Encounter - Mahsa Damon OSA - 03/20/2023 7:29 AM EST A. Skin, Right distal anterior leg, shave: Basal cell carcinoma, morpheaform and nodular types Patient aware via MyG. documented in this encounter Plan of Treatment Upcoming Encounters Date Type Department Care Team (Late st Contact Info) Description 04/15/2023 12:45 PM EST Office Visit [facility] [place]ine [place] [address] [facility] [place] [address] Aminta Joseph MD 200 [facility] [place] [address] 09/15/2023 10:00 AM EDT Office Visit Family Practice [facility] [place] [address] [facility] [place] [address] Georges Patterson DO [address] [facility] [place] [address] Health Maintenance Due Date Last Done Comments [...] this encounter Medical Devices Implanted Type Area Public Speaking Coach Device Identifier Shelf Expiration Date Model / Serial / Lot Aleutian C Cervical Cage 13 X 16 X 10 Implanted:Qty: 1 on 01/11/2020 by Luciano Trivedi MD at OR [facility] N/A: Spine Cervical IZZY : SPINE [id number] / / documented as of this encounter [...] the patient have Health Care Power of Powder Mill Operator? No Care Teams Mason Foreman/Superintendant Relationship Specialty Start Date End Date Georges Patterson DO [address] [place] [address] PCP - General Family Medicine 03/17/23 documented as of this encounter
--- OUTSIDE RECORDS SUMMARY | 2023-05-21 15:53 | External Medical Summary | Summary of Care ---
Author Name Unknown Organization [facility] Address [address] [place] [address] Phone [phone] Care Team Providers Care Farm Instructor Name Role Phone Georges Patterson DO Primary Care Provider [phone] Reason for Visit * Reason Onset Date Comments Health Maintenance 03/23/2023 Encounter Details Date Type Department Care Team (Late st Contact Info) Description 03/23/2023 Telephone Family Practice [facility] [address] [facility] [place] [address] Georges Patterson DO [address] [place] [address] Health Maintenance Allergies Active Allergy Reactions Criticality Noted Date Comments Morphine Nausea/vomiting Medium 01/04/2020 Naproxen Diarrhea 05/27/2019 Diarrhea documented as of this encounter (statuses as of 03/23/2023) Medications Medication Sig Dispensed Refills Start Date [...] as of this encounter (statuses as of 03/23/2023) Active Problems Problem Noted Date Diagnosed Date [...] as of this encounter (statuses as of 03/23/2023) Resolved Problems Problem Noted Date Diagnosed Date Resolved Date Fatty (change of) liver, not elsewhere classified 06/18/2020 03/09/2023 DM type 2 causing vascular disease 08/26/2019 09/12/2019 Prediabetes 05/24/2018 08/23/2018 Overview: Per Prediabetes protocol #1 Controlled substance agreement signed 06/07/2017 08/23/2018 Gout 05/08/2015 Reflux 11/25/2018 documented as of this encounter (statuses as of 03/23/2023) Immunizations Name Administration Dates Next Due Pneumococcal [...] EST Office Visit [facility] [place] [address] [place] [address] Aminta Joseph MD [address] [place] [address] [place] [address] 09/15/2023 10:00 AM EDT Office Visit Family Practice [facility] [place] [address] [place] [address] Georges Patterson, [address] [facility] [place], [place] [address] Health Maintenance Due Date Last Done Comments [...] this encounter Medical Devices Implanted Type Area Field Interviewer Device Identifier Shelf Expiration Date Model / Serial / Lot Tiffany C Cervical Cage 13 X 16 X 10 Implanted:Qty: 1 on 01/11/2020 by Luciano Trivedi MD at OR [facility] N/A: Spine Cervical IZZY : SPINE [id number] / / documented as of this encounter [...] 06/08/2017 1:55 AM 06/12/2017 3:48 PM This order reflects the patients wishes and were consensually agreed upon. Question Answer Comments Discussion of Advance Directives occurred with: Patient/Family Does the patient have a Living Will? No Does the patient have Health Care Power of Straightener And Aligner? No Care Teams Farm Instructor Relationship Specialty Start Date End Date Georges Patterson DO [address] [place] [address] PCP - General Family Medicine 03/17/23 documented as of this encounter
--- OUTSIDE RECORDS SUMMARY | 2023-05-21 15:53 | External Medical Summary | Summary of Care ---
Author Name Unknown Organization [facility] Address [address] [place] [address] Phone [phone] Care Team Providers Care Firmware Test Engineer Name Role Phone Unavailable Primary Care Provider Unavailabl e Reason for Visit * Reason Onset Date Comments Medication Refill 03/03/2023 Encounter Details Date Type Department Care Team (Late st Contact Info) Description 03/03/[address] [facility] [address] [place] [address] Kelly Lazo [address] [facility] [place] [address] Prediabetes; Dyslipidemia, goal LDL below 100; Osteoarthritis of spine with radiculopathy, cervical region Allergies Active Allergy Reactions Criticality Noted Date Comments Morphine Nausea/vomiting Medium 01/04/2020 Naproxen Diarrhea 05/27/2019 Diarrhea documented as of this encounter (statuses as of 03/03/2023) Medications Medication Sig Dispensed Refills Start Date End Date Status GLUCOSAMINE CHONDROITIN COMPLX PO TABS one daily 0 05/31/2014 Active CO Q-10 100 MG PO CAPS 1 CAPSULE DAILY 30 Cap 0 07/05/2014 Active Calcium Citrate-Vitamin D (CITRACAL/VITAMIN D) 250-200 MG-UNIT per tablet Take 1 Tab by mouth daily. 0 06/18/2017 Active Multiple Vitamins-Minerals (MULTIVITAMIN ADULT) TABS Take by mouth. 0 06/18/2017 Active acetaminophen (TYLENOL) 500 MG Tablet 2 tablets daily as needed 30 Tab 0 06/18/2017 Active ibuprofen (ADVIL) 200 MG Tablet Take 200 mg by mouth every 4 hours as needed for Pain. 0 Active Blood Glucose Monitoring Suppl (ONETOUCH VERIO) w/Device KITIndications:Pr ediabetes Use twice daily E11.9 1 Kit 0 03/16/2018 Active ONETOUCH ULTRASOFT LANCETS MISC Use as directed 2 times a day. E11.9 1 Box Dosing Unit 11 03/16/2018 Active aspirin enteric coated 81 MG TBEC Take 1 Tab by mouth daily. 0 04/11/2019 Active colchicine 0.6 MG Tablet Take 1 Tab by mouth 2 times a day. For 1 week for gout flare. Repeat as needed. 28 Tab 5 06/10/2019 Active metFORMIN ER (GLUCOPHAGE XR) 500 MG [id number]:P rediabetes Take 2 Tabs by mouth daily. 180 Tab 3 07/11/2019 Active rosuvastatin (CRESTOR) 40 MG TabletIndications :Dyslipidemia, goal LDL below 100 Take 1 Tab by mouth daily. 90 Tab 3 07/11/2019 Active allopurinol (ZYLOPRIM) 300 MG Tablet Take 1 Tab by mouth daily. 90 Tab 3 07/11/2019 Active Additional Information Patient taking differently: 150 mgOral Daily(AM), Reported on 11/02/2019 metoprolol succinate XL (TOPROL XL) 100 MG TB24 Take 1 Tab by mouth daily. 90 Tab 3 09/12/2019 Active zoster vac recomb adjuvanted (SHINGRIX) 50 MCG/0.5ML injectionIndicati ons:Need for shingles vaccine Inject 0.5 mL into a large muscle now and repeat dose in 60 to 180 days 1 Each 1 10/31/2019 Active oxyCODONE (OXY IR) 5 MG immediate release tablet Take 1 Tab by mouth every 8 hours as needed for Pain, Breakthrough (ongoing therapy). 21 Tab 0 01/17/2020 Active Omeprazole 20 MG Oral Capsule Delayed Release (PriLOSEC) TAKE 1 CAPSULE BY MOUTH ONCE DAILY ONE HOUR BEFORE THE FIRST MEAL OF THE DAY 90 Cap 1 02/23/2020 Active Gabapentin 300 MG Oral Capsule (NEURONTIN)Indica tions:Osteoarthri tis of spine with radiculopathy, cervical region TAKE 1 CAPSULE BY MOUTH three times a daily 180 Cap 3 03/05/2020 Active tiZANidine HCl 4 MG Oral Tablet (ZANAFLEX) TAKE 1 TABLET BY MOUTH EVERY 6 HOURS NEEDED FOR MUSCLE SPASM 30 Tab 1 05/02/2020 Active Losartan Potassium 100 MG Oral Tablet (Cozaar) Take 0.5 Tabs by mouth daily. 45 Tab 3 08/15/2020 Active Losartan Potassium 100 MG Oral Tablet (Cozaar) Take 1 Tab by mouth daily. 90 Tab 3 08/15/2020 Active documented as of this encounter (statuses as of 03/03/2023) Active Problems Problem Noted Date Diagnosed Date Fatty (change of) liver, not elsewhere classifie d 06/18/2020 Other spondylosis with myelopathy, cervical jack on [...] as of this encounter (statuses as of 03/03/2023) Resolved Problems Problem Noted Date Diagnosed Date Resolved Date DM type 2 causing vascular disease 08/26/2019 09/12/2019 Prediabetes 05/24/2018 08/23/2018 Overview: Per Prediabetes protocol #1 Controlled substance agreement signed 06/07/2017 08/23/2018 Gout 05/08/2015 Reflux 11/25/2018 documented as of this encounter (statuses as of 03/03/2023) Immunizations Name Administration Dates Next Due Pneumococcal [...] = 0.6 oz pur e alcohol) Socially Sex and Gender Information Value Date Recorded Sex Assigned at Not on file Gender Identity Not on file Sexual Orientation Not on file Job Start Date Occupation Industry Not on [...] encounter Miscellaneous Notes * Telephone Encounter - Ben Mayers, [facility] - 03/03/2023 2:29 PM EDTRefused Prescriptions: Disp Refills metFORMIN HCl ER 500 MG Oral Tablet Extend*180 Ta*3 Sig: Take 2Tablets by mouth in the morning.Refused By: BEN MAYERS for Refusal: Patient Should Contact Provider First Rosuvastatin Calcium 40 MG Oral Tablet (Cr*90 Tab*3 Sig: Take 1 Tablet by mouth in the morning.Refused By: BEN MAYERS for Refusal: Patient Should Contact Provider First Omeprazole 20 MG Oral Capsule Delayed Rele*90 Cap*1 Sig: TAKE 1 CAPSULE BY MOUTH ONCE DAILY ONE HOUR BEFORE THE FIRST MEAL OF THE DAYRefused By: BEN MAYERS for Refusal: Patient Should Contact Provider First Gabapentin 300 MG Oral Capsule (Neurontin) 180 Ca*3 Sig: TAKE 1 CAPSULE BY MOUTH three times a dailyRefused By: BEN MAYERS for Refusal: Patient Should Contact Provider First tiZANidine HCl 4 MG Oral Tablet (Zanaflex) 30 Tab*1 Refused By: BEN MAYERS for Refusal: Patient Should Contact Provider First Losartan Potassium 100 MG Oral Tablet (Coz*45 Tab*3 Sig: Take 0.5 Tablets by mouth in the morning.Refused By: BEN MAYERS for Refusal: Patient Should Contact Provider First documented in this encounter Plan of Treatment Health Maintenance Due Date Last Done Comments Hepatitis B (1 of 3 - 3-dose series) 1965 COVID-19 Vaccine (#1) 1965 Albumin/Creatinine Ratio 1981 Zoster Vaccines (1 of 2) 2013 Pneumococcal Vaccine: Pediatrics (0 to 5 Years) and At-Risk Patients (6 to 64 Years) (2 - PCV) 02/25/2020 02/24/2019 DIABETES-EYE EXAM 05/16/2020 05/16/2019 B-12 08/24/2020 08/25/2019, 07/30/2018 HbA1c [...] this encounter Medical Devices Implanted Type Area Pie Topper Device Identifier Shelf Expiration Date Model / Serial / Lot Tiffany Aguilera Cervical Cage 13 X 16 X 10 Implanted:Qty: 1 on 01/11/2020 by Luciano Trivedi MD at OR [facility] N/A: Spine Cervical IZZY : SPINE [id number] / / documented as of this encounter Visit Diagnoses Diagnosis Prediabetes Other abnormal glucose Dyslipidemia, goal LDL below 100 Other and unspecified hyperlipidemia Osteoarthritis of spine with radiculopathy, cervical region documented in this encounter Advance Directives Latest [...] the patient have Health Care Power of Pharmacy Director? No
--- OUTSIDE RECORDS SUMMARY | 2023-05-21 15:53 | External Medical Summary | Summary of Care ---
Author Name Unknown Organization [facility] Address [address] [place] [address] Phone [phone] Care Team Providers Care French Comber Name Role Phone Unavailable Primary Care Provider Unavailabl e Reason for Visit * Reason Onset Date Comments Medication Refill 03/03/2023 Encounter Details Date Type Department Care Team (Late st Contact Info) Description 03/03/2023 Refill General Internal Medicine [facility] [address] [facility] [place] [address] Koko Palomino III, MD [address] [place] [address] Allergies Active Allergy Reactions Criticality Noted Date [...] Pain. 0 Active Blood Glucose Monitoring Suppl ([employer]) w/Device KITIndications:Pr ediabetes Use twice daily E11.9 [...] Active metFORMIN ER (GLUCOPHAGE XR) 500 MG [id number]:P rediabetes Take 2 Tabs by mouth daily. [...] Miscellaneous Notes * Telephone Encounter - Ben Mayers RPh - 03/03/2023 2:28 PM EDTRefused Prescriptions: Disp Refills Metoprolol Succinate ER 100 MG Oral Tablet*90 Tab*3 Sig: Take 1 Tablet by mouth [...] this encounter Medical Devices Implanted Type Area Mainframe Architect Device Identifier Shelf Expiration Date Model / Serial / Lot Aleutian C Cervical Cage 13 X 16 X 10 Implanted:Qty: 1 on 01/11/2020 by Luciano Trivedi MD at OR [facility] N/A: Spine Cervical IZZY : SPINE [id number] / / documented as of this encounter [...] the patient have Health Care Power of Supervisor Dimension Warehouse? No
--- OUTSIDE RECORDS SUMMARY | 2023-05-21 15:53 | External Medical Summary | Summary of Care ---
Author Name Unknown Organization [facility] Address [address] [place] [address] Phone [phone] Care Team Providers Care Documentation Supervisor Name Role Phone Georges Patterson DO Primary Care Provider [phone] Reason for Visit * Reason Comments NEW PATIENT Lesion New patient with les ions on back,arms and right leg. HX of Mohs * Evaluate & Treat - Unlimited Visits (Within 30 days (routine)) - Authorized Specialty Diagnoses / Procedures Referred By Carlota kelly Referred To Contact Dermatology Diagnoses History of basal cell carcinoma Georges Patterson DO [address] [place] [address] Referral ID Status Reason Start Date Expiration Date Visits Requested Visits Authorized [id number] Authorized Specialty Services Required 3 [phone] Encounter Details Date Type Department Care Team (Late st Contact Info) Description 03/17/2023 10:00 AM EST Office Visit Dermatology, [facility] [address] [place] [address] Luciana Olivares PA-C [address] [place] [address] Neoplasm of uncertain behavior of skin*; Seborrheic [...] Pain. 0 Active Blood Glucose Monitoring Suppl ([employer] VERIO) w/Device KITIndications:Pred iabetes Use twice daily [...] History: Diagnosis Date Abnormal stress echo 2008 [facility] Dr. Laci Parson. DDD (degenerative disc disease), [...] wound check Z51.89 Diabetes mellitus without complication ([facility]) E11.9 PAF (paroxysmal atrial fibrillation) ([facility]) I48.0 History of shoulder surgery Z98.890 KARISHMA on CPAP G47.33 Ascending aorta enlargement ([facility]) I77.89 Cervical spinal stenosis M48.02 [...] needed for Pain. Blood Glucose Monitoring Suppl ([facility]) w/Device KIT Use twice daily E11.9 1 Kit 0 CausataTOUCH ULTRASOFT LANCETS MISC Use as directed 2 [...] patient consented to photos. Contact patient via Next 2 Greatnesser Applicable photos (if any) and chart reviewed [...] Description 09/15/2023 10:00 AM EDT Office Visit [facility] [place] [address] [place] [address] Georges Patterson DO 200 [facility] [place] [address] Pending Results Name Type Priority Associated Diagnoses [...] this encounter Medical Devices Implanted Type Area Lining Cementer Device Identifier Shelf Expiration Date Model / Serial / Lot Aleutian C Cervical Cage 13 X 16 X 10 Implanted:Qty: 1 on 01/11/2020 by Luciano Trivedi MD at OR [facility] N/A: Spine Cervical IZZY : SPINE [id number] / / documented as of this encounter [...] the patient have Health Care Power of Wireless Sales Expert? No Care Teams Documentation Supervisor Relationship Specialty Start Date End Date Georges Patterson DO [address] [place] [address] PCP - General Family Medicine 03/17/23 documented as of this encounter"
--- OUTSIDE RECORDS SUMMARY | 2023-05-21 15:53 | External Medical Summary | Summary of Care ---
Author Name Unknown Organization [facility] Address [address] [place] [address] Phone [phone] Care Team Providers Care Art Therapy Certified Supervisor Name Role Phone Unavailable Primary Care Provider Unavailabl e Reason for Referral * Evaluate & Treat - Unlimited Visits (Within 30 days (routine)) - Authorized Specialty Diagnoses / Procedures Referred By Carlota kelly Referred To Contact Dermatology Diagnoses History of basal cell carcinoma Georges Patterson DO [address] [place] [address] Referral ID Status Reason Start Date Expiration Date Visits Requested Visits Authorized [id number] Authorized Specialty Services Required 3 [phone] Question Answer Referral Priority Within 30 days (routine) Where should this appointment be scheduled? Anup Are you referring the patient for Mohs Surgery and have a current positive skin cancer biopsy result? No What is the reason for the patient referral? 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, unspecified laterality; Osteoarthritis of spine with radiculopathy, cervical region; Basal cell carcinoma (BCC) of root of nose; Dyslipidemia, goal LDL below 100; Encounter for long-term (current) use of medications; KARISHMA on CPAP; Prediabetes; Alcohol ingestion, more than 4 drinks/day on alcohol screening; Gastroesophageal reflux disease, unspecified whether esophagitis present; Non-seasonal allergic rhinitis due to pollen; PAF (paroxysmal atrial fibrillation) ([facility]); HTN, goal below 140/90; History of basal cell carcinoma; Cardiac pacemaker in situ Allergies Active Allergy Reactions Criticality Noted Date Comments Morphine Nausea/vomiting Medium 01/04/2020 Naproxen Diarrhea 05/27/2019 Diarrhea documented as of this encounter (statuses as of 03/09/2023) Medications Medication Sig Dispensed Refills Start Date End Date Status acetaminophen (TYLENOL) 500 MG Tablet 2 tablets daily as needed 30 Tab 0 8 Active ibuprofen (ADVIL) 200 MG Tablet Take 1 Tablet by mouth every 4 hours as needed for Pain. 0 Active Blood Glucose Monitoring Suppl (MailLift VERIO) w/Device KITIndications:P rediabetes Use twice daily E11.9 1 Kit 0 8 Active AppointuitTOUCH ULTRASOFT LANCETS MISC Use as directed 2 times a day. E11.9 1 Box Dosing Unit 11 8 Active aspirin enteric coated 81 MG TBEC Take 1 Tablet by mouth in the morning. 0 9 Active colchicine 0.6 MG Tablet Take 1 Tab by mouth 2 times a day. For 1 week for gout flare. Repeat as needed. 28 Tab 5 0 Active zoster vac recomb adjuvanted (SHINGRIX) 50 MCG/0.5ML injectionIndicat ions:Need for shingles vaccine Inject 0.5 mL into a large muscle now and repeat dose in 60 to 180 days 1 Each 1 0 Active tiZANidine HCl 4 MG Oral Tablet (ZANAFLEX) TAKE 1 TABLET BY MOUTH EVERY 6 HOURS NEEDED FOR MUSCLE SPASM 30 Tab 1 0 Active Juice Plus Fibre Oral Liquid Take by mouth. 0 Active Vitamin B Complex Oral Tablet Take 1 Tablet by mouth in the morning. 0 Active Glucose Blood In Vitro Strip Use to check blood sugar twice daily, E11.9 100 Strip 11 3 Active Lancets Use to check blood sugar twice daily, E11.9 100 Each 11 3 Active FLUoxetine HCl 10 MG Oral Capsule (PROzac)Indicati ons:Alcohol ingestion, more than 4 drinks/day on alcohol screening Take 1 Capsule by mouth in the morning. 90 Capsule 3 3 Active Gabapentin 300 MG Oral Capsule (Neurontin)Indic ations:Osteoarth ritis of spine with radiculopathy, cervical region TAKE 1 CAPSULE BY MOUTH two times a daily 180 Capsule 3 3 Active metFORMIN HCl ER 500 MG Oral Tablet Extended Release 24 Hour (Glucophage XR)Indications:D iabetes mellitus without complication (HCC) Take 2 Tablets by mouth in the morning. 180 Tablet 3 3 Active Omeprazole 20 MG Oral Capsule Delayed Release (PriLOSEC)Indica tions:Gastroesop hageal reflux disease, unspecified whether esophagitis present TAKE 1 CAPSULE BY MOUTH ONCE DAILY ONE HOUR BEFORE THE FIRST MEAL OF THE DAY 90 Capsule 3 3 Active Cetirizine HCl 10 MG Oral CapsuleIndicatio ns:Non-seasonal allergic rhinitis due to pollen Take 1 Capsule by mouth in the morning. 90 Capsule 3 3 Active Rosuvastatin Calcium 40 MG Oral Tablet (Crestor)Indicat ions:Dyslipidemi a, goal LDL below 100 Take 1 Tablet by mouth in the morning. 90 Tablet 3 3 Active Losartan Potassium 100 MG Oral Tablet (Cozaar)Indicati ons:HTN, goal below 140/90 Take 1 Tablet by mouth in the morning. 90 Tablet 3 3 Active Metoprolol Succinate ER 50 MG Oral Tablet Extended Release 24 Hour (Toprol XL)Indications:P AF (paroxysmal atrial fibrillation) (HCC) Take 1 Tablet by mouth in the morning. 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 90 Tablet 3 3 Active GLUCOSAMINE CHONDROITIN COMPLX PO TABS one daily 0 5 03/04/20 23 Discontinued CO Q-10 100 MG PO CAPS 1 CAPSULE DAILY 30 Cap 0 5 03/04/20 23 Discontinued Calcium Citrate-Vitamin D (CITRACAL/VITAMI N D) 250-200 MG-UNIT per tablet Take 1 Tab by mouth daily. 0 8 03/04/20 23 Discontinued Multiple Vitamins-Mineral s (MULTIVITAMIN ADULT) TABS Take by mouth. 0 8 03/04/20 23 Discontinued metFORMIN ER (GLUCOPHAGE XR) 500 MG [id number]: Prediabetes Take 2 Tabs by mouth daily. 180 Tab 3 0 03/04/20 23 Discontinued(Re fill) rosuvastatin (CRESTOR) 40 MG TabletIndication s:Dyslipidemia, goal LDL below 100 Take 1 Tab by mouth daily. 90 Tab 3 0 03/04/20 Discontinued(Re fill) allopurinol (ZYLOPRIM) 300 MG Tablet Take 1 Tab by mouth daily. 90 Tab 3 0 03/04/20 23 Discontinued(Re fill) metoprolol succinate XL (TOPROL XL) 100 MG TB24 Take 1 Tab by mouth daily. 90 Tab 3 0 03/04/20 23 Discontinued oxyCODONE (OXY IR) 5 MG immediate release tablet Take 1 Tab by mouth every 8 hours as needed for Pain, Breakthrough (ongoing therapy). 21 Tab 0 0 03/04/20 Discontinued Omeprazole 20 MG Oral Capsule Delayed Release (PriLOSEC) TAKE 1 CAPSULE BY MOUTH ONCE DAILY ONE HOUR BEFORE THE FIRST MEAL OF THE DAY 90 Cap 1 0 03/04/20 23 Discontinued(Re fill) Gabapentin 300 MG Oral Capsule (NEURONTIN)Indic ations:Osteoarth ritis of spine with radiculopathy, cervical region TAKE 1 CAPSULE BY MOUTH three times a daily 180 Cap 3 0 03/04/20 23 Discontinued(Re fill) Losartan Potassium 100 MG Oral Tablet (Cozaar) Take 0.5 Tabs by mouth daily. 45 Tab 3 1 03/04/20 23 Discontinued Losartan Potassium 100 MG Oral Tablet (Cozaar) Take 1 Tab by mouth daily. 90 Tab 3 1 03/04/20 23 Discontinued(Re fill) FLUoxetine HCl 10 MG Oral Capsule (PROzac) Take 1 Capsule by mouth in the morning. 0 3 03/04/20 23 Discontinued documented as of this encounter (statuses as of 03/09/2023) Active Problems Problem Noted Date Diagnosed Date [...] as of this encounter (statuses as of 03/09/2023) Resolved Problems Problem Noted Date Diagnosed Date Resolved Date Fatty (change of) liver, not elsewhere classified 06/18/2020 03/09/2023 DM type 2 causing vascular disease 08/26/2019 09/12/2019 Prediabetes 05/24/2018 08/23/2018 Overview: Per Prediabetes protocol #1 Controlled substance agreement signed 06/07/2017 08/23/2018 Gout 05/08/2015 Reflux 11/25/2018 documented as of this encounter (statuses as of 03/09/2023) Immunizations Name Administration Dates Next Due Pneumococcal [...] Sign Reading Time Taken Comments Blood Pressure 132/72 03/04/2023 1:58 PM EDT Pulse 82 03/04/2023 1:58 PM EDT Temperature - - Respiratory Rate 16 03/04/2023 1:58 PM EDT Oxygen Saturation - - Inhaled Oxygen Concentration - - Weight 121.1 kg (267 lb) 03/04/2023 1:58 PM EDT Height 190.5 cm (6' 3") 03/04/2023 1:58 PM EDT Body Mass Index 33.37 03/04/2023 1:58 PM EDT documented in this [...] (15 years old or older) No 01/11/20 Cognitive Status Response Date of Assessm ent Because of a physical, menta l, or emotional condition, do you have serious difficulty concentrating, remembering, or making decisions? (5 years old or older No 01/11/2020 documented as of this encounter Progress Notes * Georges Patterson, DO - 03/04/2023 2:18 PM EDT Subjective: Reinier Beaver is a 57 year old male. Chief Complaint Patient presents with NEW PATIENT Re-establish HPI: Pt here to re-establish. HE has a sleep apnea and has a machine. He needs a mask and supplies. Quit alcohol and has been a little cranky. History of BCC and will get in woth derm. Will get caught up on DM. PMHx, meds, and allergies reviewed Patient Active Problem List Diagnosis Code Dyslipidemia, [...] enlargement (HCC) I77.89 Cervical spinal stenosis M48.02 Fatty (change of) liver, not elsewhere classified K76.0 Other spondylosis with myelopathy, cervical region M47.12 [...] needed for Pain. Blood Glucose Monitoring Suppl (AppointuitTOUCH VERIO) w/Device KIT Use twice daily E11.9 1 Kit 0 ONETOUCH ULTRASOFT LANCETS MISC Use as directed 2 times a day. E11.9 1 Box Dosing Unit 11 aspirin enteric coated 81 MG TBEC Take 1 Tablet by mouth in the morning. colchicine 0.6 MG Tablet Take 1 Tab by mouth 2 times a day. For 1 week for gout flare. Repeat as needed. 28 Tab 5 metFORMIN ER (GLUCOPHAGE XR) 500 MG TB24 Take 2 Tabs by mouth daily. 180 Tab 3 rosuvastatin (CRESTOR) 40 MG Tablet Take 1 Tab by mouth daily. 90 Tab 3 allopurinol (ZYLOPRIM) 300 MG Tablet Take 1 Tab by mouth daily. 90 Tab 3 metoprolol succinate XL (TOPROL XL) 100 MG TB24 Take 1 Tab by mouth daily. (Patient taking differently: Take 0.5 Tablets by mouth in the morning.) 90 Tab 3 Omeprazole 20 MG Oral Capsule Delayed Release (PriLOSEC) TAKE 1 CAPSULE BY MOUTH ONCE DAILY ONE HOUR BEFORE THE FIRST MEAL OF THE DAY 90 Cap 1 Gabapentin 300 MG Oral Capsule (NEURONTIN) TAKE 1 CAPSULE BY MOUTH three times a daily (Patient taking differently: Take 1 Capsule by mouth in the morning and 1 Capsule before bedtime. TAKE 1 CAPSULEBY MOUTH three times a daily.) 180 Cap 3 tiZANidine HCl 4 MG Oral Tablet (ZANAFLEX) TAKE 1 TABLET BY MOUTH EVERY 6 HOURS NEEDED FOR MUSCLE SPASM 30 Tab 1 Losartan Potassium 100 MG Oral Tablet (Cozaar) Take 1 Tab by mouth daily. 90 Tab 3 FLUoxetine HCl 10 MG Oral Capsule (PROzac) Take 1 Capsule by mouth in the morning. Juice Plus Fibre Oral Liquid Take by mouth. Vitamin B Complex Oral Tablet Take 1 Tablet by mouth in the morning. zoster vac recomb adjuvanted (SHINGRIX) 50 MCG/0.5ML injection Inject 0.5 mL into a large muscle now and repeat dose in 60 to 180 days 1 Each 1 No current facility-administered medications for this visit. Review of patient's allergies indicates: Allergen Reactions Morphine Nausea/vomiting Naproxen Diarrhea Diarrhea OBJECTIVE: BP 132/72 | Pulse 82 | Resp 16 | Ht 1.905 m (6' 3") | Wt 121.1 kg (267 lb) | BMI 33.37 kg/m | BSA2.53 m Estimated body mass index is 33.37 kg/m as calculated from the following: Height as of this encounter: 1.905 m (6' 3"). Weight as of this encounter: 121.1 kg (267 lb). BP Readings from Last 3 Encounters: 03/04/23 132/72 06/18/20 176/102 02/27/20 148/88 Wt Readings from Last 3 Encounters: 03/04/23 121.1 kg (267 lb) 07/31/20 122 kg (269 lb) 06/18/20 122 kg (269 lb 0.6 oz) ROS: Negative except for above PHYSICAL EXAM: General: alert, healthy, and no distress Head: Normocephalic, No masses, lesions, tenderness or abnormalities Heart: regular rate & rhythm, no murmur, and no gallops Lungs: chest symmetric with normal AP diameter, no chest deformities noted, no chest wall tenderness, lungs clear to auscultation ASSESSMENT/Plan Diabetes mellitus without complication (HCC) (Primary) - HEMOGLOBIN A1C; Future; Expected date: 03/04/2023 - ALBUMIN / CREATININE RATIO, URINE; Future; Expected date: 03/04/2023 - metFORMIN HCl ER 500 MG Oral Tablet Extended Release 24 Hour (Glucophage XR); Take 2 Tablets by mouth in the morning. 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 Osteoarthritis of spine with radiculopathy, cervical region - Gabapentin 300 MG Oral Capsule (Neurontin); TAKE 1 CAPSULE BY MOUTH two times a daily Basal cell carcinoma (BCC) of root of nose Dyslipidemia, goal LDL below 100 - COMPREHENSIVE METABOLIC PANEL; Future; Expected date: 03/04/2023 - LIPID PANEL WITH DIRECT LDL IF TG IS HIGH; Future; Expected date: 03/04/2023 - Rosuvastatin Calcium 40 MG Oral Tablet (Crestor); Take 1 Tablet by mouth in the morning. Encounter for long-term (current) use of medications - VITAMIN B12; Future; Expected date: 03/04/2023 KARISHMA on CPAP - TUBING FOR LARGE CPAP FACE MASK Prediabetes Alcohol ingestion, more than 4 drinks/day on alcohol screening - FLUoxetine HCl 10 MG Oral Capsule (PROzac); Take 1 Capsule by mouth in the morning. Gastroesophageal reflux disease, unspecified whether esophagitis present - Omeprazole 20 MG Oral Capsule Delayed Release (PriLOSEC); TAKE 1 CAPSULE BY MOUTH ONCE DAILY ONE HOUR BEFORE THE FIRST MEAL OF THE DAY Non-seasonal allergic rhinitis due to pollen - Cetirizine HCl 10 MG Oral Capsule; Take 1 Capsule by mouth in the morning. PAF (paroxysmal atrial fibrillation) (HCC) - Metoprolol Succinate ER 50 MG Oral Tablet Extended Release 24 Hour (Toprol XL); Take 1 Tablet by mouth in the morning. HTN, goal below 140/90 - Losartan Potassium 100 MG Oral Tablet (Cozaar); Take 1 Tablet by mouth in the morning. History of basal cell carcinoma - DERMATOLOGY REFERRAL OP Cardiac pacemaker in situ Other orders - Glucose Blood In Vitro Strip; Use to check blood sugar twice daily, E11.9 - Lancets; Use to check blood sugar twice daily, E11.9 Good visit to return to care. The above was discussed and understanding was expressed. Georges Patterson DO documented in this encounter Nursing Notes * Laurel Guerrero LPN - 03/04/2023 1:57 PM EDT The patient has been properly identified by confirmation of name and date of . Chief Complaint Patient presents with NEW PATIENT Re-establish documented in this encounter Plan of Treatment Upcoming Encounters Date Type Department Care Team (Late st Contact Info) Description 08/12/2023 9:40 AM EDT Office Visit Dermatology, [facility] [address] [place] [address] [place] [address] Disha Perkins PA-C [address] [place] [address] [place] [address] 09/15/2023 10:00 AM EDT Office Visit [facility] [address] [place] [address] Georges Patterson DO [address] [facility] [place], [place] [address] Scheduled Orders Name Type Priority Associated Diagnoses Orde r Schedule HEMOGLOBIN A1C Lab Routine Diabetes mellitus without complication (HCC) Expected: 03/04/2023 (Approximate), Expires: 03/03/2024 COMPREHENSIVE METABOLIC PANEL Lab Routine Dyslipidemia, goal LDL below 100 Expected: 03/04/2023 (Approximate), Expires: 03/03/2024 LIPID PANEL WITH DIRECT LDL IF TG IS HIGH Lab Routine Dyslipidemia, goal LDL below 100 Expected: 03/04/2023, Expires: 03/04/2024 ALBUMIN / CREATININE RATIO, URINE Lab Routine Diabetes mellitus without complication (HCC) Expected: 03/04/2023 (Approximate), Expires: 03/03/2024 VITAMIN B12 Lab Routine Encounter for long-term (current) use of medications Expected: 03/04/2023 (Approximate), Expires: 03/03/2024 Scheduled Referrals Name Type Priority Associated Diagnoses Orde r Schedule DERMATOLOGY REFERRAL OP Referral Within 30 days (routine) History of basal cell carcinoma Ordered: 03/04/2023 Health Maintenance Due Date Last Done Comments [...] this encounter Medical Devices Implanted Type Area Hand Tapper Device Identifier Shelf Expiration Date Model / Serial / Lot Tiffany Aguilera Cervical Cage 13 X 16 X 10 Implanted:Qty: 1 on 01/11/2020 by Luciano Trivedi MD at OR [facility] N/A: Spine Cervical IZZY : SPINE [id number] / / documented as of this encounter Visit Diagnoses Diagnosis Diabetes mellitus without complication (HCC)- Primary Type II or unspecified type diabetes mellitus without mention of complication, not stated as uncontrolled 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, unspecified laterality Osteoarthritis of spine with radiculopathy, cervical region Basal cell carcinoma (BCC) of root of nose Dyslipidemia, goal LDL below 100 Other and unspecified hyperlipidemia Encounter for long-term (current) use of medications Encounter for long-term (current) use of other medications KARISHMA on CPAP Obstructive sleep apnea (adult) (pediatric) Prediabetes Other abnormal glucose Alcohol ingestion, more than 4 drinks/day on alcohol screening Screening for alcoholism Gastroesophageal reflux disease, unspecified whether esophagitis present Non-seasonal allergic rhinitis due to pollen PAF (paroxysmal atrial fibrillation) (HCC) Atrial fibrillation HTN, goal below 140/90 Unspecified essential hypertension History of basal cell carcinoma Personal history of other malignant neoplasm of skin Cardiac pacemaker in situ documented in this encounter Advance Directives Latest [...] the patient have Health Care Power of Denture Contour Wire Specialist? No
[2023-05-21] MEDS ORDERED: HEPARIN SODIUM/DEXTROSE 25,000 UNITS/500 ML BAG IV SCH (16:15)
[2023-05-21] MEDS ORDERED: HEPARIN SOD (PORCINE) 1000 UNIT/ML IV ONE (16:15)
--- NOTE | 2023-05-21 16:27 | Electrocardiogram Report ---
Test Reason : Blood Pressure : / mmHG Vent. Rate : 056 BPM Atrial Rate : 056 BPM P-R Int : 236 ms QRS Dur : 078 ms QT Int : 414 ms P-R-T Axes : 053 026 028 degrees QTc Int : 399 ms Sinus bradycardia with 1st degree A-V block Poor R wave progression, consider anterior MN vs. lead placement vs. LVH Abnormal ECG When compared with ECG of 21-MAY-2023 10:37, No significant change was found Confirmed by Tay Page ([id number]) on 05/21/2023 4:26:56 PM Referred By: Nataly Alatorre Confirmed By:Tay Page
[2023-05-21] MEDS: INSULIN ASPART PER UNIT CHARGE SC SCH ×2 (17:43→21:05)
[2023-05-21] MEDS: Heparin IV Adult Wt-Based Standard w/ INITIAL Bolus Protocol IV SCH (18:21)
[2023-05-21] MEDS: LOSARTAN POTASSIUM 25 MG TAB PO SCH (19:49)
[2023-05-21] MEDS ORDERED: ROSUVASTATIN CALCIUM 20 MG TAB PO SCH (21:00)
[2023-05-21] MEDS: GABAPENTIN 300 MG CAP PO SCH (21:41)
[2023-05-21 23:38] LABS: ANTI-Xa, UFH(UnfractionatedHep 0.52 IU/ml (0.3-0.7)
[2023-05-22] MEDS: LACTATED RINGER'S 1,000 ML IV SCH (02:47)
[2023-05-22 06:13] LABS: Chol HDL Ratio 3.2 (0-5)
[2023-05-22 07:03] LABS: Estimated Average Glucose 166 mg/dl; Hemoglobin A1C 7.4 % (4.5-5.6)
[2023-05-22] MEDS: INSULIN ASPART PER UNIT CHARGE SC SCH ×2 (08:01→12:15)
--- NOTE | 2023-05-22 08:40 | Pre Anesthesia Assessment ---
Date of Service May 22, 2023 Pre Sedation Assessment Vital Signs Temp Pulse Pulse Resp BP BP Pulse Ox 05/22/23 08:15 36.7 C 64 18 144/88 H 96 05/22/23 07:30 63 05/22/23 04:15 36.6 C 67 18 119/74 95 05/22/23 00:41 60 05/21/23 22:45 36.5 C 66 18 135/86 94 05/21/23 19:30 36.6 C 65 18 123/76 95 05/21/23 15:27 55 L 05/21/23 14:56 36.5 C 58 L 16 148/92 H 97 05/21/23 14:07 77 16 151/99 H 97 05/21/23 12:07 74 16 147/92 H 98 05/21/23 11:58 60 05/21/23 10:47 95 05/21/23 10:30 05/21/23 10:30 36.6 C 76 18 172/107 H 94 05/21/23 10:28 O2 Del Method 05/22/23 08:15 Room Air 05/22/23 07:30 05/22/23 04:15 Room Air 05/22/23 00:41 05/21/23 22:45 CPAP 05/21/23 19:30 Room Air 05/21/23 15:27 05/21/23 14:56 Room Air 05/21/23 14:07 05/21/23 12:07 Room Air 05/21/23 11:58 05/21/23 10:47 Room Air 05/21/23 10:30 Room Air 05/21/23 10:30 Room Air 05/21/23 10:28 Room Air Cardiovascular RRR, no murmur, no edema Respiratory normal respiratory effort, lungs clear to auscultation Pre-Sedation Airway Assessment Smoking Status: Never smoker Hx Sleep Apnea: Yes Short, Thick Neck: No Thyromental Distance: > or= 3.5 Finger Breadths Oral Cavity: + Chipped Teeth Mallampati Class: I MALLAMPATI 1 ASA: ASA3 ASA 3 Notes The planned sedation has been discussed with the patient. Informed Consent was obtained. I have identified the patient, determined the appropriateness of sedation and have assessed the patient immediately prior to the procedure. All medicine(s) and interventions are by my order.
[2023-05-22] MEDS ORDERED: ASPIRIN 81 MG CHEW ONE (08:41)
[2023-05-22] MEDS ORDERED: HEPARIN (PORCINE) 1000 UNIT/ML 10 ML (CATH LAB USE ONLY) ONE (08:50)
[2023-05-22] MEDS ORDERED: MIDAZOLAM HCL 1 MG/ML 2ML VIAL ONE ×2 (08:50→09:06)
[2023-05-22] MEDS ORDERED: fentaNYL citrate PF 100 MCG/2 ML VIAL ONE (08:50)
[2023-05-22] MEDS ORDERED: niCARdipine HCL INJ 2.5 MG/ML 10 ML AMP ONE (08:50)
[2023-05-22] MEDS ORDERED: NITROGLYCERIN/D5W 100MCG/ML 20ML SYR ONE (08:51)
[2023-05-22] MEDS ORDERED: FLUoxetine HCL 10 MG CAP PO SCH (09:00)
[2023-05-22] MEDS ORDERED: PANTOprazole 40 MG TAB PO SCH (09:00)
[2023-05-22] MEDS ORDERED: ENOXAPARIN INJ 40 MG/0.4 ML SYR SQ SCH (09:00)
[2023-05-22] MEDS ORDERED: ASPIRIN 81 MG ECTAB PO SCH (09:00)
[2023-05-22] MEDS ORDERED: VITAMIN B COMPLEX TAB PO SCH (09:00)
[2023-05-22] MEDS ORDERED: CETIRIZINE HCL 10 MG TABLET PO SCH (09:00)
[2023-05-22] MEDS ORDERED: OPTIRAY 350 ONE (09:34)
--- NOTE | 2023-05-22 10:11 | Post Anesthesia Assessment ---
Date of Service May 22, 2023 Post Sedation Assessment Vital Signs Temp Pulse Pulse Pulse Resp BP BP 05/22/23 09:50 60 16 133/88 05/22/23 09:35 59 L 16 151/98 H 05/22/23 08:15 36.7 C 64 18 144/88 H 05/22/23 07:30 63 05/22/23 04:15 36.6 C 67 18 119/74 05/22/23 00:41 60 05/21/23 22:45 36.5 C 66 18 135/86 05/21/23 19:30 36.6 C 65 18 123/76 05/21/23 15:27 55 L 05/21/23 14:56 36.5 C 58 L 16 148/92 H 05/21/23 14:07 77 16 151/99 H 05/21/23 12:07 74 16 147/92 H 05/21/23 11:58 60 05/21/23 10:47 05/21/23 10:30 05/21/23 10:30 36.6 C 76 18 172/107 H 05/21/23 10:28 Pulse Ox O2 Del Method 05/22/23 09:50 94 Room Air 05/22/23 09:35 95 Room Air 05/22/23 08:15 96 Room Air 05/22/23 07:30 05/22/23 04:15 95 Room Air 05/22/23 00:41 05/21/23 22:45 94 CPAP 05/21/23 19:30 95 Room Air 05/21/23 15:27 05/21/23 14:56 97 Room Air 05/21/23 14:07 97 05/21/23 12:07 98 Room Air 05/21/23 11:58 05/21/23 10:47 95 Room Air 05/21/23 10:30 Room Air 05/21/23 10:30 94 Room Air 05/21/23 10:28 Room Air Recovery Score Activity: Moves 4 extremities Respiration: Deep Breath/Cough Circulation: +/-20% PreAnes Value Consciousness: Fully Awake Oxygen Saturation: > 92% On Room Air Post Anesthesia Score: 10 Discharge Sedation Level of Care: Fast Track Phase II Post Sedation Plan On clinical assessment, the patient appears to have tolerated the sedation without complications. Patient is recovering as anticipated. Patient will continue to be monitored by nursing and may be discharged when sedation discharge criteria are met per below protocol. Upon Completions of procedure up to 15 minutes continue every 5 minute vital signs and the P.A.R. score; then discharge to a Phase I or Fast Track to Phase II per the following guidelines: * Discharge Patient to appropriate Phase II area if PAR is 8 or greater or return to pre- procedure baseline. The post - procedure orders will be as directed. * If PAR score is less than 8 or not return to pre-procedure baseline then patient will follow Phase I monitoring till PAR is reached for Phase II. The Phase I may be done in procedure room or may call to secure a Phase I area. * If naloxone or flumazenil are used for reversal, hold in Phase I for continued monitoring from when last reversal dose was given for a minimum of 60 minutes or longer pending the nurse and/or physician discretion of patient condition before discharge to Phase II. Please call the Sedation Physician to re-evaluate and complete post-note for discharge to Phase II area. Do NOT discharge from procedure sedation or Phase 1 until post- sedation evaluation note is complete by procedure /sedation MD Sedation Discharge Instructions to be given to the patient at discharge to home. [facility] [place] Codes (Charges) Indication for Procedure Indication for procedure: UNSTABLE ANGINA Sedation/Anesthesia Procedure 1: Sedation/Anesthesia: 60985 Mod Sedation by the same physician;Init15 Min Child Age 5 & Up (START 905) Total Sedation Time (minutes): 19 Procedure 2: Sedation/Anesthesia: 87081 Mod Sedation by the same physician; Ea [id number] Minutes (END 924) Total Sedation Time (minutes): 19
[2023-05-22] MEDS: LOSARTAN POTASSIUM 25 MG TAB PO SCH (10:20)
[2023-05-22] MEDS: GABAPENTIN 300 MG CAP PO SCH (10:21)
--- NOTE | 2023-05-22 10:32 | Cardiac Catheterization ---
[facility] Data: Tourist Information Assistant Cardiac Status Clinical evaluation leading to the procedure CAD Presenation: Unstable angina Coronary Anatomy Dominant: Right Left Main (% Stenosis): Normal LAD (% Stenosis): Proximal (Mild) D1 (% Stenosis): Normal D2 (% Stenosis): Normal Circumflex (% Stenosis): Normal OM1 (% Stenosis): Normal L PL1 (% Stenosis): Normal RCA (% Stenosis): Proximal (Mild) and Mid (Mild) R PDA (% Stenosis): Normal R PL1 (% Stenosis): Normal Ramus (% Stenosis): Normal Left Ventricular Angiography EF (%): 65-70 Diagnostic Physicians Name: Cl Russell MD, PhD Closure Device Percutaneous Entry Location: Radial Closure Device: Radial Band Recommendations: Medical Therapy and/or Counseling Cardiac Cath Procedure Full Procedure Date May 22, 2023 Pre-Procedure Diagnosis Pre-Procedure Diagnosis: Angina AUC Score AUC Score: 07 Post-Procedure Diagnosis Post-Procedure Diagnosis: Mild CAD and Normal LV Systolic Function Procedure(s) Performed Procedure(s) Performed: Coronary Angiography, Left Heart Cath and LV Angiography Motion Picture Equipment Machinist Cl Russell MD, PhD Estimated Blood Loss Estimated Blood Loss: 5 cc Medication(s) Medication(s): Fentanyl, Heparin, Lidocaine 1%, Nicardipine, Nitroglycerin and Versed Summary of Findings Brief description: Patient was brought to the cardiac catheterization suite where he was shaved and prepped in a sterile fashion. Sedated using IV Versed and fentanyl. Soft tissues of the right wrist were anesthetized using 2 mL of 1% Xylocaine. The [facility] radial artery was accessed using a modified Seldinger technique and a 6 Gabonese radial artery glide sheath was placed. The patient was provided anticoagulation with IV heparin and antispasmodics including nicardipine and nitroglycerin. All catheters were advanced and exchanged over a 0.035 J-tip wire. Left coronary angiography in orthogonal views with a 6 Gabonese JL 4 diagnostic catheter and a 5 Gabonese [place] 4 diagnostic catheter. Right coronary angiography in orthogonal views with a 5 Gabonese [place] 4 diagnostic catheter. Left heart cath and left ventriculogram were performed with a 5 Gabonese angled pigtail catheter. Diagnostic catheters were removed. Radial artery sheath was removed. Hemostasis was obtained using the radial band. Patient was hemodynamically stable and asymptomatic. He was returned to the recovery area. This ended the case. Coronary angiography findings: LMT-very large-caliber vessel trifurcating into LAD, ramus, and circumflex. No angiographically significant disease. LAD-very large caliber and transapical. Proximal segment with mild calcification and diffuse mild luminal irregularities. Provides a large first diagonal and large first septal. Mid segment has mild calcification and mild luminal irregularities. There is a second diagonal without significant disease. The distal LAD becomes increasingly tortuous as it approaches and then wraps the apex. The distal portions of the diagonal branches are also tortuous. CWl-acrio-orzddee. Provides a large caliber tortuous first OM. Continues in the AV groove where the mid segment is medium to large in caliber distally it provides a small to medium caliber tortuous posterolateral and then terminates after an atrial branch. No angiographically significant disease in the circumflex or its branches. Ramus-this is large caliber, bifurcates early and each major branch approaches the apex. Vessel becomes tortuous in all of the branches beyond the first bifurcation. There is no more than mild luminal irregularities and proximally there is mild calcification. MUS-qvszh-neyjnag and dominant vessel. Increasingly more tortuous in the mid and distal vessel including the branches. Bifurcates into a large PDA and a medium caliber branching posterior lateral. There is diffuse mild plaques with up to 20 to 30% narrowing and post plaque ectasia which is mild. Moderate epicardial coronary calcification in the proximal and mid RCA. LVG-EF equals 65 to 70%, 1+ mitral regurgitation NOTE: Myocardial flow is sluggish in all major coronary vessels. Summary: 1. No more than mild coronary artery disease as described. 2. Normal to mildly hyperdynamic LV systolic function. Left ventriculogram also suggests myocardial thickening. 3. Normal to slightly low left ventricular filling pressure. 4. Diffuse tortuosity consistent with inadequately controlled blood pressure 5. Diffuse sluggish coronary flow of unknown etiology/significance. 6. Continue guideline directed medical therapy for primary prevention of coronary disease to include; abstinence from tobacco, regular cardiovascular exercise, cardiac prudent diet, treatment of pertinent comorbid disease (diabetes, atherogenic dyslipidemia, and hypertension) to clinical targets. 7. 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 Hemodynamics Rest Ao:: 100/71 mmHg Final Ao: 123/87 mmHg LV: 115/8 mmHg, LVEDP 11 mmHg Recommendations Recommendations: Medical Therapy and/or Counseling Radiation Exposure (mGy) 1282 mGy, fluoroscopy time 4.3-minute Contrast (mls) 118 mL Anesthesia 2 mg Versed, 50 mcg fentanyl IV. Start time 905, end time 924 Procedural Complication(s) None Disposition Tourist Information Assistant Holding/Recovery I attest to the content of the Intraoperative Record and any orders documented therein. Any exceptions are noted below. [facility] Card Cath Procedure Codes Cardiac Catheterization Procedure 1: Cardiovascular Cath Procedures: 81030 Coronaries and LHC (+/-LV) Moderate Sedation Procedure 1: Sedation/Anesthesia: 55121 Mod Sedation by the same physician;Init15 Min Child Age 5 & Up (Initial 15 min, start time 905) Procedure 2: Sedation/Anesthesia: 01845 Mod Sedation by the same physician; Ea [id number] Minutes (Additional 4 minutes, end time 924) PG Care Time/CCT Total # of Minutes Spent Total Time Spent with Patient: Total time spent is greater than 50% in coordination of care (as documented) at patient's floor/unit and/or counseling patient:
[2023-05-22] MEDS: Heparin IV Adult Wt-Based Standard w/ INITIAL Bolus Protocol IV SCH (11:01)
--- NOTE | 2023-05-22 11:45 | Electrocardiogram Report ---
Test Reason : Blood Pressure : / mmHG Vent. Rate : 061 BPM Atrial Rate : 061 BPM P-R Int : 228 ms QRS Dur : 082 ms QT Int : 422 ms P-R-T Axes : 031 048 030 degrees QTc Int : 424 ms Sinus rhythm with 1st degree A-V block Otherwise normal ECG When compared with ECG of 21-MAY-2023 12:26, No significant change was found Confirmed by Tay Page ([id number]) on 05/22/2023 11:44:56 AM Referred By: Nataly Alatorre Confirmed By:Tay Page
--- NOTE | 2023-05-22 11:57 | Cardiology Progress Note ---
Date of Service May 22, 2023 Assessment & Plan (1) Exertional dyspnea: (2) Labile hypertension: (3) PAF (paroxysmal atrial fibrillation): Plan Patient with findings of luminal irregularities at time of cardiac catheterization today, without coronary artery culprit to explain his symptoms of dyspnea on exertion. He does have a recent as well as longstanding history of somewhat labile hypertension. Echocardiogram reveals mild concentric left ventricular hypertrophy, preserved LVEF, and grade 2 diastolic dysfunction. Has a history of paroxysmal atrial fibrillation. This hospital stay, in addition to dyspnea and exertion he had noted dizziness. His antihypertensives were therefore completely held leading up to the hospital stay. At present, I question if his symptoms are related to suboptimally controlled high blood pressure. Perhaps bradycardia playing a role also. Differential diagnosis for left ventricular hypertrophy is an infiltrative cardiomyopathy and outpatient workup with lab work and MRI will be ordered to that regard as well. Discharge on aspirin 81 mg daily, metoprolol succinate 25 mg daily (reduced from 50 mg daily due to dizziness), losartan 25 mg twice daily (reduced from 100 mg daily), and addition of HCTZ 12.5 mg daily. Historically, and his potassium has been above 4 mmol/L, if he will tolerate HCTZ well without potassium supplementation. Will request that he eats a regular banana. Continue prior to hospital treatment with rosuvastatin 40 mg daily. Echocardiogram previously scheduled as an outpatient can be canceled. Primary care had already ordered a Zio patch which pt wore for 3 days. I have placed orders in the patient's outpatient chart for upcoming cardiac MRI, repeat basic metabolic panel, urine kappa/lambda light chains, serum immunofixation, urine immunofixation. Already has visit with Dr. Madison on 05/28/23 , 2 pm , [facility]. Patient stable for discharge from cardiac perspective. Admission and Anticipated Discharge Date Admission Date: May 21, 2023 Subjective Patient seen in cardiology follow up. Tolerated cardiac catheterization well today. Telemetry reveals SR with first degree AVB in the 60s to 70s. Physical Exam Physical Exam: Cardiac Enzymes 05/21/23 05/21/23 Range/Units 16:34 22:48 Troponin I High Se ns 12.9 11.0 (0-20) pg/ml Coagulation 05/21/23 Range/Units 10:40 PT 11.1 (9.0-12.0) Secon ds APTT 29 (21-31) Seconds Lipids 05/22/23 Range/Units 05:19 Triglycerides 286 H (0-150) mg/dl Cholesterol 122 (0-200) mg/dl HDL Cholesterol 38 mg/dl Cholesterol/HDL Ra griselda 3.2 (0-5) Intake and Output 05/21/23 05/22/23 05/22/23 22:59 06:59 14:59 Intake Total 250 / 6145.347 2520.367 / 1343.36 7 240.8 / 240.8 Balance 250 / 4917.202 7984.367 / 1343.36 7 240.8 / 240.8 Intake: IV 1093.367 / 1093.36 7 240.8 / 240.8 Heparin Sodium /Dextrose 25,000 259.2 / 259.2 240.8 / 240.8 units In 500 m l @ 1,800 UNITS/ HR 36 mls/hr I V .[id number] BUSTER Rx #:[id number] Lactated Ringe r's 1,000 ml @ 70 834.167 / 834.167 mls/hr IV .Q14 H18M BUSTER Rx#: [id number] Oral 250 / 250 Other: Other Intake Teetee rce NPO # Unmeasured Voi ds 2 1 Weight 122.8 kg Weight Measureme nt Method Standing Scale Results & Data Vital Signs (Past 12 Hours) Vital Signs Temp Pulse Pulse Pulse Resp BP Pulse Ox 05/22/23 11:37 67 16 124/72 93 05/22/23 11:09 66 16 133/69 93 05/22/23 10:39 66 18 118/76 93 05/22/23 10:22 66 18 136/83 92 05/22/23 10:09 36.3 C L 56 L 20 123/76 92 05/22/23 09:50 60 16 133/88 94 05/22/23 09:35 59 L 16 151/98 H 95 05/22/23 08:15 36.7 C 64 18 144/88 H 96 05/22/23 07:30 63 05/22/23 04:15 36.6 C 67 18 119/74 95 05/22/23 00:41 60 O2 Del Method 05/22/23 11:37 Room Air 05/22/23 11:09 Room Air 05/22/23 10:39 Room Air 05/22/23 10:22 Room Air 05/22/23 10:09 Room Air 05/22/23 09:50 Room Air 05/22/23 09:35 Room Air 05/22/23 08:15 Room Air 05/22/23 07:30 05/22/23 04:15 Room Air 05/22/23 00:41
--- OUTSIDE RECORDS SUMMARY | 2023-05-22 12:55 | External Medical Summary | Summary of Care ---
Author Name Unknown Organization [facility] Address [address] [place] [address] Phone [phone] Care Team Providers Care In Store Representative Name Role Phone Georges Patterson DO Primary Care Provider [phone] Reason for Visit * Reason Onset Date Comments Advice 05/20/2023 Encounter Details Date Type Department Care Team (Late st Contact Info) Description 05/20/2023 Telephone Family Practice [facility] [address] [facility] [place] [address] Georges Patterson DO [address] [place] [address] Advice Allergies Active Allergy Reactions Criticality Noted Date [...] encounter Miscellaneous Notes * Telephone Encounter - Macrina Taveras LPN - 05/21/2023 4:27 PM EST OV notes from 05/19/23 & 03/04/23 faxed * Telephone Encounter - Wen Saravia OSA - 05/20/2023 2:45 PM EST Caller requesting the following information to be faxed: Name/Company of caller: [employer] Information requested to be faxed: Lastest office notes Fax number: [phone] Attention to Name/Company: [employer] Any additional information?: Just the most recent office notes for the patient documented in this encounter Plan of Treatment Upcoming Encounters Date Type Department Care Team (Late st Contact Info) Description 05/28/2023 2:00 PM EST Office Visit Cardiology, [facility] [address] [place] [address] Gómez Madison, [address] [place] [address] 06/05/2023 8:00 AM EST Office Visit General Internal Medicine [facility] [place] [address] [facility] [address] Nataly Alatorre MD [address] [facility] [place] [address] 06/05/2023 8:40 AM EST Office Visit General Internal Medicine [facility] [address] [facility] [place] [address] Nataly Alatorre MD [address] [facility] [place] [address] 06/08/2023 10:00 AM EST Cardiac Studies Cardiac Studies, [facility] [address] [facility] [place] [address] 09/15/2023 10:00 AM EDT Office Visit Family Practice [facility] [address] [facility] [place], [place] [address] Georges Patterson, [address] [facility] [place] [address] Health Maintenance Due Date Last Done Comments COVID-19 Vaccine (#1) 1965 Zoster Vaccines (1 of 2) 2013 Pneumococcal Vaccine: Pediatrics (0 to 5 Years) and At-Risk Patients (6 to 64 Years) (2 - PCV) 02/25/2020 02/24/2019 Diabetic Eye Exam 05/16/2020 05/16/2019 Depression Screening 02/26/2021 02/27/2020, 12/09/2016 (Discussed) Diabetic Foot Exam 06/18/2021 06/18/2020, 09/12/2019 Influenza Vaccine (FLU shot) (#1) 2023 06/18/2020, 02/24/2019, 02/02/2018, Additional history exists Hepatitis B (1 of 3 - Risk 3-dose series) 2023 HbA1c 11/19/2023 05/21/2023, 07/10, 12/28/2019, Additional history exists Albumin/Creatinine Ratio 05/21/2024 05/21/2023 B-12 05/21/2024 05/21/2023, 08/09, 07/30/2018 GFR 05/21/2024 05/21/2023, 02/08, 01/12/2020, Additional history exists DTaP,Tdap,and Td Vaccines (2 - Td or Tdap) 05/31/2024 05/31/2014 COLONOSCOPY-EVERY 5 YRS AGES 18-100 06/06/2024 06/06/2019, 06/06/2019, 06/07/2014, Additional history exists Lipid Panel 05/21/2028 05/21/2023, 08/09, 07/30/2018, Additional history exists GARDASIL-HPV IMMUNIZATION SERIES Aged Out No longer eligible based on patient's age to complete this topic MENINGOCOCCAL (MENACTRA/MENVEO) Aged Out No longer eligible based on patient's age to complete this topic documented as of this encounter Medical Devices Implanted Type Area Electronic Gluer Device Identifier Shelf Expiration Date Model / Serial / Lot [place] C Cervical Cage 13 X 16 X 10 Implanted:Qty: 1 on 01/11/2020 by Luciano Trivedi MD at OR [facility] N/A: Spine Cervical IZZY : SPINE [id number] / / documented as of this encounter [...] the patient have Health Care Power of Truck Farmer? No Care Teams In Store Representative Relationship Specialty Start Date End Date Georges Patterson DO [address] [place] [address] PCP - General Family Medicine 03/17/23 documented as of this encounter
--- OUTSIDE RECORDS SUMMARY | 2023-05-22 12:56 | External Medical Summary ---
Author Name Unknown Address Unknown Organization [id number]:[facility] [place] [address] [place] [address] Laboratory Report Ordering Provider Test Date Status LUZ ORTIZ 05/21/2023 07:14:50 Final Observation Date Value Abnormality Reference (Units ) Status HbA1C 05/21/2023 07:14:50 7.5 Above high normal 4. 0-5.6 (%) Final The use of HbA1c to monitor glycemic status is based on normal hemoglobin and HbA composition. This test should not be used in patients with abnormal hemoglobin that affects the half life of the red blood cell or the in vivo glycation rates. Glucose, estimated average 05/21/2023 07:14:50 169 Above high normal <126 (mg/dL) Emiliano beltrán Performing Location [facility] [place] [address] [place] [address]
--- OUTSIDE RECORDS SUMMARY | 2023-05-22 12:56 | External Medical Summary ---
Author Name Unknown Address Unknown Organization [id number][place] [place] [address] [place] [address] Laboratory Report Ordering Provider Test Date Status LUZ ORTIZ 05/21/2023 07:14:50 Final Observation Date Value Abnormality Reference (Units ) Status Vitamin B12 05/21/2023 07:14:50 [phone] (pg/mL) Final Performing Location [facility] [place] [address] [place] [address]
--- OUTSIDE RECORDS SUMMARY | 2023-05-22 12:56 | External Medical Summary ---
Author Name Unknown Address Unknown Organization K01:[facility] - [address] [place] [address] Laboratory Report Ordering Provider Test Date Status LUZ ORTIZ 05/21/2023 07:14:50 Final Observation Date Value Abnormality Reference (Units ) Status LDL, (direct) 05/21/2023 07:14:50 59 <=129 (mg/dL) Final LDL Cholesterol Reference Ra nges (mg/dL):
<70 Target level for high risk ASCVD patient
<100 Optimal for general population
100-129 Near optimal for general population
130-159 Borderline high
160-189 High
>=190 Very high Performing Location [facility] - [address] [place] [address]
--- OUTSIDE RECORDS SUMMARY | 2023-05-22 12:56 | External Medical Summary ---
Author Name Unknown Address Unknown Organization [id number]:[facility] [place] [address] [place] [address] Laboratory Report Ordering Provider Test Date Status LUZ ORTIZ 05/21/2023 07:16:36 Final Normal: <30 mg/g creatinine< br/>High: 30-300 mg/g creatinine
Very High: >300 mg/g creatinine
Nephrotic: >2200 mg/g creatinine Observation Date Value Abnormality Reference (Units ) Status Albumin, Urine 05/21/2023 07:16:36 <1.20 (mg/dL) Final Creatinine, Urine 05/21/2023 07:16:36 111 (mg/dL) Final Albumin/Creatinine [Mass Ratio] in Urine 05/21/2023 07:16:36 <11 <30 (mg/g Creat) Final Performing Location [facility] [place] [address] [place] [address]
--- OUTSIDE RECORDS SUMMARY | 2023-05-22 12:56 | External Medical Summary ---
Author Name Unknown Address Unknown Organization K01[place] [place] [address] [place] [address] Laboratory Report Ordering Provider Test Date Status LUZ ORTIZ 05/21/2023 07:14:50 Final Observation Date Value Abnormality Reference (Units ) Status Triglyceride 05/21/2023 07:14:50 187 Above high normal <=174 (mg/dL) Final Triglyceride Reference Range s (mg/dL):
<150 Acceptable
150-174 Borderline high
175-499 High
>=500 Very high Cholesterol 05/21/2023 07:14:50 132 <200 (mg /dL) Final Total Cholesterol Reference Ranges (mg/dL):
<200 Desirable
200-239 Borderline high
>=240 High HDL 05/21/2023 07:14:50 40 >39 (mg/dL ) Final HDL Cholesterol Reference Ra nges (mg/dL):
>=60 High (Desirable)
<50 Low (Undesirable) For Females
<40 Low (Undesirable) For Males NON-HDL CHOLESTEROL 05/21/2023 07:14:50 92 <=159 (mg/dL) Final Non-HDL Cholesterol Referenc e Range (mg/dL):
<100 Target level for high risk ASCVD patient
<130 Optimal for general population
130-159 Near optimal for general population
160-189 Borderline High
190-219 High
>=220 Very High Performing Location LAB[facility]ATORY [facility] - [address] [place] [address]
--- NOTE | 2023-05-22 14:08 | Hospitalist Progress Note ---
Date of Service May 22, 2023 Assessment & Plan (1) Chest pain: Plan: Patient is a 58 yr female with H/O HTN, PAF, dyslipidemia, KARISHMA on CPAP, DM2, gout and prior EtOH use (quit in Feb 2023) who presents to the ED with one month of worsening chest pain and dyspnea on exertion, extreme fatigue, and episodes of palpitations. He has noted progressive symptoms of chest pain and dyspnea, typically exertional, with associated worsening fatigue over the last month. He also notes new near-syncopal episodes and labile blood pressure as well as episodes of palpitations similar to prior episodes of atrial fibrillation. Due to clinical history highly suspicious for cardiac etiology of symptoms with concern for recurrent PAF, pt was referred for admission and further work-up. Chest Pain Stable angina Vs related to Labile Hypertension Labile hypertension Paroxysmal atrial fibrillation -CTA:There is no evidence of pulmonary embolus in the main, lobar, or segmental pulmonary arteries.. Mild cardiomegaly noting advanced coronary artery atherosclerosis. There is no airspace consolidation or pleural effusion. Hepatic steatosis. There is an 8 mm right middle lobe pulmonary nodule. This has modestly increased in size dating back to 2019, but has clearly enlarged from 2018 and is new from 2015. A low-grade lesion such as a carcinoid could potentially have this appearance. Pulmonology assessment is recommended, as is a precautionary one-year follow-up examination. --ECHO: Mild concentric LVH. Left ventricle wall motion is normal. EF 60 to 65% with mild mitral regurgitation. Grade 2 diastolic dysfunction --S/P Cardiac Cath: Luminal irregularities without coronary artery culprit. --Normal troponin -- Continue aspirin, metoprolol, losartan. Added HCTZ Continue statin Appreciate cardiology input Plan for outpatient cardiac workup:cardiac MRI, repeat basic metabolic panel, urine kappa/lambda light chains, serum immunofixation, urine immunofixation. Advised to follow-up with cardiology on discharge Right middle lobe pulmonary nodule Gradually worsening from prior CT scans Advised to follow-up with pulmonology on discharge for possible bronchoscopy/biopsy and further evaluation (2) Mild ascending aorta dilation: Plan: Continue current medications Follow-up as outpatient (3) Exertional dyspnea: Plan: Management as above (4) KARISHMA on CPAP: Plan: Continue CPAP Advised to get repeat sleep study (5) Diabetes mellitus, type 2: Plan: A1c 7.4 Diabetic diet Insulin sliding scale Holding Metformin for now (6) PAF (paroxysmal atrial fibrillation): Plan: Continue metoprolol Currently not on anticoagulation (7) Hypertension: (8) Hyperlipidemia: Plan: Hypertriglyceridemia Continue statin Advised to follow-up with PCP for possible need for adjustment of medications including omega-3 fatty acids Plan Code Status: full code DVT Prophylaxis: Lovenox SQ Admission and Anticipated Discharge Date Admission Date: May 21, 2023 Subjective Patient is seen and examined at bedside Had cardiac catheterization earlier today Reports chronic dyspnea and dyspnea on exertion Chest pain better today Still has some tiredness Discussed with patient's at bedside Also discussed with post secondary professional today Plan to discharge home today Review of Systems Review of Systems: All systems reviewed & are unremarkable except as noted in Subjective Physical Exam Physical Exam: Physical Exam: Vitals signs as noted above General Appearance:Obese, no apparent distress Head: normocephalic, Atraumatic Eyes: normal inspection, EOMI Neck: supple, Trachea midline Respiratory/Chest: Normal breath sounds, CTA, No accessory muscle use Cardiovascular: S1, S2, No murmur Abdomen/GI:Soft, Non tender, Bowel sounds present Extremities/Musculoskeletal:normal inspection, no edema Neurologic/Psych:AAOX3, grossly no focal neurological deficits Skin: normal color, warm Results & Data Results & Data Vital Signs (Past 12 Hours) Vital Signs Temp Pulse Pulse Pulse Resp BP Pulse Ox 05/22/23 13:09 66 16 114/64 94 05/22/23 12:50 05/22/23 12:09 71 18 142/71 H 94 05/22/23 11:37 67 16 124/72 93 05/22/23 11:09 66 16 133/69 93 05/22/23 10:39 66 18 118/76 93 05/22/23 10:22 66 18 136/83 92 05/22/23 10:09 36.3 C L 56 L 20 123/76 92 05/22/23 09:50 60 16 133/88 94 05/22/23 09:35 59 L 16 151/98 H 95 05/22/23 08:15 36.7 C 64 18 144/88 H 96 05/22/23 07:30 63 05/22/23 04:15 36.6 C 67 18 119/74 95 Pulse Ox O2 Del Method O2 Del Method 05/22/23 13:09 Room Air 05/22/23 12:50 94 Room Air 05/22/23 12:09 Room Air 05/22/23 11:37 Room Air 05/22/23 11:09 Room Air 05/22/23 10:39 Room Air 05/22/23 10:22 Room Air 05/22/23 10:09 Room Air 05/22/23 09:50 Room Air 05/22/23 09:35 Room Air 05/22/23 08:15 Room Air 05/22/23 07:30 05/22/23 04:15 Room Air (1) Chest pain Chest pain type: unspecified Qualified Code(s): R07.9 - Chest pain, u nspecified (5) Diabetes mellitus, type 2 Diabetes mellitus complication status: without complication Diabetes mellitus chcf insulin use: without intermediate teacher use Qualified Code(s): E11.9 - Type 2 diabetes mellitus without complications (7) Hypertension Hypertension type: primary hypertension Qualified Code(s): I10 - Essential (primary) hypertension (8) Hyperlipidemia Hyperlipidemia type: unspecified Qualified Code(s): E78.5 - Hyperlipidemia, unspecified
--- NOTE | 2023-05-22 16:46 | Discharge Summary ---
Date of Service May 22, 2023 Admission HPI Per Admitting Provider This is a 58 y/o male with history of HTN, PAF, dyslipidemia, KARISHMA on CPAP, DM2, gout and prior EtOH use (quit in Feb 2023) who presents to the ED with one month of worsening chest pain and dyspnea on exertion, extreme fatigue, and episodes of palpitations. For the past month, he notes worsening fatigue to the point that he is falling asleep multiple times per day. Usually, he is very active. He has also started with intermittent chest pain that seems to be brought on by exertion at least some of the time. Describes as "like someone pounded me on the chest." He has also noted near-syncopal episodes with standing, which are new. 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 She reports that his O2 sats drop with exertion with a low of 92% and he notes that he feels more out of breath with exertion than baseline. BP has also been erratic over the last month with a high of systolics in the 160s-170s and a low with near-syncopal episodes in the 70s. He reports that he saw his PCP for these symptoms on 05/19 - had an EKG, which he was told was abnormal, and they applied a Zio monitor. This morning at 4 am, felt a flutter like prior episodes of afib. Associated chest pain. He did press the button on his Zio to barby the time. He reports his last episodes of afib was a few years ago and he did not have any recurrent symptoms until the last month when he started with episodes of chest fluttering at least 4-5 times. He also notes new nausea. Denies peripheral edema. No recent prolonged travel. His BP medications have been adjusted recently and the losartan and metoprolol have been held due to the low BPs. His did give him a dose of metoprolol 25 mg this morning when he BP was elevated. His last stress test was in October 2019 and was negative for ischemia. ECHO at that time showed a mildly dilated ascending aorta at 4.1 cm, was recommended to have a repeat ECHO in 1 year but unclear if this was done. Admission Exam Per Admitting Provider Constitutional: Alert oriented x 3; not in distress. Respiratory: Bilateral vesicular breath Cardiovascular: RRR, no murmur, no edema Vessels: no JVD or carotid bruit Chest: normal inspection of chest Abdomen: normal bowel sounds, soft, nontender, no hepatosplenomegaly Musculoskeletal: no cyanosis or clubbing, extremities motor strength 5/5 Skin: no rashes, warm and dry normal turgor Neurologic: PERRL, EOMI, accommodation nl, no face palsy, no dysarthria CN's II- XI intact bilaterally and moves all extremities Psychiatric: A+Ox3, euthymic affect Principal Diagnosis Stable angina Hypertension Paroxysmal atrial fibrillation Right middle lobe pulmonary nodule Hypertriglyceridemia Discharge Data Allergies Allergy/AdvReac Type Severity Reaction Status Date / Time morphine AdvReac Nausea Verified 05/21/23 12:07 naproxen AdvReac Diarrhea Verified 05/21/23 12:07 Consultations 05/21/23 12:30 ED Decision to Admit Stat 05/21/23 12:50 Consult Cardiology Routine Procedures Performed Operation Date: 05/22/23 08:00 Actual Procedures p Cineradiography w/Routine Exam - Cl Russell MD, PhD p Cath, Left with Cors and Vent - Cl Russell MD, PhD Laboratory Results WBC 6.19 K/ul (4.8-10.8) 05/21/23 10:40 RBC 4.70 M/uL (4.70-6.10) 05/21/23 10:40 Hgb 14.7 g/dl (14.0-18.0) 05/21/23 10:40 Hct 41.8 % (42.0-52.0) L 05/21/23 10:40 MCV 88.9 fL (80.0-100.0) 05/21/23 10:40 MCH 31.3 pg (25.0-34.0) 05/21/23 10:40 MCHC 35.2 g/dL (32.0-36.0) 05/21/23 10:40 RDW Std Deviation 36.7 fL (36.4-46.3) 05/21/23 10:40 RDW Coeff of Joanna 11.4 % (11.5-14.5) L 05/21/23 10:40 Plt Count 219 K/uL (130-400) 05/21/23 10:40 MPV 10.2 fL (9.4-12.4) 05/21/23 10:40 Immature Gran % (Auto) 1.0 % 05/21/23 10:40 Neut % (Auto) 44.6 % 05/21/23 10:40 Lymph % (Auto) 39.6 % 05/21/23 10:40 Hayes % (Auto) 10.5 % 05/21/23 10:40 Eos % (Auto) 3.2 % 05/21/23 10:40 Baso % (Auto) 1.1 % 05/21/23 10:40 Neut # (Auto) 2.76 K/uL (1.40-6.50) 05/21/23 10:40 Lymph # (Auto) 2.45 K/uL (1.20-3.40) 05/21/23 10:40 Hayes # (Auto) 0.65 K/uL (0.11-0.59) H 05/21/23 10:40 Eos # (Auto) 0.20 K/uL (0.00-0.50) 05/21/23 10:40 Baso # (Auto) 0.07 K/uL (0.00-0.20) 05/21/23 10:40 Immature Gran # (Auto) 0.06 K/uL (0.01-0.20) 05/21/23 10:40 PT 11.1 Seconds (9.0-12.0) 05/21/23 10:40 INR 1.0 (0.9-1.1) 05/21/23 10:40 APTT 29 Seconds (21-31) 05/21/23 10:40 PTT Ratio 1.0 05/21/23 10:40 Heparin Anti-Xa, Unfract 0.52 IU/ml (0.3-0.7) 05/21/23 22:48 Sodium 137 mmol/L (136-145) 05/21/23 10:40 Potassium 4.2 mmol/L (3.5-5.1) 05/21/23 10:40 Chloride 101 mmol/L (98-107) 05/21/23 10:40 Carbon Dioxide 29 mmol/L (21-32) 05/21/23 10:40 Anion Gap 7 (3-11) 05/21/23 10:40 BUN 12 mg/dl (6-23) 05/21/23 10:40 Creatinine 0.75 mg/dl (0.6-1.4) 05/21/23 10:40 Est Cr Clr Drug Dosing 148.6 ml/min 05/21/23 10:40 Est GFR ( Amer) 115.6 ml/min 05/21/23 10:40 Est GFR (Non-Af Amer) 99.7 ml/min 05/21/23 10:40 BUN/Creatinine Ratio 16.0 (10-20) 05/21/23 10:40 Glucose 142 mg/dl (70-99(Fasting)) H 05/21/23 10:40 POC Glucose 194 mg/dl (70-99) H 05/22/23 11:26 Estimat Average Glucose 166 mg/dl 05/22/23 05:19 Hemoglobin A1c 7.4 % (4.5-5.6) H 05/22/23 05:19 Calcium 10.2 mg/dl (8.6-10.3) 05/21/23 10:40 Magnesium 1.9 mg/dl (1.7-2.4) 05/21/23 10:40 Total Bilirubin 0.5 mg/dl (0.2-1.0) 05/21/23 10:40 AST 30 U/L (13-39) 05/21/23 10:40 ALT 28 U/L (7-52) 05/21/23 10:40 Alkaline Phosphatase 46 U/L (34-104) 05/21/23 10:40 Troponin I High Sens 11.0 pg/ml (0-20) 05/21/23 22:48 Total Protein 7.7 gm/dl (6.0-8.3) 05/21/23 10:40 Albumin 5.0 gm/dl (3.4-5.0) 05/21/23 10:40 Globulin 2.7 gm/dl (2.5-4.0) 05/21/23 10:40 Albumin/Globulin Ratio 1.9 (0.9-2) 05/21/23 10:40 Triglycerides 286 mg/dl (0-150) H 05/22/23 05:19 Cholesterol 122 mg/dl (0-200) 05/22/23 05:19 LDL Cholesterol Direct 58 mg/dl 05/22/23 05:19 LDL Cholesterol, Calc 27 mg/dl 05/22/23 05:19 VLDL Cholesterol, Calc 57 mg/dl (0-30) H 05/22/23 05:19 HDL Cholesterol 38 mg/dl 05/22/23 05:19 Cholesterol/HDL Ratio 3.2 (0-5) 05/22/23 05:19 TSH 3.237 uIu/ml (0.300-4.500) 05/21/23 10:40 Impressions Chest X-Ray 05/21/23 10:30 XR chest 1V portable CLINICAL HISTORY: Chest pain, nonspecific. COMPARISON STUDY: Chest CT and chest radiograph September 27, 2019. FINDINGS: Lung volumes are normal. Lungs are clear. There is no pneumothorax or pleural effusion. Cardiac size is normal. Mediastinal contours are normal. There is no evidence for pulmonary edema. Postoperative findings within the cervical s pine are incidentally noted. Electronic device projects over the left chest. IMPRESSION: No acute cardiopulmonary findings. ACT 112: Negative or not required by law. Electronically signed by: Alvaro Gilliam M.D. 05/21/2023 11:15 AM Chest CTA 05/21/23 12:55 CT ANGIOGRAM OF THE CHEST CLINICAL HISTORY: Atypical chest pain. COMPARISON STUDY: Chest CT scans dated 09/27/2019, 06/18/2017, and 07/26/2014. Chest x-ray dated 05/21/2023. TECHNIQUE: Following the IV administration of 118 cc of Optiray 320, CT angiogram of the chest was performed from the upper abdomen to the thoracic inlet utilizing the pulmonary embolus protocol. Images are reviewed in the axial, sagittal, and coronal planes. 3-D MIPS images are created and assessed. IV contrast was administered without complication. A dose lowering technique was utilized adhering to the principles of ALARA. CT DOSE: 910.48 mGy.cm FINDINGS: Thyroid: Imaged portions of the thyroid gland are normal in size and attenuation. Thoracic aorta: There is mild atherosclerotic calcification of the thoracic aorta, which is normal in caliber and demonstrates standard 3-vessel arch anatomy. The thoracic aorta is not well opacified. Pulmonary vasculature: The pulmonary trunk is normal in caliber. There are no filling defects identified in main, lobar, or segmental pulmonary branches to suggest pulmonary embolus. Heart: The heart is mildly enlarged containing trace pericardial effusion. The coronary arteries are densely calcified. Lungs and pleural spaces: There is no airspace consolidation or pleural effusion. The trachea and central airways are clear. There is mild dependent atelectasis. There is an 8 mm right middle lobe pulmonary nodule seen on image #111. Mediastinum: There is no mediastinal lymphadenopathy. Rosanne: Clear. Axillae: There is no axillary lymphadenopathy. Upper abdomen: The liver appears steatotic. Partially visualized upper abdominal viscera is otherwise within normal limits. Skeletal structures: The skeletal structures are osteopenic. A large hemangioma is noted in the body of T9. No lytic or blastic bony lesions are seen. Fusion hardware is noted in the lower cervical spine. Arthritic change is seen in the shoulders and thoracic spine. IMPRESSION: 1. There is no evidence of pulmonary embolus in the main, lobar, or segmental pulmonary arteries. 2. Mild cardiomegaly noting advanced coronary artery atherosclerosis. 3. There is no airspace consolidation or pleural effusion. 4. Hepatic steatosis. 5. There is an 8 mm right middle lobe pulmonary nodule. This has modestly increased in size dating back to 2020, but has clearly enlarged from 2018 and is new from 2015. A low-grade lesion such as a carcinoid could potentially have t his appearance. Pulmonology assessment is recommended, as is a precautionary one-year follow-up examination. 6. Additional findings as above. ACT 112: Positive. There are findings on this exam that require communication between the performing entity and the patient following Patient Test Result Information Act ([place] Act 112) guidelines. Electronically signed by: Jermaine Aguilar M.D. 05/21/2023 1:32 PM Ordered Studies 05/21/23 12:55 CT for pulmonary embolism PE [CT angio chest PE protocol] Urgent 05/22/23 06:57 CL Cath Imgs for PACS use only Routine Hospital Course (1) Chest pain: Patient is a 58 yr female with H/O HTN, PAF, dyslipidemia, KARISHMA on CPAP, DM2, gout and prior EtOH use (quit in Feb 2023) who presents to the ED with one month of worsening chest pain and dyspnea on exertion, extreme fatigue, and episodes of palpitations. He has noted progressive symptoms of chest pain and dyspnea, typically exertional, with associated worsening fatigue over the last month. He also notes new near-syncopal episodes and labile blood pressure as well as episodes of palpitations similar to prior episodes of atrial fibrillation. Due to clinical history highly suspicious for cardiac etiology of symptoms with concern for recurrent PAF, pt was referred for admission and further work-up. Chest Pain Stable angina Vs related to Labile Hypertension Labile hypertension Paroxysmal atrial fibrillation -CTA:There is no evidence of pulmonary embolus in the main, lobar, or segmental pulmonary arteries.. Mild cardiomegaly noting advanced coronary artery atherosclerosis. There is no airspace consolidation or pleural effusion. Hepatic steatosis. There is an 8 mm right middle lobe pulmonary nodule. This has modestly increased in size dating back to 2019, but has clearly enlarged from 2018 and is new from 2015. A low-grade lesion such as a carcinoid could potentially have this appearance. Pulmonology assessment is recommended, as is a precautionary one-year follow-up examination. --ECHO: Mild concentric LVH. Left ventricle wall motion is normal. EF 60 to 65% with mild mitral regurgitation. Grade 2 diastolic dysfunction --S/P Cardiac Cath: Luminal irregularities without coronary artery culprit. --Normal troponin -- Continue aspirin, metoprolol, losartan. Added HCTZ Continue statin Appreciate cardiology input Plan for outpatient cardiac workup:cardiac MRI, repeat basic metabolic panel, urine kappa/lambda light chains, serum immunofixation, urine immunofixation. Advised to follow-up with cardiology on discharge Right middle lobe pulmonary nodule Gradually worsening from prior CT scans Advised to follow-up with pulmonology on discharge for possible bronchoscopy/biopsy and further evaluation (2) Mild ascending aorta dilation: Continue current medications Follow-up as outpatient (3) Exertional dyspnea: Management as above (4) KARISHMA on CPAP: Continue CPAP Advised to get repeat sleep study (5) Diabetes mellitus, type 2: A1c 7.4 Diabetic diet Insulin sliding scale Holding Metformin for now (6) PAF (paroxysmal atrial fibrillation): Continue metoprolol Currently not on anticoagulation (7) Hypertension: (8) Hyperlipidemia: Hypertriglyceridemia Continue statin Advised to follow-up with PCP for possible need for adjustment of medications including omega-3 fatty acids Plan Code Status: full code DVT Prophylaxis: Lovenox SQ Total Time Total Time Spent Total Time Spent (In Minutes): 56 minutes Discharge Plan Discharge Items Patient Disposition: Home - Self-Care Reason For Visit: CHEST PAIN, EXERTIONAL SOB Discharge Diagnosis: Stable angina Hypertension Paroxysmal atrial fibrillation Right middle lobe pulmonary nodule Hypertriglyceridemia Activity: Per Instructions section Exercise/Sports: Wait until after follow-up appointment Non-emergency contact: Primary Care Provider, Child Development Teacher and Vault Custodian Call non-emergency contact if: you have any medication questions, your symptoms worsen, your pain is concerning for you and you have a fever Follow-up/Referrals: Cl Wade DO [Child Development Teacher] - (The Cardiology office will contact you for follow up testing/appointment.) Georges Patterson DO [Primary Care Provider] - (Date & Time 05/28/2023 11:00 AM Provider Koko Palomino III, MD [facility] ) Diet: Carb Consistent or DM2 and Heart Healthy Addtl Attending Provider Instructions: Follow-up with your primary care physician Dr. Patterson on 05/28/2023 11:00 AM Follow-up with your hot molder Dr. Wade as recommended Follow-up with your sports medicine masseur for further evaluation of lung nodule as advised. -- Consider getting repeat sleep study as advised. -- Discussed with your physician for further management of hypertriglyceridemia as recommended. --Further recommendations recommended by your hot molder as outpatient: Cardiac MRI, repeat basic metabolic panel, urine kappa/lambda light chains, serum immunofixation, urine immunofixation. Seek immediate medical attention if your symptoms reoccur or worsen Please take all medications as instructed on discharge list below. Please call if you have any questions or problems. You can reach a [facility] hospitalist on duty at [facility] 24 hours a day by calling [phone] Home Care: * Take your medications exactly as directed. Don't skip doses. * Remember that recovery after a heart attack takes time. Plan to rest for at lease 4-8 weeks while you recover. Then return to normal activity when your doctor says it's okay. * Ask your doctor about joining a heart rehabilitation program. * Tell your doctor if you are feeling depressed. Feelings of sadness are common after a heart attack, but it is important that you speak to someone if you are feeling overwhelmed by these feelings. * If you are having chest pain, call 911 for an ambulance. Do NOT drive yourself to the hospital. * Ask your family members to learn CPR. * Learn to take your own blood pressure and pulse. Keep a record of your results. Ask your doctor when you should seek emergency medical attention. He or she will tell you which blood pressure reading is dangerous. Lifestyle Changes: * Maintain a healthy weight. Get help to lose any extra pounds. * Cut back on salt. * Limit canned, dried, packaged, and fast foods. * Don't add salt to your food. * Season foods with herbs instead of salt when you cook. * Break the smoking habit. Enroll in a stop-smoking program to improve your chances of success. * Limit fatty foods. * Ask your doctor about having your lipid levels checked regularly. * Build up your activity according to your doctor's recommendation. * Ask your doctor when it's okay to resume sexual activity. * Tell your doctor about any erectile dysfunction (ED) medication you are taking. Some ED medications are not safe if you take certain heart medications. * Try to manage stress. Follow Up: It is important for you to keep your follow up appointments with your medical provider. Addtl Forge Shop Machine Repairer Provider Instructions: ACTIVITY RECOMMENDATIONS: Excess manipulation of the wrist should be avoided for the next 24-48 hours. * No lifting over 2 pounds (approximately a 1/2 gallon of milk) with the utilized arm for 24 hours. * No strenuous activity such as bowling or tennis for 3 days. * Keep the site of the procedure covered with a bandage for 24 hours. *You may shower the day after the procedure. Do not take a tub bath or submerge the puncture site in water for the next 3 days. *Do not operate any motorized equipment for 3 days. SPECIAL CARE INSTRUCTIONS: The site may be slightly bruised and sore following your procedure. Should any of the following occur, contact the Dr. who performed your procedure. 1. Redness/inflammation, swelling, chills, or fever, or colored drainage at procedure site within 3-7 days after your procedure. 2. Coldness, discoloration, ongoing numbness, severe pain, or swelling. Expect mild tingling of hand and tenderness at the puncture site for up to three days. If this persists beyond three days, or other symptoms develop, notify the Dr. who performed your procedure. BLEEDING: If the procedure site on your wrist begins to bleed, do not panic 1. Place 1 or 2 fingers firmly just slightly above the insertion site to stop the bleeding. You may be able to feel your pulse as you hold pressure. 2. Lift your finger after 5 minutes to see if the bleeding has stopped. 3. Once the bleeding has stopped, gently wipe the wrist area clean with a bandage. * If the bleeding from your wrist does not stop after 10 minutes, or if there is a large amount of bleeding or spurting, call 911 (do not drive yourself to the hospital). SKIN IRRITATION: * You may experience some redness and/or swelling in the area where radiation was administered. If any skin irritation occurs, please contact your family physician. FOLLOW UP VISIT: Keep any scheduled doctor appointments. Pending Studies at Discharge: No Stand-Alone Forms: [facility], Smoking Cessation Medications and DC Order Prescriptions: New losartan 25 mg Tablet 25 mg PO QAM Qty: 30 0RF hydrochlorothiazide 12.5 mg tablet 12.5 mg PO DAILY Qty: 30 0RF Continued cetirizine 10 mg Tablet 10 mg PO QAM ondansetron HCl 4 mg tablet 4 mg PO Q8 PRN (Reason: Nausea) acetaminophen [Tylenol Extra Strength] 500 mg Tablet 500 mg PO Q6H PRN (Reason: Pain) fluoxetine 10 mg capsule 10 mg PO QAM gabapentin 300 mg capsule 300 mg PO BID omeprazole 20 mg capsule,delayed release(DR/EC) 20 mg PO QAM aspirin 81 mg Tablet,Chewable 81 mg PO DAILY vitamin B complex Tablet 1 tab PO DAILY rosuvastatin 40 mg tablet 40 mg PO HS Juice Plus Vitamins 3 tab PO DAILY metformin 500 mg tablet extended release 24 hr 500 mg PO BID Changed metoprolol succinate 50 mg tablet extended release 24 hr 25 mg PO DAILY Qty: 30 0RF Rx Instructions: WAS DAILY Discontinued losartan 100 mg tablet 25 mg PO .HOLD Discharge Orders: Discharge Order (Routine); Ordered 05/22/23 Ordered By: Esvin Oliveira/Other Patient Handouts: Managing Type 2 Diabetes Admission Data Admit Date/Time: 05/21/23 12:50 Attending Provider: Esvin Madrid Admit Provider: Ankur Alvarez Primary Care Provider: Georges Patterson Other Providers: Ankur Alvarez; Cl Wade Other Interventions: Discharge Summary Assessment (RN) Last Done: 05/22/23 14:44
== END 2023-05-22 16:15 | disposition home or self-care (01) ==
LOC: EDINP 10:27 → ED 10:27 → SUATTDRO 12:50 → 2S 13:06

== ENCOUNTER 2023-06-01 12:08 | Observation (INO) ==
[2023-06-01 12:41] LABS: Basophils # (auto) 0.04 K/uL (0.00-0.20); Basophils % (auto) 0.7 %; Eosinophils # (auto) 0.22 K/uL (0.00-0.50); Eosinophils % (auto) 3.8 %; Hemoglobin 14.8 g/dl (14.0-18.0); Immature Granulocytes # (auto) 0.06 K/uL (0.01-0.20); Lymphocytes # (auto) 2.21 K/uL (1.20-3.40); Lymphocytes % (auto) 38.2 %; Mean Corpuscular Hgb Conc 35.2 g/dL (32.0-36.0); Mean Corpuscular Volume 88.1 fL (80.0-100.0); Mean Platelet Volume 10.7 fL (9.4-12.4); Monocytes # (auto) 0.52 K/uL (0.11-0.59); Neutrophils # (auto) 2.74 K/uL (1.40-6.50); Neutrophils % (auto) 47.3 %; Platelet Count 236 K/uL (130-400); RDW Coefficient of Variation 11.6 % (11.5-14.5); RDW Standard Deviation 37.3 fL (36.4-46.3); Red Blood Count 4.77 M/uL (4.70-6.10); White Blood Count 5.79 K/ul (4.8-10.8)
--- NOTE | 2023-06-01 12:43 | Emergency Department Note ---
Impression & Plan Acute intractable headache, Chest pain, Pulmonary nodule ED Provider Note NAME: ALEXEY TORO AGE: 58 SEX: M : 1965 ARRIVES VIA: Walk-In INFORMANT: Patient, the patient's ED PROVIDER(S): Ramu Ricks DO CHIEF COMPLAINT: Headache HPI: The patient is a 58-year-old male who presented to the emergency department at the request of his primary care physician for an evaluation. The patient states that he has been having problems with headache over the last 4 to 5 weeks. The patient. Was seen in our facility recently for chest pain. He was having exertional chest pain. The patient was brought in for inpatient workup and at that time had a cardiac workup including cardiac catheterization. The patient's cardiac catheterization showed no culprit lesion and he did not require any stenting. He was felt to have "sluggish "blood and was started on Eliquis. The patient has been compliant with his outpatient medications which include Eliquis as well as other medications including antihypertensives. His significant other has a nursing background and she has been monitoring his blood pressure. According to her his blood pressure has been fluctuating. It has been elevated as well as low. He also complains of a frontal headache that goes into his neck. He states this has been essentially constant for 5 weeks. The patient was told to go to the emergency department for further evaluation as well as possible inpatient management by his primary care physician today. ROS: See above HPI for pertinent positives & negatives. A total of 10 systems reviewed and were otherwise negative. PAST MEDICAL HISTORY: See Below PAST SURGICAL HISTORY: See Below FAMILY HISTORY: See Below SOCIAL HISTORY: See Below HOME MEDICATIONS: See Below ALLERGIES: See Below VITALS: See Below PHYSICAL EXAMINATION: GENERAL: Patient is awake alert in no acute distress patient is resting comfortably and showing no signs of anxiety EYES: The conjunctivae are clear. The pupils are round and reactive. EARS, NOSE, MOUTH AND THROAT: The nose is without any evidence of any deformity. Mucous membranes are moist. NECK: The neck is nontender and supple. RESPIRATORY: Normal respiratory effort is noted there is no evidence of wheezing rhonchi or rales CARDIOVASCULAR: Regular rate and rhythm noted there no murmurs rubs or gallops normal S1 normal S2. GASTROINTESTINAL: The abdomen is soft. Abdomen is nontender. MUSCULOSKELETAL/EXTREMITIES: There is no evidence of gross deformity full range of motion is noted in the hips and shoulders. SKIN: There is no obvious evidence of any rash. There are no petechiae, pallor or cyanosis noted. NEUROLOGIC: Patient is awake alert and oriented x3 strength is symmetric patellar reflexes are 2+ bilaterally MEDICAL DECISION MAKING: The patient is a 58-year-old male who presented to the emergency department with multiple complaints. The patient was recently admitted to our facility for chest pain which was exertional in nature. The patient had a complete workup at that time which included a cardiac catheterization. There was no culprit lesion and no stenting was required. The patient also has been having problems with headaches. He has been followed by his primary care physician who recommended that he come to the emergency department today for further evaluation as well as possible admission. The patient was treated with a migraine cocktail in the emergency department. He was somewhat improved on my reevaluation. Triage Nursing notes reviewed. Prior medical records reviewed Vital Signs: reviewed and remarkable for no significant abnormalities Differential diagnosis: Cardiac ischemia, aortic dissection, pulmonary embolism, pneumothorax, pneumonia, pericarditis, myocarditis, esophageal rupture, GERD, cholecystitis, pancreatitis, musculoskeletal, as well as other pathologies. ER treatment provided: See below Diagnostics interpreted by me: ECG: EKG was obtained in the emergency department. My interpretation is sinus rhythm at 68 bpm. First-degree AV block was noted. There is no acute ST segment abnormalities noted. There is no ectopy. This was compared to a tracing from May 22, 2023. No changes were noted. Cardiac Monitoring: An order was placed for continuous cardiac monitoring. The monitor shows a rate of 63 bpm with sinus rhythm. Laboratory studies: As stated above and show below. Imaging studies: See below. Radiographic imaging was reviewed by myself Consultation(s): I discussed this case with Nakia who is on for the [facility] hospitalist group Past Med/Surg History Medical History Alcoholism Lung nodule Hepatic steatosis PAF (paroxysmal atrial fibrillation) Gout KARISHMA on CPAP GERD (gastroesophageal reflux disease) Diabetes mellitus, type 2 niddm Basal cell carcinoma Hypertension Hyperlipidemia Surgical History History of arthroscopy of left shoulder Status post subacromial decompression S/P arthroscopy of right shoulder History of discectomy with fusion cervical area (unsure of levels) Full ROM History of laminectomy lumbar x3 History of appendectomy History of colonoscopy History of Mohs micrographic surgery for skin cancer History of cardiac cath ~20 years ago. no stents Family History Uncle Family hx of colon cancer Aunt Family hx of colon cancer Father FHx: prostate cancer Grandfather (Paternal) Myocardial infarction, Onset Age: 41 Social History Smoking Status: Never smoker Second Hand Exposure: No; Do You Dip or Chew Tobacco: No; Hx Alcohol Use: Yes Alcohol type: beer and hard liquor Alcohol Intake Frequency Comment: 2-3 drinks daily; last drink 2 days ago Hx Substance Use: No Preferred Language: Uzbek Communication Ability: Effective Stave Cutter Required: No Beliefs That Will Affect Care: None Current Living Situation: Spouse Feels Safe at Home: Yes Assistive Devices: CPAP Allergies Allergies Allergy/AdvReac Type Severity Reaction Status Date / Time morphine AdvReac Nausea Verified 06/01/23 14:47 naproxen AdvReac Diarrhea Verified 06/01/23 14:47 Home Meds Home Medications Medication Instructions Recorded Confirmed Juice Plus Vitamins 3 tab PO DAILY 05/21/23 06/01/23 acetaminophen 500 mg tablet 500 mg PO Q6H PRN Pain 05/21/23 06/01/23 (Tylenol Extra Strength) aspirin 81 mg chewable tablet 81 mg PO DAILY 05/21/23 06/01/23 cetirizine 10 mg tablet 10 mg PO QAM 05/21/23 06/01/23 fluoxetine 10 mg capsule 10 mg PO QAM 05/21/23 06/01/23 gabapentin 300 mg capsule 300 mg PO BID 05/21/23 06/01/23 metformin 500 mg tablet,extended 500 mg PO BID 05/21/23 06/01/23 release 24 hr omeprazole 20 mg capsule,delayed 20 mg PO QAM 05/21/23 06/01/23 release ondansetron HCl 4 mg tablet 4 mg PO Q8 PRN Nausea 05/21/23 06/01/23 vitamin B complex 1 tab PO DAILY 05/21/23 06/01/23 apixaban 5 mg tablet (Eliquis) 5 mg PO BID 05/29/23 06/01/23 metoprolol succinate 25 mg 25 mg PO BID 06/01/23 06/01/23 tablet,extended release 24 hr rosuvastatin 20 mg tablet 20 mg PO DAILY 06/01/23 06/01/23 semaglutide 0.25 mg or 0.5 mg (2 0.25 mg subcut .WEEK 06/01/23 06/01/23 mg/3 mL) subcutaneous pen injector (Ozempic) Results & Data (ED) Vital Signs Vital Signs - 24 hr 06/01/23 12:09 06/01/23 12:42 06/01/23 12:45 Temperature 36.3 C L Temperature Source Temporal Artery Scan Pulse Rate 80 69 Pulse Rate [Right Finger] Respiratory Rate 20 Respiratory Effort / Characteristics Non-Labored Spontaneous Respiratory Depth Normal Respiratory Pattern Regular Blood Pressure 141/86 H Blood Pressure [Left Arm] Blood Pressure Mean 104 Blood Pressure Mean [Left Arm] Pulse Oximetry 94 95 Oxygen Delivery Method Room Air Room Air Sepsis Recent Fever Within 48 Hours No Sepsis New/Unexplained Change in Mental Status N/A Sepsis Action Taken by Nursing No Action Required 06/01/23 14:12 06/01/23 15:23 06/01/23 15:30 Temperature Temperature Source Pulse Rate 58 L 60 Pulse Rate [Right Finger] 64 Respiratory Rate 16 16 17 Respiratory Effort / Characteristics Non-Labored Spontaneous Respiratory Depth Normal Respiratory Pattern Blood Pressure 114/76 131/84 Blood Pressure [Left Arm] 127/83 Blood Pressure Mean 88 99 Blood Pressure Mean [Left Arm] 97 Pulse Oximetry 96 96 95 Oxygen Delivery Method Room Air Room Air Room Air Sepsis Recent Fever Within 48 Hours Sepsis New/Unexplained Change in Mental Status Sepsis Action Taken by Nursing 06/01/23 16:00 Temperature Temperature Source Pulse Rate 63 Pulse Rate [Right Finger] Respiratory Rate 12 Respiratory Effort / Characteristics Respiratory Depth Respiratory Pattern Blood Pressure 130/86 Blood Pressure [Left Arm] Blood Pressure Mean 100 Blood Pressure Mean [Left Arm] Pulse Oximetry 98 Oxygen Delivery Method Room Air Sepsis Recent Fever Within 48 Hours Sepsis New/Unexplained Change in Mental Status Sepsis Action Taken by Usp Medications Current Medication List: was personally reviewed by me Laboratory Data Attestation: I reviewed the patient's lab results. 06/01/23 12:18 06/01/23 12:18 Lab Results 06/01/23 06/01/23 Range/Units 12:18 12:39 WBC 5.79 (4.8-10.8) K/ul RBC 4.77 (4.70-6.10) M/uL Hgb 14.8 (14.0-18.0) g/dl POC Hgb 13.9 L (14.0-18.0) g/dl Hct 42.0 (42.0-52.0) % POC Hct 41 L (42-52) % MCV 88.1 (80.0-100.0) fL MCH 31.0 (25.0-34.0) pg MCHC 35.2 (32.0-36.0) g/dL RDW Std Deviation 37.3 (36.4-46.3) fL RDW Coeff of Joanna 11.6 (11.5-14.5) % Plt Count 236 (130-400) K/uL MPV 10.7 (9.4-12.4) fL Immature Gran % (Auto) 1.0 % Neut % (Auto) 47.3 % Lymph % (Auto) 38.2 % Dillon % (Auto) 9.0 % Eos % (Auto) 3.8 % Baso % (Auto) 0.7 % Neut # (Auto) 2.74 (1.40-6.50) K/uL Lymph # (Auto) 2.21 (1.20-3.40) K/uL Dillon # (Auto) 0.52 (0.11-0.59) K/uL Eos # (Auto) 0.22 (0.00-0.50) K/uL Baso # (Auto) 0.04 (0.00-0.20) K/uL Immature Gran # (Auto) 0.06 (0.01-0.20) K/uL PT 11.2 (9.0-12.0) Seconds INR 1.0 (0.9-1.1) APTT 30 (21-31) Seconds PTT Ratio 1.1 POC Sodium 138 (135-144) mmol/L Sodium 136 (136-145) mmol/L POC Potassium 4.1 (3.3-5.0) mmol/L Potassium 4.1 (3.5-5.1) mmol/L POC Chloride 102 (101-112) mmol/L Chloride 102 (98-107) mmol/L Carbon Dioxide 24 (21-32) mmol/L POC Total CO2 25 (24-31) mmol/L Anion Gap 10 (3-11) POC Anion Gap 16.0 (16-25) mmol/L POC BUN 14 (7-18) mg/dl BUN 16 (6-23) mg/dl Creatinine 0.81 (0.6-1.4) mg/dl POC Creatinine 0.7 (0.6-1.3) mg/dl Est Cr Clr Drug Dosing 137.6 ml/min Est GFR ( Amer) 112.0 ml/min Est GFR (Non-Af Amer) 96.6 ml/min BUN/Creatinine Ratio 19.8 (10-20) Glucose 118 H (70-99(Fasting)) mg/dl POC Glucose (other) 124 H (70-99) mg/dl Calcium 10.0 (8.6-10.3) mg/dl POC Ioniz Calcium Casey 1.19 (1.12-1.32) mmol/l Total Bilirubin 0.5 (0.2-1.0) mg/dl AST 28 (13-39) U/L ALT 26 (7-52) U/L Alkaline Phosphatase 46 (34-104) U/L Troponin I High Sens 15.1 (0-20) pg/ml Total Protein 7.8 (6.0-8.3) gm/dl Albumin 5.0 (3.4-5.0) gm/dl Globulin 2.8 (2.5-4.0) gm/dl Albumin/Globulin Ratio 1.8 (0.9-2) Adenovirus (PCR) Not Detected (NotDetected) B. pertussis DNA (PCR) Not Detected (NotDetected) B.parapertussis DNA PCR Not Detected (NotDetected) C. pneumoniae DNA (PCR) Not Detected (NotDetected) Coronavirus OC43 (PCR) Not Detected (NotDetected) Coronavirus HKU1 (PCR) Not Detected (NotDetected) Coronavirus 229E (PCR) Not Detected (NotDetected) SARS-CoV-2 (PCR) Not Detected (NotDetected) Coronavirus NL63 (PCR) Not Detected (NotDetected) Human Metapneumovir PCR Not Detected (NotDetected) Influenza Type A (PCR) Not Detected (NotDetected) Influenza Type B (PCR) Not Detected (NotDetected) M. pneumoniae (PCR) Not Detected (NotDetected) Parainfluenza 1 (PCR) Not Detected (NotDetected) Parainfluenza 2 (PCR) Not Detected (NotDetected) Parainfluenza 3 (PCR) Not Detected (NotDetected) Parainfluenza 4 (PCR) Not Detected (NotDetected) RSV (PCR) Not Detected (NotDetected) Entero/Rhino (PCR) Not Detected (NotDetected) Administered Medications Discontinued Medications Promethazine HCl (Phenergan) 12.5 mg in 50.5 mls @ 202 mls/hr IV NOW STA Stop: 06/01/23 15:01 Last Infusion: 06/01/23 15:59 Dose: Infused Documented By: Admin: 06/01/23 15:22 Dose: 202 mls/hr Documented By: WILY Ioversol (Optiray 320 125ml) 116 ml IV ONCE ONE Stop: 06/01/23 13:09 Last Admin: 06/01/23 13:00 Dose: 116 ml Documented By: MARIA A Imaging Data Attestation: I personally reviewed and interpreted this imaging study as follows: My Impression: 1 view chest x-ray was obtained in the emergency department. My interpretation is no free air or definite infiltrate, final report below. CT of the brain was obtained in the emergency department. My interpretation is no intracranial hemorrhage or mass effect, final report below. Radiologist's Impression: Chest X-Ray 06/01/23 12:14 XR chest 1V portable HISTORY: 58 years-old Male Chest pain, nonspecific COMPARISON: 05/21/2023 TECHNIQUE: AP view of the chest FINDINGS: Cardiomediastinal and hilar silhouettes are within normal limits. Cervical spinal fusion hardware. No pneumothorax, pleural effusion or airspace consolidation. Probable nipple shadow projects over the left lung base. IMPRESSION: No acute process. ACT 112: Negative or not required by law. The above report was generated using voice recognition software. It may contain grammatical, syntax or spelling errors. Electronically signed by: Ben Tomlin M.D. 06/01/2023 1:[address] 06/01/23 12:14 CT OF THE HEAD WITHOUT CONTRAST CLINICAL HISTORY: Headache. COMPARISON STUDY: Head CT September 27, 2019. CT DOSE: 1764.45 mGy.cm TECHNIQUE: Helical axial images of the head were obtained without IV contrast. Automated exposure control was utilized for the study. A dose lowering technique was utilized adhering to the principles of ALARA. FINDINGS: No acute intracranial hemorrhage, midline shift or mass effect is present. The ventricular system is unremarkable. The basal cisterns are patent. No extra-axial collections are present. There are no findings to suggest acute dural sinus thrombosis or acute territorial infarct. There is no calvarial fracture. Ethmoid sinus mucosal thickening is similar to prior CT. IMPRESSION: No acute intracranial findings. ACT 112: Negative or not required by law. Electronically signed by: Alvaro Gilliam M.D. 06/01/2023 1:19 PM Chest CTA 06/01/23 12:26 CT angio chest PE protocol CLINICAL HISTORY: PE TECHNIQUE: Multidetector row helical CT of the chest was performed with angiographic protocol. Coronal and sagittal reformations were obtained. Coronal and sagittal MIPS were obtained from the axial data set and were submitted for review. Automated dose lowering techniques and/or adjustment according to patient size were utilized for this exam. Comparison: Comparison is made to CT chest 05/21/[address] chest to 12/28/2017 FINDINGS: Lungs and pleura: There is a 7 mm nodule in the right middle lobe (series 7 image 140), this has slowly enlarged from 2018. Heart and pericardium: Heart size is normal. No pericardial effusion. Vessels: No evidence of pulmonary embolism. Severe atherosclerotic disease is seen. Mediastinum and luisa: Unremarkable. Chest wall and lower neck: Unremarkable. Abdomen: Hepatic steatosis is noted. Bones: Degenerative changes in the thoracic spine. ACDF is seen in the lower cervical spine. IMPRESSION: 1. No acute abnormality and in particular no evidence of pulmonary embolus. 2. 7 mm nodule in the right middle lobe is stable from prior exam but slowly enlarged from 2018 and is new from 2015. This may represent a low-grade pulmonary lesion, one year follow-up is recommended. 3. Hepatic steatosis. ACT 112: Negative or not required by law. Electronically signed by: Rony Mendenhall M.D. 06/01/2023 1:39 PM Head CTA 06/01/23 12:26 CT angio head w con CLINICAL HISTORY: 58 years-old Male with sent in by PCP for CT. Acute headache COMPARISON STUDY: Head CT of same day TECHNIQUE: Following the IV administration of 116 cc of Optiray, CT angiogram of the brain was performed from the skull base to the vertex. Images are reviewed in the axial, sagittal, and coronal planes. 3-D MIPS images are created and assessed. IV contrast was administered without complication. All measurements were obtained according to NASCET criteria. A dose lowering technique was utilized adhering to the principles of ALARA. FINDINGS: CT ANGIOGRAM OF THE BRAIN: The imaged bilateral internal carotid arteries are patent. The bilateral anterior and middle cerebral arteries are also patent. The vertebrobasilar system and posterior cerebral arteries are widely patent. origin of the left posterior cerebral artery. There is no aneurysm, high-grade stenosis, or proximal branch occlusion identified. Dural sinuses appear patent. Incidental note is made of [id number] mucosal thickening of the paranasal sinuses. IMPRESSION: Unremarkable CTA of the head. ACT 112: Negative or not required by law. The above report was generated using voice recognition software. It may contain grammatical, syntax or spelling errors. Electronically signed by: Ben Tomlin M.D. 06/01/2023 1:30 PM Neck CTA 06/01/23 12:26 CT angio neck with con CLINICAL HISTORY: sent in by PCP for CT TECHNIQUE: Contiguous axial CT images of the head were acquired from the base of the skull to the vertex without intravenous contrast administration. CT angiography of the head and neck was performed following intravenous administration of iodinated contrast. Coronal and sagittal MIPS were obtained from the axial data set and were submitted for review. Automated dose lowering techniques and/or adjustment according to patient size were utilized for this examination. All measurements were calculated based on NASCET criteria. Comparison: None available at the time of this dictation. FINDINGS: Lungs and soft tissues are unremarkable. CTA Neck: A 3 vessel aortic arch is shown. There is no significant atherosclerotic plaque in the aortic arch or the origins of the innominate, left common carotid, and left subclavian arteries. The common carotid, external carotid, cervical segments of the internal carotid arteries, and the cervical segments of the vertebral arteries are patent without hemodynamically significant stenosis. The left vertebral artery is dominant. IMPRESSION: No occlusion, hemodynamically significant stenosis, or dissection in the major cervical arteries. Assessment of stenosis of the internal carotid arteries is based on NASCET criteria. ACT 112: Negative or not required by law. Electronically signed by: Rony Mendenhall M.D. 06/01/2023 1:26 PM Discharge Plan Visit Data Chief Complaint: Chest Pain Stated Complaint: RETURN VISIT CHEST PAIN ED Provider: Ramu Ricks Discharge Problem: Acute intractable headache, Chest pain, Pulmonary nodule Patient Disposition: Being Evaluated by Hospitalist Forms Stand Alone Forms: [facility] Prescriptions Prescriptions: No Action Eliquis 5 mg tablet 5 mg PO BID metoprolol succinate 25 mg tablet extended release 24 hr 25 mg PO BID rosuvastatin 20 mg tablet 20 mg PO DAILY Ozempic 0.25 mg or 0.5 mg (2 mg/3 mL) pen injector 0.25 mg SUBCUT .WEEK cetirizine 10 mg Tablet 10 mg PO QAM ondansetron HCl 4 mg tablet 4 mg PO Q8 PRN (Reason: Nausea) acetaminophen [Tylenol Extra Strength] 500 mg Tablet 500 mg PO Q6H PRN (Reason: Pain) fluoxetine 10 mg capsule 10 mg PO QAM gabapentin 300 mg capsule 300 mg PO BID omeprazole 20 mg capsule,delayed release(DR/EC) 20 mg PO QAM aspirin 81 mg Tablet,Chewable 81 mg PO DAILY vitamin B complex Tablet 1 tab PO DAILY Juice Plus Vitamins 3 tab PO DAILY metformin 500 mg tablet extended release 24 hr 500 mg PO BID Referrals Referrals: Kelly Lazo DO [Primary Care Provider] - Discharge Problem: Acute intractable headache Qualifiers: Headache type: unspecified Qualified Code(s): R51.9 - Headache, unspecified Chest pain Qualifiers: Chest pain type: unspecified Qualified Code(s): R07.9 - Chest pain, unspecified
[2023-06-01 12:52] LABS: iSTAT Creatinine 0.7 mg/dl (0.6-1.3); iSTAT Hemoglobin 13.9 g/dl (14.0-18.0); iSTAT Ionized Calcium 1.19 mmol/l (1.12-1.32); iSTAT Potassium 4.1 mmol/L (3.3-5.0)
--- NOTE | 2023-06-01 13:06 | XRay Report ---
XR chest 1V portable HISTORY: 58 years-old Male Chest pain, nonspecific COMPARISON: 05/21/2023 TECHNIQUE: AP view of the chest FINDINGS: Cardiomediastinal and hilar silhouettes are within normal limits. Cervical spinal fusion hardware. No pneumothorax, pleural effusion or airspace consolidation. Probable nipple shadow projects over the l eft lung base. IMPRESSION: No acute process. ACT 112: Negative or not required by law. The above report was generated using voice recognition software. It may contain grammatical, syntax o r spelling errors. Electronically signed by: Ben Tomlin M.D. 06/01/2023 1:04 PM
[2023-06-01 13:08] LABS: Partial Thromboplastin Ratio 1.1; Partial Thromboplastin Time 30 Seconds (21-31); Prothrombin Time 11.2 Seconds (9.0-12.0)
[2023-06-01] MEDS ORDERED: OPTIRAY 320 125ml IV ONE (13:08)
--- NOTE | 2023-06-01 13:20 | CT Scan Report ---
CT OF THE HEAD WITHOUT CONTRAST CLINICAL HISTORY: Headache. COMPARISON STUDY: Head CT September 27, 2019. CT DOSE: 1764.45 mGy.cm TECHNIQUE: Helical axial images of the head were obtained without IV contrast. Automated exposure con trol was utilized for the study. A dose lowering technique was utilized adhering to the principles o f ALARA. FINDINGS: No acute intracranial hemorrhage, midline shift or mass effect is present. The ventricular system is unremarkable. The basal cisterns are patent. No extra-axial collections are present. There are no findings to suggest acute dural sinus thrombosis or acute territorial infarct. There is no fadia varial fracture. Ethmoid sinus mucosal thickening is similar to prior CT. IMPRESSION: No acute intracranial findings. ACT 112: Negative or not required by law. Electronically signed by: Alvaro Gilliam M.D. 06/01/2023 1:19 PM
[2023-06-01 13:23] LABS: Troponin I High Sensitivity 15.1 pg/ml (0-20)
--- NOTE | 2023-06-01 13:28 | CT Scan Report ---
CT angio neck with con CLINICAL HISTORY: sent in by PCP for CT TECHNIQUE: Contiguous axial CT images of the head were acquired from the base of the skull to the josue tayla without intravenous contrast administration. CT angiography of the head and neck was performed f ollowing intravenous administration of iodinated contrast. Coronal and sagittal MIPS were obtained fr om the axial data set and were submitted for review. Automated dose lowering techniques and/or adjus tment according to patient size were utilized for this examination. All measurements were calculated based on NASCET criteria. Comparison: None available at the time of this dictation. FINDINGS: Lungs and soft tissues are unremarkable. CTA Neck: A 3 vessel aortic arch is shown. There is no significant atherosclerotic plaque in the aor tic arch or the origins of the innominate, left common carotid, and left subclavian arteries. The co mmon carotid, external carotid, cervical segments of the internal carotid arteries, and the cervical segments of the vertebral arteries are patent without hemodynamically significant stenosis. The left vertebral artery is dominant. IMPRESSION: No occlusion, hemodynamically significant stenosis, or dissection in the major cervical arteries. Assessment of stenosis of the internal carotid arteries is based on NASCET criteria. ACT 112: Negative or not required by law. Electronically signed by: Rony Mendenhall M.D. 06/01/2023 1:26 PM
[2023-06-01 13:30] LABS: Bilirubin,Total 0.5 mg/dl (0.2-1.0); Potassium 4.1 mmol/L (3.5-5.1)
--- NOTE | 2023-06-01 13:31 | CT Scan Report ---
CT angio head w con CLINICAL HISTORY: 58 years-old Male with sent in by PCP for CT. Acute headache COMPARISON STUDY: Head CT of same day TECHNIQUE: Following the IV administration of 116 cc of Optiray, CT angiogram of the brain was perfor med from the skull base to the vertex. Images are reviewed in the axial, sagittal, and coronal planes . 3-D MIPS images are created and assessed. IV contrast was administered without complication. All me asurements were obtained according to NASCET criteria. A dose lowering technique was utilized adherin g to the principles of ALARA. FINDINGS: CT ANGIOGRAM OF THE BRAIN: The imaged bilateral internal carotid arteries are patent. The bilateral anterior and middle cerebral arteries are also patent. The vertebrobasilar system and posterior cerebral arteries are widely munoz nt. origin of the left posterior cerebral artery. There is no aneurysm, high-grade stenosis, or proximal branch occlusion identified. Dural sinuses appear patent. Incidental note is made of [id number] mucosal thickening of the paranasal sinuses. IMPRESSION: Unremarkable CTA of the head. ACT 112: Negative or not required by law. The above report was generated using voice recognition software. It may contain grammatical, syntax o r spelling errors. Electronically signed by: Ben Tomlin M.D. 06/01/2023 1:30 PM
[2023-06-01 13:36] LABS: Albumin Globulin Ratio 1.8 (0.9-2); BUN Creatinine Ratio 19.8 (10-20); Creatinine Clr Calc Pharmacy 137.6 ml/min; Est GFR (Non-African American) 96.6 ml/min; Globulin 2.8 gm/dl (2.5-4.0); Total Protein 7.8 gm/dl (6.0-8.3)
--- NOTE | 2023-06-01 13:40 | CT Scan Report ---
CT angio chest PE protocol CLINICAL HISTORY: PE TECHNIQUE: Multidetector row helical CT of the chest was performed with angiographic protocol. Alfonso l and sagittal reformations were obtained. Coronal and sagittal MIPS were obtained from the axial aniabl a set and were submitted for review. Automated dose lowering techniques and/or adjustment according to patient size were utilized for this exam. Comparison: Comparison is made to CT chest 05/21/[address] chest to 12/28/2017 FINDINGS: Lungs and pleura: There is a 7 mm nodule in the right middle lobe (series 7 image 140), this has slow ly enlarged from 2018. Heart and pericardium: Heart size is normal. No pericardial effusion. Vessels: No evidence of pulmonary embolism. Severe atherosclerotic disease is seen. Mediastinum and luisa: Unremarkable. Chest wall and lower neck: Unremarkable. Abdomen: Hepatic steatosis is noted. Bones: Degenerative changes in the thoracic spine. ACDF is seen in the lower cervical spine. IMPRESSION: 1. No acute abnormality and in particular no evidence of pulmonary embolus. 2. 7 mm nodule in the right middle lobe is stable from prior exam but slowly enlarged from 2018 and is new from 2015. This may represent a low-grade pulmonary lesion, one year follow-up is recommended. 3. Hepatic steatosis. ACT 112: Negative or not required by law. Electronically signed by: Rony Mendenhall M.D. 06/01/2023 1:39 PM
[2023-06-01 13:43] LABS: Adenovirus PCR Not Detected (NotDetected); Bordetella parapertussis PCR Not Detected (NotDetected); Bordetella pertussis PCR Not Detected (NotDetected); Chlamydia pneumoniae PCR Not Detected (NotDetected); Coronavirus 229E PCR Not Detected (NotDetected); Coronavirus CoV-2 (COVID19)PCR Not Detected (NotDetected); Coronavirus HKU1 PCR Not Detected (NotDetected); Coronavirus NL63 PCR Not Detected (NotDetected); Coronavirus OC43PCR Not Detected (NotDetected); Human Metapneumovirus PCR Not Detected (NotDetected); Influenza A PCR Not Detected (NotDetected); Influenza B PCR Not Detected (NotDetected); Mycoplasma pneumoniae PCR Not Detected (NotDetected); Parainfluenza Virus 1 PCR Not Detected (NotDetected); Parainfluenza Virus 2 PCR Not Detected (NotDetected); Parainfluenza Virus 3 PCR Not Detected (NotDetected); Parainfluenza Virus 4 PCR Not Detected (NotDetected); Respiratory Syncytial VirusPCR Not Detected (NotDetected); Rhinovirus/Enterovirus PCR Not Detected (NotDetected)
[2023-06-01] MEDS ORDERED: PROMETHAZINE HCL 12.5 MG in SODIUM CHLORIDE 0.9% 50 ML IV STA (14:13)
[2023-06-01] MEDS ORDERED: PROMETHAZINE 12.5 MG/50.5 ML BAG IV STA (14:47)
--- NOTE | 2023-06-01 16:36 | History & Physical Report ---
Date of Service June 01, 2023 Assessment & Plan (1) Chest pain: Plan: This is a 58 y/o male with history of HTN, PAF, dyslipidemia, KARISHMA on CPAP, DM2, gout and prior EtOH use (quit in Feb 2023) who presents to the ED with ongoing episodes of chest pain, constant POON, and variable blood pressure. Extensive work-up over the last month, which was reviewed in [facility] and in [facility]. Recent addition of Eliquis with pt's history of PAF. Zio results pending due to history of PAF. - Observe on telemetry - Continue beta laura with holds - Consult cardiology for any additional recommendations - Orthostatic vitals - IVF x 1 liter then reassess (2) Acute intractable headache: Plan: Imaging negative in the ED - continue to monitor (3) Diabetes mellitus, type 2: Plan: A1c on 05/21 was 7.5 Holding Metformin while admitted Insulin sliding scale Diabetic diet BSG ACHS (4) PAF (paroxysmal atrial fibrillation): Plan: See plan for #1 (5) KARISHMA on CPAP: Plan: Can use home CPAP while admitted (6) Hypertension: Plan: Chronic - see #1 (7) Hyperlipidemia: Plan: Chronic, stable Continue statin Plan Continue other home medications as appropriate Pt seen and reviewed with collaborating physician, Dr. Matute. Plan of care discussed and as outlined above. Code status: Full code DVT Prophylaxis: on Eliquis Christina Driver PA-C History of Present Illness Chief Complaint: Ongoing chest pain, headaches Primary Care Provider: Kelly Lazo, This is a 58 y/o male with history of HTN, PAF, dyslipidemia, KARISHMA on CPAP, DM2, gout and prior EtOH use (quit in Feb 2023) who presents to the ED with ongoing episodes of chest pain, constant POON, and variable blood pressure. He was recently admitted for chest pain cardiac cath on 05/22 showed diffuse sluggish coronary flow but no significant stenotic lesions. Started on Eliquis during that admission. Told by interventional cardiology that there was potentially a mitochondrial problem as the cause of pt's symptoms. Since discharge, he has noted continued weakness, fatigue, dizziness with movement, shortness of breath, dry cough. His states that he is continuing to go downhill since being home so she contacted the case liner/PCP office today who recommended he return to the ED for potential admission and further testing. He reports ongoing issues with variable bowel pattern - uses Miralax 1/2 capful daily, stool softener BID, Metamucil. Reports alternating diarrhea and constipation. Had small loose BM this morning. Never feels like he fully defecates. Still having chest pain 2- 3x/day. His notes that pt's vitals variable with movement drop in BP with standing (90/56). Highest BP that reports at home since discharge was 144/86. She also reports that pt's O2 sats drop with activity to a low of 90%, none below 90. Pt just sent his Zio in on Thursday done for his history of PAF (has had two Zio monitors in the last month) so he does not know the results yet - he has been on metoprolol since discharge for the history of PAF. Also notes that he started on Ozempic Thursday - having nausea and bloating but states these symptoms were present before he took this. Has an appointment later this month with pulmonology to follow-up for the lung nodule that has increased from 2018. Outpatient cardiology notes reviewed - recent diagnosis of LVH. Concern for potential infiltrative cardiomyopathy and cardiac MRI is pending for 06/11/23. Constant headaches x 5 weeks. Allergies Allergy/AdvReac Type Severity Reaction Status Date / Time morphine AdvReac Nausea Verified 06/01/23 14:47 naproxen AdvReac Diarrhea Verified 06/01/23 14:47 Home Medications Medication Instructions Recorded Confirmed Type Juice Plus Vitamins 3 tab PO DAILY 05/21/23 06/01/23 History acetaminophen 500 mg tablet 500 mg PO Q6H PRN Pain 05/21/23 06/01/23 History (Tylenol Extra Strength) aspirin 81 mg chewable tablet 81 mg PO DAILY 05/21/23 06/01/23 History cetirizine 10 mg tablet 10 mg PO QAM 05/21/23 06/01/23 History fluoxetine 10 mg capsule 10 mg PO QAM 05/21/23 06/01/23 History gabapentin 300 mg capsule 300 mg PO BID 05/21/23 06/01/23 History metformin 500 mg tablet,extended 500 mg PO BID 05/21/23 06/01/23 History release 24 hr omeprazole 20 mg capsule,delayed 20 mg PO QAM 05/21/23 06/01/23 History release ondansetron HCl 4 mg tablet 4 mg PO Q8 PRN Nausea 05/21/23 06/01/23 History vitamin B complex 1 tab PO DAILY 05/21/23 06/01/23 History apixaban 5 mg tablet (Eliquis) 5 mg PO BID 05/29/23 06/01/23 History metoprolol succinate 25 mg 25 mg PO BID 06/01/23 06/01/23 History tablet,extended release 24 hr rosuvastatin 20 mg tablet 20 mg PO DAILY 06/01/23 06/01/23 History semaglutide 0.25 mg or 0.5 mg (2 0.25 mg subcut .WEEK 06/01/23 06/01/23 History mg/3 mL) subcutaneous pen injector (Ozempic) Past Med/Surg History Medical History Alcoholism Lung nodule Hepatic steatosis PAF (paroxysmal atrial fibrillation) Gout KARISHMA on CPAP GERD (gastroesophageal reflux disease) Diabetes mellitus, type 2 niddm Basal cell carcinoma Hypertension Hyperlipidemia Surgical History (Updated 06/01/23 @ 16:45 by Yanni Driver PA-C) History of arthroscopy of left shoulder Status post subacromial decompression S/P arthroscopy of right shoulder History of discectomy with fusion cervical area (unsure of levels) Full ROM History of laminectomy lumbar x3 History of appendectomy History of colonoscopy History of Mohs micrographic surgery for skin cancer History of cardiac cath ~20 years ago. no stents, most recent in May 2023 Family History Uncle Family hx of colon cancer Aunt Family hx of colon cancer Father FHx: prostate cancer Grandfather (Paternal) Myocardial infarction, Onset Age: 41 Social History Smoking Status: Never smoker Second Hand Exposure: No; Do You Dip or Chew Tobacco: No; Hx Alcohol Use: Yes Alcohol type: beer and hard liquor Alcohol Intake Frequency Comment: 2-3 drinks daily; last drink 2 days ago Hx Substance Use: No Preferred Language: Bengali Communication Ability: Effective Station Baggage Agent Required: No Beliefs That Will Affect Care: None Current Living Situation: Spouse Feels Safe at Home: Yes Assistive Devices: CPAP Review of Systems Review of Systems: All systems reviewed & are unremarkable except as noted in HPI & below Physical Exam Physical Exam: Please see physician addendum for details of the physical exam Results & Data Results & Data Vital Signs (Past 12 Hours) Vital Signs Temp Pulse Pulse Resp BP BP Pulse Ox 06/01/23 16:00 63 12 130/86 98 06/01/23 15:30 60 17 131/84 95 06/01/23 15:23 58 L 16 114/76 96 06/01/23 14:12 64 16 127/83 96 06/01/23 12:45 69 06/01/23 12:42 95 06/01/23 12:09 36.3 C L 80 20 141/86 H 94 O2 Del Method 06/01/23 16:00 Room Air 06/01/23 15:30 Room Air 06/01/23 15:23 Room Air 06/01/23 14:12 Room Air 06/01/23 12:45 06/01/23 12:42 Room Air 06/01/23 12:09 Room Air Laboratory Results Laboratory Results - last 24 hr 06/01/23 06/01/23 12:18 12:39 WBC 5.79 RBC 4.77 Hgb 14.8 POC Hgb 13.9 L Hct 42.0 POC Hct 41 L MCV 88.1 MCH 31.0 MCHC 35.2 RDW Std Deviation 37.3 RDW Coeff of Joanna 11.6 Plt Count 236 MPV 10.7 Immature Gran % (Auto) 1.0 Neut % (Auto) 47.3 Lymph % (Auto) 38.2 Mes[place] % (Auto) 9.0 Eos % (Auto) 3.8 Baso % (Auto) 0.7 Neut # (Auto) 2.74 Lymph # (Auto) 2.21 [place] # (Auto) 0.52 Eos # (Auto) 0.22 Baso # (Auto) 0.04 Immature Gran # (Auto) 0.06 PT 11.2 INR 1.0 APTT 30 PTT Ratio 1.1 POC Sodium 138 Sodium 136 POC Potassium 4.1 Potassium 4.1 POC Chloride 102 Chloride 102 Carbon Dioxide 24 POC Total CO2 25 Anion Gap 10 POC Anion Gap 16.0 POC BUN 14 BUN 16 Creatinine 0.81 POC Creatinine 0.7 Est Cr Clr Drug Dosing 137.6 Est GFR ( Amer) 112.0 Est GFR (Non-Af Amer) 96.6 BUN/Creatinine Ratio 19.8 Glucose 118 H POC Glucose (other) 124 H Calcium 10.0 POC Ioniz Calcium Casey 1.19 Total Bilirubin 0.5 AST 28 ALT 26 Alkaline Phosphatase 46 Troponin I High Sens 15.1 Total Protein 7.8 Albumin 5.0 Globulin 2.8 Albumin/Globulin Ratio 1.8 Adenovirus (PCR) Not Detected B. pertussis DNA (PCR) Not Detected B.parapertussis DNA PCR Not Detected Lyme Disease IgG Ab Pending Lyme Disease IgM Ab Pending C. pneumoniae DNA (PCR) Not Detected Coronavirus OC43 (PCR) Not Detected Coronavirus HKU1 (PCR) Not Detected Coronavirus 229E (PCR) Not Detected SARS-CoV-2 (PCR) Not Detected Coronavirus NL63 (PCR) Not Detected Human Metapneumovir PCR Not Detected Influenza Type A (PCR) Not Detected Influenza Type B (PCR) Not Detected M. pneumoniae (PCR) Not Detected Parainfluenza 1 (PCR) Not Detected Parainfluenza 2 (PCR) Not Detected Parainfluenza 3 (PCR) Not Detected Parainfluenza 4 (PCR) Not Detected RSV (PCR) Not Detected Entero/Rhino (PCR) Not Detected Diagnostic Findings Chest X-Ray 06/01/23 12:14 XR chest 1V portable HISTORY: 58 years-old Male Chest pain, nonspecific COMPARISON: 05/21/2023 TECHNIQUE: AP view of the chest FINDINGS: Cardiomediastinal and hilar silhouettes are within normal limits. Cervical spinal fusion hardware. No pneumothorax, pleural effusion or airspace co nsolidation. Probable nipple shadow projects over the left lung base. IMPRESSION: No acute process. ACT 112: Negative or not required by law. The above report was generated using voice recognition software. It may contain grammatical, syntax or spelling errors. Electronically signed by: Ben Tomlin M.D. 06/01/2023 1:[address] 06/01/23 12:14 CT OF THE HEAD WITHOUT CONTRAST CLINICAL HISTORY: Headache. COMPARISON STUDY: Head CT September 27, 2019. CT DOSE: 1764.45 mGy.cm TECHNIQUE: Helical axial images of the head were obtained without IV contrast. Automated exposure control was utilized for the study. A dose lowering technique was utilized adhering to the principles of ALARA. FINDINGS: No acute intracranial hemorrhage, midline shift or mass effect is present. The ventricular system is unremarkable. The basal cisterns are patent. No extra-axial collections are present. There are no findings to suggest acute dural sinus thrombosis or acute territorial infarct. There is no calvarial fracture. Ethmoid sinus mucosal thickening is similar to prior CT. IMPRESSION: No acute intracranial findings. ACT 112: Negative or not required by law. Electronically signed by: Alvaro Gilliam M.D. 06/01/2023 1:19 PM Chest CTA 06/01/23 12:26 CT angio chest PE protocol CLINICAL HISTORY: PE TECHNIQUE: Multidetector row helical CT of the chest was performed with angiographic protocol. Coronal and sagittal reformations were obtained. Coronal and sagittal MIPS were obtained from the axial data set and were submitted for review. Automated dose lowering techniques and/or adjustment according to patient size were utilized for this exam. Comparison: Comparison is made to CT chest 05/21/[address] chest to 12/28/2017 FINDINGS: Lungs and pleura: There is a 7 mm nodule in the right middle lobe (series 7 image 140), this has slowly enlarged from 2018. Heart and pericardium: Heart size is normal. No pericardial effusion. Vessels: No evidence of pulmonary embolism. Severe atherosclerotic disease is seen. Mediastinum and luisa: Unremarkable. Chest wall and lower neck: Unremarkable. Abdomen: Hepatic steatosis is noted. Bones: Degenerative changes in the thoracic spine. ACDF is seen in the lower cervical spine. IMPRESSION: 1. No acute abnormality and in particular no evidence of pulmonary embolus. 2. 7 mm nodule in the right middle lobe is stable from prior exam but slowly enlarged from 2018 and is new from 2015. This may represent a low-grade pulmonary lesion, one year follow-up is recommended. 3. Hepatic steatosis. ACT 112: Negative or not required by law. Electronically signed by: Rony Mendenhall M.D. 06/01/2023 1:39 PM Head CTA 06/01/23 12:26 CT angio head w con CLINICAL HISTORY: 58 years-old Male with sent in by PCP for CT. Acute headache COMPARISON STUDY: Head CT of same day TECHNIQUE: Following the IV administration of 116 cc of Optiray, CT angiogram of the brain was performed from the skull base to the vertex. Images are reviewed in the axial, sagittal, and coronal planes. 3-D MIPS images are created and assessed. IV contrast was administered without complication. All measurements were obtained according to NASCET criteria. A dose lowering technique was utilized adhering to the principles of ALARA. FINDINGS: CT ANGIOGRAM OF THE BRAIN: The imaged bilateral internal carotid arteries are patent. The bilateral anterior and middle cerebral arteries are also patent. The vertebrobasilar system and posterior cerebral arteries are widely patent. origin of the left posterior cerebral artery. There is no aneurysm, high-grade stenosis, or proximal branch occlusion identified. Dural sinuses appear patent. Incidental note is made of evqp-ke-[id number] mucosal thickening of the paranasal sinuses. IMPRESSION: Unremarkable CTA of the head. ACT 112: Negative or not required by law. The above report was generated using voice recognition software. It may contain grammatical, syntax or spelling errors. Electronically signed by: Ben Tomlin M.D. 06/01/2023 1:30 PM Neck CTA 06/01/23 12:26 CT angio neck with con CLINICAL HISTORY: sent in by PCP for CT TECHNIQUE: Contiguous axial CT images of the head were acquired from the base of the skull to the vertex without intravenous contrast administration. CT angiography of the head and neck was performed following intravenous administration of iodinated contrast. Coronal and sagittal MIPS were obtained from the axial data set and were submitted for review. Automated dose lowering techniques and/or adjustment according to patient size were utilized for this examination. All measurements were calculated based on NASCET criteria. Comparison: None available at the time of this dictation. FINDINGS: Lungs and soft tissues are unremarkable. CTA Neck: A 3 vessel aortic arch is shown. There is no significant atherosclerotic plaque in the aortic arch or the origins of the innominate, left common carotid, and left subclavian arteries. The common carotid, external carotid, cervical segments of the internal carotid arteries, and the cervical segments of the vertebral arteries are patent without hemodynamically significant stenosis. The left vertebral artery is dominant. IMPRESSION: No occlusion, hemodynamically significant stenosis, or dissection in the major cervical arteries. Assessment of stenosis of the internal carotid arteries is based on NASCET criteria. ACT 112: Negative or not required by law. Electronically signed by: Rony Mendenhall M.D. 06/01/2023 1:26 PM Medications Administered Discontinued Medications Promethazine HCl (Phenergan) 12.5 mg in 50.5 mls @ 202 mls/hr IV NOW STA Stop: 06/01/23 15:01 Last Infusion: 06/01/23 15:59 Dose: Infused Documented By: Admin: 06/01/23 15:22 Dose: 202 mls/hr Documented By: WILY Ioversol (Optiray 320 125ml) 116 ml IV ONCE ONE Stop: 06/01/23 13:09 Last Admin: 06/01/23 13:00 Dose: 116 ml Documented By: MARIA A Supervising Physician Co-Signing Physician Notes Patient seen and examined Reports orthostatic dizziness reports BP laying down at home runs in 140s systolic and on standing at home was 90s systolic. Reports fatigue, chronic headache, nausea, feeling of bloating for the past 5 weeks Reports intermittent chest pain, lasts few mins, nonexertional, sometimes associated with "fluttering" sensation General: No acute distress Eyes: PERRL, conjunctivae normal, not pale, anicteric sclerae, EOM intact bilaterally ENMT: External ear and nose normal, oropharynx normal Neck: Normal visual inspection, no tracheal deviation, no swelling noted Respiratory: Normal respiratory effort, no respiratory distress, lungs clear to auscultation, no crackles and no wheezes Cardiovascular: RRR S1 S2 Gastrointestinal (Abdomen): Abdomen is not distended, soft, non-tender to palpation, no guarding, no palpable hepatosplenomegaly, normal bowel sounds Musculoskeletal: No pedal edema, all extremities motor strength 5/5 Neurologic: Alert and oriented x 3, No focal weakness, sensation grossly intact Psychiatric: Euthymic affect Patient has multiple complaints Reviewed recent workup on last visit, workup by PCP on [facility] including recent abd XR Reviewed recent cardiac cath report CT head/CTA head and neck are normal Pulm nodule noted on CT chest is stable compared to 2 weeks ago. reports he has appt with Pulm for followup She is also reports he has cardiac MRI planned outpatient but asking if it can b e done inpt Orthostatic dizziness Possible orthostatic hypotension Check orthostatic vitals Give IVF Will get [place] [employer] input All other labs today are unremarkable I spent a total of 45 minutes coordinating, documenting and providing care for this patient excluding time spent in performance of separately billed services (1) Chest pain Chest pain type: unspecified Qualified Code(s): R07.9 - Chest pain, unspecified (2) Acute intractable headache Headache type: unspecified Qualified Code(s): R51.9 - Headache, unspecified (3) Diabetes mellitus, type 2 Diabetes mellitus complication status: without complication 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
--- NOTE | 2023-06-01 16:40 | Electrocardiogram Report ---
Test Reason : Blood Pressure : / mmHG Vent. Rate : 068 BPM Atrial Rate : 068 BPM P-R Int : 216 ms QRS Dur : 088 ms QT Int : 398 ms P-R-T Axes : 043 049 057 degrees QTc Int : 423 ms Sinus rhythm with 1st degree A-V block Otherwise normal ECG When compared with ECG of 22-MAY-2023 04:57, No significant change was found Confirmed by Ismael Jiménez ([id number]) on 06/01/2023 4:40:41 PM Referred By: REFERRED SELF Confirmed By:Delmer Jiménez
[2023-06-01 17:01] LABS: Lyme Ab IgG w/WB Rflx Negative (Negative); Lyme Ab IgM w/WB Rflx Negative (Negative)
[2023-06-01] MEDS ORDERED: CARBOHYDRATES FOR HYPOGLYCEMIA PO PRN (19:24)
[2023-06-01] MEDS ORDERED: GLUCOSE 40% GEL 15 GM TUBE PO PRN (19:24)
[2023-06-01] MEDS ORDERED: DEXTROSE 50% 50 ML SYRINGE IV PRN (19:24)
[2023-06-01] MEDS ORDERED: GLUCOSE 10 TAB/TUBE PO PRN (19:24)
[2023-06-01] MEDS ORDERED: GLUCAGON FOR INJ 1 MG VIAL SQ PRN (19:24)
[2023-06-01] MEDS ORDERED: SODIUM CHLORIDE 0.9% 1,000 ML IV SCH (19:30)
--- OUTSIDE RECORDS SUMMARY | 2023-06-01 19:35 | External Medical Summary | Summary of Care ---
Author Name Unknown Organization [facility] Address [address] [place] [address] Phone [phone] Care Team Providers Care Merchandising Manager Name Role Phone FrederickbrigitteperezGeorges Primary Care Provider [phone] Encounter Details Date Type Department Care Team (Latest Contact Info) Description 05/21/2023 10:45 AM EST - 05/21/2023 1:14 PM EST Hospital Encounter Radiology Film File [address] [place] [address] Discharge Disposition: Home - Self Care Allergies Active Allergy Reactions Criticality Noted Date Comments Morphine Nausea/vomiting Medium 01/04/2020 Naproxen Diarrhea 05/27/2019 Diarrhea documented as of this encounter (statuses as of 05/29/2023) Medications Medication Sig Dispensed Refills Start Date [...] Additional Information Patient not taking.Reported on 05/19/2023 tiZANidine HCl 4 MG Oral Tablet (ZANAFLEX) TAKE 1 TABLET BY MOUTH EVERY 6 HOURS NEEDED FOR MUSCLE SPASM 30 Tab 1 05/02/2020 Active Additional Information Patient not taking.Reported on 05/28/2023 Juice Plus Fibre Oral Liquid Take by [...] the morning. 90 Capsule 3 03/04/2023 Active Ondansetron HCl 4 MG Oral TabletIndications: Abdominal pain, right upper quadrant,Nausea Take 1 Tablet by mouth every 8 hours as needed for Nausea. 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 03/04/2023 05/25/2023 Fatty (change of) liver, not elsewhere classified 06/18/2020 03/09/2023 Cardiac pacemaker in situ 06/18/2020 DM type 2 causing vascular disease 08/26/2019 09/12/2019 Prediabetes 05/24/2018 08/23/2018 Overview: Per Prediabetes protocol #1 Controlled substance agreement signed 06/07/2017 08/23/2018 Gout 05/08/2015 Reflux 11/25/2018 documented as of this encounter (statuses as of 05/29/2023) Immunizations Name Administration Dates Next Due Pneumococcal [...] e alcohol) Socially PHQ-2 Answer Date Recorded PHQ Adult Total Score 0 05/25/2023 Hunger Vital Sign Answer Date Recorded Within the past 12 months, y ou worried that your food would run out before you got the money to buy more. Never true 05/25/19 24 Within the past 12 months, t he food you bought just didn't last and you didn't have money to get more. Never true 05/25/2023 Sex and Gender Information Value Date Recorded [...] Department Care Team (Latest Contact Info) Description 06/02/2023 7:15 AM EST Imaging Rad[facility] [place] [address] 06/05/2023 9:40 AM EST Office Visit Pulmonary Medicine, [facility] 132 [facility] [place] [address] Ben Rao MD [address] [facility] [place] [phone] 06/11/2023 9:30 AM EST Imaging Radiology [facility] 1st [facility] [address] [place] [address] 07/02/2023 1:20 PM EST Telemedicine [facility] [address] [place] [address] Kelly Lazo, DO [address] [place] [address] 07/13/2023 8:30 AM EST Office Visit Cardiology, [facility] [address] [place] [address] Gómez Madison, DO [address] [place] [address] 09/15/2023 10:00 AM EDT Office Visit [facility] [address] [place] [address] Georges Patterson, DO [address] [place] [address] 11/06/2023 8:00 AM EDT Hospital Encounter ENDO OSS, Endoscopy Room [facility] [address] [place] [phone] Maximiliano Landaverde MD [address] [place] [address] 11/06/2023 8:00 AM EDT - 11/06/2023 8:30 AM EDT Surgery ENDO [facility], Endoscopy Room [facility] [address] [place] [phone] Maximiliano Landaverde MD [address] [place] [address] COLONOSCOPY FLEXIBLE PROXIMAL DIAGNOSTIC Scheduled Procedures Name Priority Associated Diagnoses Date/Ti me COLONOSCOPY FLEXIBLE PROXIMAL DIAGNOSTIC History of colonic polyps 11/06/2023 8:00 AM EDT Health Maintenance Due Date Last Done Comments COVID-19 Vaccine (#1) 1965 Zoster Vaccines (1 of 2) 2013 Pneumococcal Vaccine: Pediatrics (0 to 5 Years) and At-Risk Patients (6 to 64 Years) (2 - PCV) 02/25/2020 02/24/2019 Diabetic Eye Exam 05/16/2020 05/16/2019 Diabetic Foot Exam 06/18/2021 06/18/2020, 09/12/2019 Influenza Vaccine (FLU shot) (#1) 2023 06/18/2020, 02/24/2019, 02/02/2018, Additional history exists Hepatitis B (1 of 3 - Risk 3-dose series) 2023 HbA1c 11/19/2023 05/21/2023, 07/10, 12/28/2019, Additional history exists Albumin/Creatinine Ratio 05/21/2024 05/21/2023 B-12 05/21/2024 05/21/2023, 08/09, 07/30/2018 Depression Screening 05/25/2024 05/25/2023, 12/09/2016 (Discussed) GFR 05/27/2024 05/27/2023, 05/11, 02/27/2020, Additional history exists DTaP,Tdap,and Td Vaccines (2 [...] this encounter Medical Devices Implanted Type Area Sales Representative Groceries Device Identifier Shelf Expiration Date Model / Serial / Lot Aleutian C Cervical Cage 13 X 16 X 10 Implanted:Qty: 1 on 01/11/2020 by Luciano Trivedi MD at OR [facility] N/A: Spine Cervical IZZY : SPINE [id number] / / documented as of this encounter Procedures Procedure Name Priority Date/Time Associated Diagnosis Comments RADIOLOGY EXAM - GENERAL RAD (IMAGES ONLY,NO REPORT) Routine 05/21/2023 10:45 AM EST documented in this encounter Results * RADIOLOGY EXAM - GENERAL RAD (IMAGES ONLY,NO REPORT) (05/21/2023 10:45 AM EST) 05/21/2023 10:4 2 AM EST Narrative Scheduling, Silent - 05/28/2023 11:01 AM EST This is an imaging study not interpreted or resulted by a [employer] or [employer] contracted radiologist. T[facility] GORD[facility] (RAD G ENERAL) documented in this encounter Advance Directives Latest [...] the patient have Health Care Power of Mercury Purifier? No Care Teams Merchandising Manager Relationship Specialty Start Date End Date Georges Patterson DO [address] [place] [address] PCP - General Family Medicine 03/17/23 documented as of this encounter
--- OUTSIDE RECORDS SUMMARY | 2023-06-01 19:35 | External Medical Summary | Summary of Care ---
Author Name Unknown Organization [facility] Address [address] [place] [address] Phone [phone] Care Team Providers Care Boiler Room Helper Name Role Phone Kelly Lazo DO Primary Care Provider Encounter Details Date Type Department Care Team (Latest Contact Info) Description 09/27/2019 8:20 AM EDT - 09/27/2019 10:49 AM EDT Hospital Encounter Radiology Film File [address] [place] [address] Discharge Disposition: Home - Self [...] Additional Information Patient not taking.Reported on 05/19/2023 documented as of this encounter (statuses as [...] & above, IM , (FluLaval or Fluzone) 02/24/2019,02/02/2018,02/24/2017 Seasonal Influenza, Split, I IV3, With Preserve, [...] money to buy more. Never true 05/25/19 Within the past 12 months, t he [...] file Not on file Not on file COVID-19 Exposure Response Date Recorded In the last month, have you been in contact with someone who was confirmed or suspected to have Coronavirus / COVID-19? No / Unsure 01/17/2020 10:43 AM EDT documented as of this encounter Functional Status Functional Status Response Date of Assess ment Are you deaf or do you have serious difficulty h earing? No 06/30/2017 Are you blind or do you have serious difficulty seeing, even when wearing glasses? No 06/30/2017 Do you have serious difficul ty walking or climbing stairs? (5 years old or older) No 06/30/2017 Do you have difficulty dress ing or bathing? (5 years old or older) No 06/30/2017 Because of a physical, menta l, or emotional condition, do you have difficulty doing errands alone such as visiting a doctor s office or shopping? (15 years old or older) No 06/30/19 18 Cognitive Status Response Date of Assessm ent Because of a physical, menta l, or emotional condition, do you have serious difficulty concentrating, remembering, or making decisions? (5 years old or older) No 06/30/2017 documented as of this encounter Plan of Treatment Upcoming Encounters Date Type Department Care Team (Latest Contact Info) Description 06/02/2023 7:15 AM EST Imaging Radiology [address] [place] [address] 06/05/2023 9:40 AM EST Office Visit Pulmonary Medicine, [facility] 132 [facility] [place] [address] Ben Rao MD [address] [place] [address] 06/11/2023 9:30 AM EST Imaging Radiology [address] [place] [address] 07/02/2023 1:20 PM EST Telemedicine [facility] [address] [place] [address] Kelly Lazo, DO [address] [facility] [place] [address] 07/13/2023 8:30 AM EST Office Visit Cardiology, [facility] 132 [facility] [place] [address] Gómez Madison, DO 132 [facility] [place] [address] 09/15/2023 10:00 AM EDT Office Visit [facility] [address] [place] [address] Georges Patterson, DO [address] [facility] [place] [address] 11/06/2023 8:00 AM EDT Hospital Encounter ENDO [facility], Endoscopy Room [facility] [address] [place] [phone] Maximiliano Landaverde MD [address] [place] [address] 11/06/2023 8:00 AM EDT - 11/06/2023 8:30 AM EDT Surgery ENDO [facility], Endoscopy Room [facility] [address] [place] [phone] Maximiliano Landaverde MD [address] [place] [address] COLONOSCOPY FLEXIBLE PROXIMAL DIAGNOSTIC Scheduled Procedures Name [...] Risk 3-dose series) 2023 HbA1c 11/19/2023 05/21/2023, 0307/2020, 12/28/2019, Additional history exists Albumin/Creatinine Ratio 05/21/2024 [...] this encounter Medical Devices Implanted Type Area Hairspring Fabrication Supervisor Device Identifier Shelf Expiration Date Model / Serial / Lot Tiffany Aguilera Cervical Cage 13 X 16 X 10 Implanted:Qty: 1 on 01/11/2020 by Luciano Trivedi MD at OR [facility] N/A: Spine Cervical IZZY : SPINE [id number] / / documented as of this encounter Procedures Procedure Name Priority Date/Time Associated Diagnosis Comments RADIOLOGY EXAM - GENERAL RAD (IMAGES ONLY,NO REPORT) Routine 09/27/2019 8:20 AM EDT documented in this encounter Results * RADIOLOGY EXAM - GENERAL RAD (IMAGES ONLY,NO REPORT) (09/27/2019 8:20 AM EDT) 09/27/2019 8:18 AM EDT Narrative Scheduling, Silent - 05/28/2023 10:58 AM EST This is an imaging study not interpreted or resulted by a [employer] [facility] or [facility]ologist. Toshia GORDON [facility] (RAD G [...] patient have Health Care Power of Supervisor Hot Dip Plating? No Care Teams Boiler Room Helper Relationship Specialty Start Date End Date Kelly Lazo DO [address] [place] [address] PCP - General Family Medicine 07/06/18 12/26/19 documented as of this encounter
--- OUTSIDE RECORDS SUMMARY | 2023-06-01 19:35 | External Medical Summary | Summary of Care ---
Author Name Unknown Organization [facility] Address [address] [place] [address] Phone [phone] Care Team Providers Care Rate Manager Name Role Phone Kristy Fonseca DO Primary Care Provider [phone] Encounter Details Date Type Department Care Team (Latest Contact Info) Description 06/18/2017 2:30 PM EST - 06/18/2017 4:29 PM EST Hospital Encounter Radiology Film File [address] [place], [place] [phone] Discharge Disposition: Home - Self Care Allergies Active Allergy Reactions Criticality Noted Date Comments Morphine Nausea/vomiting Medium 01/04/2020 Naproxen Diarrhea 05/27/2019 Diarrhea documented as of this encounter (statuses as of 05/29/2023) Medications Medication Sig Dispensed Refills Start Date End Date Status acetaminophen (TYLENOL) 500 MG Tablet 2 tablets daily as needed 30 Tab 0 06/18/2017 Active documented as of this encounter (statuses [...] 05/29/2023) Immunizations Name Administration Dates Next Due Seasonal Influenza, PF, 6 M & above, IM , (FluLaval or Fluzone) 02/24/2017 Seasonal Influenza, Split, IIV3, With Preserve, Inj 04/11/2014 TDAP (age 10 and older)(Boostrix) 05/31/2014 documented as of this encounter Social History Tobacco Use Types Packs/Day Years Used Date Smoking Tobacco: Never Smokeless Tobacco: Never Alcohol Use Standard Drinks/Week Comments Yes 0 (1 standard drink = 0.6 oz pur [...] AM EDT documented as of this encounter Plan of Treatment Upcoming Encounters Date Type Department Care Team (Latest Contact Info) Description 06/02/2023 7:15 AM EST Imaging Radiology [address] 132 [facility] [place] [address] 06/05/2023 9:40 AM EST Office Visit Pulmonary Medicine, [facility] [place] [address] Ben Rao MD [address] [place] [address] 06/11/2023 9:30 AM EST Imaging Radiology [address] 132 [facility] [place] [address] 07/02/2023 1:20 PM EST Telemedicine [facility] [address] [place] [address] Kelly Lazo, DO 200 [facility] [place] [address] 07/13/2023 8:30 AM EST Office Visit Cardiology, [facility] 132 [facility] [place] [address] Gómez Madison, DO [address] [place] [address] 09/15/2023 10:00 AM EDT Office Visit [facility] [address] [place] [address] Georges Patterson, DO 200 [facility] [place] [address] 11/06/2023 8:00 AM EDT Hospital Encounter ENDO [facility], Endoscopy Room [facility] [address] [place] [phone] Maximiliano Landaverde MD [address] [place] [address] 11/06/2023 8:00 AM EDT - 11/06/2023 8:30 AM EDT Surgery ENDO [facility], Endoscopy Room [facility] [address] [place] [phone] Maximiliano Landaverde MD [address] [place] [address] COLONOSCOPY FLEXIBLE PROXIMAL DIAGNOSTIC Scheduled Procedures Name [...] Risk 3-dose series) 2023 HbA1c 11/19/2023 05/21/2023, 03/07/2020, 12/28/2019, Additional history exists Albumin/Creatinine Ratio 05/21/2024 05/21/2023 B-12 05/21/2024 05/21/2023, 04/1 10/2019, 07/30/2018 Depression Screening 05/25/2024 05/25/2023, 12/09/2016 (Discussed) [...] this encounter Medical Devices Implanted Type Area Take Away Worker Device Identifier Shelf Expiration Date Model / Serial / Lot Fallonutian C Cervical Cage 13 X 16 X 10 Implanted:Qty: 1 on 01/11/2020 by Luciano Trivedi MD at OR [facility] N/A: Spine Cervical IZZY : SPINE [id number] / / documented as of this encounter Procedures Procedure Name Priority Date/Time Associated Diagnosis Comments RADIOLOGY EXAM - GENERAL RAD (IMAGES ONLY,NO REPORT) Routine 06/18/2017 2:30 PM EST documented in this encounter Results * RADIOLOGY EXAM - GENERAL RAD (IMAGES ONLY,NO REPORT) (06/18/2017 2:30 PM EST) 06/18/2017 2:28 PM EST Narrative Scheduling, Silent - 05/28/2023 10:59 AM EST This is an imaging study not interpreted or resulted by a [employer] or [employer] contracted radiologist. Toshia G[facility] (RAD G [...] the patient have Health Care Power of Complaint Clerk? No Care Teams Rate Manager Relationship Specialty Start Date End Date Kristy Fonseca DO PCP - General Family Medicine 05/31/14 02/10/18 documented as of this encounter
--- OUTSIDE RECORDS SUMMARY | 2023-06-01 19:36 | External Medical Summary | Summary of Care ---
Author Name Unknown Organization [facility] Address [address] [place] [address] Phone [phone] Care Team Providers Care Air Traffic Supervisor Name Role Phone Kristy Fonseca DO Primary Care Provider Encounter Details Date Type Department Care Team (Latest Contact Info) Description 06/18/2017 4:30 PM EST - 06/18/2017 11:59 PM EST Hospital Encounter Radiology Film File [address] [place], [place] [phone] Discharge Disposition: Home - Self Care Allergies [...] Description 06/02/2023 7:15 AM EST Imaging Radiology [address] 132 [facility] [place] [address] 06/05/2023 9:40 AM EST Office Visit Pulmonary Medicine, [facility] [place] [address] Ben Rao MD [address] [place] [address] 06/11/2023 9:30 AM EST Imaging Radiology [address] 132 [facility] [place] [address] 07/02/2023 1:20 PM EST Telemedicine [facility] [address] [place] [address] Kelly Lazo, DO 200 [facility] [place] [address] 07/13/2023 8:30 AM EST Office Visit Cardiology, [facility] 132 [facility] [place] [address] Gómez Madison, DO [address] [place] [address] 09/15/2023 10:00 AM EDT Office Visit [facility] [address] [place] [address] Georges Patterson, DO 200 [facility] [place] [address] 11/06/2023 8:00 AM EDT Hospital Encounter ENDO [facility], Endoscopy Room [facility] [address] [place] [phone] Maximiliano Landaverde MD [address] [place] [address] 11/06/2023 8:00 AM EDT - 11/06/2023 8:30 AM EDT Surgery ENDO [facility], Endoscopy Room [facility] [address] [place] [phone] Maximiliano Landaverde MD [address] [place] [address] COLONOSCOPY FLEXIBLE PROXIMAL DIAGNOSTIC Scheduled Procedures Name [...] this encounter Medical Devices Implanted Type Area Speeder Operator Device Identifier Shelf Expiration Date Model / Serial / Lot Fallonutian C Cervical Cage 13 X 16 X 10 Implanted:Qty: 1 on 01/11/2020 by Luciano Trivedi MD at OR [facility] N/A: Spine Cervical IZZY : SPINE [id number] / / documented as of this encounter Procedures Procedure Name Priority Date/Time Associated Diagnosis Comments RADIOLOGY EXAM - CT (IMAGES ONLY, NO REPORT) Routine 06/18/2017 4:30 PM EST documented in this encounter Results * RADIOLOGY EXAM - CT (IMAGES ONLY, NO REPORT) (06/18/2017 4:30 PM EST) 06/18/2017 4:26 PM EST Narrative Scheduling, Silent - 05/28/2023 11:03 AM EST This is an imaging study not interpreted or resulted by a [employer] or [employer] contracted radiologist. Toshia Lucero BUSINESS RECORDS MANAGER RAD CT documented in this encounter Advance Directives Latest [...] the patient have Health Care Power of Utility Repairer? No Care Teams Air Traffic Supervisor Relationship Specialty Start Date End Date Kristy Fonseca DO PCP - General Family Medicine 05/31/14 02/10/18 documented as of this encounter
--- OUTSIDE RECORDS SUMMARY | 2023-06-01 19:36 | External Medical Summary | Summary of Care ---
Author Name Unknown Organization [facility] Address [address] [place] [address] Phone [phone] Care Team Providers Care Medical Records Technician Name Role Phone Kelly Lazo DO Primary Care Provider Encounter Details Date Type Department Care Team (Latest Contact Info) Description 09/27/2019 10:50 AM EDT - 09/27/2019 11:59 PM EDT Hospital Encounter Radiology Film File [address] [place] [address] Discharge Disposition: Home - Self [...] Description 06/02/2023 7:15 AM EST Imaging Radiology [address] [place] [address] 06/05/2023 9:40 AM EST Office Visit Pulmonary Medicine, [facility] 132 [facility] [place] [address] Ben Rao MD [address] [place] [address] 06/11/2023 9:30 AM EST Imaging Radiology [address] [place] [address] 07/02/2023 1:20 PM EST Telemedicine [facility] [address] [place] [address] Kelly Lazo, DO [address] [facility] [place] [address] 07/13/2023 8:30 AM EST Office Visit Cardiology, [facility] 132 [facility] [place] [address] Gómez Madison, DO 132 [facility] [place] [address] 09/15/2023 10:00 AM EDT Office Visit [facility] [address] [place] [address] Georges Patterson, DO [address] [facility] [place] [address] 11/06/2023 8:00 AM EDT Hospital Encounter ENDO [facility], Endoscopy Room [facility] [address] [place] [phone] Maximiliano Landaverde MD [address] [place] [address] 11/06/2023 8:00 AM EDT - 11/06/2023 8:30 AM EDT Surgery ENDO [facility], Endoscopy Room [facility] [address] [place] [phone] Maximiliano Landaverde MD [address] [place] [address] COLONOSCOPY FLEXIBLE PROXIMAL DIAGNOSTIC Scheduled Procedures Name [...] this encounter Medical Devices Implanted Type Area Machine Zipper Trimmer Device Identifier Shelf Expiration Date Model / Serial / Lot Tiffany Aguilera Cervical Cage 13 X 16 X 10 Implanted:Qty: 1 on 01/11/2020 by Luciano Trivedi MD at OR [facility] N/A: Spine Cervical IZZY : SPINE [id number] / / documented as of this encounter Procedures Procedure Name Priority Date/Time Associated Diagnosis Comments RADIOLOGY EXAM - CT (IMAGES ONLY, NO REPORT) Routine 09/27/2019 10:50 AM EDT documented in this encounter Results * RADIOLOGY EXAM - CT (IMAGES ONLY, NO REPORT) (09/27/2019 10:50 AM EDT) 09/27/2019 10:4 6 AM EDT Narrative Scheduling, Silent - 05/28/2023 11:00 AM EST This is an imaging study not interpreted or resulted by a [facility] or [facility] radiologist. Toshia GORDON RAD CT documented in this encounter Advance [...] the patient have Health Care Power of Strategy Director? No Care Teams Medical Records Technician Relationship Specialty Start Date End Date Kelly Lazo DO [address] [place] [address] PCP - General Family Medicine 07/06/18 12/26/19 documented as of this encounter
--- OUTSIDE RECORDS SUMMARY | 2023-06-01 19:36 | External Medical Summary | Summary of Care ---
Author Name Unknown Organization [facility] Address [address] [place] [address] Phone [phone] Care Team Providers Care Dolly Driver Name Role Phone LeonardoGeorges Primary Care Provider [phone] Encounter Details Date Type Department Care Team (Latest Contact Info) Description 05/21/2023 1:15 PM EST - 05/21/2023 11:59 PM EST Hospital Encounter Radiology Film File [address] [place] [address] Discharge Disposition: Home - Self [...] Description 06/02/2023 7:15 AM EST Imaging Radiology [facility] [address] [facility] [place] [address] 06/05/2023 9:40 AM EST Office Visit Pulmonary Medicine, [facility] [address] [facility] [place] [id number] Ben Rao MD [address] [facility] [place] [phone] 06/11/2023 9:30 AM EST Imaging Radiology [facility] 1st [facility] [address] [place] [address] 07/02/2023 1:20 PM EST Telemedicine [facility] [address] [place] [address] Kelly Lazo, DO [address] [place] [address] 07/13/2023 8:30 AM EST Office Visit Cardiology, [facility] [address] [place] [id number] Gómez Madison, DO [address] [place] [address] 09/15/2023 10:00 AM EDT Office Visit [facility] [address] [place] [address] Georges Patterson, DO [address] [place] [address] 11/06/2023 8:00 AM EDT Hospital Encounter ENDO OSS, Endoscopy Room [facility] [address] [place] [phone] Maximiliano Landaverde MD [address] [place] [address] 11/06/2023 8:00 AM EDT - 11/06/2023 8:30 AM EDT Surgery ENDO OSSC, Endoscopy Room [facility] [address] [place] [phone] Maximiliano Landaverde MD [address] [place] [address] COLONOSCOPY FLEXIBLE PROXIMAL DIAGNOSTIC Scheduled Procedures Name [...] this encounter Medical Devices Implanted Type Area Library Services Assistant Device Identifier Shelf Expiration Date Model / Serial / Lot [place] C Cervical Cage 13 X 16 X 10 Implanted:Qty: 1 on 01/11/2020 by Luciano Trivedi MD at OR [facility] N/A: Spine Cervical IZZY : SPINE [id number] / / documented as of this encounter Procedures Procedure Name Priority Date/Time Associated Diagnosis Comments RADIOLOGY EXAM - CT (IMAGES ONLY, NO REPORT) Routine 05/21/2023 1:15 PM EST documented in this encounter Results * RADIOLOGY EXAM - CT (IMAGES ONLY, NO REPORT) (05/21/2023 1:15 PM EST) 05/21/2023 1:12 PM EST Narrative Scheduling, Silent - 05/28/2023 11:02 AM EST This is an imaging study not interpreted or resulted by a [employer] or [employer] contracted radiologist. Toshia GORDON RAD CT documented [...] the patient have Health Care Power of Feather Curling Machine Operator? No Care Teams Dolly Driver Relationship Specialty Start Date End Date Georges Patterson DO [address] [place] [address] PCP - General Family Medicine 03/17/23 documented as of this encounter
[2023-06-01] MEDS: APIXABAN 5 MG TABLET PO SCH (20:27)
[2023-06-01] MEDS: METOPROLOL SUCC 25MG EXT REL TAB PO SCH (20:27)
[2023-06-01] MEDS: GABAPENTIN 300 MG CAP PO SCH (20:27)
[2023-06-01] MEDS: ACETAMINOPHEN 325 MG TAB PO PRN (20:58)
[2023-06-01] MEDS: INSULIN ASPART PER UNIT CHARGE SC SCH (21:48)
[2023-06-02] MEDS: ACETAMINOPHEN 325 MG TAB PO PRN (05:39)
[2023-06-02 06:22] LABS: Basophils # (auto) 0.05 K/uL (0.00-0.20); Eosinophils # (auto) 0.25 K/uL (0.00-0.50); Eosinophils % (auto) 4.8 %; Hematocrit (blood only) 40.4 % (42.0-52.0); Immature Granulocytes # (auto) 0.08 K/uL (0.01-0.20); Immature Granulocytes % (auto) 1.5 %; Lymphocytes # (auto) 1.89 K/uL (1.20-3.40); Mean Corpuscular Hemoglobin 30.8 pg (25.0-34.0); Mean Corpuscular Hgb Conc 34.7 g/dL (32.0-36.0); Mean Corpuscular Volume 88.8 fL (80.0-100.0); Mean Platelet Volume 10.5 fL (9.4-12.4); Monocytes # (auto) 0.57 K/uL (0.11-0.59); Monocytes % (auto) 10.9 %; Neutrophils # (auto) 2.41 K/uL (1.40-6.50); Neutrophils % (auto) 45.8 %; Platelet Count 197 K/uL (130-400); RDW Coefficient of Variation 11.7 % (11.5-14.5); RDW Standard Deviation 37.4 fL (36.4-46.3); Red Blood Count 4.55 M/uL (4.70-6.10); White Blood Count 5.25 K/ul (4.8-10.8)
[2023-06-02 06:41] LABS: BUN Creatinine Ratio 17.2 (10-20); Calcium 9.6 mg/dl (8.6-10.3); Creatinine Clr Calc Pharmacy 130.4 ml/min; Est GFR (African American) 108.7 ml/min; Est GFR (Non-African American) 93.8 ml/min; Potassium 4.2 mmol/L (3.5-5.1)
--- NOTE | 2023-06-02 07:55 | Cardiology Consultation ---
Date of Consultation June 02, 2023 Assessment & Plan (1) Labile hypertension: (2) Headache: (3) PAF (paroxysmal atrial fibrillation): (4) CAD (coronary artery disease): Plan IMPRESSION: 58-year-old male who presented to [facility] emergency department due to recurrent chest pain and constant headache. Noted labile blood pressures. On presentation patient was orthostatic and received 1 L of IV fluids. Given constant headache head CT was completed which was unremarkable. PLAN: Labile HTN: -BP well controlled over the last few weeks and during hospitalization with only Metoprolol succinate. Okay to continue to hold outpatient Losartan and HCTZ. Mild Nonobstructive CAD: -Stable, no angina-- continue ASA and statin as ordered PAF: No PAF noted on telemetry-- continue beta laura and Eliquis as ordered. Head ache: Acute pathology ruled out with head CT. Will defer to hospitalist service for ongoing workup. Consider outpatient vision check From a cardiology standpoint patient is okay for discharge. No further cardiac workup is warranted at this time. Please reach out with any other questions or concerns. I spent a total of 40 minutes on the date of service in preparation, delivery, and documentation of the care provided to the patient excluding any time spent in the performance of separately billed services. EVAN Tariq Department of Cardiology, [facility] This chart was completed in part utilizing Speech Voice Recognition Software. Grammatical errors, random word insertions, pronoun errors, and incomplete sentences are an occasional consequence of this system due to software limitations, ambient noise, and hardware issues. Any formal questions or concerns about the content, text, or information contained within the body of this dictation should be directly addressed to the provider for clarification. Supervising Physician Co-Signing Physician Notes Supervising Physician Attestation: I have personally performed a history and physical examination on the patient. I agree with the physician assistant front end manager's findings and plan as documented with the following additions. Subjective: Patient with ongoing easy fatigability and dizziness. CT brain, CT angiogram head and neck vessels within normal limits. Telemetry reveals sinus rhythm in the 60s. Exam: Cardiovascular: Regular rhythm, no murmurs, no edema Data: EKG performed 06/01/2023 12:17 PM revealed normal sinus rhythm at 60 bpm, first- degree AV block. Assessment and Plan: -As noted above -Continue plan for outpatient MRI for further assessment of left ventricular hypertrophy as already scheduled for next week. -No additional cardiac testing felt to be indicated at this time. Patient stable from a cardiac perspective for discharge. -Continue Eliquis 5 mg twice daily, aspirin 81 mg daily, metoprolol succinate 25 mg twice daily rosuvastatin 20 mg daily I spent a total of 20 minutes on the date of service in preparation, delivery, and documentation of the care provided to this patient, excluding any time spent in the performance of separately billed services. Cl Wade DO History of Present Illness Reason for Consultation: Orthostasis and headache Requesting Physician: Anup calixtoist Attending Physician: Jonh Hamilton MD History of Present Illness 58-year-old male who presented to [facility] emergency department due to recurrent chest pain and constant headache. Noted labile blood pressures. On presentation patient was orthostatic and received 1 L of IV fluids. Given constant headache head CT was completed which was unremarkable. Recently admitted at about 2 weeks ago for similar concerns. He had a cardiac catheterization revealing mild nonobstructive CAD. Echo revealed mild concentr ic LVH with preserved LV systolic function and grade 2 diastolic dysfunction. Patient was discharged home on aspirin, metoprolol succinate 25 mg daily(reduced dose from 50 mg daily due to dizziness), losartan 25 mg twice daily (reduced from 100 mg daily), and hydrochlorothiazide 12.[address] by Dr. Madison on 05/28-- at this appt he was not taking his HCTZ or Losartan. Given LVH, patient was ordered to have a cardiac MRI completed- scheduled 06/11/2023. Blood work also done at this time including a serum immunofixation and serum protein electrophoresis-- pending. Zio dated 05/19/2023 without evidence of PAF Upon entrance into the room patient resting in bed. Continues to have a head ache. No chest pain, shortness of breath, palptiations, or lightheadedness. No orthopnea or PND. No lower extremity edema. Has not slept well. Has not had his vision checked for many years. Eager for discharge Tele: SR 1st degree AVB 60s BP controlled. Primary outpatient junior software developer: Dr. Madison Past medical history: CAD-- mild nonobstructive CAD per cardiac cath 05/22/2023 Paroxysmal atrial fibrillation in the postop setting maintained on metoprolol and aspirin. Anticoagulation deferred in the past Recurrent PAF but again declined anticoagulation Hypertension with history of hypertensive emergency 09/2019 Secondary workup for hypertension unremarkable, no evidence of renal artery stenosis at that time History of chest pain in the setting of hypertensive emergency Outpatient exercise stress echo negative for inducible ischemia at high workload, 10/2019 Dyslipidemia Obstructive sleep apnea, on CPAP Ascending aortic enlargement GERD Type 2 diabetes Former alcohol abuse, 6-7 beers per day with hard liquor beverages, stopped completely 02/28/2023 Allergies Allergy/AdvReac Type Severity Reaction Status Date / Time morphine AdvReac Nausea Verified 06/01/23 14:47 naproxen AdvReac Diarrhea Verified 06/01/23 14:47 Home Medications Medication Instructions Recorded Confirmed Type Juice Plus Vitamins 3 tab PO DAILY 05/21/23 06/01/23 History acetaminophen 500 mg tablet 500 mg PO Q6H PRN Pain 05/21/23 06/01/23 History (Tylenol Extra Strength) aspirin 81 mg chewable tablet 81 mg PO DAILY 05/21/23 06/01/23 History cetirizine 10 mg tablet 10 mg PO QAM 05/21/23 06/01/23 History fluoxetine 10 mg capsule 10 mg PO QAM 05/21/23 06/01/23 History gabapentin 300 mg capsule 300 mg PO BID 05/21/23 06/01/23 History metformin 500 mg tablet,extended 500 mg PO BID 05/21/23 06/01/23 History release 24 hr omeprazole 20 mg capsule,delayed 20 mg PO QAM 05/21/23 06/01/23 History release ondansetron HCl 4 mg tablet 4 mg PO Q8 PRN Nausea 05/21/23 06/01/23 History vitamin B complex 1 tab PO DAILY 05/21/23 06/01/23 History apixaban 5 mg tablet (Eliquis) 5 mg PO BID 05/29/23 06/01/23 History metoprolol succinate 25 mg 25 mg PO BID 06/01/23 06/01/23 History tablet,extended release 24 hr rosuvastatin 20 mg tablet 20 mg PO DAILY 06/01/23 06/01/23 History semaglutide 0.25 mg or 0.5 mg (2 0.25 mg subcut .WEEK 06/01/23 06/01/23 History mg/3 mL) subcutaneous pen injector ([email or web address]) Patient History Medical History (Updated 06/02/23 @ 09:55 by EAVN Mcdermott) Alcoholism Lung nodule Hepatic steatosis PAF (paroxysmal atrial fibrillation) Gout KARISHMA on CPAP GERD (gastroesophageal reflux disease) Diabetes mellitus, type 2 niddm Basal cell carcinoma Hypertension Hyperlipidemia Surgical History (Updated 06/01/23 @ 16:45 by Yanni Driver PA-C) History of arthroscopy of left shoulder Status post subacromial decompression S/P arthroscopy of right shoulder History of discectomy with fusion cervical area (unsure of levels) Full ROM History of laminectomy lumbar x3 History of appendectomy History of colonoscopy History of Mohs micrographic surgery for skin cancer History of cardiac cath ~20 years ago. no stents, most recent in May 2023 Family History Uncle Family hx of colon cancer Aunt Family hx of colon cancer Father FHx: prostate cancer Grandfather (Paternal) Myocardial infarction, Onset Age: 41 Social History Smoking Status: Never smoker Second Hand Exposure: No; Do You Dip or Chew Tobacco: No; Hx Alcohol Use: Yes Alcohol type: beer Alcohol Intake Frequency Comment: 2-3 drinks daily; last drink 2 days ago Hx Substance Use: No Preferred Language: Albanian Communication Ability: Effective Picture Copyist Required: No Beliefs That Will Affect Care: None Current Living Situation: Spouse Feels Safe at Home: Yes Assistive Devices: CPAP and Glasses Review of Systems Review of Systems: All systems reviewed & are unremarkable except as noted in HPI & below Physical Exam Constitutional: WD/WN, vitals as above Eyes: PERRL, conjunctivae normal, anicteric sclerae Neck: normal visual inspection and trachea midline Respiratory: normal respiratory effort, lungs clear to auscultation Cardiovascular: RRR, no murmur, no edema Heart Sounds: normal S1 and normal S2; no murmur Extremities: no edema Gastrointestinal (Abdomen): normal bowel sounds, soft, nontender, no hepatosplenomegaly Psychiatric: A+Ox3, euthymic affect Results & Data Vital Signs (Past 12 Hours) Vital Signs Temp Pulse Pulse Resp BP BP Pulse Ox 06/02/23 03:48 36.5 C 65 17 111/75 94 06/01/23 23:30 36.6 C 64 18 152/85 H 95 06/01/23 23:15 65 06/01/23 22:10 70 18 94 06/01/23 22:06 68 06/01/23 22:00 68 13 117/73 94 06/01/23 22:00 117/73 06/01/23 21:40 65 15 126/93 95 06/01/23 20:50 59 L 13 96 06/01/23 20:00 58 L 16 118/68 93 O2 Del Method 06/02/23 03:48 Room Air 06/01/23 23:30 Room Air 06/01/23 23:15 06/01/23 22:10 06/01/23 22:06 06/01/23 22:00 Room Air 06/01/23 22:00 06/01/23 21:40 Room Air 06/01/23 20:50 Room Air 06/01/23 20:00 Room Air Laboratory Results Cardiac Enzymes 06/01/23 Range/Units 12:18 AST 28 (13-39) U/L Troponin I High Sens 15.1 (0-20) pg/ml Coagulation 06/01/23 Range/Units 12:18 PT 11.2 (9.0-12.0) Seconds APTT 30 (21-31) Seconds CBC 06/01/23 06/02/23 Range/Units 12:18 05:49 WBC 5.79 5.25 (4.8-10.8) K/ul RBC 4.77 4.55 L (4.70-6.10) M/uL Hgb 14.8 14.0 (14.0-18.0) g/dl Hct 42.0 40.4 L (42.0-52.0) % Plt Count 236 197 (130-400) K/uL Neut # (Auto) 2.74 2.41 (1.40-6.50) K/uL Lymph # (Auto) 2.21 1.89 (1.20-3.40) K/uL [place] # (Auto) 0.52 0.57 (0.11-0.59) K/uL Eos # (Auto) 0.22 0.25 (0.00-0.50) K/uL Baso # (Auto) 0.04 0.05 (0.00-0.20) K/uL Comprehensive Metabolic Panel 06/01/23 06/02/23 Range/Units 12:18 05:49 Sodium 136 135 L (136-145) mmol/L Potassium 4.1 4.2 (3.5-5.1) mmol/L Chloride 102 99 (98-107) mmol/L Carbon Dioxide 24 28 (21-32) mmol/L BUN 16 15 (6-23) mg/dl Creatinine 0.81 0.87 (0.6-1.4) mg/dl Glucose 118 H 147 H (70-99(Fasting)) mg/dl Calcium 10.0 9.6 (8.6-10.3) mg/dl AST 28 (13-39) U/L ALT 26 (7-52) U/L Alkaline Phosphatase 46 (34-104) U/L Total Protein 7.8 (6.0-8.3) gm/dl Albumin 5.0 (3.4-5.0) gm/dl Intake and Output 06/01/23 06/02/23 06/02/23 22:59 06:59 14:59 Intake Total 50.5 / 1050.5 1000 / 1050.5 Balance 50.5 / 1050.5 1000 / 1050.5 Intake: IV 50.5 / 1050.5 1000 / 1050.5 Promethazine 12.5 mg In 50.5 ml 50.5 / 50.5 @ 202 mls/hr IV NOW STA Rx#: [id number] Sodium Chloride 0.9% 1,000 ml @ 1000 / 1000 125 mls/hr IV .Q8H BUSTER Rx#: [id number] Other: # Unmeasured Voids 1 Weight 128.5 kg Weight Measurement Method Built in [facility] Diagnostic Findings Cardiac cath 05/22/2023 at [facility] with Dr. Russell Coronary Anatomy Dominant: Right Left Main (% Stenosis): Normal LAD (% Stenosis): Proximal (Mild) D1 (% Stenosis): Normal D2 (% Stenosis): Normal Circumflex (% Stenosis): Normal OM1 (% Stenosis): Normal L PL1 (% Stenosis): Normal RCA (% Stenosis): Proximal (Mild) and Mid (Mild) R PDA (% Stenosis): Normal R PL1 (% Stenosis): Normal Ramus (% Stenosis): Normal (2) Headache Headache type: other headache syndrome Qualified Code(s): G44.89 - Other headache syndrome
[2023-06-02] MEDS ORDERED: ROSUVASTATIN CALCIUM 20 MG TAB PO SCH (09:00)
[2023-06-02] MEDS ORDERED: FLUoxetine HCL 10 MG CAP PO SCH (09:00)
[2023-06-02] MEDS ORDERED: VITAMIN B COMPLEX TAB PO SCH (09:00)
[2023-06-02] MEDS ORDERED: PANTOprazole 40 MG TAB PO SCH (09:00)
[2023-06-02] MEDS ORDERED: CETIRIZINE HCL 10 MG TABLET PO SCH (09:00)
[2023-06-02] MEDS ORDERED: ASPIRIN 81 MG CHEW PO SCH (09:00)
[2023-06-02] MEDS: INSULIN ASPART PER UNIT CHARGE SC SCH ×2 (09:04→11:53)
[2023-06-02] MEDS: APIXABAN 5 MG TABLET PO SCH (09:04)
[2023-06-02] MEDS: METOPROLOL SUCC 25MG EXT REL TAB PO SCH (09:04)
[2023-06-02] MEDS: GABAPENTIN 300 MG CAP PO SCH (09:04)
--- NOTE | 2023-06-02 12:53 | Hospitalist Progress Note ---
Date of Service June 02, 2023 Assessment & Plan (1) Chest pain: Plan: This is a 58 y/o male with history of HTN, PAF, dyslipidemia, KARISHMA on CPAP, DM2, gout and prior EtOH use (quit in Feb 2023) who presents to the ED with ongoing episodes of chest pain, constant POON, and variable blood pressure. Extensive work-[facility] over the last month, [facility]. Recent addition of Eliquis with pt's history of PAF. Zio results pending due to history of PAF. - Observe on telemetry - Continue beta laura with holds - Consult cardiology for any additional recommendations - Orthostatic vitals - IVF x 1 liter then reassess -Appreciate cardiology input and recommendation -Medication has been adjusted and the patient does not require any further testing in the hospital (2) Acute intractable headache: Plan: Imaging negative in the ED - continue to monitor Headache has been going on for last 6 weeks or more No neurological symptoms Could be secondary to glaucoma and/or visual disturbances Strongly advised to get an outpatient neurology appointment for further evaluation and director government appointment as well (3) Diabetes mellitus, type 2: Plan: A1c on 05/21 was 7.5 Holding Metformin while admitted Insulin sliding scale Diabetic diet BSG ACHS (4) PAF (paroxysmal atrial fibrillation): Plan: See plan for #1 (5) KARISHMA on CPAP: Plan: Can use home CPAP while admitted Strongly advised to use the CPAP and/or BiPAP at home (6) Hypertension: Plan: Chronic - see #1 (7) Hyperlipidemia: Plan: Chronic, stable Continue statin Plan Continue other home medications as appropriate Pt seen and reviewed with collaborating physician, Dr. Matute. Plan of care discussed and as outlined above. Code status: Full code DVT Prophylaxis: on Eliquis He was discharged home Admission and Anticipated Discharge Date Admission Date: June 01, 2023 Subjective 06/02/2023 Patient was seen and examined in telemetry unit He was admitted with ongoing headache for the last 6 weeks to 2 months No associated symptoms except mild dizziness No neurological symptom Review of Systems Review of Systems: All systems reviewed and are unremarkable except as noted below Physical Exam Physical Exam: No apparent distress at Constitutional: well developed, well nourished and + obese; not ill appearing Eyes: PERRL, conjunctivae normal, anicteric sclerae ENMT: external ear and nose normal, oropharynx normal Neck: trachea midline, no thyromegaly Respiratory: no respiratory distress Auscultation: lungs clear to auscultation bilaterally Cardiovascular: Rate/Rhythm: regular rate and regular rhythm; not tachycardic Heart Sounds: normal S1 and normal S2; no murmur Extremities: no edema Gastrointestinal (Abdomen): Inspection/Auscultation: normal bowel sounds; abdomen not distended Percussion/Palpation: abdomen soft; abdomen nontender Musculoskeletal: No acute arthritis involving any joint Neurologic: normal touch/pain/proprioception and moves all extremities; no focal motor deficits Psychiatric: A+Ox3, euthymic affect Lymphatic: no cervical or axillary lymphadenopathy Results & Data Results & Data Vital Signs (Past 12 Hours) Vital Signs Temp Pulse Pulse Resp BP BP Pulse Ox 06/02/23 11:25 36.5 C 61 18 143/87 H 96 06/02/23 09:08 85 06/02/23 07:49 36.4 C L 55 L 16 112/64 97 06/02/23 03:48 36.5 C 65 17 111/75 94 O2 Del Method 06/02/23 11:25 Room Air 06/02/23 09:08 06/02/23 07:49 Room Air 06/02/23 03:48 Room Air Laboratory Results Short CBC 06/02/23 Range/Units 05:49 WBC 5.25 (4.8-10.8) K/ul Hgb 14.0 (14.0-18.0) g/dl Hct 40.4 L (42.0-52.0) % Plt Count 197 (130-400) K/uL BMP 06/02/23 05:49 Sodium 135 L Potassium 4.2 Chloride 99 Carbon Dioxide 28 BUN 15 Creatinine 0.87 Glucose 147 H Calcium 9.6 (1) Chest pain Chest pain type: unspecified Qualified Code(s): R07.9 - Chest pain, unspecified (2) Acute intractable headache Headache type: unspecified Qualified Code(s): R51.9 - Headache, unspecified (3) Diabetes mellitus, type 2 Diabetes mellitus complication status: without complication Diabetes mellitus residential insulin use: without technical publications manager use Qualified Code(s): E11.9 - Type 2 diabetes mellitus without complications (6) Hypertension Hypertension type: primary hypertension Qualified Code(s): I10 - Essential (primary) hypertension (7) Hyperlipidemia Hyperlipidemia type: unspecified Qualified Code(s): E78.5 - Hyperlipidemia, unspecified
== END 2023-06-02 15:00 | disposition home or self-care (01) ==
LOC: EDINP 12:08 → ED 12:08 → SUATTDRO 16:49 → 2S 19:25